=== PATIENT | male | born 1955 | race Caucasian/White ===

== ENCOUNTER → 2017-03-16 | Outpatient (CLI) | payer BC ==
[~2017-03-16] MED LIST: Gadobenate Dimeglumine 529 MG/ML 20 ML SDV IV ONE
--- NOTE | 2017-03-16 16:05 | MR ---
EXAMINATION: MRI lumbar spine HISTORY: Pain COMPARISON: None TECHNIQUE: Multiplanar and multisequence images obtained of the lumbar spine without contrast. FINDINGS: The lumbar spinal alignment appears normal. The vertebral body heights appear maintained. There is mildly heterogeneous bone marrow signal changes. No suspicious pulmonary L5. The distal spi nal cord appears normal and the conus terminates at L1-L2. The SI joints are symmetric. The visualiz ed retroperitoneal structures are normal. T12-L1: Unremarkable. L1-L2: Grossly unremarkable. L2-L3: Moderate diffuse disc bulge with facet and ligamentum flavum hypertrophy resulting in moderat e spinal canal stenosis. There is moderate severe bilateral neural foraminal stenosis. L3-L4: Small to moderate diffuse disc bulge with facet hypertrophy resulting in aipt-bm-[id number] spi nal canal stenosis. Moderate bilateral neural foraminal stenosis. L4-L5: Small to moderate diffuse disc bulge with facet hypertrophy resulting in dblw-[id number]-[id number] spi nal canal stenosis. Moderate to severe bilateral neural foraminal stenosis. L5-S1: Moderate diffuse disc bulge asymmetric to the right resulting in mild spinal canal stenosis. Severe bilateral neural foraminal stenosis. IMPRESSION: 1. Multilevel degenerative changes and disc disease noted within the lumbar spine with individual de tails above.
--- NOTE | 2017-03-17 08:49 | MR ---
EXAMINATION: MRI of the brain with and without contrast. TECHNIQUE: Multiplanar multisequence imaging of the brain without and following 28 cc of Multihance contrast. HISTORY: Cramping. FINDINGS: Cerebral hemispheres and the deep nuclei are without hemorrhage, mass, edema, enhancement or atroph y. Ccnm-xb-vgtdykvq periventricular and subcortical white matter hypodensities are noted. No extraa xial collections or hemorrhage. No abnormal diffusion restriction. Possible tiny lacunar infarct wit hin the right periventricular region extending towards the right frontal cortex. Ventricular system is of normal size and configuration without hydrocephalus. No evidence for globe flattening, small ventricles or partially empty sella to suggest pseudotumor cerebri. Minimal FLAIR signal noted within the goldie. Otherwise the Brainstem and cerebellum are without hemor rhage, mass, edema, gliosis, enhancement or atrophy. Carotid basilar artery flow voids are intact. There is mild fluid within the right mastoid air cells. No internal auditory canal or cerebelloponti ne angle masses or enhancement. Mild mucosal thickening noted within the ethmoid air cells and maxil edmond sinuses. The globes, optic nerves, orbital apices, optic chiasm, optic tracts, and visual corti charlene are unremarkable. Pituitary and sella turcica are unremarkable. No meningeal enhancement. The craniocervical junc tion is unremarkable. No siderosis or evidence of vascular malformation. The calvarium is intact. IMPRESSION: 1. Nonspecific periventricular and subcortical white matter FLAIR intensities. Possibly early small vessel ischemic changes. Additional etiologies not excluded. 2. Mild fluid within the right mastoid air cells, likely an effusion. 3. No acute intracranial finding identified.
--- NOTE | 2017-03-18 09:23 | MR ---
EXAMINATION: MRI of the thoracic spine with and without contrast HISTORY: Cramping COMPARISON: None TECHNIQUE: Multiplanar and multisequence images obtained through the thoracic spine before and follo wing the administration of 28 mL of MultiHance. FINDINGS: Thoracic spinal alignment appears grossly normal. The vertebral body heights appear mainta ined. No suspicious bone marrow signal changes identified. There is increased T2 signal and enhancem ent within the spinal cord at the at the T10-T11 disc space. Otherwise the spinal cord signal appear s normal. The paravertebral soft tissues otherwise appear normal. T1-T2: Small diffuse disc bulge without significant spinal canal stenosis. Minimal bilateral neural foraminal stenosis. T2-T3: Small diffuse disc bulge without significant spinal canal stenosis. Mild left and minimal rig ht neural foraminal stenosis. T3-T4: Moderate right paracentral disc protrusion without significant spinal canal stenosis. Minimal right neural foraminal stenosis. T4-T5: Mild to moderate right paracentral disc protrusion with minimal spinal canal stenosis. Modera te right neural foraminal stenosis. T5-T6: Small midline disc protrusion abutting the spinoglenoid with minimal spinal canal stenosis. N o significant bilateral neural foraminal stenosis. T6-T7: Unremarkable. T7-T8: Small to moderate right paracentral disc protrusion with mild spinal canal stenosis. Mild rig ht neural foraminal stenosis. T8-T9: Small left paracentral disc protrusion without significant spinal canal stenosis. T9-T10: Large right paracentral disc protrusion abutting the spinal cord resulting in slfb-uz-btjtzl te spinal canal stenosis. No significant neural foraminal stenosis. T10-T11: Moderate diffuse disc bulge with facet and ligamentum flavum hypertrophy resulting in sever e spinal canal stenosis. Moderate bilateral neural foraminal stenosis. T11-T12: Mild facet hypertrophy without significant disc bulge. No significant spinal canal or neura l foraminal stenosis. No IMPRESSION: 1. Moderate multilevel degenerative disc disease throughout the thoracic spine most prominent at T9- T10 and T10-T11. 2. There is edema and enhancement within the spinal cord at T10-T11 most likely secondary to lucinda sive myelopathy.
== END ==
LOC: MW.MRI 09:14
PROVIDERS: ATTEND Psychiatry & Neurology Neuromuscular Medicine
DX: R25.2 Cramp and spasm (principal); R29.2 Abnormal reflex; M54.9 Dorsalgia, unspecified; M51.34 Other intervertebral disc degeneration, thoracic region; R60.9 Edema, unspecified; M51.36 Other intervertebral disc degeneration, lumbar region
CPT/HCPCS: 70553; 72148; 72157; A9577

== ENCOUNTER 2018-01-01 08:26 | Emergency (ER) | payer BC ==
[2018-01-01 08:43] VITALS: BP 144/67
--- NOTE | 2018-01-01 08:53 | EDM.PDOC ---
ED HPI GENERAL MEDICAL PROBLEM - General Chief Complaint: Lower Extremity Injury/Pain Stated Complaint: HURT RIGHT KNEE Time Seen by Provider: 01/01/18 08:44 Source of Information: Reports: Patient History Limitations: Reports: No Limitations - History of Present Illness INITIAL COMMENTS - FREE TEXT/NARRATIVE: History of present illness: []Patient fell Wednesday at 6 PM stating he twisted his right knee complaining of pain on the medial part of his knee now. He has been ambulatory and denies any swelling. Patient states his knee has given out twice on him this morning but he did not fall but he caught himself. Review of systems: As per history of present illness and below otherwise all systems reviewed and negative. Past medical history: As per history of present illness and as reviewed below otherwise noncontributory. Surgical history: As per history of present illness and as reviewed below otherwise noncontributory. Social history: No reported history of drug or alcohol abuse. Family history: As per history of present illness and as reviewed below otherwise noncontributory. Physical exam: General: Well developed, well nourished in NAD HEENT: Atraumatic, normocephalic, pupils reactive, negative for conjunctival pallor or scleral icterus, mucous membranes moist, throat clear, neck supple, nontender, trachea midline. Lungs: Clear to auscultation, breath sounds equal bilaterally, chest nontender. Heart: S1S2, regular, negative for clicks, rubs, or JVD. Abdomen: Soft, nondistended, nontender. Negative for masses or hepatosplenomegaly. Negative for costovertebral tenderness. Pelvis: Stable nontender. Genitourinary: Deferred. Rectal: Deferred. Extremities: Right knee Atraumatic without obvious joint effusion. Tender to palpation on the medial joint line, negative for cords or calf pain. Neurovascular unremarkable. Neuro: Awake, alert, oriented. Cranial nerves II through XII unremarkable. Cerebellum unremarkable. Motor and sensory unremarkable throughout. Exam nonfocal. Diagnostics: []X-ray of knee negative Therapeutics: []Declined pain meds knee immobilizer placed Impression: []Internal derangement knee right Plan: []Ice, elevate, follow-up with Dr. Garza as directed Definitive disposition and diagnosis as appropriate pending reevaluation and review of above. right knee Pain Score (Numeric/FACES): 7 Past Medical History Cardiovascular History: Reports: Hypertension - Infectious Disease History Infectious Disease History: Reports: Chicken Pox - Past Surgical History Musculoskeletal Surgical History: Reports: Other (See Below) Other Musculoskeletal Surgeries/Procedures:: back surgery Social & Family History - Family History Family Medical History: Noncontributory - Tobacco Use Smoking Status *Q: Never Smoker - Alcohol Use Days Per Week of Alcohol Use: 7 Number of Drinks Per Day: 3 Total Drinks Per Week: 21 - Recreational Drug Use Recreational Drug Use: No Review of Systems - Review of Systems Review Of Systems: See Below (See history of present illness) ED EXAM, GENERAL - Physical Exam Exam: See Below (See history of present illness) Course - Vital Signs Last Recorded V/S: Last Vital Signs Temp 98.2 F 01/01/18 08:42 Pulse 77 01/01/18 08:42 Resp 18 01/01/18 08:42 BP 144/67 H 01/01/18 08:42 Pulse Ox 93 L 01/01/18 08:42 - Orders/Labs/Meds Orders: Active Orders 24 hr Category Date Time Status Splinting [RC] ASDIRECTED Care 01/01/18 09:16 Active Knee 3V Rt [CR] Stat Exams 01/01/18 08:45 Taken Departure - Departure Time of Disposition: 09:17 Disposition: Home, Self-Care 01 Condition: Good Clinical Impression: Internal derangement of right knee - Discharge Information Referrals: PCP,None [Primary Care Provider] - Tianna Garza MD [Physician] - Forms: ED Department Discharge Additional Instructions: The following information is given to patients seen in the emergency department who are being discharged to home. This information is to outline your options for follow-up care. We provide all patients seen in our emergency department with a follow-up referral. The need for follow-up, as well as the timing and circumstances, are variable depending upon the specifics of your emergency department visit. If you don't have a primary care physician on staff, we will provide you with a referral. We always advise you to contact your personal physician following an emergency department visit to inform them of the circumstance of the visit and for follow-up with them and/or the need for any referrals to a consulting specialist. The emergency department will also refer you to a specialist when appropriate. This referral assures that you have the opportunity for follow-up care with a specialist. All of these measure are taken in an effort to provide you with optimal care, which includes your follow-up. Under all circumstances we always encourage you to contact your private physician who remains a resource for coordinating your care. When calling for follow-up care, please make the office aware that this follow-up is from your recent emergency room visit. If for any reason you are refused follow-up, please contact the [facility] Emergency Department at and asked to speak to the emergency department charge nurse. Raysa Royal for pain follow-up with orthopedics next available appointment as needed [facility] Special[facility] - Orthopedic Clinic Professional Building [address] [place] [address], [address] [place] [address] - My Orders Last 24 Hours: My Active Orders 01/01/18 08:45 Knee 3V Rt [CR] Stat 01/01/18 09:16 Splinting [RC] ASDIRECTED - Assessment/Plan Last 24 Hours: My Active Orders 01/01/18 08:45 Knee 3V Rt [CR] Stat 01/01/18 09:16 Splinting [RC] ASDIRECTED
--- NOTE | 2018-01-03 11:04 | CR ---
EXAM DATE: 01/01/18 PATIENT'S AGE: 62 Patient: AROLDO CASANOVA Facility: [place], [place] Site . Site : [id number] Study: XRay Knee Right [id number]/10/2018 9:07:11 AM Ordering Physician: Bob Huynh Final Report: INDICATION: pain TECHNIQUE: Three views of the right knee are submitted. COMPARISON: None. FINDINGS: The medial and lateral joint spaces are preserved. No evidence for fracture, dislocation or knee effusion. Mild spurring in the patellofemoral joint. 1 cm osteochondral body along the posterior right knee joint. IMPRESSION: No acute bony abnormality. Dictated by Ba Pagan MD @ 01/01/2018 9:14:57 AM Dictated by: Ba Pagan MD @ 01/01/2018 09:15:04 (Electronic Signature) Report Signed by Proxy. FRANCIA
== END 2018-01-01 09:44 | disposition home or self-care (01) ==
LOC: MW.ED 08:26
DX: M23.91 Unspecified internal derangement of right knee (principal); I10 Essential (primary) hypertension; X50.1XXA Overexertion from prolonged static or awkward postures, initial encounter; Z86.19 Personal history of other infectious and parasitic diseases
CPT/HCPCS: 73562-26-RT; 73562-RT; 99283

== ENCOUNTER 2018-07-11 08:08 | Inpatient (IN) | payer BC ==
[~2018-07-11 08:08] MED LIST changes: +Acetaminophen 1,000 MG in Premix Bag 1 BAG IV ONE; +Bupivacaine Liposome 1.3% 20 ML SDV INFILT SCH; +Famotidine 20 MG/2 ML SDV IVPUSH ONE; -Gadobenate Dimeglumine 529 MG/ML 20 ML SDV IV ONE; +Ketorolac 30 MG/ML SDV IVPUSH ONE; +Ropivacaine 49.25 ML, Ketorolac 30 MG, EPINEPHrine 0.5 MG, cloNIDine 80 MCG in Sodium C... INJECT SCH; +Scopolamine 1.5 MG Transdermal Patch TRDERM PRN; +ceFAZolin 2 GM in Premix Bag 1 BAG IV ONE; +oxyCODONE ER 10 MG TAB.ER PO ONE
[2018-07-11] MEDS ORDERED: fentaNYL 100 MCG/2 ML SDV ONE ×2 (08:41→12:52)
[2018-07-11] MEDS ORDERED: Midazolam 1 MG/ML 2 ML SDV ONE (08:41)
[2018-07-11] MEDS ORDERED: Propofol 200 MG/20 ML SDV ONE (08:41)
[2018-07-11] MEDS ORDERED: Lidocaine 2% 5 ML SDV ONE (08:41)
[2018-07-11] MEDS ORDERED: ceFAZolin 1 GM Vial ONE (08:47)
[2018-07-11] MEDS ORDERED: Sodium Chloride 0.9% 20 ML ONE (08:47)
[2018-07-11] MEDS ORDERED: Famotidine 20 MG/2 ML SDV IVPUSH ONE (09:00)
[2018-07-11] MEDS ORDERED: oxyCODONE ER 10 MG TAB.ER PO ONE (09:00)
[2018-07-11] MEDS ORDERED: Ketorolac 30 MG/ML SDV IVPUSH ONE (09:00)
[2018-07-11] MEDS: Lactated Ringers 1,000 ML IV SCH ×2 (09:15→21:05)
--- NOTE | 2018-07-11 09:43 | PCM.PREANE ---
Preanesthetic Assessment - Anesthesia/Transfusion/Family Hx Anesthesia History: Prior Anesthesia Without Reaction Family History of Anesthesia Reaction: No Transfusion History: Prior Transfusion Without Reaction Intubation History: Unknown - Review of Systems General: No Symptoms Pulmonary: No Symptoms Cardiovascular: No Symptoms Gastrointestinal: No Symptoms Neurological: No Symptoms Other: Reports: None - Physical Assessment O2 Sat by Pulse Oximetry: 95 Respiratory Rate: 16 Vital Signs: Last Vital Signs Temp 37.0 C 07/11/18 09:39 Pulse 73 07/11/18 09:39 Resp 16 07/11/18 09:39 BP 124/58 L 07/11/18 09:39 Pulse Ox 95 07/11/18 09:39 Height: 1.78 m Weight: 151.5 kg ASA Class: 3 Mental Status: Alert & Oriented x3 Airway Class: Mallampati = 3 Dentition: Reports: Dentures (upper), Edentulous (lower) Thyro-Mental Finger Breadths: 3 Mouth Opening Finger Breadths: 2 ROM/Head Extension: Full Lungs: Clear to Auscultation, Normal Respiratory Effort Cardiovascular: Regular Rate, Regular Rhythm - Allergies Allergies/Adverse Reactions: Allergies Allergy/AdvReac Type Severity Reaction Status Date / Time No Known Allergies Allergy Verified 07/06/18 15:25 - Blood Blood Available: No - Anesthesia Plan Pre-Op Medication Ordered: None - Acknowledgements Anesthesia Type Planned: Spinal Pt an Appropriate Candidate for the Planned Anesthesia: Yes Alternatives and Risks of Anesthesia Discussed w Pt/Guardian: Yes Pt/Guardian Understands and Agrees with Anesthesia Plan: Yes PreAnesthesia Questionnaire HEENT History: Reports: Other (See Below) Other HEENT History: has upper dentures Cardiovascular History: Reports: Hypertension Musculoskeletal History: Reports: Back Pain, Chronic, Fracture Other Musculoskeletal History: hx of DAYANNA's for back pain, hx of fx ankle, constant twitching in his left leg (jerking) Endocrine/Metabolic History: Reports: Obesity/BMI 30+ Hematologic History: Reports: Blood Transfusion(s) - Infectious Disease History Infectious Disease History: Reports: Chicken Pox - Past Surgical History HEENT Surgical History: Reports: Tonsillectomy, Other (See Below) Other HEENT Surgeries/Procedures: removal of mass from forehead GI Surgical History: Reports: Appendectomy Neurological Surgical History: Reports: Other (See Below) Other Neurological Surgeries/Procedures: removal of bone spur from T10-T11 08/10 Musculoskeletal Surgical History: Reports: Other (See Below) Other Musculoskeletal Surgeries/Procedures:: removal of bone spur from T10-T11 - SUBSTANCE USE Days Per Week of Alcohol Use: 7 Number of Drinks Per Day: 2 Total Drinks Per Week: 14 Recreational Drug Use History: No - HOME MEDS Home Medications: Home Meds Aspirin [Adult Low Dose Aspirin EC] 81 mg PO DAILY 07/06/18 [History] Glucosam/Chond/Hyalu/Cf Borate [Move Free Joint Health Tablet] 1 tab PO DAILY [History] Losartan/Hydrochlorothiazide [Losartan-HCTZ 100-25 MG] 1 tab PO DAILY 07/06/18 [ History] [place]-3/DHA/Epa/Fish Oil [[place]-3 Fish Oil 1,200 MG Sfgl] 1,200 mg PO DAILY 10/11 [History] Acetaminophen [Tylenol] 1,000 mg PO DAILY 07/11/18 [History] - CURRENT (IN HOUSE) MEDS Current Meds: Current Medications Bupivacaine Liposome (Exparel) 20 ml INFILT ONETIME FAITH Lactated Ringer's (Ringers, Lactated) 1,000 mls @ 125 mls/hr IV ASDIRECTED FAITH Last Admin: 07/11/18 09:15 Dose: 125 mls/hr Ropivacaine 49.25 ml/Ketorolac Tromethamine 30 mg/Epinephrine HCl 0.5 mg/ Clonidine HCl 80 mcg/ Sodium Chloride 70 mls @ 50 mls/min INJECT ASDIRECTED FAITH Scopolamine (Transderm-Scop) 1.5 mg TRDERM Q72H PRN PRN Reason: Nausea Last Admin: 07/11/18 09:17 Dose: 1.5 mg Discontinued Medications Cefazolin Sodium (Ancef) Confirm Administered Dose 2 gm .ROUTE .STK-MED ONE Stop: 07/11/18 08:48 Famotidine (Pepcid) 40 mg IVPUSH ONETIME ONE Stop: 07/11/18 06:37 Famotidine (Pepcid) 40 mg IVPUSH ONETIME ONE Stop: 07/11/18 09:01 Last Admin: 07/11/18 09:16 Dose: 40 mg Fentanyl (Sublimaze) Confirm Administered Dose 100 mcg .ROUTE .STK-MED ONE Stop: 07/11/18 08:42 Cefazolin Sodium/Dextrose 2 gm (/ Premix) 50 mls @ 100 mls/hr IV ONETIME ONE Stop: 07/11/18 07:00 Acetaminophen 1,000 mg/ Premix 100 mls @ 400 mls/hr IV NOW ONE Stop: 07/11/18 06:49 Last Admin: 07/11/18 09:16 Dose: 400 mls/hr Sodium Chloride (Normal Saline) Confirm Administered Dose 20 mls @ as directed .ROUTE .STK-MED ONE Stop: 07/11/18 08:48 Ketorolac Tromethamine (Toradol) 30 mg IVPUSH ONETIME ONE Stop: 07/11/18 06:34 Last Admin: 07/11/18 09:15 Dose: 30 mg Ketorolac Tromethamine (Toradol) 30 mg IVPUSH ONETIME ONE Stop: 07/11/18 09:01 Lidocaine (Xylocaine-Mpf 2%) Confirm Administered Dose 5 ml .ROUTE .STK-MED ONE Stop: 07/11/18 08:42 Midazolam HCl (Versed 1 Mg/Ml) Confirm Administered Dose 2 mg .ROUTE .STK-MED ONE Stop: 07/11/18 08:42 Oxycodone HCl (Oxycontin) 10 mg PO ONETIME ONE Stop: 07/11/18 06:33 Oxycodone HCl (Oxycontin) 10 mg PO NOW ONE Stop: 07/11/18 09:01 Last Admin: 07/11/18 09:14 Dose: 10 mg Propofol (Diprivan 20 Ml) Confirm Administered Dose 400 mg .ROUTE .STK-MED ONE Stop: 07/11/18 08:42 Tranexamic Acid (Cyklokapron) Confirm Administered Dose 4,000 mg .ROUTE .STK- MED ONE Stop: 07/11/18 07:35
[2018-07-11] MEDS ORDERED: ceFAZolin/Dextrose,Iso-Osmotic 2 GM/50 ML Duplex Bag IV ONE (10:24)
[2018-07-11] MEDS ORDERED: Glycopyrrolate 0.2 MG/ML SDV ONE ×2 (11:45→11:51)
[2018-07-11] MEDS ORDERED: Ondansetron 4 MG/2 ML SDV ONE (11:50)
[2018-07-11] MEDS ORDERED: Phenylephrine/Normal Saline 100 MCG/ML 10 ML Syringe ONE (11:57)
[2018-07-11] MEDS ORDERED: Ondansetron 4 MG/2 ML SDV IV PRN (13:10)
[2018-07-11] MEDS ORDERED: diphenhydrAMINE 25 MG Cap PO PRN (13:10)
[2018-07-11] MEDS ORDERED: oxyCODONE 5 MG Tab PO PRN (13:11)
[2018-07-11] MEDS ORDERED: Bisacodyl 10 MG Supp RECTAL PRN (13:11)
[2018-07-11] MEDS ORDERED: Aluminum Hydroxide/Magnesium Hydroxide/Simethicone Susp 30 ML Cup PO PRN (13:11)
[2018-07-11] MEDS ORDERED: Morphine PF 30 MG/30 ML PCA Vial IV SCH (13:15)
[2018-07-11] MEDS ORDERED: Ketorolac 30 MG/ML SDV IVPUSH SCH (13:15)
--- NOTE | 2018-07-11 13:23 | PCM.OPNOTE ---
- General Post-Op/Procedure Note Date of Surgery/Procedure: 07/11/18 Operative Procedure(s): R TKA Post-Op Diagnosis: DJD R knee Anesthesia Technique: General LMA, Spinal Primary Surgeon: Tianna Garza Release Specialist: Dulce Chahal in mLs: 50 Condition: Good Free Text/Narrative:: tt=51 min #
--- NOTE | 2018-07-11 13:58 | PCM.POSTAN ---
POST ANESTHESIA ASSESSMENT - MENTAL STATUS Mental Status: Alert, Oriented - RESPIRATORY Respiratory Status: Respiratory Rate WNL, Airway Patent, O2 Saturation Stable - CARDIOVASCULAR CV Status: Pulse Rate WNL, Blood Pressure Stable - GASTROINTESTINAL GI Status: No Symptoms - PAIN Pain Score: 2 - POST OP HYDRATION Hydration Status: Adequate & Stable - OBSERVATIONS Free Text/Narrative:: no anesthesia problems
[2018-07-11] MEDS: Acetaminophen 1,000 MG in Premix Bag 1 BAG IV SCH ×2 (16:00→21:12)
[2018-07-11] MEDS: Ketorolac 30 MG/ML SDV IVPUSH SCH ×2 (16:07→21:07)
--- NOTE | 2018-07-11 16:28 | CR ---
EXAMINATION: Right knee HISTORY: TKA COMPARISON: 01/07/2018 TECHNIQUE: 2 views FINDINGS/IMPRESSION: Right total knee hardware is demonstrated in good position and alignment. Postop erative soft tissue changes are noted.
[2018-07-11] MEDS ORDERED: Nitroglycerin 2% Oint 1 GM UD Packet TOP PRN (18:26)
--- NOTE | 2018-07-11 18:34 | PCM.CONS ---
H&P History of Present Illness - General Date of Service: 07/11/18 Admit Problem/Dx: Admission Diagnosis/Problem Admission Diagnosis/Problem Replacement of total knee joint Source of Information: Patient, Family, Provider, RN - History of Present Illness Initial Comments - Free Text/Narative: I was asked to consult on this pleasant gentleman who underwent a right total knee replacement earlier today. Nursing staff has noted that he has a drop in his oxygen saturation with sleeping. He also has a history of HTN. He has not taken his po losartan/ HCTZ today. Right Knee Pain Score (Numeric/FACES): 2 - Related Data Allergies/Adverse Reactions: Allergies Allergy/AdvReac Type Severity Reaction Status Date / Time No Known Allergies Allergy Verified 07/06/18 15:25 Home Medications: Home Meds Aspirin [Adult Low Dose Aspirin EC] 81 mg PO DAILY 07/06/18 [History] Glucosam/Chond/Hyalu/Cf Borate [Move Free Joint Health Tablet] 1 tab PO DAILY [History] Losartan/Hydrochlorothiazide [Losartan-HCTZ 100-25 MG] 1 tab PO DAILY 07/06/18 [ History] [place]-3/DHA/Epa/Fish Oil [[place]-3 Fish Oil 1,200 MG Sfgl] 1,200 mg PO DAILY 10/11 [History] Acetaminophen [Tylenol] 1,000 mg PO DAILY 07/11/18 [History] Past Medical History HEENT History: Reports: Other (See Below) Other HEENT History: has upper dentures Cardiovascular History: Reports: Hypertension Respiratory History: Denies: COPD Gastrointestinal History: Denies: Inflammatory Bowel Disease Genitourinary History: Denies: Chronic Renal Insuffiency Musculoskeletal History: Reports: Back Pain, Chronic, Fracture Other Musculoskeletal History: hx of DAYANNA's for back pain, hx of fx ankle, constant twitching in his left leg (jerking) Endocrine/Metabolic History: Reports: Obesity/BMI 30+. Denies: Diabetes, Type II Hematologic History: Reports: Blood Transfusion(s). Denies: Anticoagulation Therapy Immunologic History: Denies: AIDS, HIV - Infectious Disease History Infectious Disease History: Reports: Chicken Pox - Past Surgical History HEENT Surgical History: Reports: Tonsillectomy, Other (See Below) Other HEENT Surgeries/Procedures: removal of mass from forehead GI Surgical History: Reports: Appendectomy Neurological Surgical History: Reports: Other (See Below) Other Neurological Surgeries/Procedures: removal of bone spur from T10-T11 08/10 Musculoskeletal Surgical History: Reports: Other (See Below) Other Musculoskeletal Surgeries/Procedures:: removal of bone spur from T10-T11 Social & Family History - Family History Family Medical History: Noncontributory - Tobacco Use Other Tobacco Use Within Last Twelve Months: He reports that he is a non smoker - Alcohol Use Days Per Week of Alcohol Use: 7 Number of Drinks Per Day: 2 Total Drinks Per Week: 14 - Recreational Drug Use Recreational Drug Use: No Drug Use in Last 12 Months: No H&P Review of Systems - Review of Systems: Review Of Systems: See Below General: Denies: Fever, Chills Pulmonary: Denies: Shortness of Breath, Wheezing, Cough, Sputum, Hemoptysis Cardiovascular: Denies: Chest Pain, Palpitations Gastrointestinal: Denies: Abdominal Pain, Difficulty Swallowing, Hematemesis Genitourinary: Reports: Other (kearney in place post operatively). Denies: Hematuria Skin: Denies: Cyanosis Psychiatric: Denies: Confusion Neurological: Denies: Seizure Review of Systems Comment:: no nausea he has eaten without problems post operatively he reports acceptable pain control. Exam - Exam Exam: See Below - Vital Signs Vital Signs: Last Vital Signs Temp 96.6 F 07/11/18 16:50 Pulse 92 07/11/18 16:50 Resp 18 07/11/18 16:50 BP 144/87 H 07/11/18 16:50 Pulse Ox 96 07/11/18 16:50 Weight: 151.5 kg - Exam Quality Assessment: Supplemental Oxygen General: Alert, Oriented HEENT: Conjunctiva Clear, Mucosa Moist & [place] Neck: Supple, Trachea Midline Lungs: Clear to Auscultation, Normal Respiratory Effort Cardiovascular: Regular Rate, Regular Rhythm GI/Abdominal Exam: Soft. No: Non-Tender (Male) Exam: Deferred Rectal (Males) Exam: Deferred Skin: Warm, Dry Neurological: Cranial Nerves Intact, Normal Speech Neuro Extensive - Mental Status: Alert, Oriented x3, Normal Mood/Affect Psychiatric: No: Agitated, Hallucinations - Patient Data Lab Results Last 24 hrs: Laboratory Results - last 24 hr 07/11/18 Range/Units 09:25 Blood Type O POSITIVE Antibody Screen NEGATIVE Consult PN Assessment/Plan Procedures: Procedures EMERGENCY DEPT VISIT (01/01/18) GLYCOSYLATED HEMOGLOBIN TEST (01/28/17) HOT OR COLD PACKS THERAPY (06/10/18) MRI BRAIN STEM W/O & W/DYE (03/16/17) MRI CHEST SPINE W/O & W/DYE (03/16/17) MRI JNT OF LWR EXTRE W/O DYE (04/21/18) MRI LUMBAR SPINE W/O DYE (03/16/17) MRI NECK SPINE W/O & W/DYE (01/28/17) ORGANIC ACID SINGLE QUANT (01/28/17) PROTEIN E-PHORESIS SERUM (01/28/17) PT EVAL LOW COMPLEX 20 MIN (05/20/18) THERAPEUTIC EXERCISES (06/10/18) VITAMIN B-12 (01/28/17) X-RAY BEND ONLY L-S SPINE (04/02/17) X-RAY EXAM KNEE 4 OR MORE (11/24/16) X-RAY EXAM OF KNEE 1 OR 2 (01/07/18) X-RAY EXAM OF KNEE 3 (01/01/18) (1) Status post total knee replacement SNOMED Code(s): 6306287875383, 560453873, 0683429655182 Code(s): Z96.659 - PRESENCE OF UNSPECIFIED ARTIFICIAL KNEE JOINT Current Visit: Yes (2) Hypertension SNOMED Code(s): 43217524 Code(s): I10 - ESSENTIAL (PRIMARY) HYPERTENSION Current Visit: Yes (3) Internal derangement of right knee SNOMED Code(s): 85870813108931648 Code(s): M23.91 - UNSPECIFIED INTERNAL DERANGEMENT OF RIGHT KNEE Current Visit: No Problem List Initiated/Reviewed/Updated: Yes My Orders Last 24 Hours: My Active Orders 07/11/18 18:25 CBC WITH AUTO DIFF [HEME] Stat COMPREHENSIVE METABOLIC PN,CMP [CHEM] Stat 07/11/18 18:26 Nitroglycerin [Nitro-Bid 2%] 1 gm TOP Q6H PRN 07/11/18 18:27 Communication Order [RC] STAT 07/11/18 18:30 Hydrochlorothiazide/Losartan [Hyzaar 50-12.5 MG] 1 tab PO BID Plan: 07/11/2018: I ordered baseline laboratory restart his losartan/HCTZ with bid dosing cover with nitroglycerin topical for now. monitor continuous oxygen saturation with oxygen support as needed it is possible that he might need follow up outpatient testing sleep lab as staff have expressed concern regarding obstructive sleep apnea. His body habitus would make him predisposed for this condition but will evaluate further with oxygen monitoring whilst in the hospital. DVT prophylaxis as per Dr Mary Garza's recommendations. Liam Peters MD
[2018-07-11] MEDS: Hydrochlorothiazide/Losartan 12.5-50 mg Tab PO SCH (18:42)
[2018-07-11] MEDS: ceFAZolin 2 GM in Premix Bag 1 BAG IV SCH (18:42)
[2018-07-11 19:04] LABS: CHLORIDE,CL 103 mmol/L (98-107); SODIUM,NA 138 mmol/L (136-148)
[2018-07-11] MEDS: Docusate Sodium 100 MG Cap PO SCH (21:15)
[2018-07-11] MEDS: oxyCODONE ER 10 MG TAB.ER PO SCH (21:15)
--- NOTE | 2018-07-11 21:37 | PCM48HPAN ---
Post Anesthesia Note - EVALUATION WITHIN 48HRS OF ANESTHETIC Vital Signs in Normal Range: Yes Patient Participated in Evaluation: Yes Respiratory Function Stable: Yes Airway Patent: Yes Cardiovascular Function Stable: Yes Hydration Status Stable: Yes Pain Control Satisfactory: Yes Nausea and Vomiting Control Satisfactory: Yes Mental Status Recovered: Yes Resp Rate: 20 - COMMENTS/OBSERVATIONS Free Text/Narrative:: Intra-Op signs of JOAQUIN were noted and hence the conversion from MAC to GA with LMA to maintain patent airway. The patient has had a couple of witnessed desaturations while on the floor and continuous SpO2 monitoring was ordered by Dr Peters. Otherwise VSS, patient is doing well.
[2018-07-12] MEDS: Acetaminophen 1,000 MG in Premix Bag 1 BAG IV SCH (02:32)
[2018-07-12] MEDS: Ketorolac 30 MG/ML SDV IVPUSH SCH (02:35)
[2018-07-12] MEDS: ceFAZolin 2 GM in Premix Bag 1 BAG IV SCH (02:54)
[2018-07-12] MEDS: Lactated Ringers 1,000 ML IV SCH (06:02)
--- NOTE | 2018-07-12 08:07 | OR ---
SURGEON: Tianna Garza MD DATE OF PROCEDURE: 07/11/2018 PREOPERATIVE DIAGNOSIS: Degenerative joint disease, right knee, tricompartmental. POSTOPERATIVE DIAGNOSIS: Degenerative joint disease, right knee, tricompartmental. PROCEDURE PERFORMED: Right total knee arthroplasty using patient specific instrumentation. FITTER HAND: Dulce Chahal PA-C ANESTHESIA: Spinal and general. ESTIMATED BLOOD LOSS: 50 mL. TOURNIQUET TIME: 51 minutes. COMPLICATIONS: None. DVT PROPHYLAXIS: PAS boot and ARBEN hose to the nonoperative leg. IMPLANTS USED: Anya Persona femoral component size 12 (LPS), tibial component size H, 12 mm all-polyethylene articular surface, and 38 mm all-polyethylene patella. INTRAOPERATIVE FINDINGS: Showed tricompartmental degenerative changes with osteophyte formation. No significant synovitis was noted. BRIEF HISTORY: Vadim is a 62-year-old male who has had complaint of progressive bilateral knee pain, right greater than left. He had failed conservative treatment. Due to his lack of response to conservative treatment, I did recommend surgical intervention. The risks and goals of procedure were discussed with the patient and were documented preoperatively. He agreed to proceed. DESCRIPTION OF PROCEDURE: The patient was properly identified and brought to the operating room. The patient was then transferred from the operating room cart and placed on the operating table in a supine position. Anesthesia was administered by the anesthesia staff. After adequate anesthesia was obtained, a well-padded tourniquet was applied to the surgical lower extremity. Mckoy catheter was placed. The lower extremity was then prepped in standard fashion using ChloraPrep solution. It was then sterilely draped. A time-out was performed to ensure correct site and procedure. Preoperative antibiotics were given along with one gram of tranexamic acid IV. The surgical site had been marked preoperatively. An Esmarch was used to exsanguinate the right lower extremity and the tourniquet was inflated. An incision was made over the anterior aspect of the knee. The subcutaneous tissues were dissected down to the level of the fascia. A medial parapatellar approach to the knee was made. A portion of the infrapatellar fat pad was then excised. The distal femur was then exposed. The femoral patient-specific cutting guide was then placed. Pins were also placed. The distal femoral cutting block was placed and the distal femoral cut was made. Instrumentation was then removed. Both Whitesides' line and the epicondylar axis were then marked with electrocautery. The 4-in-1 cutting block was placed. This was placed in a slightly externally rotated position, which corresponded well with the previously drawn lines. The cutting guide was then pinned into position. An Kadeem wing guide was used to check the depth of resection of our anterior condylar cut and it was felt that no notching would occur. The anterior condylar cut was then made followed by the posterior condylar cut. Both the posterior chamfer and anterior chamfer cuts were then made. The cutting block was then removed along with the excess bony remnants. We then turned our attention to the tibia. The anterior cruciate ligament and posterior cruciate ligament were released and a posterior cruciate ligament retractor was placed to allow the tibia to be pulled anteriorly. The tibial patient-specific guide was then placed on the proximal tibia. This fit anatomically. The pins were then placed. The proximal tibia cutting guide was then placed and screwed into position. The proximal tibial resection was then made with care being taken to protect the patellar tendon. The bony resection was then removed. The remainder of the medial and lateral meniscus were then excised. Care was taken to protect the popliteus tendon. The tibia was then sized to the appropriate size. The distal femur was then elevated. The posterior capsule was stripped off the distal femur both medially and laterally. The posterior capsule along with the medial and lateral gutters were then injected with a standard mixture consisting of clonidine, epinephrine, Toradol, and Ropivacaine, unless any allergies were found preoperatively. The femoral component was then placed onto the distal femur in a slightly lateral position. This fit the femur well. A box cut was then made without difficulty. This was then removed. The tibial trial along with the polyethylene liner was then placed. The knee came easily into full extension and was stable to varus and valgus stressing both in full extension and flexion. Any additional releases were performed at this time. We then returned our attention to the patella. The patella was everted and towel clamps were used to hold the patella in position. It was resected to a 15 millimeter thickness. It was then sized to the appropriate size. It was prepared in the usual fashion after placing the predetermined size clamps. This was placed in a slightly superior and medial position. The clamp was then removed. The patellar trial button was placed. The knee was taken through a range of motion using the no-touch technique. The patella tracked centrally. A drop miroslava was then placed to check alignment. All instruments were then removed from the knee. The tibial sizer was then placed on the tibia. The tibia was prepared in the usual fashion using the reamer and broach. This was then removed. All bony surfaces were copiously irrigated with Pulsavac solution. They were then suctioned dry. Cement was prepared on the back table in the usual manner. Once it was prepared, the bone ends were again suctioned dry. The tibia was cemented into place first. This was malleted into position. Excess cement was then cleared. The femur was then placed in a similar manner. We placed the polyethylene trial into place and the knee was brought into full extension. An axial load was placed while keeping the knee in full extension. The patella button was also cemented into position and the clamp was used to hold this in place as the cement was allowed to cure. The wound was again copiously irrigated with saline solution using a Pulsavac leather cleaner. Following this 1 g of tranexamic acid was applied to the wound topically. After we had adequate curing of the cement, the knee was again taken through a range of motion. The size of the polyethylene was then determined. The polyethylene trial was then removed. The tibial tray was suctioned to make sure there was no remaining soft tissue or cement. Excess cement was cleared from around the edges of the prosthesis as well. The tourniquet was then deflated. We were able to observe for any excess bleeding and none was noted. Electrocautery was used to maintain hemostasis. An additional gram of tranexamic acid was given IV. The retractors were again placed and the predetermined polyethylene was then placed. This was locked into position without difficulty. The knee was again taken through a range of motion with no change from the prior exam. The fascial layer was closed with Number One Vicryl. The subcutaneous tissues were closed with 2-0 Vicryl. The skin was closed with josh. Xeroform gauze was placed over the wound and a bulky dressing was applied. The patient was then awakened from anesthesia and transferred back to the operating room cart. They were brought to the recovery room in stable condition. All needle and sponge counts were correct. HILARY / VITA /[id number]
[2018-07-12] MEDS: oxyCODONE ER 10 MG TAB.ER PO SCH ×2 (08:37→20:38)
[2018-07-12] MEDS: Aspirin 325 MG Tab PO SCH ×2 (08:37→20:37)
[2018-07-12] MEDS: Docusate Sodium 100 MG Cap PO SCH ×2 (08:37→20:37)
[2018-07-12] MEDS: Hydrochlorothiazide/Losartan 12.5-50 mg Tab PO SCH ×2 (08:37→20:37)
[2018-07-12] MEDS: Famotidine 20 MG Tab PO SCH (08:37)
[2018-07-12] MEDS: Celecoxib 100 MG Cap PO SCH ×2 (08:38→20:37)
--- NOTE | 2018-07-12 08:49 | PCM.SURGPN ---
<RomeroDulce seals R - Last Filed: 07/12/18 08:42> - General Info Date of Service: 07/12/18 Date of Surgery/Procedure: 07/11/18 POD#: 1 Functional Status: Reports: Pain Controlled, Tolerating Diet, Ambulating - Review of Systems General: Reports: No Symptoms. Denies: Fever Pulmonary: Reports: No Symptoms. Denies: Shortness of Breath Cardiovascular: Reports: No Symptoms. Denies: Chest Pain Gastrointestinal: Denies: Nausea, Vomiting Musculoskeletal: Reports: Leg Pain Systems Review Comment:: pt up to chair for breakfast tolerating PO intake well pain controlled through the night - last oxycodone dose ~1600 yesterday no specific concerns today - Patient Data Vitals - Most Recent: Last Vital Signs Temp 98.2 F 07/12/18 05:05 Pulse 77 07/12/18 05:05 Resp 20 07/12/18 05:05 BP 120/62 07/12/18 05:05 Pulse Ox 95 07/12/18 05:05 Weight - Most Recent: 151.5 kg I&O - Last 24 Hours: Intake & Output 07/11/18 07/12/18 07/12/18 22:59 06:59 14:59 Intake Total 250 3077 Output Total 0 850 Balance 250 2227 Lab Results Last 24 Hrs: Laboratory Results - last 24 hr 07/11/18 07/11/18 07/11/18 Range/Units 09:25 18:34 18:34 WBC 15.23 H (4.0-11.0) K/uL RBC 4.32 L (4.50-5.90) M/uL Hgb 13.1 (13.0-17.0) g/dL Hct 39.4 (38.0-50.0) % MCV 91.2 (80.0-98.0) fL MCH 30.3 (27.0-32.0) pg MCHC 33.2 (31.0-37.0) g/dL RDW Std Deviation 46.5 (28.0-62.0) fl RDW Coeff of Qasim 14 (11.0-15.0) % Plt Count 219 (150-400) K/uL MPV 9.80 (7.40-12.00) fL Neut % (Auto) 81.2 H (48.0-80.0) % Lymph % (Auto) 10.6 L (16.0-40.0) % Menard % (Auto) 7.2 (0.0-15.0) % Eos % (Auto) 0.7 (0.0-7.0) % Baso % (Auto) 0.3 (0.0-1.5) % Neut # (Auto) 12.4 H (1.4-5.7) K/uL Lymph # (Auto) 1.6 (0.6-2.4) K/uL Menard # (Auto) 1.1 H (0.0-0.8) K/uL Eos # (Auto) 0.1 (0.0-0.7) K/uL Baso # (Auto) 0.1 (0.0-0.1) K/uL Nucleated RBC % 0.0 /100WBC Nucleated RBCs # 0 K/uL Sodium 138 (136-148) mmol/L Potassium 4.5 (3.5-5.1) mmol/L Chloride 103 (98-107) mmol/L Carbon Dioxide 28.9 (21.0-32.0) mmol/L BUN 21 H (7.0-18.0) mg/dL Creatinine 1.2 (0.8-1.3) mg/dL Est Cr Clr Drug Dosing 67.59 mL/min Estimated GFR (MDRD) > 60.0 ml/min Glucose 121 H (74-106) mg/dL Calcium 8.4 L (8.5-10.1) mg/dL Total Bilirubin 0.4 (0.2-1.0) mg/dL AST 18 (15-37) IU/L ALT 44 (14-63) IU/L Alkaline Phosphatase 45 L (46-116) U/L Total Protein 6.2 L (6.4-8.2) g/dL Albumin 3.2 L (3.4-5.0) g/dL Globulin 3.0 (2.0-3.5) g/dL Albumin/Globulin Ratio 1.1 L (1.3-2.8) Blood Type O POSITIVE Antibody Screen NEGATIVE Med Orders - Current: Current Medications Al Hydroxide/Mg Hydroxide (Mag-Al Plus) 30 ml PO Q4H PRN PRN Reason: indigestion Aspirin (Aspirin) 325 mg PO BID [facility] Last Admin: 07/12/18 08:37 Dose: 325 mg Bisacodyl (Dulcolax) 10 mg RECTAL DAILY PRN PRN Reason: Constipation Celecoxib (Celebrex) 200 mg PO BID [facility] Last Admin: 07/12/18 08:38 Dose: 200 mg Diphenhydramine HCl (Benadryl) 25 - 50 mg PO Q6H PRN PRN Reason: Itching Docusate Sodium (Colace) 100 mg PO BID [facility] Last Admin: 07/12/18 08:37 Dose: 100 mg Famotidine (Pepcid) 40 mg PO DAILY [facility] Last Admin: 07/12/18 08:37 Dose: 40 mg HCTZ/Losartan Potassium (Hyzaar 50-12.5 Mg) 1 tab PO BID [facility] Last Admin: 07/12/18 08:37 Dose: 1 tab Lactated Ringer's (Ringers, Lactated) 1,000 mls @ 125 mls/hr IV ASDIRECTED [facility] Last Admin: 07/12/18 06:02 Dose: 125 mls/hr Morphine Sulfate (Morphine Sulfate) 1 - 3 mg IV Q3H PRN PRN Reason: Pain Nitroglycerin (Nitro-Bid 2%) 1 gm TOP Q6H PRN PRN Reason: Chest Pain Ondansetron HCl (Zofran) 4 mg IV Q6HR PRN PRN Reason: NAUSEA/VOMITING Oxycodone HCl (Oxycontin) 10 mg PO Q12HR [facility] Last Admin: 07/12/18 08:37 Dose: 10 mg Oxycodone/Acetaminophen (Percocet 325-5 Mg) 1 - 2 tab PO Q4H PRN PRN Reason: Pain Scopolamine (Transderm-Scop) 1.5 mg TRDERM Q72H PRN PRN Reason: Nausea Last Admin: 07/11/18 09:17 Dose: 1.5 mg Discontinued Medications Bupivacaine Liposome (Exparel) 20 ml INFILT ONETIME [facility] Cefazolin Sodium (Ancef) Confirm Administered Dose 2 gm .ROUTE .STK-MED ONE Stop: 07/11/18 08:48 Cefazolin Sodium/Dextrose (Ancef) Confirm Administered Dose 2 gm IV .STK-MED ONE Stop: 07/11/18 10:25 Famotidine (Pepcid) 40 mg IVPUSH ONETIME ONE Stop: 07/11/18 06:37 Last Admin: 07/11/18 14:33 Dose: Not Given Famotidine (Pepcid) 40 mg IVPUSH ONETIME ONE Stop: 07/11/18 09:01 Last Admin: 07/11/18 09:16 Dose: 40 mg Fentanyl (Sublimaze) Confirm Administered Dose 100 mcg .ROUTE .STK-MED ONE Stop: 07/11/18 08:42 Fentanyl (Sublimaze) Confirm Administered Dose 100 mcg .ROUTE .STK-MED ONE Stop: 07/11/18 12:53 Glycopyrrolate (Robinul) Confirm Administered Dose 0.2 mg .ROUTE .STK-MED ONE Stop: 07/11/18 11:46 Glycopyrrolate (Robinul) Confirm Administered Dose 0.2 mg .ROUTE .STK-MED ONE Stop: 07/11/18 11:52 HCTZ/Losartan Potassium (Hyzaar 50-12.5 Mg) 2 tab PO DAILY [facility] Cefazolin Sodium/Dextrose 2 gm (/ Premix) 50 mls @ 100 mls/hr IV ONETIME ONE Stop: 07/11/18 07:00 Last Admin: 07/11/18 14:32 Dose: Not Given Acetaminophen 1,000 mg/ Premix 100 mls @ 400 mls/hr IV NOW ONE Stop: 07/11/18 06:49 Last Admin: 07/11/18 09:16 Dose: 400 mls/hr Ropivacaine 49.25 ml/Ketorolac Tromethamine 30 mg/Epinephrine HCl 0.5 mg/ Clonidine HCl 80 mcg/ Sodium Chloride 70 mls @ 50 mls/min INJECT ASDIRECTED [facility] Sodium Chloride (Normal Saline) Confirm Administered Dose 20 mls @ as directed .ROUTE .STK-MED ONE Stop: 07/11/18 08:48 Acetaminophen 1,000 mg/ Premix 100 mls @ 400 mls/hr IV Q6H [facility] Stop: 07/12/18 03:14 Last Admin: 07/12/18 02:32 Dose: 400 mls/hr Cefazolin Sodium/Dextrose 2 gm (/ Premix) 50 mls @ 100 mls/hr IV Q8H [facility] Stop: 07/12/18 03:29 Last Admin: 07/12/18 02:54 Dose: 100 mls/hr Ketorolac Tromethamine (Toradol) 30 mg IVPUSH ONETIME ONE Stop: 07/11/18 06:34 Last Admin: 07/11/18 09:15 Dose: 30 mg Ketorolac Tromethamine (Toradol) 30 mg IVPUSH ONETIME ONE Stop: 07/11/18 09:01 Last Admin: 07/11/18 14:33 Dose: Not Given Ketorolac Tromethamine (Toradol) 30 mg IVPUSH Q6H [facility] Stop: 07/12/18 05:00 Last Admin: 07/11/18 15:23 Dose: Not Given Ketorolac Tromethamine (Toradol) 30 mg IVPUSH Q6H [facility] Stop: 07/12/18 03:31 Last Admin: 07/12/18 02:35 Dose: 30 mg Lidocaine (Xylocaine-Mpf 2%) Confirm Administered Dose 5 ml .ROUTE .STK-MED ONE Stop: 07/11/18 08:42 Midazolam HCl (Versed 1 Mg/Ml) Confirm Administered Dose 2 mg .ROUTE .STK-MED ONE Stop: 07/11/18 08:42 Morphine Sulfate (Morphine Salesperson Terrazzo Tiles 30 Mg In 30 Ml) 30 mg IV ASDIRECTED [facility]; Protocol Stop: 07/12/18 08:00 Last Admin: 07/11/18 13:45 Dose: 30 mg Ondansetron HCl (Zofran) Confirm Administered Dose 4 mg .ROUTE .STK-MED ONE Stop: 07/11/18 11:51 Oxycodone HCl (Oxycontin) 10 mg PO ONETIME ONE Stop: 07/11/18 06:33 Last Admin: 07/11/18 14:33 Dose: Not Given Oxycodone HCl (Oxycontin) 10 mg PO NOW ONE Stop: 07/11/18 09:01 Last Admin: 07/11/18 09:14 Dose: 10 mg Oxycodone HCl (Oxycodone) 5 - 10 mg PO Q4H PRN PRN Reason: Pain Stop: 07/12/18 08:00 Last Admin: 07/11/18 16:48 Dose: 10 mg Phenylephrine HCl (Phenylephrine In Ns 100 Mcg/Ml) Confirm Administered Dose 1 mg .ROUTE .STK-MED ONE Stop: 07/11/18 11:58 Propofol (Diprivan 20 Ml) Confirm Administered Dose 400 mg .ROUTE .STK-MED ONE Stop: 07/11/18 08:42 Tranexamic Acid (Cyklokapron) Confirm Administered Dose 4,000 mg .ROUTE .STK- MED ONE Stop: 07/11/18 07:35 - Exam Wound/Incisions: Healing Well. No: Drainage, Erythema General: Alert, Oriented Cardiovascular: Regular Rate, Regular Rhythm Extremities: Other (exam RLE - at/ehl/gastroc 5/5, dp 2+, sensation intact distally) Physical Findings Comment:: vss, afeb hgb 13.1 WBC 15.3 uo 1300+mL - Problem List Review Problem List Initiated/Reviewed/Updated: Yes - My Orders Last 24 Hours: Active Orders 24 hr Category Date Time Status Patient Status [ADT] Routine ADT 07/11/18 16:06 Active Activity as Tolerated [RC] .Routine Care 07/11/18 13:10 Active Communication Order [RC] STAT Care 07/11/18 18:27 Active Dressing Change [Wound Care] [RC] ASDIRECTED Care 07/11/18 13:10 Active Insert Urinary Catheter [OM.PC] Routine Care 07/11/18 07:49 Ordered Neurovascular Check [RC] Q2HR Care 07/11/18 13:10 Active Notify Provider Consults [RC] ASDIRECTED Care 07/11/18 13:13 Active Notify Provider Vital Signs [RC] ASDIRECTED Care 07/11/18 13:10 Active RT Incentive Spirometry [RC] ASDIRECTED Care 07/11/18 13:10 Active Urinary Catheter Assessment [RC] Q4H Care 07/11/18 07:50 Active Vital Signs [RC] Q4H Care 07/11/18 13:10 Active Consult to Physician [CONS] Routine Cons 07/11/18 13:09 Active PT Evaluation and Treatment [CONS] Routine Cons 07/11/18 13:10 Active Acetaminophen/oxyCODONE [Percocet 325-5 MG] Med 07/12/18 08:00 Active 1 - 2 tab PO Q4H PRN Alum Hydrox/Mag Hydrox/Simeth [Mag-Al Plus] Med 07/11/18 13:11 Active 30 ml PO Q4H PRN Aspirin Med 07/12/18 09:00 Active 325 mg PO BID Bisacodyl [Dulcolax] Med 07/11/18 13:11 Active 10 mg RECTAL DAILY PRN Celecoxib [CeleBREX] Med 07/12/18 09:00 Active 200 mg PO BID Docusate Sodium [Colace] Med 07/11/18 21:00 Active 100 mg PO BID Famotidine [Pepcid] Med 07/12/18 09:00 Active 40 mg PO DAILY Hydrochlorothiazide/Losartan [Hyzaar 50-12.5 MG] Med 07/11/18 18:30 Active 1 tab PO BID Morphine Sulfate Med 07/12/18 08:00 Active 1 - 3 mg IV Q3H PRN Nitroglycerin [Nitro-Bid 2%] Med 07/11/18 18:26 Active 1 gm TOP Q6H PRN Ondansetron [Zofran] Med 07/11/18 13:10 Active 4 mg IV Q6HR PRN diphenhydrAMINE [Benadryl] Med 07/11/18 13:10 Active 25 - 50 mg PO Q6H PRN oxyCODONE ER [OxyCONTIN] Med 07/11/18 21:00 Active 10 mg PO Q12HR Antiembolic Hose [OM.PC] Routine Oth 07/11/18 07:49 Ordered Ice Therapy [OM.PC] Routine Oth 07/11/18 13:10 Ordered RT Supplemental Oxygen Titration [RESPCARE] Urgent Oth 07/11/18 18:40 Pending Sequential Compression Device [OM.PC] Routine Oth 07/11/18 07:49 Ordered Medication Orders Al Hydroxide/Mg Hydroxide (Mag-Al Plus) 30 ml PO Q4H PRN PRN Reason: indigestion Aspirin (Aspirin) 325 mg PO BID [facility] Last Admin: 07/12/18 08:37 Dose: 325 mg Bisacodyl (Dulcolax) 10 mg RECTAL DAILY PRN PRN Reason: Constipation Celecoxib (Celebrex) 200 mg PO BID [facility] Last Admin: 07/12/18 08:38 Dose: 200 mg Diphenhydramine HCl (Benadryl) 25 - 50 mg PO Q6H PRN PRN Reason: Itching Docusate Sodium (Colace) 100 mg PO BID [facility] Last Admin: 07/12/18 08:37 Dose: 100 mg Admin: 07/11/18 21:15 Dose: 100 mg Famotidine (Pepcid) 40 mg PO DAILY [facility] Last Admin: 07/12/18 08:37 Dose: 40 mg HCTZ/Losartan Potassium (Hyzaar 50-12.5 Mg) 1 tab PO BID [facility] Last Admin: 07/12/18 08:37 Dose: 1 tab Admin: 07/11/18 18:42 Dose: 1 tab Lactated Ringer's (Ringers, Lactated) 1,000 mls @ 125 mls/hr IV ASDIRECTED [facility] Last Admin: 07/12/18 06:02 Dose: 125 mls/hr Infusion: 07/12/18 05:05 Dose: 125 mls/hr Admin: 07/11/18 21:05 Dose: 125 mls/hr Infusion: 07/11/18 17:15 Dose: 125 mls/hr Admin: 07/11/18 09:15 Dose: 125 mls/hr Morphine Sulfate (Morphine Sulfate) 1 - 3 mg IV Q3H PRN PRN Reason: Pain Nitroglycerin (Nitro-Bid 2%) 1 gm TOP Q6H PRN PRN Reason: Chest Pain Ondansetron HCl (Zofran) 4 mg IV Q6HR PRN PRN Reason: NAUSEA/VOMITING Oxycodone HCl (Oxycontin) 10 mg PO Q12HR [facility] Last Admin: 07/12/18 08:37 Dose: 10 mg Admin: 07/11/18 21:15 Dose: 10 mg Oxycodone/Acetaminophen (Percocet 325-5 Mg) 1 - 2 tab PO Q4H PRN PRN Reason: Pain Scopolamine (Transderm-Scop) 1.5 mg TRDERM Q72H PRN PRN Reason: Nausea Last Admin: 07/11/18 09:17 Dose: 1.5 mg - Assessment Assessment (Free Text/Narrative):: POD#1 R TKA leukocytosis - Plan Plan (Free Text/Narrative):: continue pain management DC [employer] Morphine IV available for breakthrough pain DC oxycodone Percocet 5/325 available continue oxycotin ASA 325mg PO BID as DVT prophylaxis continue PT, WBAT with wheeled walker DC IV fluids, saline lock DC kearney catheter likely d/ch to home today home rx has been written pt has walker <Tianna Garza R - Last Filed: 07/12/18 12:03> - Patient Data Vitals - Most Recent: Last Vital Signs Temp 97.9 F 09/18/18 10:00 Pulse 69 07/12/18 10:00 Resp 16 07/12/18 10:00 BP 115/79 07/12/18 10:00 Pulse Ox 93 L 07/12/18 10:00 I&O - Last 24 Hours: Intake & Output 07/11/18 07/12/18 07/12/18 22:59 06:59 14:59 Intake Total 250 3077 Output Total 0 850 Balance 250 2227 Lab Results Last 24 Hrs: Laboratory Results - last 24 hr 07/11/18 07/11/18 Range/Units 18:34 18:34 WBC 15.23 H (4.0-11.0) K/uL RBC 4.32 L (4.50-5.90) M/uL Hgb 13.1 (13.0-17.0) g/dL Hct 39.4 (38.0-50.0) % MCV 91.2 (80.0-98.0) fL MCH 30.3 (27.0-32.0) pg MCHC 33.2 (31.0-37.0) g/dL RDW Std Deviation 46.5 (28.0-62.0) fl RDW Coeff of Qasim 14 (11.0-15.0) % Plt Count 219 (150-400) K/uL MPV 9.80 (7.40-12.00) fL Neut % (Auto) 81.2 H (48.0-80.0) % Lymph % (Auto) 10.6 L (16.0-40.0) % Menard % (Auto) 7.2 (0.0-15.0) % Eos % (Auto) 0.7 (0.0-7.0) % Baso % (Auto) 0.3 (0.0-1.5) % Neut # (Auto) 12.4 H (1.4-5.7) K/uL Lymph # (Auto) 1.6 (0.6-2.4) K/uL Menard # (Auto) 1.1 H (0.0-0.8) K/uL Eos # (Auto) 0.1 (0.0-0.7) K/uL Baso # (Auto) 0.1 (0.0-0.1) K/uL Nucleated RBC % 0.0 /100WBC Nucleated RBCs # 0 K/uL Sodium 138 (136-148) mmol/L Potassium 4.5 (3.5-5.1) mmol/L Chloride 103 (98-107) mmol/L Carbon Dioxide 28.9 (21.0-32.0) mmol/L BUN 21 H (7.0-18.0) mg/dL Creatinine 1.2 (0.8-1.3) mg/dL Est Cr Clr Drug Dosing 67.59 mL/min Estimated GFR (MDRD) > 60.0 ml/min Glucose 121 H (74-106) mg/dL Calcium 8.4 L (8.5-10.1) mg/dL Total Bilirubin 0.4 (0.2-1.0) mg/dL AST 18 (15-37) IU/L ALT 44 (14-63) IU/L Alkaline Phosphatase 45 L (46-116) U/L Total Protein 6.2 L (6.4-8.2) g/dL Albumin 3.2 L (3.4-5.0) g/dL Globulin 3.0 (2.0-3.5) g/dL Albumin/Globulin Ratio 1.1 L (1.3-2.8) Med Orders - Current: Current Medications Al Hydroxide/Mg Hydroxide (Mag-Al Plus) 30 ml PO Q4H PRN PRN Reason: indigestion Aspirin (Aspirin) 325 mg PO BID [facility] Last Admin: 07/12/18 08:37 Dose: 325 mg Bisacodyl (Dulcolax) 10 mg RECTAL DAILY PRN PRN Reason: Constipation Celecoxib (Celebrex) 200 mg PO BID [facility] Last Admin: 07/12/18 08:38 Dose: 200 mg Diphenhydramine HCl (Benadryl) 25 - 50 mg PO Q6H PRN PRN Reason: Itching Docusate Sodium (Colace) 100 mg PO BID [facility] Last Admin: 07/12/18 08:37 Dose: 100 mg Famotidine (Pepcid) 40 mg PO DAILY [facility] Last Admin: 07/12/18 08:37 Dose: 40 mg HCTZ/Losartan Potassium (Hyzaar 50-12.5 Mg) 1 tab PO BID [facility] Last Admin: 07/12/18 08:37 Dose: 1 tab Morphine Sulfate (Morphine Sulfate) 1 - 3 mg IV Q3H PRN PRN Reason: Pain Nitroglycerin (Nitro-Bid 2%) 1 gm TOP Q6H PRN PRN Reason: Chest Pain Ondansetron HCl (Zofran) 4 mg IV Q6HR PRN PRN Reason: NAUSEA/VOMITING Oxycodone HCl (Oxycontin) 10 mg PO Q12HR [facility] Last Admin: 07/12/18 08:37 Dose: 10 mg Oxycodone/Acetaminophen (Percocet 325-5 Mg) 1 - 2 tab PO Q4H PRN PRN Reason: Pain Last Admin: 07/12/18 11:50 Dose: 2 tab Scopolamine (Transderm-Scop) 1.5 mg TRDERM Q72H PRN PRN Reason: Nausea Last Admin: 07/11/18 09:17 Dose: 1.5 mg Sodium Chloride (Saline Flush) 10 ml FLUSH ASDIRECTED PRN PRN Reason: Keep Vein Open Sodium Chloride (Saline Flush) 2.5 ml FLUSH ASDIRECTED PRN PRN Reason: Keep Vein Open Discontinued Medications Bupivacaine Liposome (Exparel) 20 ml INFILT ONETIME [facility] Cefazolin Sodium (Ancef) Confirm Administered Dose 2 gm .ROUTE .STK-MED ONE Stop: 07/11/18 08:48 Cefazolin Sodium/Dextrose (Ancef) Confirm Administered Dose 2 gm IV .STK-MED ONE Stop: 07/11/18 10:25 Famotidine (Pepcid) 40 mg IVPUSH ONETIME ONE Stop: 07/11/18 06:37 Last Admin: 07/11/18 14:33 Dose: Not Given Famotidine (Pepcid) 40 mg IVPUSH ONETIME ONE Stop: 07/11/18 09:01 Last Admin: 07/11/18 09:16 Dose: 40 mg Fentanyl (Sublimaze) Confirm Administered Dose 100 mcg .ROUTE .STK-MED ONE Stop: 07/11/18 08:42 Fentanyl (Sublimaze) Confirm Administered Dose 100 mcg .ROUTE .STK-MED ONE Stop: 07/11/18 12:53 Glycopyrrolate (Robinul) Confirm Administered Dose 0.2 mg .ROUTE .STK-MED ONE Stop: 07/11/18 11:46 Glycopyrrolate (Robinul) Confirm Administered Dose 0.2 mg .ROUTE .STK-MED ONE Stop: 07/11/18 11:52 HCTZ/Losartan Potassium (Hyzaar 50-12.5 Mg) 2 tab PO DAILY [facility] Lactated Ringer's (Ringers, Lactated) 1,000 mls @ 125 mls/hr IV ASDIRECTED [facility] Last Admin: 07/12/18 06:02 Dose: 125 mls/hr Cefazolin Sodium/Dextrose 2 gm (/ Premix) 50 mls @ 100 mls/hr IV ONETIME ONE Stop: 07/11/18 07:00 Last Admin: 07/11/18 14:32 Dose: Not Given Acetaminophen 1,000 mg/ Premix 100 mls @ 400 mls/hr IV NOW ONE Stop: 07/11/18 06:49 Last Admin: 07/11/18 09:16 Dose: 400 mls/hr Ropivacaine 49.25 ml/Ketorolac Tromethamine 30 mg/Epinephrine HCl 0.5 mg/ Clonidine HCl 80 mcg/ Sodium Chloride 70 mls @ 50 mls/min INJECT ASDIRECTED [facility] Sodium Chloride (Normal Saline) Confirm Administered Dose 20 mls @ as directed .ROUTE .STK-MED ONE Stop: 07/11/18 08:48 Acetaminophen 1,000 mg/ Premix 100 mls @ 400 mls/hr IV Q6H [facility] Stop: 07/12/18 03:14 Last Admin: 07/12/18 02:32 Dose: 400 mls/hr Cefazolin Sodium/Dextrose 2 gm (/ Premix) 50 mls @ 100 mls/hr IV Q8H [facility] Stop: 07/12/18 03:29 Last Admin: 07/12/18 02:54 Dose: 100 mls/hr Ketorolac Tromethamine (Toradol) 30 mg IVPUSH ONETIME ONE Stop: 07/11/18 06:34 Last Admin: 07/11/18 09:15 Dose: 30 mg Ketorolac Tromethamine (Toradol) 30 mg IVPUSH ONETIME ONE Stop: 07/11/18 09:01 Last Admin: 07/11/18 14:33 Dose: Not Given Ketorolac Tromethamine (Toradol) 30 mg IVPUSH Q6H [facility] Stop: 07/12/18 05:00 Last Admin: 07/11/18 15:23 Dose: Not Given Ketorolac Tromethamine (Toradol) 30 mg IVPUSH Q6H [facility] Stop: 07/12/18 03:31 Last Admin: 07/12/18 02:35 Dose: 30 mg Lidocaine (Xylocaine-Mpf 2%) Confirm Administered Dose 5 ml .ROUTE .STK-MED ONE Stop: 07/11/18 08:42 Midazolam HCl (Versed 1 Mg/Ml) Confirm Administered Dose 2 mg .ROUTE .STK-MED ONE Stop: 07/11/18 08:42 Morphine Sulfate (Morphine Salesperson [employer]ra[employer] 30 Mg In 30 Ml) 30 mg IV ASDIRECTED [facility]; Protocol Stop: 07/12/18 08:00 Last Admin: 07/11/18 13:45 Dose: 30 mg Ondansetron HCl (Zofran) Confirm Administered Dose 4 mg .ROUTE .STK-MED ONE Stop: 07/11/18 11:51 Oxycodone HCl (Oxycontin) 10 mg PO ONETIME ONE Stop: 07/11/18 06:33 Last Admin: 07/11/18 14:33 Dose: Not Given Oxycodone HCl (Oxycontin) 10 mg PO NOW ONE Stop: 07/11/18 09:01 Last Admin: 07/11/18 09:14 Dose: 10 mg Oxycodone HCl (Oxycodone) 5 - 10 mg PO Q4H PRN PRN Reason: Pain Stop: 07/12/18 08:00 Last Admin: 07/11/18 16:48 Dose: 10 mg Phenylephrine HCl (Phenylephrine In Ns 100 Mcg/Ml) Confirm Administered Dose 1 mg .ROUTE .STK-MED ONE Stop: 07/11/18 11:58 Propofol (Diprivan 20 Ml) Confirm Administered Dose 400 mg .ROUTE .STK-MED ONE Stop: 07/11/18 08:42 Tranexamic Acid (Cyklokapron) Confirm Administered Dose 4,000 mg .ROUTE .STK- MED ONE Stop: 07/11/18 07:35 - My Orders Last 24 Hours: Active Orders 24 hr Category Date Time Status Patient Status [ADT] Routine ADT 07/11/18 16:06 Active Activity as Tolerated [RC] .Routine Care 07/11/18 13:10 Active Communication Order [RC] DAILY Care 07/12/18 09:29 Active Communication Order [RC] STAT Care 07/11/18 18:27 Active Dressing Change [Wound Care] [RC] ASDIRECTED Care 07/11/18 13:10 Active Neurovascular Check [RC] Q2HR Care 07/11/18 13:10 Active Notify Provider Consults [RC] ASDIRECTED Care 07/11/18 13:13 Active Notify Provider Vital Signs [RC] ASDIRECTED Care 07/11/18 13:10 Active RT Incentive Spirometry [RC] ASDIRECTED Care 07/11/18 13:10 Active Urinary Catheter Removal [RC] Per Unit Routine Care 07/12/18 09:26 Active Vital Signs [RC] Q4H Care 07/11/18 13:10 Active Consult to Physician [CONS] Routine Cons 07/11/18 13:09 Active PT Evaluation and Treatment [CONS] Routine Cons 07/11/18 13:10 Active Acetaminophen/oxyCODONE [Percocet 325-5 MG] Med 07/12/18 08:00 Active 1 - 2 tab PO Q4H PRN Alum Hydrox/Mag Hydrox/Simeth [Mag-Al Plus] Med 07/11/18 13:11 Active 30 ml PO Q4H PRN Aspirin Med 07/12/18 09:00 Active 325 mg PO BID Bisacodyl [Dulcolax] Med 07/11/18 13:11 Active 10 mg RECTAL DAILY PRN Celecoxib [CeleBREX] Med 07/12/18 09:00 Active 200 mg PO BID Docusate Sodium [Colace] Med 07/11/18 21:00 Active 100 mg PO BID Famotidine [Pepcid] Med 07/12/18 09:00 Active 40 mg PO DAILY Hydrochlorothiazide/Losartan [Hyzaar 50-12.5 MG] Med 07/11/18 18:30 Active 1 tab PO BID Morphine Sulfate Med 07/12/18 08:00 Active 1 - 3 mg IV Q3H PRN Nitroglycerin [Nitro-Bid 2%] Med 07/11/18 18:26 Active 1 gm TOP Q6H PRN Ondansetron [Zofran] Med 07/11/18 13:10 Active 4 mg IV Q6HR PRN Sodium Chloride 0.9% [Saline Flush] Med 07/12/18 09:26 Active 10 ml FLUSH ASDIRECTED PRN Sodium Chloride 0.9% [Saline Flush] Med 07/12/18 09:26 Active 2.5 ml FLUSH ASDIRECTED PRN diphenhydrAMINE [Benadryl] Med 07/11/18 13:10 Active 25 - 50 mg PO Q6H PRN oxyCODONE ER [OxyCONTIN] Med 07/11/18 21:00 Active 10 mg PO Q12HR Convert IV to Peripheral Lock [Convert IV to Saline Oth 07/12/18 09:26 Ordered Lock] [OM.PC] Routine Ice Therapy [OM.PC] Routine Oth 07/11/18 13:10 Ordered RT Supplemental Oxygen Titration [RESPCARE] Urgent Oth 07/11/18 18:40 Pending Medication Orders Al Hydroxide/Mg Hydroxide (Mag-Al Plus) 30 ml PO Q4H PRN PRN Reason: indigestion Aspirin (Aspirin) 325 mg PO BID [facility] Last Admin: 07/12/18 08:37 Dose: 325 mg Bisacodyl (Dulcolax) 10 mg RECTAL DAILY PRN PRN Reason: Constipation Celecoxib (Celebrex) 200 mg PO BID [facility] Last Admin: 07/12/18 08:38 Dose: 200 mg Diphenhydramine HCl (Benadryl) 25 - 50 mg PO Q6H PRN PRN Reason: Itching Docusate Sodium (Colace) 100 mg PO BID [facility] Last Admin: 07/12/18 08:37 Dose: 100 mg Admin: 07/11/18 21:15 Dose: 100 mg Famotidine (Pepcid) 40 mg PO DAILY [facility] Last Admin: 07/12/18 08:37 Dose: 40 mg HCTZ/Losartan Potassium (Hyzaar 50-12.5 Mg) 1 tab PO BID [facility] Last Admin: 07/12/18 08:37 Dose: 1 tab Admin: 07/11/18 18:42 Dose: 1 tab Morphine Sulfate (Morphine Sulfate) 1 - 3 mg IV Q3H PRN PRN Reason: Pain Nitroglycerin (Nitro-Bid 2%) 1 gm TOP Q6H PRN PRN Reason: Chest Pain Ondansetron HCl (Zofran) 4 mg IV Q6HR PRN PRN Reason: NAUSEA/VOMITING Oxycodone HCl (Oxycontin) 10 mg PO Q12HR [facility] Last Admin: 07/12/18 08:37 Dose: 10 mg Admin: 07/11/18 21:15 Dose: 10 mg Oxycodone/Acetaminophen (Percocet 325-5 Mg) 1 - 2 tab PO Q4H PRN PRN Reason: Pain Last Admin: 07/12/18 11:50 Dose: 2 tab Scopolamine (Transderm-Scop) 1.5 mg TRDERM Q72H PRN PRN Reason: Nausea Last Admin: 07/11/18 09:17 Dose: 1.5 mg Sodium Chloride (Saline Flush) 10 ml FLUSH ASDIRECTED PRN PRN Reason: Keep Vein Open Sodium Chloride (Saline Flush) 2.5 ml FLUSH ASDIRECTED PRN PRN Reason: Keep Vein Open - Plan Plan (Free Text/Narrative):: Patient seen and examined at 0800. Agree with the above note. Patient currently sitting up in chair. He states his pain has been fairly well controlled. He has not yet started physical therapy other than a brief session yesterday. Hemoglobin remained stable. Dressing dry and intact. AT/EHL/gastroc 5/. Sensation grossly intact. DP/PT pulses 2+. 1. Continue physical therapy today 2. Transition to oral pain medications 3. If he does well with physical therapy, will plan to discharge him later this afternoon [email or web address]
[2018-07-12] MEDS ORDERED: Hydrochlorothiazide/Losartan 12.5-50 mg Tab PO SCH (09:00)
[2018-07-12] MEDS ORDERED: Sodium Chloride 0.9% 2.5 ML Syringe FLUSH PRN (09:26)
[2018-07-12] MEDS ORDERED: Sodium Chloride 0.9% 10 ML Syringe FLUSH PRN (09:26)
--- NOTE | 2018-07-12 11:22 | PCM.CONSN ---
- General Info Date of Service: 07/12/18 - Review of Systems Systems Review Comment:: no respiratory or chest pain complaints - Patient Data Vitals - Most Recent: Last Vital Signs Temp 97.9 F 07/12/18 10:00 Pulse 69 07/12/18 10:00 Resp 16 07/12/18 10:00 BP 115/79 07/12/18 10:00 Pulse Ox 93 L 07/12/18 10:00 Weight - Most Recent: 151.5 kg I&O - Last 24 Hours: Intake & Output 07/11/18 07/12/18 07/12/18 22:59 06:59 14:59 Intake Total 250 3077 Output Total 0 850 Balance 250 2227 Lab Results Last 24 Hours: Laboratory Results - last 24 hr 07/11/18 07/11/18 Range/Units 18:34 18:34 WBC 15.23 H (4.0-11.0) K/uL RBC 4.32 L (4.50-5.90) M/uL Hgb 13.1 (13.0-17.0) g/dL Hct 39.4 (38.0-50.0) % MCV 91.2 (80.0-98.0) fL MCH 30.3 (27.0-32.0) pg MCHC 33.2 (31.0-37.0) g/dL RDW Std Deviation 46.5 (28.0-62.0) fl RDW Coeff of Qasim 14 (11.0-15.0) % Plt Count 219 (150-400) K/uL MPV 9.80 (7.40-12.00) fL Neut % (Auto) 81.2 H (48.0-80.0) % Lymph % (Auto) 10.6 L (16.0-40.0) % [place] % (Auto) 7.2 (0.0-15.0) % Eos % (Auto) 0.7 (0.0-7.0) % Baso % (Auto) 0.3 (0.0-1.5) % Neut # (Auto) 12.4 H (1.4-5.7) K/uL Lymph # (Auto) 1.6 (0.6-2.4) K/uL [place] # (Auto) 1.1 H (0.0-0.8) K/uL Eos # (Auto) 0.1 (0.0-0.7) K/uL Baso # (Auto) 0.1 (0.0-0.1) K/uL Nucleated RBC % 0.0 /100WBC Nucleated RBCs # 0 K/uL Sodium 138 (136-148) mmol/L Potassium 4.5 (3.5-5.1) mmol/L Chloride 103 (98-107) mmol/L Carbon Dioxide 28.9 (21.0-32.0) mmol/L BUN 21 H (7.0-18.0) mg/dL Creatinine 1.2 (0.8-1.3) mg/dL Est Cr Clr Drug Dosing 67.59 mL/min Estimated GFR (MDRD) > 60.0 ml/min Glucose 121 H (74-106) mg/dL Calcium 8.4 L (8.5-10.1) mg/dL Total Bilirubin 0.4 (0.2-1.0) mg/dL AST 18 (15-37) IU/L ALT 44 (14-63) IU/L Alkaline Phosphatase 45 L (46-116) U/L Total Protein 6.2 L (6.4-8.2) g/dL Albumin 3.2 L (3.4-5.0) g/dL Globulin 3.0 (2.0-3.5) g/dL Albumin/Globulin Ratio 1.1 L (1.3-2.8) Med Orders - Current: Current Medications Al Hydroxide/Mg Hydroxide (Mag-Al Plus) 30 ml PO Q4H PRN PRN Reason: indigestion Aspirin (Aspirin) 325 mg PO BID [facility] Last Admin: 07/12/18 08:37 Dose: 325 mg Bisacodyl (Dulcolax) 10 mg RECTAL DAILY PRN PRN Reason: Constipation Celecoxib (Celebrex) 200 mg PO BID [facility] Last Admin: 07/12/18 08:38 Dose: 200 mg Diphenhydramine HCl (Benadryl) 25 - 50 mg PO Q6H PRN PRN Reason: Itching Docusate Sodium (Colace) 100 mg PO BID [facility] Last Admin: 07/12/18 08:37 Dose: 100 mg Famotidine (Pepcid) 40 mg PO DAILY [facility] Last Admin: 07/12/18 08:37 Dose: 40 mg HCTZ/Losartan Potassium (Hyzaar 50-12.5 Mg) 1 tab PO BID [facility] Last Admin: 07/12/18 08:37 Dose: 1 tab Morphine Sulfate (Morphine Sulfate) 1 - 3 mg IV Q3H PRN PRN Reason: Pain Nitroglycerin (Nitro-Bid 2%) 1 gm TOP Q6H PRN PRN Reason: Chest Pain Ondansetron HCl (Zofran) 4 mg IV Q6HR PRN PRN Reason: NAUSEA/VOMITING Oxycodone HCl (Oxycontin) 10 mg PO Q12HR [facility] Last Admin: 07/12/18 08:37 Dose: 10 mg Oxycodone/Acetaminophen (Percocet 325-5 Mg) 1 - 2 tab PO Q4H PRN PRN Reason: Pain Scopolamine (Transderm-Scop) 1.5 mg TRDERM Q72H PRN PRN Reason: Nausea Last Admin: 07/11/18 09:17 Dose: 1.5 mg Sodium Chloride (Saline Flush) 10 ml FLUSH ASDIRECTED PRN PRN Reason: Keep Vein Open Sodium Chloride (Saline Flush) 2.5 ml FLUSH ASDIRECTED PRN PRN Reason: Keep Vein Open Discontinued Medications Bupivacaine Liposome (Exparel) 20 ml INFILT ONETIME [facility] Cefazolin Sodium (Ancef) Confirm Administered Dose 2 gm .ROUTE .STK-MED ONE Stop: 07/11/18 08:48 Cefazolin Sodium/Dextrose (Ancef) Confirm Administered Dose 2 gm IV .STK-MED ONE Stop: 07/11/18 10:25 Famotidine (Pepcid) 40 mg IVPUSH ONETIME ONE Stop: 07/11/18 06:37 Last Admin: 07/11/18 14:33 Dose: Not Given Famotidine (Pepcid) 40 mg IVPUSH ONETIME ONE Stop: 07/11/18 09:01 Last Admin: 07/11/18 09:16 Dose: 40 mg Fentanyl (Sublimaze) Confirm Administered Dose 100 mcg .ROUTE .STK-MED ONE Stop: 07/11/18 08:42 Fentanyl (Sublimaze) Confirm Administered Dose 100 mcg .ROUTE .STK-MED ONE Stop: 07/11/18 12:53 Glycopyrrolate (Robinul) Confirm Administered Dose 0.2 mg .ROUTE .STK-MED ONE Stop: 07/11/18 11:46 Glycopyrrolate (Robinul) Confirm Administered Dose 0.2 mg .ROUTE .[facility] ONE Stop: 07/11/18 11:52 HCTZ/Losartan Potassium (Hyzaar 50-12.5 Mg) 2 tab PO DAILY [facility] Lactated Ringer's (Ringers, Lactated) 1,000 mls @ 125 mls/hr IV ASDIRECTED [facility] Last Admin: 07/12/18 06:02 Dose: 125 mls/hr Cefazolin Sodium/Dextrose 2 gm (/ Premix) 50 mls @ 100 mls/hr IV ONETIME ONE Stop: 07/11/18 07:00 Last Admin: 07/11/18 14:32 Dose: Not Given Acetaminophen 1,000 mg/ Premix 100 mls @ 400 mls/hr IV NOW ONE Stop: 07/11/18 06:49 Last Admin: 07/11/18 09:16 Dose: 400 mls/hr Ropivacaine 49.25 ml/Ketorolac Tromethamine 30 mg/Epinephrine HCl 0.5 mg/ Clonidine HCl 80 mcg/ Sodium Chloride 70 mls @ 50 mls/min INJECT ASDIRECTED [facility] Sodium Chloride (Normal Saline) Confirm Administered Dose 20 mls @ as directed .ROUTE .[facility] ONE Stop: 07/11/18 08:48 Acetaminophen 1,000 mg/ Premix 100 mls @ 400 mls/hr IV Q6H [facility] Stop: 07/12/18 03:14 Last Admin: 07/12/18 02:32 Dose: 400 mls/hr Cefazolin Sodium/Dextrose 2 gm (/ Premix) 50 mls @ 100 mls/hr IV Q8H [facility] Stop: 07/12/18 03:29 Last Admin: 07/12/18 02:54 Dose: 100 mls/hr Ketorolac Tromethamine (Toradol) 30 mg IVPUSH ONETIME ONE Stop: 07/11/18 06:34 Last Admin: 07/11/18 09:15 Dose: 30 mg Ketorolac Tromethamine (Toradol) 30 mg IVPUSH ONETIME ONE Stop: 07/11/18 09:01 Last Admin: 07/11/18 14:33 Dose: Not Given Ketorolac Tromethamine (Toradol) 30 mg IVPUSH Q6H [facility] Stop: 07/12/18 05:00 Last Admin: 07/11/18 15:23 Dose: Not Given Ketorolac Tromethamine (Toradol) 30 mg IVPUSH Q6H [facility] Stop: 07/12/18 03:31 Last Admin: 07/12/18 02:35 Dose: 30 mg Lidocaine (Xylocaine-Mpf 2%) Confirm Administered Dose 5 ml .ROUTE .STK-MED ONE Stop: 07/11/18 08:42 Midazolam HCl (Versed 1 Mg/Ml) Confirm Administered Dose 2 mg .ROUTE .STK-MED ONE Stop: 07/11/18 08:42 Morphine Sulfate (Morphine [employer] 30 Mg In 30 Ml) 30 mg IV ASDIRECTED [facility]; Protocol Stop: 07/12/18 08:00 Last Admin: 07/11/18 13:45 Dose: 30 mg Ondansetron HCl (Zofran) Confirm Administered Dose 4 mg .ROUTE .STK-MED ONE Stop: 07/11/18 11:51 Oxycodone HCl (Oxycontin) 10 mg PO ONETIME ONE Stop: 07/11/18 06:33 Last Admin: 07/11/18 14:33 Dose: Not Given Oxycodone HCl (Oxycontin) 10 mg PO NOW ONE Stop: 07/11/18 09:01 Last Admin: 07/11/18 09:14 Dose: 10 mg Oxycodone HCl (Oxycodone) 5 - 10 mg PO Q4H PRN PRN Reason: Pain Stop: 07/12/18 08:00 Last Admin: 07/11/18 16:48 Dose: 10 mg Phenylephrine HCl (Phenylephrine In Ns 100 Mcg/Ml) Confirm Administered Dose 1 mg .ROUTE .STK-MED ONE Stop: 07/11/18 11:58 Propofol (Diprivan 20 Ml) Confirm Administered Dose 400 mg .ROUTE .STK-MED ONE Stop: 07/11/18 08:42 Tranexamic Acid (Cyklokapron) Confirm Administered Dose 4,000 mg .ROUTE .STK- MED ONE Stop: 07/11/18 07:35 - Exam Lungs: Clear to Auscultation, Normal Respiratory Effort Cardiovascular: Regular Rate, Regular Rhythm Consult PN Assessment/Plan Procedures: Procedures EMERGENCY DEPT VISIT (01/01/18) GLYCOSYLATED HEMOGLOBIN TEST (01/28/17) HOT OR COLD PACKS THERAPY (06/10/18) MRI BRAIN STEM W/O & W/DYE (03/16/17) MRI CHEST SPINE W/O & W/DYE (03/16/17) MRI JNT OF LWR EXTRE W/O DYE (04/21/18) MRI LUMBAR SPINE W/O DYE (03/16/17) MRI NECK SPINE W/O & W/DYE (01/28/17) ORGANIC ACID SINGLE QUANT (01/28/17) PROTEIN E-PHORESIS SERUM (01/28/17) PT EVAL LOW COMPLEX 20 MIN (05/20/18) THERAPEUTIC EXERCISES (06/10/18) VITAMIN B-12 (01/28/17) X-RAY BEND ONLY L-S SPINE (04/02/17) X-RAY EXAM KNEE 4 OR MORE (11/24/16) X-RAY EXAM OF KNEE 1 OR 2 (01/07/18) X-RAY EXAM OF KNEE 3 (01/01/18) (1) Status post total knee replacement SNOMED Code(s): 2939400079341, 184570301, 5322494158253 Code(s): Z96.659 - PRESENCE OF UNSPECIFIED ARTIFICIAL KNEE JOINT Current Visit: Yes (2) Hypertension SNOMED Code(s): 71146218 Code(s): I10 - ESSENTIAL (PRIMARY) HYPERTENSION Current Visit: Yes (3) Internal derangement of right knee SNOMED Code(s): 71478016300840123 Code(s): M23.91 - UNSPECIFIED INTERNAL DERANGEMENT OF RIGHT KNEE Current Visit: No Problem List Initiated/Reviewed/Updated: Yes My Orders Last 24 Hours: My Active Orders 07/11/18 18:26 Nitroglycerin [Nitro-Bid 2%] 1 gm TOP Q6H PRN 07/11/18 18:27 Communication Order [RC] STAT 07/11/18 18:30 Hydrochlorothiazide/Losartan [Hyzaar 50-12.5 MG] 1 tab PO BID 07/11/18 18:40 RT Supplemental Oxygen Titration [RESPCARE] Urgent Plan: 07/12/2018 Blood pressure stabilized. OK to discharge home on his prior outpatient antihypertensive regimen. Liam Peters MD
[2018-07-12] MEDS: Acetaminophen/oxyCODONE 325-5 MG Tab PO PRN ×2 (11:50→15:57)
[2018-07-12] MEDS: Cyclobenzaprine 10 MG Tab PO PRN (19:31)
[2018-07-13] MEDS: Acetaminophen/oxyCODONE 325-5 MG Tab PO PRN ×3 (03:01→16:15)
--- NOTE | 2018-07-13 08:57 | PCM.SURGPN ---
<Dulce Chahal R - Last Filed: 07/13/18 08:52> - General Info Date of Service: 07/13/18 Date of Surgery/Procedure: 07/11/18 POD#: 2 Functional Status: Reports: Tolerating Diet, Ambulating, Urinating. Denies: Pain Controlled - Review of Systems General: Reports: No Symptoms HEENT: Reports: No Symptoms Pulmonary: Reports: No Symptoms. Denies: Shortness of Breath, Cough Cardiovascular: Reports: No Symptoms. Denies: Chest Pain Gastrointestinal: Reports: No Symptoms. Denies: Nausea, Vomiting Musculoskeletal: Reports: Leg Pain Systems Review Comment:: pt up in bed had a fall in the bathroom overnight, landed on B knees, sustained no injury dressing was changed at that time due to serosanguinous saturation c/o pain with weightbearing is able to get in/out of bed independently at this time, required no assistance from nursing no specific concerns other than pain - Patient Data Vitals - Most Recent: Last Vital Signs Temp 97.4 F 07/13/18 07:30 Pulse 82 07/13/18 07:30 Resp 16 07/13/18 07:30 BP 122/57 L 07/13/18 07:30 Pulse Ox 97 07/13/18 07:30 Weight - Most Recent: 151.5 kg I&O - Last 24 Hours: Intake & Output 07/12/18 07/13/18 07/13/18 22:59 06:59 14:59 Intake Total 1480 600 Output Total 225 1800 Balance 1255 -1200 Med Orders - Current: Current Medications Al Hydroxide/Mg Hydroxide (Mag-Al Plus) 30 ml PO Q4H PRN PRN Reason: indigestion Aspirin (Aspirin) 325 mg PO BID [facility] Last Admin: 07/12/18 20:37 Dose: 325 mg Bisacodyl (Dulcolax) 10 mg RECTAL DAILY PRN PRN Reason: Constipation Celecoxib (Celebrex) 200 mg PO BID [facility] Last Admin: 07/12/18 20:37 Dose: 200 mg Cyclobenzaprine HCl (Flexeril) 10 mg PO Q8H PRN PRN Reason: Spasms Last Admin: 07/12/18 19:31 Dose: 10 mg Diphenhydramine HCl (Benadryl) 25 - 50 mg PO Q6H PRN PRN Reason: Itching Docusate Sodium (Colace) 100 mg PO BID [facility] Last Admin: 07/12/18 20:37 Dose: 100 mg Famotidine (Pepcid) 40 mg PO DAILY [facility] Last Admin: 07/12/18 08:37 Dose: 40 mg HCTZ/Losartan Potassium (Hyzaar 50-12.5 Mg) 1 tab PO BID [facility] Last Admin: 07/12/18 20:37 Dose: 1 tab Morphine Sulfate (Morphine Sulfate) 1 - 3 mg IV Q3H PRN PRN Reason: Pain Nitroglycerin (Nitro-Bid 2%) 1 gm TOP Q6H PRN PRN Reason: Chest Pain Ondansetron HCl (Zofran) 4 mg IV Q6HR PRN PRN Reason: NAUSEA/VOMITING Oxycodone HCl (Oxycontin) 10 mg PO Q12HR [facility] Last Admin: 07/12/18 20:38 Dose: 10 mg Oxycodone/Acetaminophen (Percocet 325-5 Mg) 1 - 2 tab PO Q4H PRN PRN Reason: Pain Last Admin: 07/13/18 07:05 Dose: 2 tab Scopolamine (Transderm-Scop) 1.5 mg TRDERM Q72H PRN PRN Reason: Nausea Last Admin: 07/11/18 09:17 Dose: 1.5 mg Sodium Chloride (Saline Flush) 10 ml FLUSH ASDIRECTED PRN PRN Reason: Keep Vein Open Sodium Chloride (Saline Flush) 2.5 ml FLUSH ASDIRECTED PRN PRN Reason: Keep Vein Open Discontinued Medications Bupivacaine Liposome (Exparel) 20 ml INFILT ONETIME [facility] Cefazolin Sodium (Ancef) Confirm Administered Dose 2 gm .ROUTE .STK-MED ONE Stop: 07/11/18 08:48 Cefazolin Sodium/Dextrose (Ancef) Confirm Administered Dose 2 gm IV .STK-MED ONE Stop: 07/11/18 10:25 Famotidine (Pepcid) 40 mg IVPUSH ONETIME ONE Stop: 07/11/18 06:37 Last Admin: 07/11/18 14:33 Dose: Not Given Famotidine (Pepcid) 40 mg IVPUSH ONETIME ONE Stop: 07/11/18 09:01 Last Admin: 07/11/18 09:16 Dose: 40 mg Fentanyl (Sublimaze) Confirm Administered Dose 100 mcg .ROUTE .STK-MED ONE Stop: 07/11/18 08:42 Fentanyl (Sublimaze) Confirm Administered Dose 100 mcg .ROUTE .[facility] ONE Stop: 07/11/18 12:53 Glycopyrrolate (Robinul) Confirm Administered Dose 0.2 mg .ROUTE .STK-MED ONE Stop: 07/11/18 11:46 Glycopyrrolate (Robinul) Confirm Administered Dose 0.2 mg .ROUTE .[facility] ONE Stop: 07/11/18 11:52 HCTZ/Losartan Potassium (Hyzaar 50-12.5 Mg) 2 tab PO DAILY [facility] Lactated Ringer's (Ringers, Lactated) 1,000 mls @ 125 mls/hr IV ASDIRECTED [facility] Last Admin: 07/12/18 06:02 Dose: 125 mls/hr Cefazolin Sodium/Dextrose 2 gm (/ Premix) 50 mls @ 100 mls/hr IV ONETIME ONE Stop: 07/11/18 07:00 Last Admin: 07/11/18 14:32 Dose: Not Given Acetaminophen 1,000 mg/ Premix 100 mls @ 400 mls/hr IV NOW ONE Stop: 07/11/18 06:49 Last Admin: 07/11/18 09:16 Dose: 400 mls/hr Ropivacaine 49.25 ml/Ketorolac Tromethamine 30 mg/Epinephrine HCl 0.5 mg/ Clonidine HCl 80 mcg/ Sodium Chloride 70 mls @ 50 mls/min INJECT ASDIRECTED [facility] Sodium Chloride (Normal Saline) Confirm Administered Dose 20 mls @ as directed .ROUTE .[facility] ONE Stop: 07/11/18 08:48 Acetaminophen 1,000 mg/ Premix 100 mls @ 400 mls/hr IV Q6H [facility] Stop: 07/12/18 03:14 Last Admin: 07/12/18 02:32 Dose: 400 mls/hr Cefazolin Sodium/Dextrose 2 gm (/ Premix) 50 mls @ 100 mls/hr IV Q8H [facility] Stop: 07/12/18 03:29 Last Admin: 07/12/18 02:54 Dose: 100 mls/hr Ketorolac Tromethamine (Toradol) 30 mg IVPUSH ONETIME ONE Stop: 07/11/18 06:34 Last Admin: 07/11/18 09:15 Dose: 30 mg Ketorolac Tromethamine (Toradol) 30 mg IVPUSH ONETIME ONE Stop: 07/11/18 09:01 Last Admin: 07/11/18 14:33 Dose: Not Given Ketorolac Tromethamine (Toradol) 30 mg IVPUSH Q6H [facility] Stop: 07/12/18 05:00 Last Admin: 07/11/18 15:23 Dose: Not Given Ketorolac Tromethamine (Toradol) 30 mg IVPUSH Q6H [facility] Stop: 07/12/18 03:31 Last Admin: 07/12/18 02:35 Dose: 30 mg Lidocaine (Xylocaine-Mpf 2%) Confirm Administered Dose 5 ml .ROUTE .STK-MED ONE Stop: 07/11/18 08:42 Midazolam HCl (Versed 1 Mg/Ml) Confirm Administered Dose 2 mg .ROUTE .STK-MED ONE Stop: 07/11/18 08:42 Morphine Sulfate (Morphine Reporting Process Consultant 30 Mg In 30 Ml) 30 mg IV ASDIRECTED [facility]; Protocol Stop: 07/12/18 08:00 Last Admin: 07/11/18 13:45 Dose: 30 mg Ondansetron HCl (Zofran) Confirm Administered Dose 4 mg .ROUTE .STK-MED ONE Stop: 07/11/18 11:51 Oxycodone HCl (Oxycontin) 10 mg PO ONETIME ONE Stop: 07/11/18 06:33 Last Admin: 07/11/18 14:33 Dose: Not Given Oxycodone HCl (Oxycontin) 10 mg PO NOW ONE Stop: 07/11/18 09:01 Last Admin: 07/11/18 09:14 Dose: 10 mg Oxycodone HCl (Oxycodone) 5 - 10 mg PO Q4H PRN PRN Reason: Pain Stop: 07/12/18 08:00 Last Admin: 07/11/18 16:48 Dose: 10 mg Phenylephrine HCl (Phenylephrine In Ns 100 Mcg/Ml) Confirm Administered Dose 1 mg .ROUTE .STK-MED ONE Stop: 07/11/18 11:58 Propofol (Diprivan 20 Ml) Confirm Administered Dose 400 mg .ROUTE .STK-MED ONE Stop: 07/11/18 08:42 Tranexamic Acid (Cyklokapron) Confirm Administered Dose 4,000 mg .ROUTE .STK- MED ONE Stop: 07/11/18 07:35 - Exam Wound/Incisions: Healing Well (no breakdown of wound, josh in place.). No: Drainage, Erythema General: Alert, Oriented Cardiovascular: Regular Rate, Regular Rhythm Extremities: Other (exam RLE - incision clean/dry/josh intact, no dehiscence , at/ehl/gastroc 5/5, dp 2+, sensation intact distally. ) Physical Findings Comment:: vss, afeb hgb 13.1 - Problem List Review Problem List Initiated/Reviewed/Updated: Yes - My Orders Last 24 Hours: Active Orders 24 hr Category Date Time Status Communication Order [RC] DAILY Care 07/12/18 09:29 Active Acetaminophen/oxyCODONE [Percocet 325-5 MG] Med 07/12/18 08:00 Active 1 - 2 tab PO Q4H PRN Aspirin Med 07/12/18 09:00 Active 325 mg PO BID Celecoxib [CeleBREX] Med 07/12/18 09:00 Active 200 mg PO BID Cyclobenzaprine [Flexeril] Med 07/12/18 17:34 Active 10 mg PO Q8H PRN Famotidine [Pepcid] Med 07/12/18 09:00 Active 40 mg PO DAILY Morphine Sulfate Med 07/12/18 08:00 Active 1 - 3 mg IV Q3H PRN Sodium Chloride 0.9% [Saline Flush] Med 07/12/18 09:26 Active 10 ml FLUSH ASDIRECTED PRN Sodium Chloride 0.9% [Saline Flush] Med 07/12/18 09:26 Active 2.5 ml FLUSH ASDIRECTED PRN Convert IV to Peripheral Lock [Convert IV to Saline Oth 07/12/18 09:26 Ordered Lock] [OM.PC] Routine Medication Orders Al Hydroxide/Mg Hydroxide (Mag-Al Plus) 30 ml PO Q4H PRN PRN Reason: indigestion Aspirin (Aspirin) 325 mg PO BID [facility] Last Admin: 07/12/18 20:37 Dose: 325 mg Admin: 07/12/18 08:37 Dose: 325 mg Bisacodyl (Dulcolax) 10 mg RECTAL DAILY PRN PRN Reason: Constipation Celecoxib (Celebrex) 200 mg PO BID [facility] Last Admin: 07/12/18 20:37 Dose: 200 mg Admin: 07/12/18 08:38 Dose: 200 mg Cyclobenzaprine HCl (Flexeril) 10 mg PO Q8H PRN PRN Reason: Spasms Last Admin: 07/12/18 19:31 Dose: 10 mg Diphenhydramine HCl (Benadryl) 25 - 50 mg PO Q6H PRN PRN Reason: Itching Docusate Sodium (Colace) 100 mg PO BID [facility] Last Admin: 07/12/18 20:37 Dose: 100 mg Admin: 07/12/18 08:37 Dose: 100 mg Admin: 07/11/18 21:15 Dose: 100 mg Famotidine (Pepcid) 40 mg PO DAILY [facility] Last Admin: 07/12/18 08:37 Dose: 40 mg HCTZ/Losartan Potassium (Hyzaar 50-12.5 Mg) 1 tab PO BID [facility] Last Admin: 07/12/18 20:37 Dose: 1 tab Admin: 07/12/18 08:37 Dose: 1 tab Admin: 07/11/18 18:42 Dose: 1 tab Morphine Sulfate (Morphine Sulfate) 1 - 3 mg IV Q3H PRN PRN Reason: Pain Nitroglycerin (Nitro-Bid 2%) 1 gm TOP Q6H PRN PRN Reason: Chest Pain Ondansetron HCl (Zofran) 4 mg IV Q6HR PRN PRN Reason: NAUSEA/VOMITING Oxycodone HCl (Oxycontin) 10 mg PO Q12HR [facility] Last Admin: 07/12/18 20:38 Dose: 10 mg Admin: 07/12/18 08:37 Dose: 10 mg Admin: 07/11/18 21:15 Dose: 10 mg Oxycodone/Acetaminophen (Percocet 325-5 Mg) 1 - 2 tab PO Q4H PRN PRN Reason: Pain Last Admin: 07/13/18 07:05 Dose: 2 tab Admin: 07/13/18 03:01 Dose: 2 tab Admin: 07/12/18 15:57 Dose: 2 tab Admin: 07/12/18 11:50 Dose: 2 tab Scopolamine (Transderm-Scop) 1.5 mg TRDERM Q72H PRN PRN Reason: Nausea Last Admin: 07/11/18 09:17 Dose: 1.5 mg Sodium Chloride (Saline Flush) 10 ml FLUSH ASDIRECTED PRN PRN Reason: Keep Vein Open Sodium Chloride (Saline Flush) 2.5 ml FLUSH ASDIRECTED PRN PRN Reason: Keep Vein Open - Assessment Assessment (Free Text/Narrative):: POD#2 R TKA - Plan Plan (Free Text/Narrative):: continue PT, DVT prophylaxis continue pain management new dressing applied after wound examination likely d/ch to home this afternoon after PT <GregTianna R - Last Filed: 07/13/18 12:38> - Patient Data Vitals - Most Recent: Last Vital Signs Temp 96.9 F 07/13/18 11:32 Pulse 75 07/13/18 11:32 Resp 22 H 07/13/18 11:32 BP 123/63 07/13/18 11:32 Pulse Ox 92 L 07/13/18 11:32 I&O - Last 24 Hours: Intake & Output 07/12/18 07/13/18 07/13/18 22:59 06:59 14:59 Intake Total 1480 600 Output Total 225 1800 Balance 1255 -1200 Med Orders - Current: Current Medications Al Hydroxide/Mg Hydroxide (Mag-Al Plus) 30 ml PO Q4H PRN PRN Reason: indigestion Aspirin (Aspirin) 325 mg PO BID [facility] Last Admin: 07/13/18 09:17 Dose: 325 mg Bisacodyl (Dulcolax) 10 mg RECTAL DAILY PRN PRN Reason: Constipation Celecoxib (Celebrex) 200 mg PO BID [facility] Last Admin: 07/13/18 09:18 Dose: 200 mg Cyclobenzaprine HCl (Flexeril) 10 mg PO Q8H PRN PRN Reason: Spasms Last Admin: 07/12/18 19:31 Dose: 10 mg Diphenhydramine HCl (Benadryl) 25 - 50 mg PO Q6H PRN PRN Reason: Itching Docusate Sodium (Colace) 100 mg PO BID [facility] Last Admin: 07/13/18 09:18 Dose: 100 mg Famotidine (Pepcid) 40 mg PO DAILY [facility] Last Admin: 07/13/18 09:20 Dose: 40 mg HCTZ/Losartan Potassium (Hyzaar 50-12.5 Mg) 1 tab PO BID [facility] Last Admin: 07/13/18 09:18 Dose: 1 tab Morphine Sulfate (Morphine Sulfate) 1 - 3 mg IV Q3H PRN PRN Reason: Pain Nitroglycerin (Nitro-Bid 2%) 1 gm TOP Q6H PRN PRN Reason: Chest Pain Ondansetron HCl (Zofran) 4 mg IV Q6HR PRN PRN Reason: NAUSEA/VOMITING Oxycodone HCl (Oxycontin) 10 mg PO Q12HR [facility] Last Admin: 07/13/18 09:19 Dose: 10 mg Oxycodone/Acetaminophen (Percocet 325-5 Mg) 1 - 2 tab PO Q4H PRN PRN Reason: Pain Last Admin: 07/13/18 07:05 Dose: 2 tab Scopolamine (Transderm-Scop) 1.5 mg TRDERM Q72H PRN PRN Reason: Nausea Last Admin: 07/11/18 09:17 Dose: 1.5 mg Sodium Chloride (Saline Flush) 10 ml FLUSH ASDIRECTED PRN PRN Reason: Keep Vein Open Sodium Chloride (Saline Flush) 2.5 ml FLUSH ASDIRECTED PRN PRN Reason: Keep Vein Open Discontinued Medications Bupivacaine Liposome (Exparel) 20 ml INFILT ONETIME [facility] Cefazolin Sodium (Ancef) Confirm Administered Dose 2 gm .ROUTE .STK-MED ONE Stop: 07/11/18 08:48 Cefazolin Sodium/Dextrose (Ancef) Confirm Administered Dose 2 gm IV .STK-MED ONE Stop: 07/11/18 10:25 Famotidine (Pepcid) 40 mg IVPUSH ONETIME ONE Stop: 07/11/18 06:37 Last Admin: 07/11/18 14:33 Dose: Not Given Famotidine (Pepcid) 40 mg IVPUSH ONETIME ONE Stop: 07/11/18 09:01 Last Admin: 07/11/18 09:16 Dose: 40 mg Fentanyl (Sublimaze) Confirm Administered Dose 100 mcg .ROUTE .STK-MED ONE Stop: 07/11/18 08:42 Fentanyl (Sublimaze) Confirm Administered Dose 100 mcg .ROUTE .STK-MED ONE Stop: 07/11/18 12:53 Glycopyrrolate (Robinul) Confirm Administered Dose 0.2 mg .ROUTE .STK-MED ONE Stop: 07/11/18 11:46 Glycopyrrolate (Robinul) Confirm Administered Dose 0.2 mg .ROUTE .STK-MED ONE Stop: 07/11/18 11:52 HCTZ/Losartan Potassium (Hyzaar 50-12.5 Mg) 2 tab PO DAILY [facility] Lactated Ringer's (Ringers, Lactated) 1,000 mls @ 125 mls/hr IV ASDIRECTED [facility] Last Admin: 07/12/18 06:02 Dose: 125 mls/hr Cefazolin Sodium/Dextrose 2 gm (/ Premix) 50 mls @ 100 mls/hr IV ONETIME ONE Stop: 07/11/18 07:00 Last Admin: 07/11/18 14:32 Dose: Not Given Acetaminophen 1,000 mg/ Premix 100 mls @ 400 mls/hr IV NOW ONE Stop: 07/11/18 06:49 Last Admin: 07/11/18 09:16 Dose: 400 mls/hr Ropivacaine 49.25 ml/Ketorolac Tromethamine 30 mg/Epinephrine HCl 0.5 mg/ Clonidine HCl 80 mcg/ Sodium Chloride 70 mls @ 50 mls/min INJECT ASDIRECTED [facility] Sodium Chloride (Normal Saline) Confirm Administered Dose 20 mls @ as directed .ROUTE .STK-MED ONE Stop: 07/11/18 08:48 Acetaminophen 1,000 mg/ Premix 100 mls @ 400 mls/hr IV Q6H [facility] Stop: 07/12/18 03:14 Last Admin: 07/12/18 02:32 Dose: 400 mls/hr Cefazolin Sodium/Dextrose 2 gm (/ Premix) 50 mls @ 100 mls/hr IV Q8H [facility] Stop: 07/12/18 03:29 Last Admin: 07/12/18 02:54 Dose: 100 mls/hr Ketorolac Tromethamine (Toradol) 30 mg IVPUSH ONETIME ONE Stop: 07/11/18 06:34 Last Admin: 07/11/18 09:15 Dose: 30 mg Ketorolac Tromethamine (Toradol) 30 mg IVPUSH ONETIME ONE Stop: 07/11/18 09:01 Last Admin: 07/11/18 14:33 Dose: Not Given Ketorolac Tromethamine (Toradol) 30 mg IVPUSH Q6H [facility] Stop: 07/12/18 05:00 Last Admin: 07/11/18 15:23 Dose: Not Given Ketorolac Tromethamine (Toradol) 30 mg IVPUSH Q6H [facility] Stop: 07/12/18 03:31 Last Admin: 07/12/18 02:35 Dose: 30 mg Lidocaine (Xylocaine-Mpf 2%) Confirm Administered Dose 5 ml .ROUTE .STK-MED ONE Stop: 07/11/18 08:42 Midazolam HCl (Versed 1 Mg/Ml) Confirm Administered Dose 2 mg .ROUTE .STK-MED ONE Stop: 07/11/18 08:42 Morphine Sulfate (Morphine Reporting Process Consultant 30 Mg In 30 Ml) 30 mg IV ASDIRECTED [facility]; Protocol Stop: 07/12/18 08:00 Last Admin: 07/11/18 13:45 Dose: 30 mg Ondansetron HCl (Zofran) Confirm Administered Dose 4 mg .ROUTE .STK-MED ONE Stop: 07/11/18 11:51 Oxycodone HCl (Oxycontin) 10 mg PO ONETIME ONE Stop: 07/11/18 06:33 Last Admin: 07/11/18 14:33 Dose: Not Given Oxycodone HCl (Oxycontin) 10 mg PO NOW ONE Stop: 07/11/18 09:01 Last Admin: 07/11/18 09:14 Dose: 10 mg Oxycodone HCl (Oxycodone) 5 - 10 mg PO Q4H PRN PRN Reason: Pain Stop: 07/12/18 08:00 Last Admin: 07/11/18 16:48 Dose: 10 mg Phenylephrine HCl (Phenylephrine In Ns 100 Mcg/Ml) Confirm Administered Dose 1 mg .ROUTE .STK-MED ONE Stop: 07/11/18 11:58 Propofol (Diprivan 20 Ml) Confirm Administered Dose 400 mg .ROUTE .STK-MED ONE Stop: 07/11/18 08:42 Tranexamic Acid (Cyklokapron) Confirm Administered Dose 4,000 mg .ROUTE .STK- MED ONE Stop: 07/11/18 07:35 - My Orders Last 24 Hours: Active Orders 24 hr Category Date Time Status Cyclobenzaprine [Flexeril] Med 07/12/18 17:34 Active 10 mg PO Q8H PRN Medication Orders Al Hydroxide/Mg Hydroxide (Mag-Al Plus) 30 ml PO Q4H PRN PRN Reason: indigestion Aspirin (Aspirin) 325 mg PO BID [facility] Last Admin: 07/13/18 09:17 Dose: 325 mg Admin: 07/12/18 20:37 Dose: 325 mg Admin: 07/12/18 08:37 Dose: 325 mg Bisacodyl (Dulcolax) 10 mg RECTAL DAILY PRN PRN Reason: Constipation Celecoxib (Celebrex) 200 mg PO BID [facility] Last Admin: 07/13/18 09:18 Dose: 200 mg Admin: 07/12/18 20:37 Dose: 200 mg Admin: 07/12/18 08:38 Dose: 200 mg Cyclobenzaprine HCl (Flexeril) 10 mg PO Q8H PRN PRN Reason: Spasms Last Admin: 07/12/18 19:31 Dose: 10 mg Diphenhydramine HCl (Benadryl) 25 - 50 mg PO Q6H PRN PRN Reason: Itching Docusate Sodium (Colace) 100 mg PO BID [facility] Last Admin: 07/13/18 09:18 Dose: 100 mg Admin: 07/12/18 20:37 Dose: 100 mg Admin: 07/12/18 08:37 Dose: 100 mg Admin: 07/11/18 21:15 Dose: 100 mg Famotidine (Pepcid) 40 mg PO DAILY [facility] Last Admin: 07/13/18 09:20 Dose: 40 mg Admin: 07/12/18 08:37 Dose: 40 mg HCTZ/Losartan Potassium (Hyzaar 50-12.5 Mg) 1 tab PO BID [facility] Last Admin: 07/13/18 09:18 Dose: 1 tab Admin: 07/12/18 20:37 Dose: 1 tab Admin: 07/12/18 08:37 Dose: 1 tab Admin: 07/11/18 18:42 Dose: 1 tab Morphine Sulfate (Morphine Sulfate) 1 - 3 mg IV Q3H PRN PRN Reason: Pain Nitroglycerin (Nitro-Bid 2%) 1 gm TOP Q6H PRN PRN Reason: Chest Pain Ondansetron HCl (Zofran) 4 mg IV Q6HR PRN PRN Reason: NAUSEA/VOMITING Oxycodone HCl (Oxycontin) 10 mg PO Q12HR [facility] Last Admin: 07/13/18 09:19 Dose: 10 mg Admin: 07/12/18 20:38 Dose: 10 mg Admin: 07/12/18 08:37 Dose: 10 mg Admin: 07/11/18 21:15 Dose: 10 mg Oxycodone/Acetaminophen (Percocet 325-5 Mg) 1 - 2 tab PO Q4H PRN PRN Reason: Pain Last Admin: 07/13/18 07:05 Dose: 2 tab Admin: 07/13/18 03:01 Dose: 2 tab Admin: 07/12/18 15:57 Dose: 2 tab Admin: 07/12/18 11:50 Dose: 2 tab Scopolamine (Transderm-Scop) 1.5 mg TRDERM Q72H PRN PRN Reason: Nausea Last Admin: 07/11/18 09:17 Dose: 1.5 mg Sodium Chloride (Saline Flush) 10 ml FLUSH ASDIRECTED PRN PRN Reason: Keep Vein Open Sodium Chloride (Saline Flush) 2.5 ml FLUSH ASDIRECTED PRN PRN Reason: Keep Vein Open - Plan Plan (Free Text/Narrative):: Patient seen and examined at 1100. Currently he is doing well. His pain has been well-controlled. Events from last night were noted. He denies any residual pain from the fall. He denies any loss of consciousness. He did fairly well with physical therapy earlier today. Will plan on having him attend another session this afternoon. He will be discharged home this afternoon. Agree with the above note.
[2018-07-13] MEDS: Aspirin 325 MG Tab PO SCH (09:17)
[2018-07-13] MEDS: Celecoxib 100 MG Cap PO SCH (09:18)
[2018-07-13] MEDS: Hydrochlorothiazide/Losartan 12.5-50 mg Tab PO SCH (09:18)
[2018-07-13] MEDS: Docusate Sodium 100 MG Cap PO SCH (09:18)
[2018-07-13] MEDS: oxyCODONE ER 10 MG TAB.ER PO SCH (09:19)
[2018-07-13] MEDS: Famotidine 20 MG Tab PO SCH (09:20)
--- NOTE | 2018-07-13 11:18 | PCM.SN ---
- Free Text/Narrative Note: d/ch summary #[id number]
--- NOTE | 2018-07-13 11:27 | PCM.CONSN ---
- General Info Date of Service: 07/13/18 - Review of Systems Systems Review Comment:: no vomiting no new complaints - Patient Data Vitals - Most Recent: Last Vital Signs Temp 97.4 F 07/13/18 07:30 Pulse 82 07/13/18 07:30 Resp 16 07/13/18 07:30 BP 122/57 L 07/13/18 07:30 Pulse Ox 97 07/13/18 07:30 Weight - Most Recent: 151.5 kg I&O - Last 24 Hours: Intake & Output 07/12/18 07/13/18 07/13/18 22:59 06:59 14:59 Intake Total 1480 600 Output Total 225 1800 Balance 1255 -1200 Med Orders - Current: Current Medications Al Hydroxide/Mg Hydroxide (Mag-Al Plus) 30 ml PO Q4H PRN PRN Reason: indigestion Aspirin (Aspirin) 325 mg PO BID [facility] Last Admin: 07/13/18 09:17 Dose: 325 mg Bisacodyl (Dulcolax) 10 mg RECTAL DAILY PRN PRN Reason: Constipation Celecoxib (Celebrex) 200 mg PO BID [facility] Last Admin: 07/13/18 09:18 Dose: 200 mg Cyclobenzaprine HCl (Flexeril) 10 mg PO Q8H PRN PRN Reason: Spasms Last Admin: 07/12/18 19:31 Dose: 10 mg Diphenhydramine HCl (Benadryl) 25 - 50 mg PO Q6H PRN PRN Reason: Itching Docusate Sodium (Colace) 100 mg PO BID [facility] Last Admin: 07/13/18 09:18 Dose: 100 mg Famotidine (Pepcid) 40 mg PO DAILY [facility] Last Admin: 07/13/18 09:20 Dose: 40 mg HCTZ/Losartan Potassium (Hyzaar 50-12.5 Mg) 1 tab PO BID [facility] Last Admin: 07/13/18 09:18 Dose: 1 tab Morphine Sulfate (Morphine Sulfate) 1 - 3 mg IV Q3H PRN PRN Reason: Pain Nitroglycerin (Nitro-Bid 2%) 1 gm TOP Q6H PRN PRN Reason: Chest Pain Ondansetron HCl (Zofran) 4 mg IV Q6HR PRN PRN Reason: NAUSEA/VOMITING Oxycodone HCl (Oxycontin) 10 mg PO Q12HR [facility] Last Admin: 07/13/18 09:19 Dose: 10 mg Oxycodone/Acetaminophen (Percocet 325-5 Mg) 1 - 2 tab PO Q4H PRN PRN Reason: Pain Last Admin: 07/13/18 07:05 Dose: 2 tab Scopolamine (Transderm-Scop) 1.5 mg TRDERM Q72H PRN PRN Reason: Nausea Last Admin: 07/11/18 09:17 Dose: 1.5 mg Sodium Chloride (Saline Flush) 10 ml FLUSH ASDIRECTED PRN PRN Reason: Keep Vein Open Sodium Chloride (Saline Flush) 2.5 ml FLUSH ASDIRECTED PRN PRN Reason: Keep Vein Open Discontinued Medications Bupivacaine Liposome (Exparel) 20 ml INFILT ONETIME [facility] Cefazolin Sodium (Ancef) Confirm Administered Dose 2 gm .ROUTE .STK-MED ONE Stop: 07/11/18 08:48 Cefazolin Sodium/Dextrose (Ancef) Confirm Administered Dose 2 gm IV .STK-MED ONE Stop: 07/11/18 10:25 Famotidine (Pepcid) 40 mg IVPUSH ONETIME ONE Stop: 07/11/18 06:37 Last Admin: 07/11/18 14:33 Dose: Not Given Famotidine (Pepcid) 40 mg IVPUSH ONETIME ONE Stop: 07/11/18 09:01 Last Admin: 07/11/18 09:16 Dose: 40 mg Fentanyl (Sublimaze) Confirm Administered Dose 100 mcg .ROUTE .STK-MED ONE Stop: 07/11/18 08:42 Fentanyl (Sublimaze) Confirm Administered Dose 100 mcg .ROUTE .STK-MED ONE Stop: 07/11/18 12:53 Glycopyrrolate (Robinul) Confirm Administered Dose 0.2 mg .ROUTE .STK-MED ONE Stop: 07/11/18 11:46 Glycopyrrolate (Robinul) Confirm Administered Dose 0.2 mg .ROUTE .STK-MED ONE Stop: 07/11/18 11:52 HCTZ/Losartan Potassium (Hyzaar 50-12.5 Mg) 2 tab PO DAILY [facility] Lactated Ringer's (Ringers, Lactated) 1,000 mls @ 125 mls/hr IV ASDIRECTED [facility] Last Admin: 07/12/18 06:02 Dose: 125 mls/hr Cefazolin Sodium/Dextrose 2 gm (/ Premix) 50 mls @ 100 mls/hr IV ONETIME ONE Stop: 07/11/18 07:00 Last Admin: 07/11/18 14:32 Dose: Not Given Acetaminophen 1,000 mg/ Premix 100 mls @ 400 mls/hr IV NOW ONE Stop: 07/11/18 06:49 Last Admin: 07/11/18 09:16 Dose: 400 mls/hr Ropivacaine 49.25 ml/Ketorolac Tromethamine 30 mg/Epinephrine HCl 0.5 mg/ Clonidine HCl 80 mcg/ Sodium Chloride 70 mls @ 50 mls/min INJECT ASDIRECTED FAITH Sodium Chloride (Normal Saline) Confirm Administered Dose 20 mls @ as directed .ROUTE .STK-MED ONE Stop: 07/11/18 08:48 Acetaminophen 1,000 mg/ Premix 100 mls @ 400 mls/hr IV Q6H [facility] Stop: 07/12/18 03:14 Last Admin: 07/12/18 02:32 Dose: 400 mls/hr Cefazolin Sodium/Dextrose 2 gm (/ Premix) 50 mls @ 100 mls/hr IV Q8H [facility] Stop: 07/12/18 03:29 Last Admin: 07/12/18 02:54 Dose: 100 mls/hr Ketorolac Tromethamine (Toradol) 30 mg IVPUSH ONETIME ONE Stop: 07/11/18 06:34 Last Admin: 07/11/18 09:15 Dose: 30 mg Ketorolac Tromethamine (Toradol) 30 mg IVPUSH ONETIME ONE Stop: 07/11/18 09:01 Last Admin: 07/11/18 14:33 Dose: Not Given Ketorolac Tromethamine (Toradol) 30 mg IVPUSH Q6H [facility] Stop: 07/12/18 05:00 Last Admin: 07/11/18 15:23 Dose: Not Given Ketorolac Tromethamine (Toradol) 30 mg IVPUSH Q6H [facility] Stop: 07/12/18 03:31 Last Admin: 07/12/18 02:35 Dose: 30 mg Lidocaine (Xylocaine-Mpf 2%) Confirm Administered Dose 5 ml .ROUTE .STK-MED ONE Stop: 07/11/18 08:42 Midazolam HCl (Versed 1 Mg/Ml) Confirm Administered Dose 2 mg .ROUTE .STK-MED ONE Stop: 07/11/18 08:42 Morphine Sulfate (Morphine [employer] 30 Mg In 30 Ml) 30 mg IV ASDIRECTED [facility]ITH; Protocol Stop: 07/12/18 08:00 Last Admin: 07/11/18 13:45 Dose: 30 mg Ondansetron HCl (Zofran) Confirm Administered Dose 4 mg .ROUTE .STK-MED ONE Stop: 07/11/18 11:51 Oxycodone HCl (Oxycontin) 10 mg PO ONETIME ONE Stop: 07/11/18 06:33 Last Admin: 07/11/18 14:33 Dose: Not Given Oxycodone HCl (Oxycontin) 10 mg PO NOW ONE Stop: 07/11/18 09:01 Last Admin: 07/11/18 09:14 Dose: 10 mg Oxycodone HCl (Oxycodone) 5 - 10 mg PO Q4H PRN PRN Reason: Pain Stop: 07/12/18 08:00 Last Admin: 07/11/18 16:48 Dose: 10 mg Phenylephrine HCl (Phenylephrine In Ns 100 Mcg/Ml) Confirm Administered Dose 1 mg .ROUTE .STK-MED ONE Stop: 07/11/18 11:58 Propofol (Diprivan 20 Ml) Confirm Administered Dose 400 mg .ROUTE .STK-MED ONE Stop: 07/11/18 08:42 Tranexamic Acid (Cyklokapron) Confirm Administered Dose 4,000 mg .ROUTE .STK- MED ONE Stop: 07/11/18 07:35 - Exam General: Cooperative Lungs: Normal Respiratory Effort Psy/Mental Status: Alert, Normal Affect Physical Findings Comments:: ambulating with a walker with a standby assist oxygen saturation room air mid 90's during sleep last night Consult PN Assessment/Plan Procedures: Procedures EMERGENCY DEPT VISIT (01/01/18) GLYCOSYLATED HEMOGLOBIN TEST (01/28/17) HOT OR COLD PACKS THERAPY (06/10/18) MRI BRAIN STEM W/O & W/DYE (03/16/17) MRI CHEST SPINE W/O & W/DYE (03/16/17) MRI JNT OF LWR EXTRE W/O DYE (04/21/18) MRI LUMBAR SPINE W/O DYE (03/16/17) MRI NECK SPINE W/O & W/DYE (01/28/17) ORGANIC ACID SINGLE QUANT (01/28/17) PROTEIN E-PHORESIS SERUM (01/28/17) PT EVAL LOW COMPLEX 20 MIN (05/20/18) THERAPEUTIC EXERCISES (06/10/18) VITAMIN B-12 (01/28/17) X-RAY BEND ONLY L-S SPINE (04/02/17) X-RAY EXAM KNEE 4 OR MORE (11/24/16) X-RAY EXAM OF KNEE 1 OR 2 (01/07/18) X-RAY EXAM OF KNEE 3 (01/01/18) (1) Status post total knee replacement SNOMED Code(s): 1688266157838, 757013738, 0823186117427 Code(s): Z96.659 - PRESENCE OF UNSPECIFIED ARTIFICIAL KNEE JOINT Current Visit: Yes (2) Hypertension SNOMED Code(s): 87137047 Code(s): I10 - ESSENTIAL (PRIMARY) HYPERTENSION Current Visit: Yes (3) Internal derangement of right knee SNOMED Code(s): 78871734492375045 Code(s): M23.91 - UNSPECIFIED INTERNAL DERANGEMENT OF RIGHT KNEE Current Visit: No Problem List Initiated/Reviewed/Updated: Yes Plan: OK for discharge to home on prior medicines. I recommend follow up with his primary care provider who can recommend sleep study if deemed appropriate. Liam Peters MD
--- NOTE | 2018-07-13 14:18 | DISCH ---
DATE OF DISCHARGE: 07/13/2018 PRIMARY CARE PHYSICIAN: Jose Barros M.D. ADMITTING DIAGNOSIS: Degenerative joint disease, right knee, tricompartmental. OTHER MEDICAL DIAGNOSES: 1. Obesity. 2. Hypertension. 3. Chronic low back pain. DISCHARGE DIAGNOSES: 1. Degenerative joint disease, right knee, tricompartmental. 2. Obesity. 3. Hypertension. 4. Chronic low back pain. BRIEF HISTORY: Vadim is a 62-year-old male who has had progressive complaints of right knee pain. He has tried and failed conservative treatment. At that time, surgical treatment was recommended. On July 11, 2018, the patient underwent a right total knee arthroplasty using patient-specific instrumentation, done by Dr. Tianna Garza. This was done under spinal anesthesia with sedation. Estimated blood loss was 50 mL. Tourniquet time was 51 minutes. There were no known complications. Upon the completion of the procedure, the patient was transferred to the PACU and subsequently to [facility] for postoperative care. HOSPITAL COURSE: Postoperatively, the patient did well. He received 2 doses of Ancef postoperatively for total 24 hours of antibiotic coverage. Physical therapy and the hospitalist service followed him through his hospital stay. He was started on aspirin 325 mg by mouth twice daily on postoperative day #1 as DVT prophylaxis. His vital signs have been stable. He has been afebrile. His pain has been controlled with a combination of oral and IV pain medications. Currently, his pain is well controlled with oral pain medications only. He is ambulating well independently with a wheeled walker. He feels comfortable with discharge to home. DISCHARGE MEDICATIONS: 1. OxyContin 10 mg. 2. Percocet 5/325. 3. Celebrex 200 mg. 4. Colace 100 mg. 5. Aspirin 325 mg. 6. Flexeril 10 mg. DISCHARGE INSTRUCTIONS: 1. Follow up in clinic in 10 to 14 days from the date of procedure. This appointment has been made for the patient. 2. Outpatient physical therapy 2 to 3 times per week for 4 to 6 weeks. 3. No driving for minimum of 6 weeks status post right total knee arthroplasty. 4. Polar Care to the right knee as needed. 5. ARBEN hose, on in the morning, off in the evening. For complete medication reconciliation and discharge instructions, please refer back to the patient's EHR. Should he have questions or concerns prior to his followup appointment, he has been advised to return to clinic or call. STEVEN GORMAN /[phone] [email or web address]
[2018-07-13 15:25] VITALS: BP 161/69
[2018-07-13] MEDS: Cyclobenzaprine 10 MG Tab PO PRN (16:15)
== END 2018-07-13 16:00 | disposition home or self-care (01) | DRG 302 ==
LOC: MW.SDS 08:08 → MW.MS 14:19 → MW.SDS 16:06 → MW.MS 16:06
PROVIDERS: ADMIT Orthopaedic Surgery; ATTEND Orthopaedic Surgery
PROC: 0SRC069 Replacement of Right Knee Joint with Oxidized Zirconium on Polyethylene Synthetic Substitute, Cemented, Open Approach (ICD-10-PCS; principal; 2018-07-11)
DX: M17.11 Unilateral primary osteoarthritis, right knee (principal); E66.9 Obesity, unspecified; Z68.42 Body mass index [BMI] 45.0-49.9, adult; M25.761 Osteophyte, right knee; I10 Essential (primary) hypertension; M54.5 Low back pain; G89.29 Other chronic pain; Z79.82 Long term (current) use of aspirin; Z79.899 Other long term (current) drug therapy; W18.30XA Fall on same level, unspecified, initial encounter; Y92.230 Patient room in hospital as the place of occurrence of the external cause
CPT/HCPCS: 36415; 73560-26-RT; 73560-RT; 80053; 85025; 86850; 86900; 86901; 97110-GP; 97116-GP; 97161-GP; 97530-GP; A9270-GY; C1713; C1776; J0131; J0171; J0690; J0735; J1885; J2250; J2274; J2370; J2405; J2704; J2795; J3010; J3490; J7050; J7120

== ENCOUNTER 2018-11-21 10:33 | Inpatient (IN) | payer BC ==
--- NOTE | 2018-11-20 09:58 | PCM.PREANE ---
Preanesthetic Assessment - Anesthesia/Transfusion/Family Hx Anesthesia History: Prior Anesthesia Without Reaction (many surgeries including LASIK, Back surgery to remove spurs T10-11, T+A, appy, forehead mass, multiple epidural steroid injections for back pain, knee replacement. On 07/12 patient underwent right knee replacement under spinal anesthesia: spinal was successful after 3 attempts. when the patient was sedated, he was unablel to maintain a good airway (despite jaw thrust) and an LMA was inserted and the case proceeded under combined SAB and GA without problems. Postoperatively the patient exhibited signs of JOAQUIN necessitating Internal Medicine consult and subsequent supplementary oxygen for 48 hours and continuous pulse oximetry while in hospital. JOAQUIN workup was recommended but was never done. The patient came back 2 months later 09/11 for removal of knee prosthesis due to infection: GA with LMA#5 was elected from the start and the patient did well, and still required supplemental oxygen postop with pulse oximetry.) Family History of Anesthesia Reaction: No Transfusion History: Unknown Intubation History: Unknown - Review of Systems General: No Symptoms (obese, hypertensive, probably JOAQUIN, muscle spasms Left leg , DJD of C-spine, T-spine and L-spine, Daily drinks one beer) Pulmonary: No Symptoms (probably JOAQUIN (see description of previous surgeries)) Cardiovascular: No Symptoms (hypertension) Gastrointestinal: No Symptoms Neurological: No Symptoms (muscle spasms and jerking of left leg, neuropathy and myelopathy) Other: Reports: None - Physical Assessment Height: 1.78 m Weight: 128.82 kg ASA Class: 3 Airway Class: Mallampati = 3 Dentition: Reports: Dentures (upper and lower dentures) - Lab Values: CBC and CMP fro 10/31/18 were WNL: - Imaging/EKG Impressions: EKG from 07/12 (report) NSR with intraventricular conduction delay - Allergies Allergies/Adverse Reactions: Allergies Allergy/AdvReac Type Severity Reaction Status Date / Time No Known Allergies Allergy Verified 11/16/18 11:22 - Blood Blood Available: No Product(s) Available: None - Anesthesia Plan Pre-Op Medication Ordered: None - Acknowledgements Anesthesia Type Planned: General Anesthesia (Plan GA with LMA. SAB was attempted x 3 on 07/12 with success, then patient obstructed with sedation necessitating LMA. Subsequent surgery 09/11 was GA with LMA #5 without problem. Same plan for surgery today.) Pt an Appropriate Candidate for the Planned Anesthesia: Yes Alternatives and Risks of Anesthesia Discussed w Pt/Guardian: Yes Pt/Guardian Understands and Agrees with Anesthesia Plan: Yes Additional Comments: would benefit from post op Oxygen for 48 hours and continuous pulse oximetry for the time he is in the hospital. PreAnesthesia Questionnaire HEENT History: Reports: Other (See Below) Other HEENT History: has upper denture Cardiovascular History: Reports: Hypertension Gastrointestinal History: Reports: Chronic Constipation Genitourinary History: Reports: None Musculoskeletal History: Reports: Back Pain, Chronic, Fracture, Osteoarthritis, Other (See Below) Other Musculoskeletal History: hx of DAYANNA's for back pain, hx of fx ankle, Endocrine/Metabolic History: Reports: Obesity/BMI 30+ Hematologic History: Other Hematologic History: states unknown if any blood tranfusions Immunologic History: Reports: None Oncologic (Cancer) History: Reports: None - Infectious Disease History Infectious Disease History: Reports: Chicken Pox - Past Surgical History Head Surgeries/Procedures: Reports: None HEENT Surgical History: Reports: LASIK, Tonsillectomy, Other (See Below) Other HEENT Surgeries/Procedures: removal of mass from forehead GI Surgical History: Reports: Appendectomy Neurological Surgical History: Reports: Other (See Below) Other Neurological Surgeries/Procedures: removal of bone spur from T10-T11 08/10 Musculoskeletal Surgical History: Reports: Knee Replacement, Other (See Below) Other Musculoskeletal Surgeries/Procedures:: removal of bone spur from T10-T11, excisional debridement of Rt TKA with removal of components and placement of antibiotic spacer on Sep 05, 2018 - SUBSTANCE USE Smoking Status *Q: Never Smoker Days Per Week of Alcohol Use: 7 Number of Drinks Per Day: 2 Total Drinks Per Week: 14 Recreational Drug Use History: No - HOME MEDS Home Medications: Home Meds Losartan/Hydrochlorothiazide [Losartan-HCTZ 100-25 MG] 1 tab PO DAILY 07/06/18 [ History] [place]-3/DHA/Epa/Fish Oil [[place]-3 Fish Oil 1,200 MG Sfgl] 1,200 mg PO DAILY 10/11 [History] Celecoxib [CeleBREX] 200 mg PO DAILY #30 cap 09/08/18 [Rx] Docusate Sodium [Colace] 100 mg PO BID #60 cap 09/08/18 [Rx] Acetaminophen/HYDROcodone [[place] 325-10 MG] 1 - 2 tab PO Q6H PRN #42 tablet [Rx] Acetaminophen with Codeine [Tylenol with Codeine #3 Tablet] tab PO Q4H PRN 11/16 [History] Cholecalciferol (Vitamin D3) [Vitamin D3] 1,000 units PO DAILY 11/16/18 [History ] Methocarbamol 500 mg PO TID 11/16/18 [History] Multivitamin [Multivitamins] 1 tab PO DAILY 11/16/18 [History] Polyethylene Glycol 3350 [Miralax] 1 dose PO DAILY 11/16/18 [History] - CURRENT (IN HOUSE) MEDS Current Meds: Current Medications Famotidine (Pepcid) 40 mg IVPUSH ONARRIVE [facility] Acetaminophen 1,000 mg/ Premix 100 mls @ 400 mls/hr IV ONARRIVE [facility] Cefazolin Sodium/Dextrose 2 gm (/ Premix) 50 mls @ 100 mls/hr IV ONCALL [facility] Ropivacaine 49.25 ml/Ketorolac Tromethamine 30 mg/Epinephrine HCl 0.5 mg/ Clonidine HCl 80 mcg/ Sodium Chloride 100 mls @ 50 mls/sec INJECT ASDIRECTED [facility] Lactated Ringer's (Ringers, Lactated) 1,000 mls @ 100 mls/hr IV ASDIRECTED [facility] Tranexamic Acid 4,000 mg/ (Sodium Chloride) 140 mls @ 600 mls/hr IV ASDIRECTED ONE Stop: 11/21/18 08:13 Scopolamine (Transderm-Scop) 1.5 mg TRDERM ONARRIVE [facility]
[~2018-11-21 10:33] MED LIST changes: -Acetaminophen 1,000 MG in Premix Bag 1 BAG IV ONE; +Acetaminophen 1,000 MG in Premix Bag 1 BAG IV SCH; -Bupivacaine Liposome 1.3% 20 ML SDV INFILT SCH; -Famotidine 20 MG/2 ML SDV IVPUSH ONE; +Famotidine 20 MG/2 ML SDV IVPUSH SCH; -Ketorolac 30 MG/ML SDV IVPUSH ONE; -Scopolamine 1.5 MG Transdermal Patch TRDERM PRN; +Scopolamine 1.5 MG Transdermal Patch TRDERM SCH; +Tranexamic Acid 4,000 MG in Sodium Chloride 0.9% 100 ML IV ONE; -ceFAZolin 2 GM in Premix Bag 1 BAG IV ONE; +ceFAZolin 2 GM in Premix Bag 1 BAG IV SCH; -oxyCODONE ER 10 MG TAB.ER PO ONE
[2018-11-21] MEDS: Lactated Ringers 1,000 ML IV SCH (11:17)
--- NOTE | 2018-11-21 11:28 | PCM.PREANE ---
Preanesthetic Assessment - Anesthesia/Transfusion/Family Hx Anesthesia History: Prior Anesthesia Without Reaction (many surgeries including LASIK, Back surgery to remove spurs T10-11, T+A, appy, forehead mass, multiple epidural steroid injections for back pain, knee replacement. On 07/12 patient underwent right knee replacement under spinal anesthesia: spinal was successful after 3 attempts. when the patient was sedated, he was unablel to maintain a good airway (despite jaw thrust) and an LMA was inserted and the case proceeded under combined SAB and GA without problems. Postoperatively the patient exhibited signs of JOAQUIN necessitating Internal Medicine consult and subsequent supplementary oxygen for 48 hours and continuous pulse oximetry while in hospital. JOAQUIN workup was recommended but was never done. The patient came back 2 months later 09/11 for removal of knee prosthesis due to infection: GA with LMA#5 was elected from the start and the patient did well, and still required supplemental oxygen postop with pulse oximetry.) Family History of Anesthesia Reaction: No Transfusion History: Unknown Intubation History: Unknown - Review of Systems General: No Symptoms Pulmonary: No Symptoms Cardiovascular: No Symptoms Gastrointestinal: No Symptoms Neurological: No Symptoms Other: Reports: None - Physical Assessment O2 Sat by Pulse Oximetry: 96 Respiratory Rate: 16 Vital Signs: Last Vital Signs Temp 36.6 C 11/21/18 11:14 Pulse 62 11/21/18 11:14 Resp 16 11/21/18 11:14 BP 129/64 11/21/18 11:14 Pulse Ox 96 11/21/18 11:14 Height: 1.78 m Weight: 128.82 kg ASA Class: 3 Mental Status: Alert & Oriented x3 Airway Class: Mallampati = 3 Dentition: Reports: Dentures (upper, few teeth left at the bottom) Thyro-Mental Finger Breadths: 3 Mouth Opening Finger Breadths: 3 ROM/Head Extension: Limited/Partial Lungs: Clear to Auscultation, Normal Respiratory Effort Cardiovascular: Regular Rate, Regular Rhythm - Allergies Allergies/Adverse Reactions: Allergies Allergy/AdvReac Type Severity Reaction Status Date / Time No Known Allergies Allergy Verified 11/16/18 11:22 - Blood Blood Available: No Product(s) Available: None - Acknowledgements Anesthesia Type Planned: General Anesthesia Pt an Appropriate Candidate for the Planned Anesthesia: Yes Alternatives and Risks of Anesthesia Discussed w Pt/Guardian: Yes Pt/Guardian Understands and Agrees with Anesthesia Plan: Yes PreAnesthesia Questionnaire HEENT History: Reports: Other (See Below) Other HEENT History: has upper denture Cardiovascular History: Reports: Hypertension Respiratory History: Reports: Other (See Below) (probable JOAQUIN) Gastrointestinal History: Reports: Chronic Constipation Genitourinary History: Reports: None Musculoskeletal History: Reports: Back Pain, Chronic, Fracture, Osteoarthritis, Other (See Below) Other Musculoskeletal History: hx of DAYANNA's for back pain, hx of fx ankle, Neurological History: Reports: Other (See Below) (muscle spasms and jerking left leg ( neuropathy and myelopathy )) Endocrine/Metabolic History: Reports: Obesity/BMI 30+ Hematologic History: Other Hematologic History: states unknown if any blood tranfusions Immunologic History: Reports: None Oncologic (Cancer) History: Reports: None - Infectious Disease History Infectious Disease History: Reports: Chicken Pox - Past Surgical History Head Surgeries/Procedures: Reports: None HEENT Surgical History: Reports: LASIK, Tonsillectomy, Other (See Below) Other HEENT Surgeries/Procedures: removal of mass from forehead GI Surgical History: Reports: Appendectomy Neurological Surgical History: Reports: Other (See Below) Other Neurological Surgeries/Procedures: removal of bone spur from T10-T11 08/10 Musculoskeletal Surgical History: Reports: Knee Replacement, Other (See Below) Other Musculoskeletal Surgeries/Procedures:: removal of bone spur from T10-T11, excisional debridement of Rt TKA with removal of components and placement of antibiotic spacer on Sep 05, 2018 - SUBSTANCE USE Smoking Status *Q: Never Smoker Days Per Week of Alcohol Use: 7 Number of Drinks Per Day: 2 Total Drinks Per Week: 14 Recreational Drug Use History: No - HOME MEDS Home Medications: Home Meds Losartan/Hydrochlorothiazide [Losartan-HCTZ 100-25 MG] 1 tab PO DAILY 07/06/18 [ History] [place]-3/DHA/Epa/Fish Oil [[place]-3 Fish Oil 1,200 MG Sfgl] 1,200 mg PO DAILY 10/11 [History] Celecoxib [CeleBREX] 200 mg PO DAILY #30 cap 09/08/18 [Rx] Docusate Sodium [Colace] 100 mg PO BID #60 cap 09/08/18 [Rx] Acetaminophen/HYDROcodone [[place] 325-10 MG] 1 - 2 tab PO Q6H PRN #42 tablet [Rx] Acetaminophen with Codeine [Tylenol with Codeine #3 Tablet] tab PO Q4H PRN 11/16 [History] Cholecalciferol (Vitamin D3) [Vitamin D3] 1,000 units PO DAILY 11/16/18 [History ] Methocarbamol 500 mg PO TID 11/16/18 [History] Multivitamin [Multivitamins] 1 tab PO DAILY 11/16/18 [History] Polyethylene Glycol 3350 [Miralax] 1 dose PO DAILY 11/16/18 [History] - CURRENT (IN HOUSE) MEDS Current Meds: Current Medications Famotidine (Pepcid) 40 mg IVPUSH ONARRIVE [facility] Last Admin: 11/21/18 11:17 Dose: 40 mg Acetaminophen 1,000 mg/ Premix 100 mls @ 400 mls/hr IV ONARRIVE [facility] Last Admin: 11/21/18 11:19 Dose: 400 mls/hr Cefazolin Sodium/Dextrose 2 gm (/ Premix) 50 mls @ 100 mls/hr IV ONCALL [facility] Ropivacaine 49.25 ml/Ketorolac Tromethamine 30 mg/Epinephrine HCl 0.5 mg/ Clonidine HCl 80 mcg/ Sodium Chloride 100 mls @ 50 mls/sec INJECT ASDIRECTED [facility] Lactated Ringer's (Ringers, Lactated) 1,000 mls @ 100 mls/hr IV ASDIRECTED [facility] Last Admin: 11/21/18 11:17 Dose: 100 mls/hr Scopolamine (Transderm-Scop) 1.5 mg TRDERM ONARRIVE [facility] Last Admin: 11/21/18 11:18 Dose: 1.5 mg Discontinued Medications Tranexamic Acid 4,000 mg/ (Sodium Chloride) 140 mls @ 600 mls/hr IV ASDIRECTED ONE Stop: 11/21/18 08:13 Tranexamic Acid (Cyklokapron) Confirm Administered Dose 4,000 mg .ROUTE .STK- MED ONE Stop: 11/21/18 07:31 Tranexamic Acid (Cyklokapron) Confirm Administered Dose 4,000 mg .ROUTE .STK- MED ONE Stop: 11/21/18 07:54
[2018-11-21] MEDS ORDERED: Ondansetron 4 MG/2 ML SDV ONE (12:24)
[2018-11-21] MEDS ORDERED: Lidocaine 2% 5 ML SDV ONE (12:24)
[2018-11-21] MEDS ORDERED: Ketorolac 30 MG/ML SDV ONE (12:24)
[2018-11-21] MEDS ORDERED: Propofol 200 MG/20 ML SDV ONE (12:25)
[2018-11-21] MEDS ORDERED: Midazolam 1 MG/ML 2 ML SDV ONE (12:25)
[2018-11-21] MEDS ORDERED: fentaNYL 100 MCG/2 ML SDV ONE ×2 (12:25→16:21)
[2018-11-21] MEDS ORDERED: Metoclopramide 10 MG/2 ML SDV IVPUSH PRN (15:40)
[2018-11-21] MEDS ORDERED: fentaNYL 100 MCG/2 ML SDV IVPUSH PRN (15:40)
[2018-11-21] MEDS ORDERED: Scopolamine 1.5 MG Transdermal Patch TRDERM PRN (15:40)
[2018-11-21] MEDS ORDERED: Atropine 1 MG/ML SDV IVPUSH PRN (15:40)
[2018-11-21] MEDS ORDERED: Naloxone 0.4 MG/ML Syringe IVPUSH PRN (15:40)
[2018-11-21] MEDS ORDERED: Promethazine 25 MG/ML SDV IM PRN (15:40)
[2018-11-21] MEDS ORDERED: Ondansetron 4 MG/2 ML SDV IVPUSH PRN ×2 (15:40→16:56)
[2018-11-21] MEDS ORDERED: Meperidine PF 25 MG/ML Syringe IV PRN (15:40)
[2018-11-21] MEDS ORDERED: HYDROmorphone 2 MG/ML SDV IVPUSH PRN (15:40)
[2018-11-21] MEDS ORDERED: Albuterol 0.083% 2.5 MG/3 ML Neb Soln NEB PRN (15:40)
[2018-11-21] MEDS ORDERED: Labetalol 100 MG/20 ML MDV IVPUSH PRN (15:40)
[2018-11-21] MEDS ORDERED: Morphine 4 MG/ML Syringe IVPUSH PRN (15:40)
[2018-11-21] MEDS ORDERED: hydrALAZINE 20 MG/ML SDV IVPUSH PRN (15:40)
[2018-11-21] MEDS ORDERED: Docusate Sodium 100 MG Cap PO PRN (16:56)
[2018-11-21] MEDS ORDERED: Aluminum Hydroxide/Magnesium Hydroxide/Simethicone Susp 30 ML Cup PO PRN (16:56)
[2018-11-21] MEDS ORDERED: Bisacodyl 10 MG Supp RECTAL PRN (16:56)
[2018-11-21] MEDS ORDERED: Morphine PF 30 MG/30 ML PCA Vial IV PRN (16:56)
[2018-11-21] MEDS ORDERED: diphenhydrAMINE 25 MG Cap PO PRN (16:56)
[2018-11-21] MEDS ORDERED: Sodium Chloride 0.9% 10 ML Syringe FLUSH PRN (16:59)
[2018-11-21] MEDS ORDERED: Sodium Chloride 0.9% 2.5 ML Syringe FLUSH PRN (16:59)
--- NOTE | 2018-11-21 17:18 | PCM.OPNOTE ---
- General Post-Op/Procedure Note Date of Surgery/Procedure: 11/21/18 Operative Procedure(s): Revision R TKA Post-Op Diagnosis: Periprosthetic infection R TKA Anesthesia Technique: General ET Tube Primary Surgeon: Tianna Garza Marketing Systems Manager: Dulce Chahal in mLs: 150 Condition: Good Free Text/Narrative:: tt= 128 min #[id number]
--- NOTE | 2018-11-21 18:16 | PCM.POSTAN ---
POST ANESTHESIA ASSESSMENT - MENTAL STATUS Mental Status: Oriented (sleepy but responsive to verbal stimuli. Was able to answer my questions.) - VITAL SIGNS Pulse Rate: 91 SaO2: 96 (on nasal cannula) Resp Rate: 16 Blood Pressure: 124/60 Temperature: 37.9 C - RESPIRATORY Respiratory Status: Respiratory Rate WNL, Airway Patent, O2 Saturation Stable - CARDIOVASCULAR CV Status: Pulse Rate WNL, Blood Pressure Stable - GASTROINTESTINAL GI Status: No Symptoms - PAIN Pain Score: 7 (patient says pain is 7/10 but vitals are stable and he appears to be very comfortable, drowsy, relaxed) - POST OP HYDRATION Hydration Status: Adequate & Stable - OBSERVATIONS Free Text/Narrative:: good post op phase I recovery. Appears comfortable and relaxed. Will keep on oxygen overnight along with continuous pulse oximetry.
[2018-11-21] MEDS: Acetaminophen 1,000 MG in Premix Bag 1 BAG IV SCH ×2 (19:04→22:43)
[2018-11-21] MEDS: oxyCODONE 5 MG Tab PO PRN (19:05)
[2018-11-21] MEDS: ceFAZolin 2 GM in Premix Bag 1 BAG IV SCH (20:39)
[2018-11-21] MEDS: Ketorolac 30 MG/ML SDV IVPUSH SCH (22:47)
--- NOTE | 2018-11-21 23:40 | OR ---
SURGEON: Tianna Garza MD DATE OF PROCEDURE: 11/21/2018 PREOPERATIVE DIAGNOSIS: Periprosthetic infection, right total knee arthroplasty POSTOPERATIVE DIAGNOSIS: Periprosthetic infection, right total knee arthroplasty. PROCEDURE: 1. Irrigation and debridement, right knee with removal of antibiotic spacer. 2. Revision right total knee arthroplasty. SUPERINTENDENT OIL FIELD DRILLING: Dulce Chahal PA-C. ANESTHESIA: General. ESTIMATED BLOOD LOSS: 150 mL. TOURNIQUET TIME: 128 minutes total. For complete record of inflation and deflation times, please refer to the operative nursing record. DVT PROPHYLAXIS: PAS boot and ARBEN hose to the nonoperative leg. IMPLANTS USED: Anya NexGen LCCK femoral component size G with a 100 mm x 17 mm stem extension and 5 mm distal femoral and posterior femoral augment blocks and tibial component size 6 with a 12 mm x 155 mm length stem extension with 10 mm tibial full block augment, 35 mm all-polyethylene patella, and 17 mm all-polyethylene articular surface. BRIEF HISTORY: Vadim is a 63-year-old male who previously underwent a right total knee arthroplasty. Unfortunately, he developed a periprosthetic infection postoperatively and subsequently underwent excision of the components and placement of an antibiotic spacer. He underwent 6 weeks of IV antibiotics and has been off the antibiotics for a period of time. His inflammatory labs did not show any elevation while off the antibiotics, and we elected to proceed with surgical revision. The risks and goals of the procedure were discussed with the patient and were documented preoperatively. He agreed to proceed. DESCRIPTION OF PROCEDURE: The patient was properly identified and brought to the operating room. He was transferred from the OR cart and placed on the operating table in a supine position. General anesthesia was administered. After adequate anesthesia was obtained, a well-padded tourniquet was applied to the right lower extremity. The right lower extremity was then prepped in standard fashion using ChloraPrep solution. It was then sterilely draped. A time-out was performed to ensure correct site and procedure. Preoperative antibiotics were held. The surgical site had been marked preoperatively. The tourniquet was inflated to 250 mmHg. An incision was made over the site of the previous incision. The incision was extended both distally and proximally. Subcutaneous tissues were incised. The tissues appeared quite woody and there were no definite tissue planes. I was able to undermine a portion of the skin and identify the fascia. A medial parapatellar approach was then made. The component and cement spacer and articular surface were identified. A portion of the cement spacer was removed and the articular block was also removed. The femoral component was able to disengage from the bone quite easily and there was no further bone loss. The tissues appeared clean. There did not appear to be any evidence of infection or purulent drainage. Tissue was then sent from the posterior aspect of the knee for evaluation by Pathology as well as culture and sensitivity. The wound was then copiously irrigated with 3 L of saline solution. The joint surfaces were then inspected. He was found to have an approximately 20 mm depth x 37 mm width cortical defect along the anteromedial aspect of the tibia. This involved approximately 1/5 of the total cortical diameter. I was able to clear the soft tissues from the surrounding tibia. Once the tibial surface had been cleared, an intramedullary reamer was then used to open the intramedullary canal of the tibia. I sequentially reamed up to a 12 mm. This provided good stability. Because of the metaphyseal defect, I initially trialed a distal femoral cone as we did not have any tibial cones available as the cortical metaphyseal defect did not appear to be as significant on x-ray. Unfortunately, we were unable to use the distal femoral cone due to the flares of the tibial prosthesis. The tibial tray was then placed over the intramedullary reamer and sized. It was felt that a size 6 was appropriate. It was pinned into slight external rotation. Care was taken to match the center portion of the trial to the medial aspect of the tibial tubercle. The trial was then removed. The cutting guide was then placed and using a combination of the guide and freehand, the tibial cut was freshened. I elected to proceed with 10 mm augments and the cut was made appropriate to this. Once the cut was made, the tibial plate was again inserted and pinned into position. It was then reamed and broached. A trial was then assembled on the back table keeping the rotation of the intramedullary miroslava consistent with the prosthesis. This fit nicely into the tibial canal. We then turned our attention to the femur. An entry reamer to the femoral canal was used. Again, we sequentially reamed the femoral canal. It was felt that a size 17 was appropriate and gave good stability. While the trial reamer was in place, the distal femoral cutting block was assembled. The cuts were freshened appropriately. The size G cutting block was then placed into slight external rotation and pinned into position and the remainder of the cuts were made. This was followed by the box cutting jig. The reamer and cutting guides were then removed. The femoral trial was assembled on the back table. Due to the bony loss, I elected to use 5 mm distal femoral as well as posterior condylar augments and these were placed onto the trial. The femoral trial component was then placed and had good bony contact. It was felt to be appropriate. A 17 mm articular surface was then placed and the knee was taken through a range of motion. A drop miroslava was used to confirm acceptable alignment of the prosthesis. He had good medial lateral stability as well. The knee was then brought into full extension. We turned our attention to the patella. The overgrowth of tissue around the patella was then cleared. The patella was again sized and felt that a 35 mm patella would be appropriate. A patellar clamp was placed and drilled. A patellar button was then placed. The knee was taken through a range of motion. The patella appeared to track centrally using the no-touch technique. All implants were then removed from the knee. The wound was again copiously irrigated with an additional 3 L of normal saline. It should be noted that prior to making any bony cuts, we did receive a call from the pathologist to state that there were less than 5 wbc's per high- powered field on the tissue that was sent. Because of this, we elected to proceed with the definitive procedure. The tourniquet was also inflated and deflated as noted in the nursing record. I did have the tourniquet inflated for final cementation. Once the wound was copiously irrigated, I elected to proceed with implantation. As noted above, the tourniquet was inflated and the bony surfaces were dried. The implants were assembled on the back table in a similar fashion to the trials. With the metaphyseal void, I felt that additional bone grafting was needed. Cement was placed over the proximal portion of the tibia and the implant was placed and malleted into position. It had good bony contact except over the anterior aspect of the metaphyseal void area. The femur was also cemented in a similar fashion. A 17 mm articular surface was then placed and the knee was brought into full extension and held. The patella was also cemented into place. As the cement hardened, a portion of the cement was removed from the bony void and this was impacted with crushed cancellous bone chips. Once we had good fill of the bony defect with the bone chips, an additional cover of cement was placed over this and allowed to dry providing a retainer for the bone chips. Once the cement had hardened, the knee was again taken through a range of motion. It was felt that the 17 mm articular surface was appropriate. The trial was removed. Any excess cement and bony debris were removed from the tray. The tourniquet was deflated. No excess bleeding was noted. The articular surface was inserted without difficulty. The screw was then placed with the assistance of the torque limiter. The wound was again irrigated with normal saline. The fascial layer was closed with #1 Vicryl. Because the fascial layer was still thick and woody in nature, I did place intermittent #[address] along the medial parapatellar repair for additional support. The remainder of the fascial layer was closed with #1 Vicryl. The subcutaneous tissues were closed with 2-0 Vicryl and the skin was closed with josh. Xeroform gauze was placed over the wound and a bulky dressing was applied. He was placed into a knee immobilizer. We will plan on keeping him in the knee immobilizer for the first 2 weeks to allow the soft tissue swelling to resolve. We will then plan on increasing his motion according to our usual postoperative total knee protocol. He will remain weightbearing as tolerated on the right lower extremity. The patient was awakened from his anesthetic and transferred back to the operating room cart. He was brought to recovery room in stable condition. All needle and sponge counts were correct. HILARY / MODL /[id number] FRANCIA
[2018-11-22] MEDS: Lactated Ringers 1,000 ML IV SCH (01:39)
[2018-11-22] MEDS: oxyCODONE 5 MG Tab PO PRN ×2 (01:49→05:49)
[2018-11-22] MEDS: Ketorolac 30 MG/ML SDV IVPUSH SCH (03:34)
[2018-11-22] MEDS: ceFAZolin 2 GM in Premix Bag 1 BAG IV SCH (03:35)
[2018-11-22] MEDS: Acetaminophen 1,000 MG in Premix Bag 1 BAG IV SCH (04:43)
[2018-11-22] MEDS ORDERED: Morphine 2 MG/ML Syringe IVPUSH PRN (06:00)
--- NOTE | 2018-11-22 07:52 | PCM48HPAN ---
Post Anesthesia Note - EVALUATION WITHIN 48HRS OF ANESTHETIC Vital Signs in Normal Range: Yes Patient Participated in Evaluation: Yes Respiratory Function Stable: Yes Airway Patent: Yes Cardiovascular Function Stable: Yes Hydration Status Stable: Yes Pain Control Satisfactory: Yes Nausea and Vomiting Control Satisfactory: Yes Mental Status Recovered: Yes Pulse Rate: 91 Resp Rate: 18 Temperature: 100.2 F Blood Pressure: 124/60 - COMMENTS/OBSERVATIONS Free Text/Narrative:: Pt up in the chair this AM with some oozing to his R knee. Pt states that " I must have had a good night, because I don't remember it!" No complaints of pain or nausea this AM. No apparent anesthesia complications.
[2018-11-22] MEDS: Multivitamin Tab PO SCH (08:04)
[2018-11-22] MEDS: Fish Oil/Omega-3 Fatty Acids 1 Gm Cap PO SCH (08:04)
[2018-11-22] MEDS: Polyethylene Glycol 3350 Powder 17 GM Packet PO SCH (08:04)
[2018-11-22] MEDS: Famotidine 20 MG Tab PO SCH (08:04)
[2018-11-22] MEDS: Hydrochlorothiazide/Losartan 12.5-50 mg Tab PO SCH (08:04)
[2018-11-22] MEDS: Aspirin 325 MG Tab PO SCH ×2 (08:24→20:11)
[2018-11-22] MEDS: Celecoxib 100 MG Cap PO SCH ×2 (08:24→20:11)
--- NOTE | 2018-11-22 08:58 | PCM.SURGPN ---
<Dulce Chahal R - Last Filed: 11/22/18 08:51> - General Info Date of Service: 11/22/18 Date of Surgery/Procedure: 11/21/18 POD#: 1 Functional Status: Reports: Pain Controlled - Review of Systems General: Reports: No Symptoms Pulmonary: Reports: No Symptoms Cardiovascular: Reports: No Symptoms Gastrointestinal: Reports: No Symptoms Musculoskeletal: Reports: Leg Pain Systems Review Comment:: pt up to chair for breakfast tolerating PO intake well pain controlled with Percocet 10/325 c/w sanguineous drainage from dressing, saturated knee immobilizer as well has been wearing knee immobilizer and TTWB RLE - Patient Data Vitals - Most Recent: Last Vital Signs Temp 97.3 F 11/22/18 08:00 Pulse 74 11/22/18 08:00 Resp 16 11/22/18 08:00 BP 108/59 L 11/22/18 08:00 Pulse Ox 100 11/22/18 08:00 Weight - Most Recent: 128.82 kg I&O - Last 24 Hours: Intake & Output 11/21/18 11/22/18 11/22/18 22:59 06:59 14:59 Intake Total 2070 Output Total 1200 Balance 870 Lab Results Last 24 Hrs: Laboratory Results - last 24 hr 11/21/18 11/22/18 Range/Units 11:12 06:12 Hgb 9.6 L (13.0-17.0) g/dL Hct 29.4 L (38.0-50.0) % Blood Type O POSITIVE Antibody Screen NEGATIVE Jesse Results Last 24 Hrs: Microbiology 11/21/18 13:12 Gram Stain - Preliminary Knee, Right Med Orders - Current: Current Medications Al Hydroxide/Mg Hydroxide (Mag-Al Plus) 30 ml PO Q4H PRN PRN Reason: Indigestion Albuterol (Proventil Neb Soln) 2.5 mg NEB Q6HRRT PRN PRN Reason: Wheezing Aspirin (Aspirin) 325 mg PO BID [facility] Last Admin: 11/22/18 08:24 Dose: 325 mg Atropine Sulfate (Atropine 1 Mg/Ml) 0.4 mg IVPUSH Q5M PRN PRN Reason: Bradycardia Bisacodyl (Dulcolax) 10 mg RECTAL DAILY PRN PRN Reason: Constipation Celecoxib (Celebrex) 200 mg PO BID [facility] Last Admin: 11/22/18 08:24 Dose: 200 mg Diphenhydramine HCl (Benadryl) 25 - 50 mg PO Q6H PRN PRN Reason: Itching Docusate Sodium (Colace) 100 mg PO BID PRN PRN Reason: Constipation Famotidine (Pepcid) 40 mg IVPUSH ONARRIVE [facility] Last Admin: 11/21/18 11:17 Dose: 40 mg Famotidine (Pepcid) 40 mg PO DAILY [facility] Last Admin: 11/22/18 08:04 Dose: 40 mg Fentanyl (Sublimaze) 50 mcg IVPUSH Q5M PRN PRN Reason: Pain (severe 7-10) Stop: 11/22/18 15:41 Fish Oil (Fish Oil) 1 gm PO DAILY [facility] Last Admin: 11/22/18 08:04 Dose: 1 gm HCTZ/Losartan Potassium (Hyzaar 50-12.5 Mg) 2 tab PO DAILY [facility] Last Admin: 11/22/18 08:04 Dose: 2 tab Hydralazine HCl (Apresoline) 10 mg IVPUSH ONETIME PRN PRN Reason: Hypertension Hydromorphone HCl (Dilaudid) 0.25 mg IVPUSH Q10M PRN PRN Reason: Pain (severe 7-10) Stop: 11/22/18 15:41 Acetaminophen 1,000 mg/ Premix 100 mls @ 400 mls/hr IV ONARRIVE [facility] Last Admin: 11/21/18 11:19 Dose: 400 mls/hr Cefazolin Sodium/Dextrose 2 gm (/ Premix) 50 mls @ 100 mls/hr IV ONCALL [facility] Ropivacaine 49.25 ml/Ketorolac Tromethamine 30 mg/Epinephrine HCl 0.5 mg/ Clonidine HCl 80 mcg/ Sodium Chloride 100 mls @ 50 mls/sec INJECT ASDIRECTED [facility] Lactated Ringer's (Ringers, Lactated) 1,000 mls @ 100 mls/hr IV ASDIRECTED [facility] Last Admin: 11/22/18 01:39 Dose: 100 mls/hr Labetalol HCl (Normodyne) 10 mg IVPUSH Q6H PRN PRN Reason: Hypertension Stop: 11/22/18 15:41 Meperidine HCl (Demerol) 25 mg IV ONETIME PRN PRN Reason: Shivering Metoclopramide HCl (Reglan) 10 mg IVPUSH ONETIME PRN PRN Reason: Nausea Morphine Sulfate (Morphine) 4 mg IVPUSH Q10M PRN PRN Reason: Pain (severe 7-10) Stop: 11/22/18 15:41 Morphine Sulfate (Morphine) 1 - 3 mg IVPUSH Q3H PRN PRN Reason: Pain Multivitamins/Minerals/Vitamin C (Tab-A-Jono) 1 tab PO DAILY [facility] Last Admin: 11/22/18 08:04 Dose: 1 tab Naloxone HCl (Narcan) 0.1 mg IVPUSH ONETIME PRN PRN Reason: Respiratory Depression Ondansetron HCl (Zofran) 8 mg IVPUSH ONETIME PRN PRN Reason: Nausea Ondansetron HCl (Zofran) 4 mg IVPUSH Q6H PRN PRN Reason: Nausea/Vomiting Oxycodone/Acetaminophen (Percocet 325-10 Mg) 1 - 2 tab PO Q4H PRN PRN Reason: Pain Methocarbamol 500 Mg 1 each PO TID [facility] Last Admin: 11/22/18 05:51 Dose: Not Given Polyethylene Glycol (Miralax) 17 gm PO DAILY [facility] Last Admin: 11/22/18 08:04 Dose: 17 gm Promethazine HCl (Phenergan) 12.5 mg IM ONETIME PRN PRN Reason: Nausea Scopolamine (Transderm-Scop) 1.5 mg TRDERM ONARRIVE [facility] Last Admin: 11/21/18 11:18 Dose: 1.5 mg Scopolamine (Transderm-Scop) 1.5 mg TRDERM Q72H PRN PRN Reason: Nausea Sodium Chloride (Saline Flush) 10 ml FLUSH ASDIRECTED PRN PRN Reason: Keep Vein Open Sodium Chloride (Saline Flush) 2.5 ml FLUSH ASDIRECTED PRN PRN Reason: Keep Vein Open Discontinued Medications Fentanyl (Sublimaze) Confirm Administered Dose 100 mcg .ROUTE .STK-MED ONE Stop: 11/21/18 12:26 Fentanyl (Sublimaze) Confirm Administered Dose 100 mcg .ROUTE .STK-MED ONE Stop: 11/21/18 16:22 Tranexamic Acid 4,000 mg/ (Sodium Chloride) 140 mls @ 600 mls/hr IV ASDIRECTED ONE Stop: 11/21/18 08:13 Last Admin: 11/21/18 19:04 Dose: Not Given Acetaminophen 1,000 mg/ Premix 100 mls @ 400 mls/hr IV Q6H [facility] Stop: 11/22/18 05:14 Last Admin: 11/22/18 04:43 Dose: 400 mls/hr Cefazolin Sodium/Dextrose 2 gm (/ Premix) 50 mls @ 100 mls/hr IV Q8H [facility] Stop: 11/22/18 04:59 Last Admin: 11/22/18 03:35 Dose: 100 mls/hr Acetaminophen (Ofirmev) Confirm Administered Dose 100 mls @ as directed IV .STK- MED ONE Stop: 11/21/18 17:03 Ketorolac Tromethamine (Toradol) Confirm Administered Dose 30 mg .ROUTE .STK- MED ONE Stop: 11/21/18 12:25 Ketorolac Tromethamine (Toradol) 30 mg IVPUSH Q6H [facility] Stop: 11/22/18 05:00 Last Admin: 11/22/18 03:34 Dose: 30 mg Lidocaine (Xylocaine-Mpf 2%) Confirm Administered Dose 5 ml .ROUTE .STK-MED ONE Stop: 11/21/18 12:25 Midazolam HCl (Versed 1 Mg/Ml) Confirm Administered Dose 2 mg .ROUTE .STK-MED ONE Stop: 11/21/18 12:26 Morphine Sulfate (Morphine Consumer Studies Professor 30 Mg In 30 Ml) 30 mg IV ASDIRECTED PRN; Protocol PRN Reason: Pain Stop: 11/22/18 06:00 Last Admin: 11/21/18 19:08 Dose: 30 mg Ondansetron HCl (Zofran) Confirm Administered Dose 8 mg .ROUTE .STK-MED ONE Stop: 11/21/18 12:25 Oxycodone HCl (Oxycodone) 5 - 10 mg PO Q4H PRN PRN Reason: Pain Stop: 11/22/18 06:00 Last Admin: 11/22/18 05:49 Dose: 10 mg Propofol (Diprivan 20 Ml) Confirm Administered Dose 200 mg .ROUTE .STK-MED ONE Stop: 11/21/18 12:26 Tranexamic Acid (Cyklokapron) Confirm Administered Dose 4,000 mg .ROUTE .STK- MED ONE Stop: 11/21/18 07:31 Tranexamic Acid (Cyklokapron) Confirm Administered Dose 4,000 mg .ROUTE .STK- MED ONE Stop: 11/21/18 07:54 - Exam Wound/Incisions: Healing Well, Drainage (mild active sanguineous drainage from distal aspect of incision. ). No: Erythema General: Alert, Oriented Cardiovascular: Regular Rate, Regular Rhythm Extremities: Other (exam RLE - incision c/d/josh intact, sanguineous drainage as noted above, at/ehl/gastroc 5/5, dp 2+, sensation intact distally) Physical Findings Comment:: vss, afeb tMax 100.2 uo 1350mL hgb 9.6 - Problem List Review Problem List Initiated/Reviewed/Updated: Yes - My Orders Last 24 Hours: Active Orders 24 hr Category Date Time Status Communication Order [RC] PRN Care 11/21/18 16:56 Active Communication Order [RC] PRN Care 11/21/18 16:56 Active Insert Urinary Catheter [OM.PC] Routine Care 11/21/18 08:00 Ordered Neurovascular Check [RC] Q2HR Care 11/21/18 16:56 Active Notify Provider Vital Signs [RC] ASDIRECTED Care 11/21/18 16:56 Active Overnight Pulse Oximetry [RC] Click to Edit Care 11/21/18 16:26 Active RT Incentive Spirometry [RC] Q1HWA Care 11/21/18 16:56 Active Urinary Catheter Removal [RC] ASDIRECTED Care 11/22/18 06:00 Active Vital Signs [RC] Q4H Care 11/21/18 16:56 Active Wound Care [RC] DAILY Care 11/21/18 16:56 Active PT Evaluation and Treatment [CONS] Routine Cons 11/21/18 16:56 Active Knee 1V or 2V Rt [CR] Routine Exams 11/21/18 16:55 Taken CULTURE ANAEROBIC [RM] Routine Lab 11/21/18 13:12 Results CULTURE WOUND [RM] Routine Lab 11/21/18 13:12 Results GRAM STAIN [RM] Routine Lab 11/21/18 13:12 Results HEMOGLOBIN/HEMATOCRIT,HH [HEME] DAILY Lab 11/23/18 06:00 Ordered Acetaminophen/oxyCODONE [Percocet 325-10 MG] Med 11/22/18 06:00 Active 1 - 2 tab PO Q4H PRN Albuterol [Proventil Neb Soln] Med 11/21/18 15:40 Active 2.5 mg NEB Q6HRRT PRN Alum Hydrox/Mag Hydrox/Simeth [Mag-Al Plus] Med 11/21/18 16:56 Active 30 ml PO Q4H PRN Aspirin Med 11/22/18 09:00 Active 325 mg PO BID Atropine [Atropine 1 MG/ML] Med 11/21/18 15:40 Active 0.4 mg IVPUSH Q5M PRN Bisacodyl [Dulcolax] Med 11/21/18 16:56 Active 10 mg RECTAL DAILY PRN Celecoxib [CeleBREX] Med 11/22/18 09:00 Active 200 mg PO BID Docusate Sodium [Colace] Med 11/21/18 16:56 Active 100 mg PO BID PRN Famotidine [Pepcid] Med 11/22/18 09:00 Active 40 mg PO DAILY Fish Oil/[place]-3 Fatty Acids [Fish Oil] Med 11/22/18 09:00 Active 1 gm PO DAILY HYDROmorphone [Dilaudid] Med 11/21/18 15:40 Active 0.25 mg IVPUSH Q10M PRN Hydrochlorothiazide/Losartan [Hyzaar 50-12.5 MG] Med 11/22/18 09:00 Active 2 tab PO DAILY Labetalol [Normodyne] Med 11/21/18 15:40 Active 10 mg IVPUSH Q6H PRN Meperidine [Demerol] Med 11/21/18 15:40 Active 25 mg IV ONETIME PRN Metoclopramide [Reglan] Med 11/21/18 15:40 Active 10 mg IVPUSH ONETIME PRN Morphine Med 11/22/18 06:00 Active 1 - 3 mg IVPUSH Q3H PRN Morphine Med 11/21/18 15:40 Active 4 mg IVPUSH Q10M PRN Multivitamins [Tab-A-Jono] Med 11/22/18 09:00 Active 1 tab PO DAILY Naloxone [Narcan] Med 11/21/18 15:40 Active 0.1 mg IVPUSH ONETIME PRN Ondansetron [Zofran] Med 11/21/18 16:56 Active 4 mg IVPUSH Q6H PRN Ondansetron [Zofran] Med 11/21/18 15:40 Active 8 mg IVPUSH ONETIME PRN Patient's Own Medication [Ptom] Med 11/21/18 22:00 Active 1 each PO TID Polyethylene Glycol 3350 [MiraLAX] Med 11/22/18 09:00 Active 17 gm PO DAILY Promethazine [Phenergan] Med 11/21/18 15:40 Active 12.5 mg IM ONETIME PRN Ropivacaine [Naropin 0.2%] 49.25 ml Med 11/21/18 08:00 Active Ketorolac [Toradol] 30 mg EPINEPHrine [Adrenalin] 0.5 mg cloNIDine [Duraclon] 80 mcg Sodium Chloride 0.9% [Normal Saline] 48.45 ml INJECT ASDIRECTED Scopolamine [Transderm-Scop] Med 11/21/18 15:40 Active 1.5 mg TRDERM Q72H PRN Sodium Chloride 0.9% [Saline Flush] Med 11/21/18 16:59 Active 10 ml FLUSH ASDIRECTED PRN Sodium Chloride 0.9% [Saline Flush] Med 11/21/18 16:59 Active 2.5 ml FLUSH ASDIRECTED PRN ceFAZolin [Ancef] 2 gm Med 11/21/18 08:00 Active Premix Bag 1 bag IV ONCALL diphenhydrAMINE [Benadryl] Med 11/21/18 16:56 Active 25 - 50 mg PO Q6H PRN fentaNYL [Sublimaze] Med 11/21/18 15:40 Active 50 mcg IVPUSH Q5M PRN hydrALAZINE [Apresoline] Med 11/21/18 15:40 Active 10 mg IVPUSH ONETIME PRN Convert IV to Saline Lock [OM.PC] PRN Oth 11/22/18 06:00 Ordered Ice Therapy [OM.PC] Routine Oth 11/21/18 16:56 Ordered Medication Orders Al Hydroxide/Mg Hydroxide (Mag-Al Plus) 30 ml PO Q4H PRN PRN Reason: Indigestion Albuterol (Proventil Neb Soln) 2.5 mg NEB Q6HRRT PRN PRN Reason: Wheezing Aspirin (Aspirin) 325 mg PO BID [facility] Last Admin: 11/22/18 08:24 Dose: 325 mg Atropine Sulfate (Atropine 1 Mg/Ml) 0.4 mg IVPUSH Q5M PRN PRN Reason: Bradycardia Bisacodyl (Dulcolax) 10 mg RECTAL DAILY PRN PRN Reason: Constipation Celecoxib (Celebrex) 200 mg PO BID [facility] Last Admin: 11/22/18 08:24 Dose: 200 mg Diphenhydramine HCl (Benadryl) 25 - 50 mg PO Q6H PRN PRN Reason: Itching Docusate Sodium (Colace) 100 mg PO BID PRN PRN Reason: Constipation Famotidine (Pepcid) 40 mg IVPUSH ONARRIVE [facility] Last Admin: 11/21/18 11:17 Dose: 40 mg Famotidine (Pepcid) 40 mg PO DAILY [facility] Last Admin: 11/22/18 08:04 Dose: 40 mg Fentanyl (Sublimaze) 50 mcg IVPUSH Q5M PRN PRN Reason: Pain (severe 7-10) Stop: 11/22/18 15:41 Fish Oil (Fish Oil) 1 gm PO DAILY [facility] Last Admin: 11/22/18 08:04 Dose: 1 gm HCTZ/Losartan Potassium (Hyzaar 50-12.5 Mg) 2 tab PO DAILY [facility] Last Admin: 11/22/18 08:04 Dose: 2 tab Hydralazine HCl (Apresoline) 10 mg IVPUSH ONETIME PRN PRN Reason: Hypertension Hydromorphone HCl (Dilaudid) 0.25 mg IVPUSH Q10M PRN PRN Reason: Pain (severe 7-10) Stop: 11/22/18 15:41 Acetaminophen 1,000 mg/ Premix 100 mls @ 400 mls/hr IV ONARRIVE [facility] Last Admin: 11/21/18 11:19 Dose: 400 mls/hr Cefazolin Sodium/Dextrose 2 gm (/ Premix) 50 mls @ 100 mls/hr IV ONCALL [facility] Ropivacaine 49.25 ml/Ketorolac Tromethamine 30 mg/Epinephrine HCl 0.5 mg/ Clonidine HCl 80 mcg/ Sodium Chloride 100 mls @ 50 mls/sec INJECT ASDIRECTED [facility] Lactated Ringer's (Ringers, Lactated) 1,000 mls @ 100 mls/hr IV ASDIRECTED [facility] Last Admin: 11/22/18 01:39 Dose: 100 mls/hr Infusion: 11/21/18 21:17 Dose: 100 mls/hr Admin: 11/21/18 11:17 Dose: 100 mls/hr Labetalol HCl (Normodyne) 10 mg IVPUSH Q6H PRN PRN Reason: Hypertension Stop: 11/22/18 15:41 Meperidine HCl (Demerol) 25 mg IV ONETIME PRN PRN Reason: Shivering Metoclopramide HCl (Reglan) 10 mg IVPUSH ONETIME PRN PRN Reason: Nausea Morphine Sulfate (Morphine) 4 mg IVPUSH Q10M PRN PRN Reason: Pain (severe 7-10) Stop: 11/22/18 15:41 Morphine Sulfate (Morphine) 1 - 3 mg IVPUSH Q3H PRN PRN Reason: Pain Multivitamins/Minerals/Vitamin C (Tab-A-Jono) 1 tab PO DAILY [facility] Last Admin: 11/22/18 08:04 Dose: 1 tab Naloxone HCl (Narcan) 0.1 mg IVPUSH ONETIME PRN PRN Reason: Respiratory Depression Ondansetron HCl (Zofran) 8 mg IVPUSH ONETIME PRN PRN Reason: Nausea Ondansetron HCl (Zofran) 4 mg IVPUSH Q6H PRN PRN Reason: Nausea/Vomiting Oxycodone/Acetaminophen (Percocet 325-10 Mg) 1 - 2 tab PO Q4H PRN PRN Reason: Pain Methocarbamol 500 Mg 1 each PO TID [facility] Last Admin: 11/22/18 05:51 Dose: Admin: 11/21/18 21:49 Dose: Polyethylene Glycol (Miralax) 17 gm PO DAILY [facility] Last Admin: 11/22/18 08:04 Dose: 17 gm Promethazine HCl (Phenergan) 12.5 mg IM ONETIME PRN PRN Reason: Nausea Scopolamine (Transderm-Scop) 1.5 mg TRDERM ONARRIVE [facility] Last Admin: 11/21/18 11:18 Dose: 1.5 mg Scopolamine (Transderm-Scop) 1.5 mg TRDERM Q72H PRN PRN Reason: Nausea Sodium Chloride (Saline Flush) 10 ml FLUSH ASDIRECTED PRN PRN Reason: Keep Vein Open Sodium Chloride (Saline Flush) 2.5 ml FLUSH ASDIRECTED PRN PRN Reason: Keep Vein Open - Assessment Assessment (Free Text/Narrative):: POD#1 I&D R knee, removal abx spacer, revision R TKA acute posthemorrhagic anemia - Plan Plan (Free Text/Narrative):: DC IV fluids - saline lock IV DC kearney DC [employer] - morphine IV prn breakthrough pain DC oxycodone - percocet 10/325 prn available ASA 325mg PO BID as DVT prophylaxis dressing changed to bulky dressing, fluffs/ABD/constantin wrap PT today - wear immobilizer at all times, TTWB RLE ONLY, okay for exercises EXCLUDING KNEE FLEXION pt has wheeled walker or script has been written anticipate up to 72 hour stay for IV pain medication and continued physical therapy pt will require FWW for safe mobility/stability d/t TTWB status until increased strength/gait independence s/p TKA - has been safely mobilizing in room with FWW. d/ch medications written <Tianna Garza R - Last Filed: 11/23/18 10:31> - Patient Data Vitals - Most Recent: Last Vital Signs Temp 97.2 F 11/23/18 08:00 Pulse 78 11/23/18 08:00 Resp 16 11/23/18 08:00 BP 91/50 L 11/23/18 08:00 Pulse Ox 96 11/23/18 08:00 I&O - Last 24 Hours: Intake & Output 11/22/18 11/23/18 11/23/18 22:59 06:59 14:59 Intake Total 930 980 Output Total 2260 Balance 930 -1280 Lab Results Last 24 Hrs: Laboratory Results - last 24 hr 11/23/18 Range/Units 05:35 Hgb 9.3 L (13.0-17.0) g/dL Hct 28.4 L (38.0-50.0) % Jesse Results Last 24 Hrs: Microbiology 11/21/18 13:12 Gram Stain - Final Knee, Right Wound Culture - Final No Growth Med Orders - Current: Current Medications Al Hydroxide/Mg Hydroxide (Mag-Al Plus) 30 ml PO Q4H PRN PRN Reason: Indigestion Albuterol (Proventil Neb Soln) 2.5 mg NEB Q6HRRT PRN PRN Reason: Wheezing Aspirin (Aspirin) 325 mg PO BID [facility] Last Admin: 11/23/18 08:16 Dose: 325 mg Atropine Sulfate (Atropine 1 Mg/Ml) 0.4 mg IVPUSH Q5M PRN PRN Reason: Bradycardia Bisacodyl (Dulcolax) 10 mg RECTAL DAILY PRN PRN Reason: Constipation Cefadroxil (Duricef) 500 mg PO BID [facility] Last Admin: 11/23/18 08:17 Dose: 500 mg Celecoxib (Celebrex) 200 mg PO BID [facility] Last Admin: 11/23/18 08:15 Dose: 200 mg Diphenhydramine HCl (Benadryl) 25 - 50 mg PO Q6H PRN PRN Reason: Itching Docusate Sodium (Colace) 100 mg PO BID PRN PRN Reason: Constipation Last Admin: 11/22/18 16:05 Dose: 100 mg Famotidine (Pepcid) 40 mg PO DAILY [facility] Last Admin: 11/23/18 08:15 Dose: 40 mg Fish Oil (Fish Oil) 1 gm PO DAILY [facility] Last Admin: 11/23/18 08:16 Dose: 1 gm HCTZ/Losartan Potassium (Hyzaar 50-12.5 Mg) 2 tab PO DAILY [facility] Last Admin: 11/23/18 08:15 Dose: 2 tab Hydralazine HCl (Apresoline) 10 mg IVPUSH ONETIME PRN PRN Reason: Hypertension Acetaminophen 1,000 mg/ Premix 100 mls @ 400 mls/hr IV ONARRIVE [facility] Last Admin: 11/21/18 11:19 Dose: 400 mls/hr Ropivacaine 49.25 ml/Ketorolac Tromethamine 30 mg/Epinephrine HCl 0.5 mg/ Clonidine HCl 80 mcg/ Sodium Chloride 100 mls @ 50 mls/sec INJECT ASDIRECTED [facility] Lactated Ringer's (Ringers, Lactated) 1,000 mls @ 100 mls/hr IV ASDIRECTED [facility] Last Admin: 11/22/18 01:39 Dose: 100 mls/hr Meperidine HCl (Demerol) 25 mg IV ONETIME PRN PRN Reason: Shivering Morphine Sulfate (Morphine) 1 - 3 mg IVPUSH Q3H PRN PRN Reason: Pain Multivitamins/Minerals/Vitamin C (Tab-A-Jono) 1 tab PO DAILY [facility] Last Admin: 11/23/18 08:15 Dose: 1 tab Naloxone HCl (Narcan) 0.1 mg IVPUSH ONETIME PRN PRN Reason: Respiratory Depression Ondansetron HCl (Zofran) 4 mg IVPUSH Q6H PRN PRN Reason: Nausea/Vomiting Oxycodone/Acetaminophen (Percocet 325-10 Mg) 1 - 2 tab PO Q4H PRN PRN Reason: Pain Last Admin: 11/23/18 03:57 Dose: 2 tab Methocarbamol 500 Mg 1 each PO TID [facility] Last Admin: 11/23/18 06:47 Dose: Not Given Polyethylene Glycol (Miralax) 17 gm PO DAILY [facility] Last Admin: 11/23/18 08:15 Dose: 17 gm Scopolamine (Transderm-Scop) 1.5 mg TRDERM ONARRIVE [facility] Last Admin: 11/21/18 11:18 Dose: 1.5 mg Scopolamine (Transderm-Scop) 1.5 mg TRDERM Q72H PRN PRN Reason: Nausea Sodium Chloride (Saline Flush) 10 ml FLUSH ASDIRECTED PRN PRN Reason: Keep Vein Open Sodium Chloride (Saline Flush) 2.5 ml FLUSH ASDIRECTED PRN PRN Reason: Keep Vein Open Discontinued Medications Famotidine (Pepcid) 40 mg IVPUSH ONARRIVE [facility] Last Admin: 11/21/18 11:17 Dose: 40 mg Fentanyl (Sublimaze) Confirm Administered Dose 100 mcg .ROUTE .STK-MED ONE Stop: 11/21/18 12:26 Fentanyl (Sublimaze) 50 mcg IVPUSH Q5M PRN PRN Reason: Pain (severe 7-10) Stop: 11/22/18 15:41 Fentanyl (Sublimaze) Confirm Administered Dose 100 mcg .ROUTE .STK-MED ONE Stop: 11/21/18 16:22 Hydromorphone HCl (Dilaudid) 0.25 mg IVPUSH Q10M PRN PRN Reason: Pain (severe 7-10) Stop: 11/22/18 15:41 Cefazolin Sodium/Dextrose 2 gm (/ Premix) 50 mls @ 100 mls/hr IV ONCALL [facility] Tranexamic Acid 4,000 mg/ (Sodium Chloride) 140 mls @ 600 mls/hr IV ASDIRECTED ONE Stop: 11/21/18 08:13 Last Admin: 11/21/18 19:04 Dose: Not Given Acetaminophen 1,000 mg/ Premix 100 mls @ 400 mls/hr IV Q6H [facility] Stop: 11/22/18 05:14 Last Admin: 11/22/18 04:43 Dose: 400 mls/hr Cefazolin Sodium/Dextrose 2 gm (/ Premix) 50 mls @ 100 mls/hr IV Q8H [facility] Stop: 11/22/18 04:59 Last Admin: 11/22/18 03:35 Dose: 100 mls/hr Acetaminophen (Ofirmev) Confirm Administered Dose 100 mls @ as directed IV .STK- MED ONE Stop: 11/21/18 17:03 Ketorolac Tromethamine (Toradol) Confirm Administered Dose 30 mg .ROUTE .STK- MED ONE Stop: 11/21/18 12:25 Ketorolac Tromethamine (Toradol) 30 mg IVPUSH Q6H [facility] Stop: 11/22/18 05:00 Last Admin: 11/22/18 03:34 Dose: 30 mg Labetalol HCl (Normodyne) 10 mg IVPUSH Q6H PRN PRN Reason: Hypertension Stop: 11/22/18 15:41 Lidocaine (Xylocaine-Mpf 2%) Confirm Administered Dose 5 ml .ROUTE .STK-MED ONE Stop: 11/21/18 12:25 Metoclopramide HCl (Reglan) 10 mg IVPUSH ONETIME PRN PRN Reason: Nausea Midazolam HCl (Versed 1 Mg/Ml) Confirm Administered Dose 2 mg .ROUTE .STK-MED ONE Stop: 11/21/18 12:26 Morphine Sulfate (Morphine) 4 mg IVPUSH Q10M PRN PRN Reason: Pain (severe 7-10) Stop: 11/22/18 15:41 Morphine Sulfate (Morphine Consumer Studies Professor 30 Mg In 30 Ml) 30 mg IV ASDIRECTED PRN; Protocol PRN Reason: Pain Stop: 11/22/18 06:00 Last Admin: 11/21/18 19:08 Dose: 30 mg Ondansetron HCl (Zofran) Confirm Administered Dose 8 mg .ROUTE .STK-MED ONE Stop: 11/21/18 12:25 Ondansetron HCl (Zofran) 8 mg IVPUSH ONETIME PRN PRN Reason: Nausea Oxycodone HCl (Oxycodone) 5 - 10 mg PO Q4H PRN PRN Reason: Pain Stop: 11/22/18 06:00 Last Admin: 11/22/18 05:49 Dose: 10 mg Promethazine HCl (Phenergan) 12.5 mg IM ONETIME PRN PRN Reason: Nausea Propofol (Diprivan 20 Ml) Confirm Administered Dose 200 mg .ROUTE .STK-MED ONE Stop: 11/21/18 12:26 Tranexamic Acid (Cyklokapron) Confirm Administered Dose 4,000 mg .ROUTE .STK- MED ONE Stop: 11/21/18 07:31 Tranexamic Acid (Cyklokapron) Confirm Administered Dose 4,000 mg .ROUTE .STK- MED ONE Stop: 11/21/18 07:54 - My Orders Last 24 Hours: Active Orders 24 hr Category Date Time Status Ready for Discharge [RC] PER UNIT ROUTINE Care 11/23/18 08:34 Active Cefadroxil [Duricef] Med 11/22/18 17:00 Active 500 mg PO BID Medication Orders Al Hydroxide/Mg Hydroxide (Mag-Al Plus) 30 ml PO Q4H PRN PRN Reason: Indigestion Albuterol (Proventil Neb Soln) 2.5 mg NEB Q6HRRT PRN PRN Reason: Wheezing Aspirin (Aspirin) 325 mg PO BID [facility] Last Admin: 11/23/18 08:16 Dose: 325 mg Admin: 11/22/18 20:11 Dose: 325 mg Admin: 11/22/18 08:24 Dose: 325 mg Atropine Sulfate (Atropine 1 Mg/Ml) 0.4 mg IVPUSH Q5M PRN PRN Reason: Bradycardia Bisacodyl (Dulcolax) 10 mg RECTAL DAILY PRN PRN Reason: Constipation Cefadroxil (Duricef) 500 mg PO BID [facility] Last Admin: 11/23/18 08:17 Dose: 500 mg Admin: 11/22/18 21:07 Dose: Not Given Admin: 11/22/18 17:41 Dose: 500 mg Celecoxib (Celebrex) 200 mg PO BID [facility] Last Admin: 11/23/18 08:15 Dose: 200 mg Admin: 11/22/18 20:11 Dose: 200 mg Admin: 11/22/18 08:24 Dose: 200 mg Diphenhydramine HCl (Benadryl) 25 - 50 mg PO Q6H PRN PRN Reason: Itching Docusate Sodium (Colace) 100 mg PO BID PRN PRN Reason: Constipation Last Admin: 11/22/18 16:05 Dose: 100 mg Famotidine (Pepcid) 40 mg PO DAILY [facility] Last Admin: 11/23/18 08:15 Dose: 40 mg Admin: 11/22/18 08:04 Dose: 40 mg Fish Oil (Fish Oil) 1 gm PO DAILY [facility] Last Admin: 11/23/18 08:16 Dose: 1 gm Admin: 11/22/18 08:04 Dose: 1 gm HCTZ/Losartan Potassium (Hyzaar 50-12.5 Mg) 2 tab PO DAILY [facility] Last Admin: 11/23/18 08:15 Dose: 2 tab Admin: 11/22/18 08:04 Dose: 2 tab Hydralazine HCl (Apresoline) 10 mg IVPUSH ONETIME PRN PRN Reason: Hypertension Acetaminophen 1,000 mg/ Premix 100 mls @ 400 mls/hr IV ONARRIVE [facility] Last Admin: 11/21/18 11:19 Dose: 400 mls/hr Ropivacaine 49.25 ml/Ketorolac Tromethamine 30 mg/Epinephrine HCl 0.5 mg/ Clonidine HCl 80 mcg/ Sodium Chloride 100 mls @ 50 mls/sec INJECT ASDIRECTED [facility], [facility] Lactated Ringer's (Ringers, Lactated) 1,000 mls @ 100 mls/hr IV ASDIRECTED [facility] Last Admin: 11/22/18 01:39 Dose: 100 mls/hr Infusion: 11/21/18 21:17 Dose: 100 mls/hr Admin: 11/21/18 11:17 Dose: 100 mls/hr Meperidine HCl (Demerol) 25 mg IV ONETIME PRN PRN Reason: Shivering Morphine Sulfate (Morphine) 1 - 3 mg IVPUSH Q3H PRN PRN Reason: Pain Multivitamins/Minerals/Vitamin C (Tab-A-Jono) 1 tab PO DAILY [facility], [facility] Last Admin: 11/23/18 08:15 Dose: 1 tab Admin: 11/22/18 08:04 Dose: 1 tab Naloxone HCl (Narcan) 0.1 mg IVPUSH ONETIME PRN PRN Reason: Respiratory Depression Ondansetron HCl (Zofran) 4 mg IVPUSH Q6H PRN PRN Reason: Nausea/Vomiting Oxycodone/Acetaminophen (Percocet 325-10 Mg) 1 - 2 tab PO Q4H PRN PRN Reason: Pain Last Admin: 11/23/18 03:57 Dose: 2 tab Admin: 11/23/18 00:06 Dose: 2 tab Admin: 11/22/18 20:10 Dose: 2 tab Admin: 11/22/18 16:04 Dose: 2 tab Admin: 11/22/18 12:12 Dose: 1 tab Admin: 11/22/18 09:38 Dose: 1 tab Methocarbamol 500 Mg 1 each PO TID [facility] Last Admin: 11/23/18 06:47 Dose: Not Given Admin: 11/22/18 21:18 Dose: Not Given Admin: 11/22/18 14:55 Dose: Admin: 11/22/18 05:51 Dose: Admin: 11/21/18 21:49 Dose: Polyethylene Glycol (Miralax) 17 gm PO DAILY [facility] Last Admin: 11/23/18 08:15 Dose: 17 gm Admin: 11/22/18 08:04 Dose: 17 gm Scopolamine (Transderm-Scop) 1.5 mg TRDERM ONARRIVE [facility] Last Admin: 11/21/18 11:18 Dose: 1.5 mg Scopolamine (Transderm-Scop) 1.5 mg TRDERM Q72H PRN PRN Reason: Nausea Sodium Chloride (Saline Flush) 10 ml FLUSH ASDIRECTED PRN PRN Reason: Keep Vein Open Sodium Chloride (Saline Flush) 2.5 ml FLUSH ASDIRECTED PRN PRN Reason: Keep Vein Open - Plan Plan (Free Text/Narrative):: Late entry Patient seen and examined. Agree with the above note. Patient states that his pain has been better controlled. He did do some walking with physical therapy. He is currently toe-touch weightbearing on the right lower extremity. He continues to use his brace. He has had some bloody drainage noted on the dressing and the dressing has been reinforced. He has no other complaints. His hemoglobin remained stable. Exam of the right lower extremity shows serosanguineous drainage on the dressing. Immobilizer is in place. AT/EHL/gastroc 5/5. Sensation grossly intact. DP/PT pulses 2+. 1. Continue physical therapy 2. Continue current pain management 3. Plan for discharge home tomorrow if he continues to do well. rrk
[2018-11-22] MEDS: Acetaminophen/oxyCODONE 325-10 MG Tab PO PRN ×4 (09:38→20:10)
--- NOTE | 2018-11-22 12:46 | CR ---
EXAMINATION: Right knee HISTORY: Post TKA COMPARISON: 11/03/2018 TECHNIQUE: AP and lateral views FINDINGS/IMPRESSION: Right total knee revision hardware is noted. Position and alignment appear normal. Postoperative soft tissue changes demonstrated.
[2018-11-22] MEDS: Cefadroxil 500 MG Cap PO SCH ×2 (17:41→21:07)
[2018-11-23] MEDS: Acetaminophen/oxyCODONE 325-10 MG Tab PO PRN ×4 (00:06→12:38)
[2018-11-23] MEDS: Multivitamin Tab PO SCH (08:15)
[2018-11-23] MEDS: Celecoxib 100 MG Cap PO SCH (08:15)
[2018-11-23] MEDS: Polyethylene Glycol 3350 Powder 17 GM Packet PO SCH (08:15)
[2018-11-23] MEDS: Hydrochlorothiazide/Losartan 12.5-50 mg Tab PO SCH (08:15)
[2018-11-23] MEDS: Famotidine 20 MG Tab PO SCH (08:15)
[2018-11-23] MEDS: Aspirin 325 MG Tab PO SCH (08:16)
[2018-11-23] MEDS: Fish Oil/Omega-3 Fatty Acids 1 Gm Cap PO SCH (08:16)
[2018-11-23] MEDS: Cefadroxil 500 MG Cap PO SCH (08:17)
--- NOTE | 2018-11-23 08:39 | PCM.SURGPN ---
<Dulce Chahal R - Last Filed: 11/23/18 08:43> - General Info Date of Service: 11/23/18 Date of Surgery/Procedure: 11/21/18 POD#: 2 Functional Status: Reports: Pain Controlled, Tolerating Diet, Ambulating, Urinating - Review of Systems General: Reports: No Symptoms Systems Review Comment:: pt up to chair for breakfast tolerating PO intake well pain controlled able to mobilize TTWB RLE with FWW, immobilizer in place feels he would be more comfortable in [place] knee brace locked in full extension dressing reinforced overnight, changed this morning, continued sanguineous drainage would like to go home this afternoon - Patient Data Vitals - Most Recent: Last Vital Signs Temp 97.2 F 11/23/18 08:00 Pulse 78 11/23/18 08:00 Resp 16 11/23/18 08:00 BP 91/50 L 11/23/18 08:00 Pulse Ox 96 11/23/18 08:00 Weight - Most Recent: 128.82 kg I&O - Last 24 Hours: Intake & Output 11/22/18 11/23/18 11/23/18 22:59 06:59 14:59 Intake Total 930 980 Output Total 2260 Balance 930 -1280 Lab Results Last 24 Hrs: Laboratory Results - last 24 hr 11/23/18 Range/Units 05:35 Hgb 9.3 L (13.0-17.0) g/dL Hct 28.4 L (38.0-50.0) % Med Orders - Current: Current Medications Al Hydroxide/Mg Hydroxide (Mag-Al Plus) 30 ml PO Q4H PRN PRN Reason: Indigestion Albuterol (Proventil Neb Soln) 2.5 mg NEB Q6HRRT PRN PRN Reason: Wheezing Aspirin (Aspirin) 325 mg PO BID [facility] Last Admin: 11/23/18 08:16 Dose: 325 mg Atropine Sulfate (Atropine 1 Mg/Ml) 0.4 mg IVPUSH Q5M PRN PRN Reason: Bradycardia Bisacodyl (Dulcolax) 10 mg RECTAL DAILY PRN PRN Reason: Constipation Cefadroxil (Duricef) 500 mg PO BID [facility] Last Admin: 11/23/18 08:17 Dose: 500 mg Celecoxib (Celebrex) 200 mg PO BID [facility] Last Admin: 11/23/18 08:15 Dose: 200 mg Diphenhydramine HCl (Benadryl) 25 - 50 mg PO Q6H PRN PRN Reason: Itching Docusate Sodium (Colace) 100 mg PO BID PRN PRN Reason: Constipation Last Admin: 11/22/18 16:05 Dose: 100 mg Famotidine (Pepcid) 40 mg PO DAILY [facility] Last Admin: 11/23/18 08:15 Dose: 40 mg Fish Oil (Fish Oil) 1 gm PO DAILY [facility] Last Admin: 11/23/18 08:16 Dose: 1 gm HCTZ/Losartan Potassium (Hyzaar 50-12.5 Mg) 2 tab PO DAILY [facility] Last Admin: 11/23/18 08:15 Dose: 2 tab Hydralazine HCl (Apresoline) 10 mg IVPUSH ONETIME PRN PRN Reason: Hypertension Acetaminophen 1,000 mg/ Premix 100 mls @ 400 mls/hr IV ONARRIVE [facility] Last Admin: 11/21/18 11:19 Dose: 400 mls/hr Ropivacaine 49.25 ml/Ketorolac Tromethamine 30 mg/Epinephrine HCl 0.5 mg/ Clonidine HCl 80 mcg/ Sodium Chloride 100 mls @ 50 mls/sec INJECT ASDIRECTED [facility] Lactated Ringer's (Ringers, Lactated) 1,000 mls @ 100 mls/hr IV ASDIRECTED [facility] Last Admin: 11/22/18 01:39 Dose: 100 mls/hr Meperidine HCl (Demerol) 25 mg IV ONETIME PRN PRN Reason: Shivering Morphine Sulfate (Morphine) 1 - 3 mg IVPUSH Q3H PRN PRN Reason: Pain Multivitamins/Minerals/Vitamin C (Tab-A-Jono) 1 tab PO DAILY [facility] Last Admin: 11/23/18 08:15 Dose: 1 tab Naloxone HCl (Narcan) 0.1 mg IVPUSH ONETIME PRN PRN Reason: Respiratory Depression Ondansetron HCl (Zofran) 4 mg IVPUSH Q6H PRN PRN Reason: Nausea/Vomiting Oxycodone/Acetaminophen (Percocet 325-10 Mg) 1 - 2 tab PO Q4H PRN PRN Reason: Pain Last Admin: 11/23/18 03:57 Dose: 2 tab Methocarbamol 500 Mg 1 each PO TID [facility] Last Admin: 11/23/18 06:47 Dose: Not Given Polyethylene Glycol (Miralax) 17 gm PO DAILY [facility] Last Admin: 11/23/18 08:15 Dose: 17 gm Scopolamine (Transderm-Scop) 1.5 mg TRDERM ONARRIVE [facility] Last Admin: 11/21/18 11:18 Dose: 1.5 mg Scopolamine (Transderm-Scop) 1.5 mg TRDERM Q72H PRN PRN Reason: Nausea Sodium Chloride (Saline Flush) 10 ml FLUSH ASDIRECTED PRN PRN Reason: Keep Vein Open Sodium Chloride (Saline Flush) 2.5 ml FLUSH ASDIRECTED PRN PRN Reason: Keep Vein Open Discontinued Medications Famotidine (Pepcid) 40 mg IVPUSH ONARRIVE [facility] Last Admin: 11/21/18 11:17 Dose: 40 mg Fentanyl (Sublimaze) Confirm Administered Dose 100 mcg .ROUTE .STK-MED ONE Stop: 11/21/18 12:26 Fentanyl (Sublimaze) 50 mcg IVPUSH Q5M PRN PRN Reason: Pain (severe 7-10) Stop: 11/22/18 15:41 Fentanyl (Sublimaze) Confirm Administered Dose 100 mcg .ROUTE .STK-MED ONE Stop: 11/21/18 16:22 Hydromorphone HCl (Dilaudid) 0.25 mg IVPUSH Q10M PRN PRN Reason: Pain (severe 7-10) Stop: 11/22/18 15:41 Cefazolin Sodium/Dextrose 2 gm (/ Premix) 50 mls @ 100 mls/hr IV ONCALL [facility] Tranexamic Acid 4,000 mg/ (Sodium Chloride) 140 mls @ 600 mls/hr IV ASDIRECTED ONE Stop: 11/21/18 08:13 Last Admin: 11/21/18 19:04 Dose: Not Given Acetaminophen 1,000 mg/ Premix 100 mls @ 400 mls/hr IV Q6H [facility] Stop: 11/22/18 05:14 Last Admin: 11/22/18 04:43 Dose: 400 mls/hr Cefazolin Sodium/Dextrose 2 gm (/ Premix) 50 mls @ 100 mls/hr IV Q8H [facility] Stop: 11/22/18 04:59 Last Admin: 11/22/18 03:35 Dose: 100 mls/hr Acetaminophen (Ofirmev) Confirm Administered Dose 100 mls @ as directed IV .STK- MED ONE Stop: 11/21/18 17:03 Ketorolac Tromethamine (Toradol) Confirm Administered Dose 30 mg .ROUTE .STK- MED ONE Stop: 11/21/18 12:25 Ketorolac Tromethamine (Toradol) 30 mg IVPUSH Q6H [facility] Stop: 11/22/18 05:00 Last Admin: 11/22/18 03:34 Dose: 30 mg Labetalol HCl (Normodyne) 10 mg IVPUSH Q6H PRN PRN Reason: Hypertension Stop: 11/22/18 15:41 Lidocaine (Xylocaine-Mpf 2%) Confirm Administered Dose 5 ml [place]OUTE [place] [facility] Stop: 11/21/18 12:25 Metoclopramide HCl (Reglan) 10 mg IVPUSH ONETIME PRN PRN Reason: Nausea Midazolam HCl (Versed 1 Mg/Ml) Confirm Administered Dose 2 mg .ROUTE [place] [facility] Stop: 11/21/18 12:26 Morphine Sulfate (Morphine) 4 mg IVPUSH Q10M PRN PRN Reason: Pain (severe 7-10) Stop: 11/22/18 15:41 Morphine Sulfate (Morphine Raise Driller 30 Mg In 30 Ml) 30 mg IV ASDIRECTED PRN; Protocol PRN Reason: Pain Stop: 11/22/18 06:00 Last Admin: 11/21/18 19:08 Dose: 30 mg Ondansetron HCl (Zofran) Confirm Administered Dose 8 mg .ROUTE [place] [facility] Stop: 11/21/18 12:25 Ondansetron HCl (Zofran) 8 mg IVPUSH ONETIME PRN PRN Reason: Nausea Oxycodone HCl (Oxycodone) 5 - 10 mg PO Q4H PRN PRN Reason: Pain Stop: 11/22/18 06:00 Last Admin: 11/22/18 05:49 Dose: 10 mg Promethazine HCl (Phenergan) 12.5 mg IM ONETIME PRN PRN Reason: Nausea Propofol (Diprivan 20 Ml) Confirm Administered Dose 200 mg .ROUTE .STK-MED ONE Stop: 11/21/18 12:26 Tranexamic Acid (Cyklokapron) Confirm Administered Dose 4,000 mg .ROUTE .STK- MED ONE Stop: 11/21/18 07:31 Tranexamic Acid (Cyklokapron) Confirm Administered Dose 4,000 mg .ROUTE .STK- MED ONE Stop: 11/21/18 07:54 - Exam Wound/Incisions: Drainage (sanguineous drainage improving) General: Alert, Oriented Extremities: Other (exam RLE - bulky dressing in place, mild sanguineous drainage, at/ehl/gastroc 5/5, dp 2+, sensation intact distally) Physical Findings Comment:: vss, afeb hgb 9.3 - Problem List Review Problem List Initiated/Reviewed/Updated: Yes - My Orders Last 24 Hours: Active Orders 24 hr Category Date Time Status Ready for Discharge [RC] PER UNIT ROUTINE Care 11/23/18 08:34 Ordered Aspirin Med 11/22/18 09:00 Active 325 mg PO BID Cefadroxil [Duricef] Med 11/22/18 17:00 Active 500 mg PO BID Celecoxib [CeleBREX] Med 11/22/18 09:00 Active 200 mg PO BID Famotidine [Pepcid] Med 11/22/18 09:00 Active 40 mg PO DAILY Fish Oil/Ruthven-3 Fatty Acids [Fish Oil] Med 11/22/18 09:00 Active 1 gm PO DAILY Hydrochlorothiazide/Losartan [Hyzaar 50-12.5 MG] Med 11/22/18 09:00 Active 2 tab PO DAILY Multivitamins [Tab-A-Jono] Med 11/22/18 09:00 Active 1 tab PO DAILY Polyethylene Glycol 3350 [MiraLAX] Med 11/22/18 09:00 Active 17 gm PO DAILY Medication Orders Al Hydroxide/Mg Hydroxide (Mag-Al Plus) 30 ml PO Q4H PRN PRN Reason: Indigestion Albuterol (Proventil Neb Soln) 2.5 mg NEB Q6HRRT PRN PRN Reason: Wheezing Aspirin (Aspirin) 325 mg PO BID [facility] Last Admin: 11/23/18 08:16 Dose: 325 mg Admin: 11/22/18 20:11 Dose: 325 mg Admin: 11/22/18 08:24 Dose: 325 mg Atropine Sulfate (Atropine 1 Mg/Ml) 0.4 mg IVPUSH Q5M PRN PRN Reason: Bradycardia Bisacodyl (Dulcolax) 10 mg RECTAL DAILY PRN PRN Reason: Constipation Cefadroxil (Duricef) 500 mg PO BID [facility] Last Admin: 11/23/18 08:17 Dose: 500 mg Admin: 11/22/18 21:07 Dose: Not Given Admin: 11/22/18 17:41 Dose: 500 mg Celecoxib (Celebrex) 200 mg PO BID [facility] Last Admin: 11/23/18 08:15 Dose: 200 mg Admin: 11/22/18 20:11 Dose: 200 mg Admin: 11/22/18 08:24 Dose: 200 mg Diphenhydramine HCl (Benadryl) 25 - 50 mg PO Q6H PRN PRN Reason: Itching Docusate Sodium (Colace) 100 mg PO BID PRN PRN Reason: Constipation Last Admin: 11/22/18 16:05 Dose: 100 mg Famotidine (Pepcid) 40 mg PO DAILY [facility] Last Admin: 11/23/18 08:15 Dose: 40 mg Admin: 11/22/18 08:04 Dose: 40 mg Fish Oil (Fish Oil) 1 gm PO DAILY [facility] Last Admin: 11/23/18 08:16 Dose: 1 gm Admin: 11/22/18 08:04 Dose: 1 gm HCTZ/Losartan Potassium (Hyzaar 50-12.5 Mg) 2 tab PO DAILY [facility] Last Admin: 11/23/18 08:15 Dose: 2 tab Admin: 11/22/18 08:04 Dose: 2 tab Hydralazine HCl (Apresoline) 10 mg IVPUSH ONETIME PRN PRN Reason: Hypertension Acetaminophen 1,000 mg/ Premix 100 mls @ 400 mls/hr IV ONARRIVE [facility] Last Admin: 11/21/18 11:19 Dose: 400 mls/hr Ropivacaine 49.25 ml/Ketorolac Tromethamine 30 mg/Epinephrine HCl 0.5 mg/ Clonidine HCl 80 mcg/ Sodium Chloride 100 mls @ 50 mls/sec INJECT ASDIRECTED [facility] Lactated Ringer's (Ringers, Lactated) 1,000 mls @ 100 mls/hr IV ASDIRECTED [facility] Last Admin: 11/22/18 01:39 Dose: 100 mls/hr Infusion: 11/21/18 21:17 Dose: 100 mls/hr Admin: 11/21/18 11:17 Dose: 100 mls/hr Meperidine HCl (Demerol) 25 mg IV ONETIME PRN PRN Reason: Shivering Morphine Sulfate (Morphine) 1 - 3 mg IVPUSH Q3H PRN PRN Reason: Pain Multivitamins/Minerals/Vitamin C (Tab-A-Jono) 1 tab PO DAILY [facility] Last Admin: 11/23/18 08:15 Dose: 1 tab Admin: 11/22/18 08:04 Dose: 1 tab Naloxone HCl (Narcan) 0.1 mg IVPUSH ONETIME PRN PRN Reason: Respiratory Depression Ondansetron HCl (Zofran) 4 mg IVPUSH Q6H PRN PRN Reason: Nausea/Vomiting Oxycodone/Acetaminophen (Percocet 325-10 Mg) 1 - 2 tab PO Q4H PRN PRN Reason: Pain Last Admin: 11/23/18 03:57 Dose: 2 tab Admin: 11/23/18 00:06 Dose: 2 tab Admin: 11/22/18 20:10 Dose: 2 tab Admin: 11/22/18 16:04 Dose: 2 tab Admin: 11/22/18 12:12 Dose: 1 tab Admin: 11/22/18 09:38 Dose: 1 tab Methocarbamol 500 Mg 1 each PO TID [facility] Last Admin: 11/23/18 06:47 Dose: Not Given Admin: 11/22/18 21:18 Dose: Not Given Admin: 11/22/18 14:55 Dose: Admin: 11/22/18 05:51 Dose: Admin: 11/21/18 21:49 Dose: Polyethylene Glycol (Miralax) 17 gm PO DAILY [facility] Last Admin: 11/23/18 08:15 Dose: 17 gm Admin: 11/22/18 08:04 Dose: 17 gm Scopolamine (Transderm-Scop) 1.5 mg TRDERM ONARRIVE [facility] Last Admin: 11/21/18 11:18 Dose: 1.5 mg Scopolamine (Transderm-Scop) 1.5 mg TRDERM Q72H PRN PRN Reason: Nausea Sodium Chloride (Saline Flush) 10 ml FLUSH ASDIRECTED PRN PRN Reason: Keep Vein Open Sodium Chloride (Saline Flush) 2.5 ml FLUSH ASDIRECTED PRN PRN Reason: Keep Vein Open - Assessment Assessment (Free Text/Narrative):: POD#2 I&D R knee, removal abx spacer, revision R TKA acute posthemorrhagic anemia - Plan Plan (Free Text/Narrative):: continue PT, knee immobilizer, TTWB RLE, walker, no knee flexion continue pain management continue post-op outpt abx - rx written will d/ch to home today may switch to esvin knee brace locked in full extension d/ch summary #[id number] <Tianna Garza R - Last Filed: 11/23/18 10:34> - Patient Data Vitals - Most Recent: Last Vital Signs Temp 97.2 F 11/23/18 08:00 Pulse 78 11/23/18 08:00 Resp 16 11/23/18 08:00 BP 91/50 L 11/23/18 08:00 Pulse Ox 96 11/23/18 08:00 I&O - Last 24 Hours: Intake & Output 11/22/18 11/23/18 11/23/18 22:59 06:59 14:59 Intake Total 930 980 Output Total 2260 Balance 930 -1280 Lab Results Last 24 Hrs: Laboratory Results - last 24 hr 11/23/18 Range/Units 05:35 Hgb 9.3 L (13.0-17.0) g/dL Hct 28.4 L (38.0-50.0) % Jesse Results Last 24 Hrs: Microbiology 11/21/18 13:12 Gram Stain - Final Knee, Right Wound Culture - Final No Growth Med Orders - Current: Current Medications Al Hydroxide/Mg Hydroxide (Mag-Al Plus) 30 ml PO Q4H PRN PRN Reason: Indigestion Albuterol (Proventil Neb Soln) 2.5 mg NEB Q6HRRT PRN PRN Reason: Wheezing Aspirin (Aspirin) 325 mg PO BID [facility] Last Admin: 11/23/18 08:16 Dose: 325 mg Atropine Sulfate (Atropine 1 Mg/Ml) 0.4 mg IVPUSH Q5M PRN PRN Reason: Bradycardia Bisacodyl (Dulcolax) 10 mg RECTAL DAILY PRN PRN Reason: Constipation Cefadroxil (Duricef) 500 mg PO BID [facility] Last Admin: 11/23/18 08:17 Dose: 500 mg Celecoxib (Celebrex) 200 mg PO BID [facility] Last Admin: 11/23/18 08:15 Dose: 200 mg Diphenhydramine HCl (Benadryl) 25 - 50 mg PO Q6H PRN PRN Reason: Itching Docusate Sodium (Colace) 100 mg PO BID PRN PRN Reason: Constipation Last Admin: 11/22/18 16:05 Dose: 100 mg Famotidine (Pepcid) 40 mg PO DAILY [facility] Last Admin: 11/23/18 08:15 Dose: 40 mg Fish Oil (Fish Oil) 1 gm PO DAILY [facility] Last Admin: 11/23/18 08:16 Dose: 1 gm HCTZ/Losartan Potassium (Hyzaar 50-12.5 Mg) 2 tab PO DAILY [facility] Last Admin: 11/23/18 08:15 Dose: 2 tab Hydralazine HCl (Apresoline) 10 mg IVPUSH ONETIME PRN PRN Reason: Hypertension Acetaminophen 1,000 mg/ Premix 100 mls @ 400 mls/hr IV ONARRIVE [facility] Last Admin: 11/21/18 11:19 Dose: 400 mls/hr Ropivacaine 49.25 ml/Ketorolac Tromethamine 30 mg/Epinephrine HCl 0.5 mg/ Clonidine HCl 80 mcg/ Sodium Chloride 100 mls @ 50 mls/sec INJECT ASDIRECTED [facility] Lactated Ringer's (Ringers, Lactated) 1,000 mls @ 100 mls/hr IV ASDIRECTED [facility] Last Admin: 11/22/18 01:39 Dose: 100 mls/hr Meperidine HCl (Demerol) 25 mg IV ONETIME PRN PRN Reason: Shivering Morphine Sulfate (Morphine) 1 - 3 mg IVPUSH Q3H PRN PRN Reason: Pain Multivitamins/Minerals/Vitamin C (Tab-A-Jono) 1 tab PO DAILY [facility] Last Admin: 11/23/18 08:15 Dose: 1 tab Naloxone HCl (Narcan) 0.1 mg IVPUSH ONETIME PRN PRN Reason: Respiratory Depression Ondansetron HCl (Zofran) 4 mg IVPUSH Q6H PRN PRN Reason: Nausea/Vomiting Oxycodone/Acetaminophen (Percocet 325-10 Mg) 1 - 2 tab PO Q4H PRN PRN Reason: Pain Last Admin: 11/23/18 03:57 Dose: 2 tab Methocarbamol 500 Mg 1 each PO TID [facility] Last Admin: 11/23/18 06:47 Dose: Not Given Polyethylene Glycol (Miralax) 17 gm PO DAILY [facility] Last Admin: 11/23/18 08:15 Dose: 17 gm Scopolamine (Transderm-Scop) 1.5 mg TRDERM ONARRIVE [facility] Last Admin: 11/21/18 11:18 Dose: 1.5 mg Scopolamine (Transderm-Scop) 1.5 mg TRDERM Q72H PRN PRN Reason: Nausea Sodium Chloride (Saline Flush) 10 ml FLUSH ASDIRECTED PRN PRN Reason: Keep Vein Open Sodium Chloride (Saline Flush) 2.5 ml FLUSH ASDIRECTED PRN PRN Reason: Keep Vein Open Discontinued Medications Famotidine (Pepcid) 40 mg IVPUSH ONARRIVE [facility] Last Admin: 11/21/18 11:17 Dose: 40 mg Fentanyl (Sublimaze) Confirm Administered Dose 100 mcg .ROUTE .STK-MED ONE Stop: 11/21/18 12:26 Fentanyl (Sublimaze) 50 mcg IVPUSH Q5M PRN PRN Reason: Pain (severe 7-10) Stop: 11/22/18 15:41 Fentanyl (Sublimaze) Confirm Administered Dose 100 mcg .ROUTE .STK-MED ONE Stop: 11/21/18 16:22 Hydromorphone HCl (Dilaudid) 0.25 mg IVPUSH Q10M PRN PRN Reason: Pain (severe 7-10) Stop: 11/22/18 15:41 Cefazolin Sodium/Dextrose 2 gm (/ Premix) 50 mls @ 100 mls/hr IV ONCALL [facility] Tranexamic Acid 4,000 mg/ (Sodium Chloride) 140 mls @ 600 mls/hr IV ASDIRECTED ONE Stop: 11/21/18 08:13 Last Admin: 11/21/18 19:04 Dose: Not Given Acetaminophen 1,000 mg/ Premix 100 mls @ 400 mls/hr IV Q6H [facility] Stop: 11/22/18 05:14 Last Admin: 11/22/18 04:43 Dose: 400 mls/hr Cefazolin Sodium/Dextrose 2 gm (/ Premix) 50 mls @ 100 mls/hr IV Q8H [facility] Stop: 11/22/18 04:59 Last Admin: 11/22/18 03:35 Dose: 100 mls/hr Acetaminophen (Ofirmev) Confirm Administered Dose 100 mls @ as directed IV .STK- MED ONE Stop: 11/21/18 17:03 Ketorolac Tromethamine (Toradol) Confirm Administered Dose 30 mg .ROUTE .STK- MED ONE Stop: 11/21/18 12:25 Ketorolac Tromethamine (Toradol) 30 mg IVPUSH Q6H [facility] Stop: 11/22/18 05:00 Last Admin: 11/22/18 03:34 Dose: 30 mg Labetalol HCl (Normodyne) 10 mg IVPUSH Q6H PRN PRN Reason: Hypertension Stop: 11/22/18 15:41 Lidocaine (Xylocaine-Mpf 2%) Confirm Administered Dose 5 ml .ROUTE .STK-MED ONE Stop: 11/21/18 12:25 Metoclopramide HCl (Reglan) 10 mg IVPUSH ONETIME PRN PRN Reason: Nausea Midazolam HCl (Versed 1 Mg/Ml) Confirm Administered Dose 2 mg .ROUTE [facility] [facility] Stop: 11/21/18 12:26 Morphine Sulfate (Morphine) 4 mg IVPUSH Q10M PRN PRN Reason: Pain (severe 7-10) Stop: 11/22/18 15:41 Morphine Sulfate (Morphine Raise Driller 30 Mg In 30 Ml) 30 mg IV ASDIRECTED PRN; Protocol PRN Reason: Pain Stop: 11/22/18 06:00 Last Admin: 11/21/18 19:08 Dose: 30 mg Ondansetron HCl (Zofran) Confirm Administered Dose 8 mg .ROUTE .STK-MED ONE Stop: 11/21/18 12:25 Ondansetron HCl (Zofran) 8 mg IVPUSH ONETIME PRN PRN Reason: Nausea Oxycodone HCl (Oxycodone) 5 - 10 mg PO Q4H PRN PRN Reason: Pain Stop: 11/22/18 06:00 Last Admin: 11/22/18 05:49 Dose: 10 mg Promethazine HCl (Phenergan) 12.5 mg IM ONETIME PRN PRN Reason: Nausea Propofol (Diprivan 20 Ml) Confirm Administered Dose 200 mg .ROUTE .STK-MED ONE Stop: 11/21/18 12:26 Tranexamic Acid (Cyklokapron) Confirm Administered Dose 4,000 mg .ROUTE .STK- MED ONE Stop: 11/21/18 07:31 Tranexamic Acid (Cyklokapron) Confirm Administered Dose 4,000 mg .ROUTE .STK- MED ONE Stop: 11/21/18 07:54 - My Orders Last 24 Hours: Active Orders 24 hr Category Date Time Status Ready for Discharge [RC] PER UNIT ROUTINE Care 11/23/18 08:34 Active Cefadroxil [Duricef] Med 11/22/18 17:00 Active 500 mg PO BID Medication Orders Al Hydroxide/Mg Hydroxide (Mag-Al Plus) 30 ml PO Q4H PRN PRN Reason: Indigestion Albuterol (Proventil Neb Soln) 2.5 mg NEB Q6HRRT PRN PRN Reason: Wheezing Aspirin (Aspirin) 325 mg PO BID [facility] Last Admin: 11/23/18 08:16 Dose: 325 mg Admin: 11/22/18 20:11 Dose: 325 mg Admin: 11/22/18 08:24 Dose: 325 mg Atropine Sulfate (Atropine 1 Mg/Ml) 0.4 mg IVPUSH Q5M PRN PRN Reason: Bradycardia Bisacodyl (Dulcolax) 10 mg RECTAL DAILY PRN PRN Reason: Constipation Cefadroxil (Duricef) 500 mg PO BID [facility] Last Admin: 11/23/18 08:17 Dose: 500 mg Admin: 11/22/18 21:07 Dose: Not Given Admin: 11/22/18 17:41 Dose: 500 mg Celecoxib (Celebrex) 200 mg PO BID [facility] Last Admin: 11/23/18 08:15 Dose: 200 mg Admin: 11/22/18 20:11 Dose: 200 mg Admin: 11/22/18 08:24 Dose: 200 mg Diphenhydramine HCl (Benadryl) 25 - 50 mg PO Q6H PRN PRN Reason: Itching Docusate Sodium (Colace) 100 mg PO BID PRN PRN Reason: Constipation Last Admin: 11/22/18 16:05 Dose: 100 mg Famotidine (Pepcid) 40 mg PO DAILY [facility] Last Admin: 11/23/18 08:15 Dose: 40 mg Admin: 11/22/18 08:04 Dose: 40 mg Fish Oil (Fish Oil) 1 gm PO DAILY [facility] Last Admin: 11/23/18 08:16 Dose: 1 gm Admin: 11/22/18 08:04 Dose: 1 gm HCTZ/Losartan Potassium (Hyzaar 50-12.5 Mg) 2 tab PO DAILY [facility] Last Admin: 11/23/18 08:15 Dose: 2 tab Admin: 11/22/18 08:04 Dose: 2 tab Hydralazine HCl (Apresoline) 10 mg IVPUSH ONETIME PRN PRN Reason: Hypertension Acetaminophen 1,000 mg/ Premix 100 mls @ 400 mls/hr IV ONARRIVE [facility] Last Admin: 11/21/18 11:19 Dose: 400 mls/hr Ropivacaine 49.25 ml/Ketorolac Tromethamine 30 mg/Epinephrine HCl 0.5 mg/ Clonidine HCl 80 mcg/ Sodium Chloride 100 mls @ 50 mls/sec INJECT ASDIRECTED [facility] Lactated Ringer's (Ringers, Lactated) 1,000 mls @ 100 mls/hr IV ASDIRECTED [facility] Last Admin: 11/22/18 01:39 Dose: 100 mls/hr Infusion: 11/21/18 21:17 Dose: 100 mls/hr Admin: 11/21/18 11:17 Dose: 100 mls/hr Meperidine HCl (Demerol) 25 mg IV ONETIME PRN PRN Reason: Shivering Morphine Sulfate (Morphine) 1 - 3 mg IVPUSH Q3H PRN PRN Reason: Pain Multivitamins/Minerals/Vitamin C (Tab-A-Jono) 1 tab PO DAILY [facility] Last Admin: 11/23/18 08:15 Dose: 1 tab Admin: 11/22/18 08:04 Dose: 1 tab Naloxone HCl (Narcan) 0.1 mg IVPUSH ONETIME PRN PRN Reason: Respiratory Depression Ondansetron HCl (Zofran) 4 mg IVPUSH Q6H PRN PRN Reason: Nausea/Vomiting Oxycodone/Acetaminophen (Percocet 325-10 Mg) 1 - 2 tab PO Q4H PRN PRN Reason: Pain Last Admin: 11/23/18 03:57 Dose: 2 tab Admin: 11/23/18 00:06 Dose: 2 tab Admin: 11/22/18 20:10 Dose: 2 tab Admin: 11/22/18 16:04 Dose: 2 tab Admin: 11/22/18 12:12 Dose: 1 tab Admin: 11/22/18 09:38 Dose: 1 tab Methocarbamol 500 Mg 1 each PO TID [facility] Last Admin: 11/23/18 06:47 Dose: Not Given Admin: 11/22/18 21:18 Dose: Not Given Admin: 11/22/18 14:55 Dose: Admin: 11/22/18 05:51 Dose: Admin: 11/21/18 21:49 Dose: Polyethylene Glycol (Miralax) 17 gm PO DAILY [facility] Last Admin: 11/23/18 08:15 Dose: 17 gm Admin: 11/22/18 08:04 Dose: 17 gm Scopolamine (Transderm-Scop) 1.5 mg TRDERM ONARRIVE [facility] Last Admin: 11/21/18 11:18 Dose: 1.5 mg Scopolamine (Transderm-Scop) 1.5 mg TRDERM Q72H PRN PRN Reason: Nausea Sodium Chloride (Saline Flush) 10 ml FLUSH ASDIRECTED PRN PRN Reason: Keep Vein Open Sodium Chloride (Saline Flush) 2.5 ml FLUSH ASDIRECTED PRN PRN Reason: Keep Vein Open - Plan Plan (Free Text/Narrative):: Patient seen and examined. Agree with the above note. His hemoglobin has remained stable. Intraoperative culture shows no growth for the final culture. His pain has been well-controlled. He is progressing with physical therapy. His dressing was changed today. There is a small amount of sanguinous drainage from the lower portion of the wound. The wound otherwise appears to be healing well and there is no surrounding skin changes. He has no calf tenderness. AT/EHL /gastroc 5/5. Sensation grossly intact. DP/PT pulses 2+. We will plan to discharge patient later today following physical therapy. He is to continue with current pain management. We will plan on seeing him back at the two-week point. He is advised to return to clinic or call if he has questions or concerns before that time. He will be discharged home on 7 days of oral antibiotics as well. colleen
[2018-11-23 11:57] VITALS: BP 115/55
--- NOTE | 2018-11-23 14:12 | DISCH ---
DATE OF DISCHARGE: 11/23/2018 PRIMARY CARE PHYSICIAN: Jose Barros M.D. ADMITTING DIAGNOSIS: Periprosthetic infection, right total knee arthroplasty. OTHER MEDICAL DIAGNOSES: 1. Hypertension. 2. Obesity. DISCHARGE DIAGNOSES: 1. Periprosthetic infection, right total knee arthroplasty. 2. Hypertension. 3. Obesity. 4. Acute post hemorrhagic anemia. BRIEF HISTORY: Vadim is a 63-year-old male who has previously undergone a right total knee arthroplasty. Unfortunately, he developed a periprosthetic infection postoperatively, and subsequently underwent excision of the components and placement of antibiotic spacer. He completed 6 weeks of antibiotics and has been off the antibiotics for a period of time. Inflammatory labs did not show any elevation off the antibiotics and at that time, surgical revision was recommended. On November 21, 2018, the patient underwent irrigation debridement of the right knee with removal of antibiotic spacer and revision of right total knee arthroplasty done by Dr. Tianna Garza. This is done under general anesthesia. Estimated blood loss was 150 mL. Tourniquet time was 128 minutes total. There were no known complications. Upon completion of the procedure, the patient was transferred to PACU and subsequently to [facility] for postoperative care. HOSPITAL COURSE: Postoperatively, the patient did well. He received two doses of antibiotics postoperatively, and was started on oral cefadroxil due to his high risk factors for poor wound healing and infection. His pain has been controlled with Percocet 10/325. Physical therapy followed him through his hospital stay. Due to the quality of his tissue at the time of surgery, he was placed into a knee immobilizer, and no knee flexion exercises have been started. He also had significant anteromedial cortical bone loss, and has been restricted to toe- touch weightbearing to his right lower extremity. He has been doing well with these restrictions. He is mobilizing well with a wheeled walker. His vital signs have been stable. He has been afebrile. His hemoglobin on the morning of November 23 was 9.3. His pain is controlled. He feels comfortable with his mobilization and weight-bearing/range of motion restrictions. He would like to be discharged to home today. DISCHARGE MEDICATIONS: 1. Percocet 10/325. 2. Celebrex 200 mg. 3. Colace 100 mg. 4. MiraLax. 5. Aspirin 325 mg. 6. Methocarbamol 500 mg. 7. Cefadroxil 500 mg. DISCHARGE INSTRUCTIONS: For discharge instructions, please refer back to Dr. Garza's total knee arthroplasty patient instructions. Should he have questions or concerns prior to followup, he has been advised to contact the clinic. STEVEN GORMAN /[id number]
== END 2018-11-23 15:22 | disposition home or self-care (01) | DRG 302 ==
LOC: MW.SDS 10:33 → MW.MS 17:31
PROVIDERS: ADMIT Orthopaedic Surgery; ATTEND Orthopaedic Surgery
PROC: 0SRC0J9 Replacement of Right Knee Joint with Synthetic Substitute, Cemented, Open Approach (ICD-10-PCS; principal; 2018-11-21)
PROC: 0SPC08Z Removal of Spacer from Right Knee Joint, Open Approach (ICD-10-PCS; principal; 2018-11-21)
DX: T84.53XA Infection and inflammatory reaction due to internal right knee prosthesis, initial encounter (principal); Y83.8 Other surgical procedures as the cause of abnormal reaction of the patient, or of later complication, without mention of misadventure at the time of the procedure; M50.00 Cervical disc disorder with myelopathy, unspecified cervical region; D62 Acute posthemorrhagic anemia; Z68.41 Body mass index [BMI] 40.0-44.9, adult; G62.9 Polyneuropathy, unspecified; M51.04 Intervertebral disc disorders with myelopathy, thoracic region; M51.06 Intervertebral disc disorders with myelopathy, lumbar region; I10 Essential (primary) hypertension; E66.9 Obesity, unspecified; G47.33 Obstructive sleep apnea (adult) (pediatric); K59.09 Other constipation; M54.9 Dorsalgia, unspecified; G89.29 Other chronic pain; M19.90 Unspecified osteoarthritis, unspecified site; Z79.899 Other long term (current) drug therapy
CPT/HCPCS: 01402; 36415; 73560-26-RT; 73560-RT; 85014; 85018; 86850; 86900; 86901; 87070; 87075; 87205; 88304; 88305; 88311; 88331; 97161-GP; 97530-GP; A9270-GY; C1776; J0131; J0171; J0690; J0735; J1885; J2001; J2250; J2274; J2405; J2704; J2795; J3010; J3490; J7050; J7120

== ENCOUNTER 2018-12-05 10:39 | Observation (INO) | payer BC ==
[~2018-12-05 10:39] MED LIST changes: +Dexamethasone 4 MG/ML 5 ML MDV ONE; +Midazolam 1 MG/ML 2 ML SDV ONE; +Ondansetron 4 MG/2 ML SDV ONE; +Propofol 200 MG/20 ML SDV ONE; -Ropivacaine 49.25 ML, Ketorolac 30 MG, EPINEPHrine 0.5 MG, cloNIDine 80 MCG in Sodium C... INJECT SCH; -Tranexamic Acid 4,000 MG in Sodium Chloride 0.9% 100 ML IV ONE; +fentaNYL 250 MCG/5 ML SDV ONE
[2018-12-05] MEDS ORDERED: ceFAZolin/Dextrose,Iso-Osmotic 2 GM/50 ML Duplex Bag IV ONE (10:41)
[2018-12-05] MEDS: Lactated Ringers 1,000 ML IV SCH ×2 (11:00→13:54)
--- NOTE | 2018-12-05 11:12 | PCM.PREANE ---
Preanesthetic Assessment - Anesthesia/Transfusion/Family Hx Anesthesia History: Prior Anesthesia Without Reaction Family History of Anesthesia Reaction: No Transfusion History: Unknown Intubation History: Unknown - Review of Systems General: No Symptoms Pulmonary: No Symptoms Cardiovascular: No Symptoms Gastrointestinal: No Symptoms Neurological: No Symptoms Other: Reports: None - Physical Assessment NPO Status Date: 12/04/18 O2 Sat by Pulse Oximetry: 100 Respiratory Rate: 18 Vital Signs: Last Vital Signs Temp 95.0 F L 12/05/18 11:00 Pulse 67 12/05/18 11:00 Resp 18 12/05/18 11:00 BP 124/60 12/05/18 11:00 Pulse Ox 100 12/05/18 11:00 Height: 5 ft 10 in Weight: 128.82 kg ASA Class: 2 Mental Status: Alert & Oriented x3 Airway Class: Mallampati = 1 Dentition: Reports: Missing Tooth/Teeth ROM/Head Extension: Full Lungs: Clear to Auscultation, Normal Respiratory Effort Cardiovascular: Regular Rate, Regular Rhythm - Allergies Allergies/Adverse Reactions: Allergies Allergy/AdvReac Type Severity Reaction Status Date / Time No Known Allergies Allergy Verified 12/01/18 09:59 - Blood Blood Available: No - Anesthesia Plan Pre-Op Medication Ordered: None, Other (antibiotics per surgeon) - Acknowledgements Anesthesia Type Planned: General Anesthesia (PMH: htn), Spinal (ga-lma) Pt an Appropriate Candidate for the Planned Anesthesia: Yes Alternatives and Risks of Anesthesia Discussed w Pt/Guardian: Yes Pt/Guardian Understands and Agrees with Anesthesia Plan: Yes PreAnesthesia Questionnaire HEENT History: Reports: Other (See Below) Other HEENT History: has upper denture Cardiovascular History: Reports: Hypertension Respiratory History: Reports: Other (See Below) Gastrointestinal History: Reports: Chronic Constipation Genitourinary History: Reports: None Musculoskeletal History: Reports: Back Pain, Chronic, Fracture, Osteoarthritis, Other (See Below) Other Musculoskeletal History: hx of DAYANNA's for back pain, hx of fx ankle, Neurological History: Reports: Other (See Below) Endocrine/Metabolic History: Reports: Obesity/BMI 30+ Hematologic History: Other Hematologic History: states unknown if any blood tranfusions Immunologic History: Reports: None Oncologic (Cancer) History: Reports: None - Infectious Disease History Infectious Disease History: Reports: Chicken Pox - Past Surgical History Head Surgeries/Procedures: Reports: None HEENT Surgical History: Reports: LASIK, Tonsillectomy, Other (See Below) Other HEENT Surgeries/Procedures: removal of mass from forehead GI Surgical History: Reports: Appendectomy Neurological Surgical History: Reports: Other (See Below) Other Neurological Surgeries/Procedures: removal of bone spur from T10-T11 08/10 Musculoskeletal Surgical History: Reports: Knee Replacement, Other (See Below) Other Musculoskeletal Surgeries/Procedures:: removal of bone spur from T10-T11, excisional debridement of Rt TKA with removal of components and placement of antibiotic spacer on Sep 05, 2018, removal of antibiotic spacer and revision of rt TKA 11/21/18 - SUBSTANCE USE Smoking Status *Q: Never Smoker Recreational Drug Use History: No - HOME MEDS Home Medications: Home Meds Losartan/Hydrochlorothiazide [Losartan-HCTZ 100-25 MG] 1 tab PO DAILY 07/06/18 [ History] [place]-3/DHA/Epa/Fish Oil [[place]-3 Fish Oil 1,200 MG Sfgl] 1,200 mg PO DAILY 10/11 [History] Cholecalciferol (Vitamin D3) [Vitamin D3] 1,000 units PO DAILY 11/16/18 [History ] Multivitamin [Multivitamins] 1 tab PO DAILY 11/16/18 [History] Acetaminophen/oxyCODONE [Percocet 325-10 MG] 1 - 2 tab PO Q4H PRN #60 tablet [Rx] Aspirin 325 mg PO BID #60 tablet 11/23/18 [Rx] Celecoxib [CeleBREX] 200 mg PO DAILY #30 cap 11/23/18 [Rx] Methocarbamol 500 mg PO TID #30 tablet 11/23/18 [Rx] Polyethylene Glycol 3350 [MiraLAX] 17 gm PO DAILY #30 packet 11/23/18 [Rx] Docusate Sodium [Colace] 100 mg PO DAILY 12/01/18 [History] Sulfamethoxazole/Trimethoprim [Sulfamethoxazole-Tmp Ds Tablet] 1 tab PO BID 05/12 [History] - CURRENT (IN HOUSE) MEDS Current Meds: Current Medications Famotidine (Pepcid) 40 mg IVPUSH ONARRIVE FAITH Acetaminophen 1,000 mg/ Premix 100 mls @ 400 mls/hr IV ONARRIVE FAITH Cefazolin Sodium/Dextrose 2 gm (/ Premix) 50 mls @ 100 mls/hr IV ONCALL FAITH Lactated Ringer's (Ringers, Lactated) 1,000 mls @ 100 mls/hr IV ASDIRECTED FAITH Last Admin: 12/05/18 11:00 Dose: 100 mls/hr Scopolamine (Transderm-Scop) 1.5 mg TRDERM ON[facility]IVE [facility] Discontinued Medications Cefazolin Sodium/Dextrose (Ancef) Confirm Administered Dose 2 gm IV .STK-MED ONE Stop: 12/05/18 10:42 Dexamethasone (Dexamethasone) Confirm Administered Dose 20 mg .ROUTE .STK-MED ONE Stop: 12/05/18 09:59 Fentanyl (Sublimaze) Confirm Administered Dose 250 mcg .ROUTE .STK-MED ONE Stop: 12/05/18 09:57 Lidocaine HCl (Xylocaine-Mpf 1%) Confirm Administered Dose 5 mls @ as directed .ROUTE .STK-MED ONE Stop: 12/05/18 09:59 Midazolam HCl (Versed 1 Mg/Ml) Confirm Administered Dose 2 mg .ROUTE .STK-MED ONE Stop: 12/05/18 09:57 Ondansetron HCl (Zofran) Confirm Administered Dose 4 mg .ROUTE .STK-MED ONE Stop: 12/05/18 09:59 Propofol (Diprivan 20 Ml) Confirm Administered Dose 200 mg .ROUTE .STK-MED ONE Stop: 12/05/18 09:57
[2018-12-05] MEDS ORDERED: ePHEDrine 50 MG/ML SDV ONE (11:36)
[2018-12-05] MEDS ORDERED: fentaNYL 100 MCG/2 ML SDV IVPUSH PRN (12:06)
[2018-12-05 12:28] LABS: CHLORIDE,CL 105 mmol/L (98-107); SODIUM,NA 139 mmol/L (136-148)
[2018-12-05] MEDS ORDERED: diphenhydrAMINE 25 MG Cap PO PRN (12:38)
[2018-12-05] MEDS ORDERED: Docusate Sodium 100 MG Cap PO PRN (12:38)
[2018-12-05] MEDS ORDERED: Ondansetron 4 MG/2 ML SDV IVPUSH PRN (12:38)
[2018-12-05] MEDS ORDERED: Sodium Chloride 0.9% 10 ML Syringe FLUSH PRN (12:38)
[2018-12-05] MEDS ORDERED: Bisacodyl 10 MG Supp RECTAL PRN (12:38)
[2018-12-05] MEDS ORDERED: Aluminum Hydroxide/Magnesium Hydroxide/Simethicone Susp 30 ML Cup PO PRN (12:38)
[2018-12-05] MEDS ORDERED: Sodium Chloride 0.9% 2.5 ML Syringe FLUSH PRN (12:38)
--- NOTE | 2018-12-05 12:41 | PCM.OPNOTE ---
- General Post-Op/Procedure Note Date of Surgery/Procedure: 12/05/18 Operative Procedure(s): I&D right TKA to bone Post-Op Diagnosis: Fascial dehiscence R TKA Anesthesia Technique: General Mask Primary Surgeon: Tianna Garza Architectural Model Maker: Dulce Chahal Architectural Model Maker: Aline Domingo EBL in mLs: 10 Condition: Good Free Text/Narrative:: tt=0 min #[id number]
--- NOTE | 2018-12-05 13:14 | PCM.POSTAN ---
POST ANESTHESIA ASSESSMENT - MENTAL STATUS Mental Status: Alert, Oriented - RESPIRATORY Respiratory Status: Respiratory Rate WNL, Airway Patent, O2 Saturation Stable - CARDIOVASCULAR CV Status: Pulse Rate WNL, Blood Pressure Stable - GASTROINTESTINAL GI Status: No Symptoms - PAIN Pain Score: 4 - POST OP HYDRATION Hydration Status: Adequate & Stable
[2018-12-05] MEDS: Ketorolac 15 MG/ML SDV IVPUSH SCH ×2 (14:14→20:44)
[2018-12-05] MEDS: Acetaminophen/oxyCODONE 325-5 MG Tab PO PRN (16:51)
--- NOTE | 2018-12-05 17:30 | OR ---
SURGEON: Tianna Garza MD DATE OF PROCEDURE: 12/05/2018 PREOPERATIVE DIAGNOSIS: Right knee open wound, status post revision right total knee arthroplasty. POSTOPERATIVE DIAGNOSIS: Fascial dehiscence, right total knee arthroplasty. PROCEDURE: Irrigation and debridement, right total knee arthroplasty to bone. ASSISTANTS: Dulce Chahal PA-C and CORINA Agarwal ANESTHESIA: General. ESTIMATED BLOOD LOSS: 10 mL. TOURNIQUET TIME: 0 minutes. COMPLICATIONS: None. DVT PROPHYLAXIS: PAS boot to the nonoperative leg. IMPLANTS USED: None. BRIEF HISTORY: Vadim is a 63-year-old male who underwent a right total knee revision arthroplasty on November 21, 2018, following a periprosthetic infection. He was found to have continued drainage from a portion of the wound. At the time of his original revision, his tissue was found to be quite woody and we elected to keep him in a knee immobilizer/brace locked in full extension. He was somewhat noncompliant with this and did continue to move the knee. With his continued drainage, I did recommend irrigation and debridement of the right total knee arthroplasty with exploration. The risks and goals of the procedure were discussed and were documented preoperatively. He agreed to proceed. DESCRIPTION OF PROCEDURE: The patient was properly identified and brought to the operating room. He was transferred from the OR cart and placed on the operating table in the supine position. General anesthesia was administered. After adequate anesthesia was obtained, a well-padded tourniquet was applied to the right lower extremity. The right lower extremity was then prepped in standard fashion using Betadine solution. It was then sterilely draped. A time-out was performed to ensure correct site and procedure. Preoperative antibiotics were given. The surgical site had been marked preoperatively. Approximately 1 cm x 1 cm open wound was noted over the midportion of the incision. The josh surrounding this open area were removed. I then extended the incision using a 10 blade scalpel, approximately 3-cm distal and proximal. Subcutaneous tissues were incised. The wound was then palpated. The deep fascial layer appeared to have an element of dehiscence and I was able to place my finger into the knee joint and palpate the prosthesis. The wound was opened up more in both a proximal and distal manner to completely visualize the findings. I was able to palpate the fascial repair proximal to the dehiscence and no other areas of dehiscence were noted. There was some subcutaneous fluid collection present as well. The wound was then copiously irrigated with 6 L of normal saline using a Pulsavac speaker mounter. It should also be noted that intraoperative cultures were obtained. However, there was no gross visualization of any purulence or other evidence of infection. Following the irrigation and debridement, the tissues appeared quite healthy. The fascial layer was then reapproximated using #1 Vicryl. I was able to get a good repair, however, the tissue was unchanged in its thickened consistency, as it was in the prior surgery. The subcutaneous tissues were closed with 2-0 Vicryl and the skin was closed with a combination of 2-0 nylon and #2 nylon. The skin edges around the wound were freshened with a blade and were able to be reapproximated, through the entire wound was able to be closed primarily. Xeroform gauze was then placed over the wound and a bulky dressing was applied. He was placed into a knee immobilizer. He was awakened from his anesthetic and transferred back to the operating room cart. He was brought to recovery room in stable condition. All needle and sponge counts were correct. HILARY / VITA /[id number]
[2018-12-05] MEDS: ceFAZolin 2 GM in Premix Bag 1 BAG IV SCH (20:45)
[2018-12-06] MEDS: Acetaminophen/oxyCODONE 325-5 MG Tab PO PRN ×2 (00:52→05:27)
[2018-12-06] MEDS: Lactated Ringers 1,000 ML IV SCH (00:58)
[2018-12-06] MEDS: Ketorolac 15 MG/ML SDV IVPUSH SCH (02:22)
[2018-12-06] MEDS: ceFAZolin 2 GM in Premix Bag 1 BAG IV SCH ×2 (03:42→11:33)
--- NOTE | 2018-12-06 05:00 | PCM48HPAN ---
Post Anesthesia Note - EVALUATION WITHIN 48HRS OF ANESTHETIC Vital Signs in Normal Range: Yes Patient Participated in Evaluation: Yes Respiratory Function Stable: Yes Airway Patent: Yes Cardiovascular Function Stable: Yes Hydration Status Stable: Yes Pain Control Satisfactory: Yes Nausea and Vomiting Control Satisfactory: Yes Mental Status Recovered: Yes Resp Rate: 18 - COMMENTS/OBSERVATIONS Free Text/Narrative:: The patient was lying in bed watching TV, upon my arrival. He denies pain, n/v , and there were no anesthetic complications. Discharge to home per Dr. Garza.
--- NOTE | 2018-12-06 08:13 | PCM.SURGPN ---
<Aline Domingo A - Last Filed: 12/06/18 08:08> - General Info Date of Service: 12/06/18 Date of Surgery/Procedure: 12/05/18 (s/p I&D right TKA) POD#: 1 Post-Op Diagnosis: Fascial dehiscence, right total knee arthroplasty Admission Diagnosis/Problem: Wound of right lower extremity Functional Status: Reports: Pain Controlled, Tolerating Diet, Ambulating - Review of Systems General: Reports: No Symptoms. Denies: Fever Pulmonary: Reports: No Symptoms. Denies: Shortness of Breath Cardiovascular: Reports: No Symptoms Gastrointestinal: Reports: No Symptoms. Denies: Nausea, Vomiting Musculoskeletal: Reports: Joint Pain (Right knee pain) Neurological: Reports: No Symptoms Psychiatric: Reports: No Symptoms - Patient Data Vitals - Most Recent: Last Vital Signs Temp 35.8 C 12/06/18 04:00 Pulse 62 12/06/18 00:00 Resp 18 12/06/18 05:10 BP 110/56 L 12/06/18 04:00 Pulse Ox 99 12/06/18 04:00 Weight - Most Recent: 122.47 kg I&O - Last 24 Hours: Intake & Output 12/05/18 12/06/18 12/06/18 22:59 06:59 14:59 Intake Total 769 1140 Output Total 480 Balance 769 660 Lab Results Last 24 Hrs: Laboratory Results - last 24 hr 12/05/18 12/05/18 12/05/18 Range/Units 11:55 11:55 11:55 WBC 8.47 (4.0-11.0) K/uL RBC 3.50 L (4.50-5.90) M/uL Hgb 9.9 L (13.0-17.0) g/dL Hct 29.9 L (38.0-50.0) % MCV 85.4 (80.0-98.0) fL MCH 28.3 (27.0-32.0) pg MCHC 33.1 (31.0-37.0) g/dL RDW Std Deviation 44.8 (28.0-62.0) fl RDW Coeff of Qasim 15 (11.0-15.0) % Plt Count 319 (150-400) K/uL MPV 9.20 (7.40-12.00) fL Neut % (Auto) 63.8 (48.0-80.0) % Lymph % (Auto) 25.5 (16.0-40.0) % Bailey % (Auto) 6.5 (0.0-15.0) % Eos % (Auto) 3.7 (0.0-7.0) % Baso % (Auto) 0.5 (0.0-1.5) % Neut # (Auto) 5.4 (1.4-5.7) K/uL Lymph # (Auto) 2.2 (0.6-2.4) K/uL Bailey # (Auto) 0.6 (0.0-0.8) K/uL Eos # (Auto) 0.3 (0.0-0.7) K/uL Baso # (Auto) 0.0 (0.0-0.1) K/uL Nucleated RBC % 0.0 /100WBC Nucleated RBCs # 0 K/uL ESR 34 H (0-19) mm/hr Sodium 139 (136-148) mmol/L Potassium 3.8 (3.5-5.1) mmol/L Chloride 105 (98-107) mmol/L Carbon Dioxide 24.4 (21.0-32.0) mmol/L BUN 18 (7.0-18.0) mg/dL Creatinine 1.1 (0.8-1.3) mg/dL Est Cr Clr Drug Dosing 72.82 mL/min Estimated GFR (MDRD) > 60.0 ml/min Glucose 107 H (74-106) mg/dL Calcium 9.0 (8.5-10.1) mg/dL Total Bilirubin 0.3 (0.2-1.0) mg/dL AST 21 (15-37) IU/L ALT 36 (14-63) IU/L Alkaline Phosphatase 132 H (46-116) U/L C-Reactive Protein 1.30 H (0.00-0.90) mg/dL Total Protein 6.4 (6.4-8.2) g/dL Albumin 3.0 L (3.4-5.0) g/dL Globulin 3.4 (2.6-4.0) g/dL Albumin/Globulin Ratio 0.9 (0.9-1.6) Blood Type O POSITIVE Antibody Screen NEGATIVE 12/06/18 Range/Units 05:20 WBC (4.0-11.0) K/uL RBC (4.50-5.90) M/uL Hgb 9.3 L (13.0-17.0) g/dL Hct 28.7 L (38.0-50.0) % MCV (80.0-98.0) fL MCH (27.0-32.0) pg MCHC (31.0-37.0) g/dL RDW Std Deviation (28.0-62.0) fl RDW Coeff of Qasim (11.0-15.0) % Plt Count (150-400) K/uL MPV (7.40-12.00) fL Neut % (Auto) (48.0-80.0) % Lymph % (Auto) (16.0-40.0) % Bailey % (Auto) (0.0-15.0) % Eos % (Auto) (0.0-7.0) % Baso % (Auto) (0.0-1.5) % Neut # (Auto) (1.4-5.7) K/uL Lymph # (Auto) (0.6-2.4) K/uL Bailey # (Auto) (0.0-0.8) K/uL Eos # (Auto) (0.0-0.7) K/uL Baso # (Auto) (0.0-0.1) K/uL Nucleated RBC % /100WBC Nucleated RBCs # K/uL ESR (0-19) mm/hr Sodium (136-148) mmol/L Potassium (3.5-5.1) mmol/L Chloride (98-107) mmol/L Carbon Dioxide (21.0-32.0) mmol/L BUN (7.0-18.0) mg/dL Creatinine (0.8-1.3) mg/dL Est Cr Clr Drug Dosing mL/min Estimated GFR (MDRD) ml/min Glucose (74-106) mg/dL Calcium (8.5-10.1) mg/dL Total Bilirubin (0.2-1.0) mg/dL AST (15-37) IU/L ALT (14-63) IU/L Alkaline Phosphatase (46-116) U/L C-Reactive Protein (0.00-0.90) mg/dL Total Protein (6.4-8.2) g/dL Albumin (3.4-5.0) g/dL Globulin (2.6-4.0) g/dL Albumin/Globulin Ratio (0.9-1.6) Blood Type Antibody Screen [facility] Results Last 24 Hrs: Microbiology 12/05/18 12:10 Gram Stain - Preliminary Knee, Right Med Orders - Current: Current Medications Al Hydroxide/Mg Hydroxide (Mag-Al Plus) 30 ml PO Q4H PRN PRN Reason: Indigestion Aspirin (Ecotrin) 325 mg PO BID [facility] Bisacodyl (Dulcolax) 10 mg RECTAL DAILY PRN PRN Reason: Constipation Celecoxib (Celebrex) 200 mg PO BID [facility] Diphenhydramine HCl (Benadryl) 25 - 50 mg PO Q6H PRN PRN Reason: Itching Docusate Sodium (Colace) 100 mg PO BID PRN PRN Reason: Constipation Last Admin: 12/06/18 05:28 Dose: 100 mg Famotidine (Pepcid) 40 mg PO DAILY [facility] HCTZ/Losartan Potassium (Hyzaar 50-12.5 Mg) 2 tab PO DAILY [facility] Lactated Ringer's (Ringers, Lactated) 1,000 mls @ 100 mls/hr IV ASDIRECTED [facility] Last Admin: 12/06/18 00:58 Dose: 100 mls/hr Cefazolin Sodium/Dextrose 2 gm (/ Premix) 50 mls @ 100 mls/hr IV Q8H [facility] Stop: 12/06/18 12:29 Last Admin: 12/06/18 03:42 Dose: 100 mls/hr Morphine Sulfate (Morphine Sulfate) 1 - 3 mg IV Q3H PRN PRN Reason: Pain Last Admin: 12/05/18 18:50 Dose: 2 mg Multivitamins/Minerals/Vitamin C (Tab-A-Jono) 1 tab PO DAILY [facility] Ondansetron HCl (Zofran) 4 mg IVPUSH Q6H PRN PRN Reason: Nausea/Vomiting Oxycodone/Acetaminophen (Percocet 325-5 Mg) 1 - 2 tab PO Q4H PRN PRN Reason: Pain Last Admin: 12/06/18 05:27 Dose: 2 tab Methocarbamol 500 Mg 1 each PO TID [facility] Last Admin: 12/06/18 05:29 Dose: Not Given Polyethylene Glycol (Miralax) 17 gm PO DAILY [facility] Scopolamine (Transderm-Scop) 1.5 mg TRDERM ONARRIVE [facility] Last Admin: 12/05/18 11:12 Dose: 1.5 mg Sodium Chloride (Saline Flush) 10 ml FLUSH ASDIRECTED PRN PRN Reason: Keep Vein Open Sodium Chloride (Saline Flush) 2.5 ml FLUSH ASDIRECTED PRN PRN Reason: Keep Vein Open Discontinued Medications Cefazolin Sodium/Dextrose (Ancef) Confirm Administered Dose 2 gm IV .STK-MED ONE Stop: 12/05/18 10:42 Dexamethasone (Dexamethasone) Confirm Administered Dose 20 mg .ROUTE .STK-MED ONE Stop: 12/05/18 09:59 Ephedrine Sulfate (Ephedrine Sulfate) Confirm Administered Dose 50 mg .ROUTE .STK-MED ONE Stop: 12/05/18 11:37 Famotidine (Pepcid) 40 mg IVPUSH ONARRIVE [facility] Last Admin: 12/05/18 11:17 Dose: 40 mg Fentanyl (Sublimaze) Confirm Administered Dose 250 mcg .ROUTE .STK-MED ONE Stop: 12/05/18 09:57 Fentanyl (Sublimaze) 50 mcg IVPUSH Q5M PRN PRN Reason: Pain (severe 7-10) Stop: 12/05/18 14:00 Acetaminophen 1,000 mg/ Premix 100 mls @ 400 mls/hr IV ONARRIVE [facility] Last Admin: 12/05/18 11:23 Dose: 400 mls/hr Cefazolin Sodium/Dextrose 2 gm (/ Premix) 50 mls @ 100 mls/hr IV ONCALL [facility] Lidocaine HCl (Xylocaine-Mpf 1%) Confirm Administered Dose 5 mls @ as directed .ROUTE .STK-MED ONE Stop: 12/05/18 09:59 Ketorolac Tromethamine (Toradol) 15 mg IVPUSH Q6H [facility] Stop: 12/06/18 05:00 Last Admin: 12/06/18 02:22 Dose: 15 mg Midazolam HCl (Versed 1 Mg/Ml) Confirm Administered Dose 2 mg .ROUTE .STK-MED ONE Stop: 12/05/18 09:57 Ondansetron HCl (Zofran) Confirm Administered Dose 4 mg .ROUTE .STK-MED ONE Stop: 12/05/18 09:59 Propofol (Diprivan 20 Ml) Confirm Administered Dose 200 mg .ROUTE .STK-MED ONE Stop: 12/05/18 09:57 - Exam Wound/Incisions: Other (Surgical dressing reinforced with a second constantin bandage. Current dressings that absorbed post-operative drainage are dry. ) General: Alert, Oriented, Cooperative, No Acute Distress HEENT: Mucous Membr. Moist/[place] Neck: Supple Lungs: Normal Respiratory Effort Cardiovascular: Regular Rate GI/Abdominal Exam: Soft Extremities: No Pedal Edema, Other (AT/EHL/gastroc 5/5) Skin: Warm, Dry Neurological: No New Focal Deficit Psy/Mental Status: Alert, Normal Affect, Normal Mood Physical Findings Comment:: Right knee incision : intact with remaining josh inferior and superior region , intact with sutures in medial aspect. Surgical dressing removed. Surgical dressing was absorbent of serosanguineous drainage is dry this morning. No active drainage to incision. No surrounding erythema. - Problem List Review Problem List Initiated/Reviewed/Updated: Yes - My Orders Last 24 Hours: Active Orders 24 hr Category Date Time Status Communication Order [RC] PRN Care 12/05/18 12:39 Active Insert Urinary Catheter [OM.PC] Q24H Care 12/05/18 08:00 Ordered Neurovascular Check [RC] Q2HR Care 12/05/18 12:39 Active Notify Provider Vital Signs [RC] ASDIRECTED Care 12/05/18 12:39 Active RT Incentive Spirometry [RC] Q1HWA Care 12/05/18 12:39 Active Vital Signs [RC] Q4H Care 12/05/18 12:39 Active Wound Care [RC] Q12H Care 12/05/18 12:39 Active PT Evaluation and Treatment [CONS] Routine Cons 12/05/18 12:39 Active Regular Diet [DIET] Diet 12/05/18 Lunch Active CULTURE ANAEROBIC [RM] Routine Lab 12/05/18 12:10 Results CULTURE WOUND [RM] Routine Lab 12/05/18 12:10 Results GRAM STAIN [RM] Routine Lab 12/05/18 12:10 Results HEMOGLOBIN/HEMATOCRIT,HH [HEME] DAILY Lab 12/07/18 06:00 Ordered Acetaminophen/oxyCODONE [Percocet 325-5 MG] Med 12/05/18 12:43 Active 1 - 2 tab PO Q4H PRN Alum Hydrox/Mag Hydrox/Simeth [Mag-Al Plus] Med 12/05/18 12:38 Active 30 ml PO Q4H PRN Aspirin [Ecotrin] Med 12/06/18 09:00 Active 325 mg PO BID Bisacodyl [Dulcolax] Med 12/05/18 12:38 Active 10 mg RECTAL DAILY PRN Celecoxib [CeleBREX] Med 12/06/18 09:00 Active 200 mg PO BID Docusate Sodium [Colace] Med 12/05/18 12:38 Active 100 mg PO BID PRN Famotidine [Pepcid] Med 12/06/18 09:00 Active 40 mg PO DAILY Hydrochlorothiazide/Losartan [Hyzaar 50-12.5 MG] Med 12/06/18 09:00 Active 2 tab PO DAILY Morphine Sulfate Med 12/05/18 12:44 Active 1 - 3 mg IV Q3H PRN Multivitamins [Tab-A-Jono] Med 12/06/18 09:00 Active 1 tab PO DAILY Ondansetron [Zofran] Med 12/05/18 12:38 Active 4 mg IVPUSH Q6H PRN Patient's Own Medication [Ptom] Med 12/05/18 14:00 Active 1 each PO TID Polyethylene Glycol 3350 [MiraLAX] Med 12/06/18 09:00 Active 17 gm PO DAILY Sodium Chloride 0.9% [Saline Flush] Med 12/05/18 12:38 Active 10 ml FLUSH ASDIRECTED PRN Sodium Chloride 0.9% [Saline Flush] Med 12/05/18 12:38 Active 2.5 ml FLUSH ASDIRECTED PRN ceFAZolin [Ancef] 2 gm Med 12/05/18 20:00 Active Premix Bag 1 bag IV Q8H diphenhydrAMINE [Benadryl] Med 12/05/18 12:38 Active 25 - 50 mg PO Q6H PRN Convert IV to Saline Lock [OM.PC] PRN Oth 12/05/18 12:45 Ordered Convert IV to Saline Lock [OM.PC] PRN Oth 12/06/18 12:45 Ordered Ice Therapy [OM.PC] Routine Oth 12/05/18 12:39 Ordered Medication Orders Al Hydroxide/Mg Hydroxide (Mag-Al Plus) 30 ml PO Q4H PRN PRN Reason: Indigestion Aspirin (Ecotrin) 325 mg PO BID [facility] Bisacodyl (Dulcolax) 10 mg RECTAL DAILY PRN PRN Reason: Constipation Celecoxib (Celebrex) 200 mg PO BID [facility] Diphenhydramine HCl (Benadryl) 25 - 50 mg PO Q6H PRN PRN Reason: Itching Docusate Sodium (Colace) 100 mg PO BID PRN PRN Reason: Constipation Last Admin: 12/06/18 05:28 Dose: 100 mg Famotidine (Pepcid) 40 mg PO DAILY [facility] HCTZ/Losartan Potassium (Hyzaar 50-12.5 Mg) 2 tab PO DAILY [facility] Lactated Ringer's (Ringers, Lactated) 1,000 mls @ 100 mls/hr IV ASDIRECTED [facility] Last Admin: 12/06/18 00:58 Dose: 100 mls/hr Infusion: 12/05/18 23:54 Dose: 100 mls/hr Admin: 12/05/18 13:54 Dose: 100 mls/hr Infusion: 12/05/18 13:54 Dose: 100 mls/hr Admin: 12/05/18 11:00 Dose: 100 mls/hr Cefazolin Sodium/Dextrose 2 gm (/ Premix) 50 mls @ 100 mls/hr IV Q8H [facility] Stop: 12/06/18 12:29 Last Admin: 12/06/18 03:42 Dose: 100 mls/hr Infusion: 12/05/18 21:15 Dose: 100 mls/hr Admin: 12/05/18 20:45 Dose: 100 mls/hr Morphine Sulfate (Morphine Sulfate) 1 - 3 mg IV Q3H PRN PRN Reason: Pain Last Admin: 12/05/18 18:50 Dose: 2 mg Multivitamins/Minerals/Vitamin C (Tab-A-Jono) 1 tab PO DAILY [facility] Ondansetron HCl (Zofran) 4 mg IVPUSH Q6H PRN PRN Reason: Nausea/Vomiting Oxycodone/Acetaminophen (Percocet 325-5 Mg) 1 - 2 tab PO Q4H PRN PRN Reason: Pain Last Admin: 12/06/18 05:27 Dose: 2 tab Admin: 12/06/18 00:52 Dose: 2 tab Admin: 12/05/18 16:51 Dose: 2 tab Methocarbamol 500 Mg 1 each PO TID [facility] Last Admin: 12/06/18 05:29 Dose: Admin: 12/05/18 22:17 Dose: Admin: 12/05/18 17:15 Dose: Not Given Polyethylene Glycol (Miralax) 17 gm PO DAILY [facility] Scopolamine (Transderm-Scop) 1.5 mg TRDERM ONARRIVE [facility] Last Admin: 12/05/18 11:12 Dose: 1.5 mg Sodium Chloride (Saline Flush) 10 ml FLUSH ASDIRECTED PRN PRN Reason: Keep Vein Open Sodium Chloride (Saline Flush) 2.5 ml FLUSH ASDIRECTED PRN PRN Reason: Keep Vein Open - Assessment Assessment (Free Text/Narrative):: s/p I&D Right TKA POD#1 post-hemorrhagic anemia - Plan Plan (Free Text/Narrative):: Tolerating food/fluids, no N/V. VSS/afebrile. Pain controlled with Percocet. Surgical dressing changed. Reinforced that he is to keep knee immobilizer on at all times, and leave current dressing on until follow up at orthopedic clinic in 2 days. Start ASA BID today for DVT prophylaxis. Complete 24 hour antibiotic coverage, then will be ready for discharge. Is already making transportation arrangements for today and . <Tianna Garza R - Last Filed: 12/06/18 08:46> - Patient Data Vitals - Most Recent: Last Vital Signs Temp 97.9 F 12/06/18 08:00 Pulse 61 12/06/18 08:00 Resp 18 12/06/18 08:00 BP 120/62 12/06/18 08:00 Pulse Ox 98 12/06/18 08:00 I&O - Last 24 Hours: Intake & Output 12/05/18 12/06/18 12/06/18 22:59 06:59 14:59 Intake Total 769 1140 Output Total 480 Balance 769 660 Lab Results Last 24 Hrs: Laboratory Results - last 24 hr 12/05/18 12/05/18 12/05/18 Range/Units 11:55 11:55 11:55 WBC 8.47 (4.0-11.0) K/uL RBC 3.50 L (4.50-5.90) M/uL Hgb 9.9 L (13.0-17.0) g/dL Hct 29.9 L (38.0-50.0) % MCV 85.4 (80.0-98.0) fL MCH 28.3 (27.0-32.0) pg MCHC 33.1 (31.0-37.0) g/dL RDW Std Deviation 44.8 (28.0-62.0) fl RDW Coeff of Qasim 15 (11.0-15.0) % Plt Count 319 (150-400) K/uL MPV 9.20 (7.40-12.00) fL Neut % (Auto) 63.8 (48.0-80.0) % Lymph % (Auto) 25.5 (16.0-40.0) % Bailey % (Auto) 6.5 (0.0-15.0) % Eos % (Auto) 3.7 (0.0-7.0) % Baso % (Auto) 0.5 (0.0-1.5) % Neut # (Auto) 5.4 (1.4-5.7) K/uL Lymph # (Auto) 2.2 (0.6-2.4) K/uL Bailey # (Auto) 0.6 (0.0-0.8) K/uL Eos # (Auto) 0.3 (0.0-0.7) K/uL Baso # (Auto) 0.0 (0.0-0.1) K/uL Nucleated RBC % 0.0 /100WBC Nucleated RBCs # 0 K/uL ESR 34 H (0-19) mm/hr Sodium 139 (136-148) mmol/L Potassium 3.8 (3.5-5.1) mmol/L Chloride 105 (98-107) mmol/L Carbon Dioxide 24.4 (21.0-32.0) mmol/L BUN 18 (7.0-18.0) mg/dL Creatinine 1.1 (0.8-1.3) mg/dL Est Cr Clr Drug Dosing 72.82 mL/min Estimated GFR (MDRD) > 60.0 ml/min Glucose 107 H (74-106) mg/dL Calcium 9.0 (8.5-10.1) mg/dL Total Bilirubin 0.3 (0.2-1.0) mg/dL AST 21 (15-37) IU/L ALT 36 (14-63) IU/L Alkaline Phosphatase 132 H (46-116) U/L C-Reactive Protein 1.30 H (0.00-0.90) mg/dL Total Protein 6.4 (6.4-8.2) g/dL Albumin 3.0 L (3.4-5.0) g/dL Globulin 3.4 (2.6-4.0) g/dL Albumin/Globulin Ratio 0.9 (0.9-1.6) Blood Type O POSITIVE Antibody Screen NEGATIVE 12/06/18 Range/Units 05:20 WBC (4.0-11.0) K/uL RBC (4.50-5.90) M/uL Hgb 9.3 L (13.0-17.0) g/dL Hct 28.7 L (38.0-50.0) % MCV (80.0-98.0) fL MCH (27.0-32.0) pg MCHC (31.0-37.0) g/dL RDW Std Deviation (28.0-62.0) fl RDW Coeff of Qasim (11.0-15.0) % Plt Count (150-400) K/uL MPV (7.40-12.00) fL Neut % (Auto) (48.0-80.0) % Lymph % (Auto) (16.0-40.0) % Bailey % (Auto) (0.0-15.0) % Eos % (Auto) (0.0-7.0) % Baso % (Auto) (0.0-1.5) % Neut # (Auto) (1.4-5.7) K/uL Lymph # (Auto) (0.6-2.4) K/uL Bailey # (Auto) (0.0-0.8) K/uL Eos # (Auto) (0.0-0.7) K/uL Baso # (Auto) (0.0-0.1) K/uL Nucleated RBC % /100WBC Nucleated RBCs # K/uL ESR (0-19) mm/hr Sodium (136-148) mmol/L Potassium (3.5-5.1) mmol/L Chloride (98-107) mmol/L Carbon Dioxide (21.0-32.0) mmol/L BUN (7.0-18.0) mg/dL Creatinine (0.8-1.3) mg/dL Est Cr Clr Drug Dosing mL/min Estimated GFR (MDRD) ml/min Glucose (74-106) mg/dL Calcium (8.5-10.1) mg/dL Total Bilirubin (0.2-1.0) mg/dL AST (15-37) IU/L ALT (14-63) IU/L Alkaline Phosphatase (46-116) U/L C-Reactive Protein (0.00-0.90) mg/dL Total Protein (6.4-8.2) g/dL Albumin (3.4-5.0) g/dL Globulin (2.6-4.0) g/dL Albumin/Globulin Ratio (0.9-1.6) Blood Type Antibody Screen Jesse Results Last 24 Hrs: Microbiology 12/05/18 12:10 Gram Stain - Preliminary Knee, Right Med Orders - Current: Current Medications Al Hydroxide/Mg Hydroxide (Mag-Al Plus) 30 ml PO Q4H PRN PRN Reason: Indigestion Aspirin (Ecotrin) 325 mg PO BID [facility] Bisacodyl (Dulcolax) 10 mg RECTAL DAILY PRN PRN Reason: Constipation Celecoxib (Celebrex) 200 mg PO BID [facility] Diphenhydramine HCl (Benadryl) 25 - 50 mg PO Q6H PRN PRN Reason: Itching Docusate Sodium (Colace) 100 mg PO BID PRN PRN Reason: Constipation Last Admin: 12/06/18 05:28 Dose: 100 mg Famotidine (Pepcid) 40 mg PO DAILY [facility] HCTZ/Losartan Potassium (Hyzaar 50-12.5 Mg) 2 tab PO DAILY [facility] Lactated Ringer's (Ringers, Lactated) 1,000 mls @ 100 mls/hr IV ASDIRECTED [facility] Last Admin: 12/06/18 00:58 Dose: 100 mls/hr Cefazolin Sodium/Dextrose 2 gm (/ Premix) 50 mls @ 100 mls/hr IV Q8H [facility] Stop: 12/06/18 12:29 Last Admin: 12/06/18 03:42 Dose: 100 mls/hr Morphine Sulfate (Morphine Sulfate) 1 - 3 mg IV Q3H PRN PRN Reason: Pain Last Admin: 12/05/18 18:50 Dose: 2 mg Multivitamins/Minerals/Vitamin C (Tab-A-Jono) 1 tab PO DAILY [facility] Ondansetron HCl (Zofran) 4 mg IVPUSH Q6H PRN PRN Reason: Nausea/Vomiting Oxycodone/Acetaminophen (Percocet 325-5 Mg) 1 - 2 tab PO Q4H PRN PRN Reason: Pain Last Admin: 12/06/18 05:27 Dose: 2 tab Methocarbamol 500 Mg 1 each PO TID [facility] Last Admin: 12/06/18 05:29 Dose: Not Given Polyethylene Glycol (Miralax) 17 gm PO DAILY [facility] Scopolamine (Transderm-Scop) 1.5 mg TRDERM ONARRIVE [facility] Last Admin: 12/05/18 11:12 Dose: 1.5 mg Sodium Chloride (Saline Flush) 10 ml FLUSH ASDIRECTED PRN PRN Reason: Keep Vein Open Sodium Chloride (Saline Flush) 2.5 ml FLUSH ASDIRECTED PRN PRN Reason: Keep Vein Open Discontinued Medications Cefazolin Sodium/Dextrose (Ancef) Confirm Administered Dose 2 gm IV .STK-MED ONE Stop: 12/05/18 10:42 Dexamethasone (Dexamethasone) Confirm Administered Dose 20 mg .ROUTE .STK-MED ONE Stop: 12/05/18 09:59 Ephedrine Sulfate (Ephedrine Sulfate) Confirm Administered Dose 50 mg .ROUTE .STK-MED ONE Stop: 12/05/18 11:37 Famotidine (Pepcid) 40 mg IVPUSH ONARRIVE [facility] Last Admin: 12/05/18 11:17 Dose: 40 mg Fentanyl (Sublimaze) Confirm Administered Dose 250 mcg .ROUTE .STK-MED ONE Stop: 12/05/18 09:57 Fentanyl (Sublimaze) 50 mcg IVPUSH Q5M PRN PRN Reason: Pain (severe 7-10) Stop: 12/05/18 14:00 Acetaminophen 1,000 mg/ Premix 100 mls @ 400 mls/hr IV ONARRIVE [facility] Last Admin: 12/05/18 11:23 Dose: 400 mls/hr Cefazolin Sodium/Dextrose 2 gm (/ Premix) 50 mls @ 100 mls/hr IV ONCALL [facility] Lidocaine HCl (Xylocaine-Mpf 1%) Confirm Administered Dose 5 mls @ as directed .ROUTE .STK-MED ONE Stop: 12/05/18 09:59 Ketorolac Tromethamine (Toradol) 15 mg IVPUSH Q6H [facility] Stop: 12/06/18 05:00 Last Admin: 12/06/18 02:22 Dose: 15 mg Midazolam HCl (Versed 1 Mg/Ml) Confirm Administered Dose 2 mg .ROUTE .STK-MED ONE Stop: 12/05/18 09:57 Ondansetron HCl (Zofran) Confirm Administered Dose 4 mg .ROUTE .STK-MED ONE Stop: 12/05/18 09:59 Propofol (Diprivan 20 Ml) Confirm Administered Dose 200 mg .ROUTE .STK-MED ONE Stop: 12/05/18 09:57 - My Orders Last 24 Hours: Active Orders 24 hr Category Date Time Status Communication Order [RC] PRN Care 12/05/18 12:39 Active Insert Urinary Catheter [OM.PC] Q24H Care 12/05/18 08:00 Ordered Neurovascular Check [RC] Q2HR Care 12/05/18 12:39 Active Notify Provider Vital Signs [RC] ASDIRECTED Care 12/05/18 12:39 Active RT Incentive Spirometry [RC] Q1HWA Care 12/05/18 12:39 Active Vital Signs [RC] Q4H Care 12/05/18 12:39 Active Wound Care [RC] Q12H Care 12/05/18 12:39 Active PT Evaluation and Treatment [CONS] Routine Cons 12/05/18 12:39 Active Regular Diet [DIET] Diet 12/05/18 Lunch Active CULTURE ANAEROBIC [RM] Routine Lab 12/05/18 12:10 Results CULTURE WOUND [RM] Routine Lab 12/05/18 12:10 Results GRAM STAIN [RM] Routine Lab 12/05/18 12:10 Results HEMOGLOBIN/HEMATOCRIT,HH [HEME] DAILY Lab 12/07/18 06:00 Ordered Acetaminophen/oxyCODONE [Percocet 325-5 MG] Med 12/05/18 12:43 Active 1 - 2 tab PO Q4H PRN Alum Hydrox/Mag Hydrox/Simeth [Mag-Al Plus] Med 12/05/18 12:38 Active 30 ml PO Q4H PRN Aspirin [Ecotrin] Med 12/06/18 09:00 Active 325 mg PO BID Bisacodyl [Dulcolax] Med 12/05/18 12:38 Active 10 mg RECTAL DAILY PRN Celecoxib [CeleBREX] Med 12/06/18 09:00 Active 200 mg PO BID Docusate Sodium [Colace] Med 12/05/18 12:38 Active 100 mg PO BID PRN Famotidine [Pepcid] Med 12/06/18 09:00 Active 40 mg PO DAILY Hydrochlorothiazide/Losartan [Hyzaar 50-12.5 MG] Med 12/06/18 09:00 Active 2 tab PO DAILY Morphine Sulfate Med 12/05/18 12:44 Active 1 - 3 mg IV Q3H PRN Multivitamins [Tab-A-Jono] Med 12/06/18 09:00 Active 1 tab PO DAILY Ondansetron [Zofran] Med 12/05/18 12:38 Active 4 mg IVPUSH Q6H PRN Patient's Own Medication [Ptom] Med 12/05/18 14:00 Active 1 each PO TID Polyethylene Glycol 3350 [MiraLAX] Med 12/06/18 09:00 Active 17 gm PO DAILY Sodium Chloride 0.9% [Saline Flush] Med 12/05/18 12:38 Active 10 ml FLUSH ASDIRECTED PRN Sodium Chloride 0.9% [Saline Flush] Med 12/05/18 12:38 Active 2.5 ml FLUSH ASDIRECTED PRN ceFAZolin [Ancef] 2 gm Med 12/05/18 20:00 Active Premix Bag 1 bag IV Q8H diphenhydrAMINE [Benadryl] Med 12/05/18 12:38 Active 25 - 50 mg PO Q6H PRN Convert IV to Saline Lock [OM.PC] PRN Oth 12/05/18 12:45 Ordered Convert IV to Saline Lock [OM.PC] PRN Oth 12/06/18 12:45 Ordered Ice Therapy [OM.PC] Routine Oth 12/05/18 12:39 Ordered Medication Orders Al Hydroxide/Mg Hydroxide (Mag-Al Plus) 30 ml PO Q4H PRN PRN Reason: Indigestion Aspirin (Ecotrin) 325 mg PO BID [facility] Bisacodyl (Dulcolax) 10 mg RECTAL DAILY PRN PRN Reason: Constipation Celecoxib (Celebrex) 200 mg PO BID [facility] Diphenhydramine HCl (Benadryl) 25 - 50 mg PO Q6H PRN PRN Reason: Itching Docusate Sodium (Colace) 100 mg PO BID PRN PRN Reason: Constipation Last Admin: 12/06/18 05:28 Dose: 100 mg Famotidine (Pepcid) 40 mg PO DAILY [facility] HCTZ/Losartan Potassium (Hyzaar 50-12.5 Mg) 2 tab PO DAILY [facility] Lactated Ringer's (Ringers, Lactated) 1,000 mls @ 100 mls/hr IV ASDIRECTED [facility] Last Admin: 12/06/18 00:58 Dose: 100 mls/hr Infusion: 12/05/18 23:54 Dose: 100 mls/hr Admin: 12/05/18 13:54 Dose: 100 mls/hr Infusion: 12/05/18 13:54 Dose: 100 mls/hr Admin: 12/05/18 11:00 Dose: 100 mls/hr Cefazolin Sodium/Dextrose 2 gm (/ Premix) 50 mls @ 100 mls/hr IV Q8H [facility] Stop: 12/06/18 12:29 Last Admin: 12/06/18 03:42 Dose: 100 mls/hr Infusion: 12/05/18 21:15 Dose: 100 mls/hr Admin: 12/05/18 20:45 Dose: 100 mls/hr Morphine Sulfate (Morphine Sulfate) 1 - 3 mg IV Q3H PRN PRN Reason: Pain Last Admin: 12/05/18 18:50 Dose: 2 mg Multivitamins/Minerals/Vitamin C (Tab-A-Jono) 1 tab PO DAILY [facility] Ondansetron HCl (Zofran) 4 mg IVPUSH Q6H PRN PRN Reason: Nausea/Vomiting Oxycodone/Acetaminophen (Percocet 325-5 Mg) 1 - 2 tab PO Q4H PRN PRN Reason: Pain Last Admin: 12/06/18 05:27 Dose: 2 tab Admin: 12/06/18 00:52 Dose: 2 tab Admin: 12/05/18 16:51 Dose: 2 tab Methocarbamol 500 Mg 1 each PO TID [facility] Last Admin: 12/06/18 05:29 Dose: Admin: 12/05/18 22:17 Dose: Admin: 12/05/18 17:15 Dose: Not Given Polyethylene Glycol (Miralax) 17 gm PO DAILY [facility] Scopolamine (Transderm-Scop) 1.5 mg TRDERM ONARRIVE [facility] Last Admin: 12/05/18 11:12 Dose: 1.5 mg Sodium Chloride (Saline Flush) 10 ml FLUSH ASDIRECTED PRN PRN Reason: Keep Vein Open Sodium Chloride (Saline Flush) 2.5 ml FLUSH ASDIRECTED PRN PRN Reason: Keep Vein Open - Plan Plan (Free Text/Narrative):: 0844 Patient seen and examined. Agree with above note. Wound drainage is less. Emphasized to patient that immobilizer should be worn at all times. May continue daily dressing changes and we will re-evaluate on . Continue with ambulation, TTWB on . Plan to discharge today when 24H IV abx complete. Patient advised to contact us if he has questions/concerns.
[2018-12-06] MEDS ORDERED: Multivitamin Tab PO SCH (09:00)
[2018-12-06] MEDS ORDERED: Celecoxib 100 MG Cap PO SCH (09:00)
[2018-12-06] MEDS ORDERED: Famotidine 20 MG Tab PO SCH (09:00)
[2018-12-06] MEDS ORDERED: Hydrochlorothiazide/Losartan 12.5-50 mg Tab PO SCH (09:00)
[2018-12-06] MEDS ORDERED: Polyethylene Glycol 3350 Powder 17 GM Packet PO SCH (09:00)
[2018-12-06] MEDS ORDERED: Aspirin 325 MG Tab.EC PO SCH (09:00)
[2018-12-06 11:37] VITALS: BP 127/58
--- NOTE | 2018-12-07 12:06 | PCM.DCSUM1 ---
Discharge Summary - Hospital Course Free Text/Narrative:: ADMITTING DIAGNOSIS : Right knee open wound, status post revision right total knee arthroplasty. OTHER MEDICAL DIAGNOSIS: 1) hypertension 2) obesity DISCHARGE MEDICAL DIAGNOSIS : 1. Hypertension 2. Obesity 3. s/p irrigation and debridement, right total knee arthroplasty 4. post-hemorrhagic anemia HISTORY : 63 y/o male, whom underwent right total knee revision arthroplasty November 21, [address] Mary Garza, following periprosthetic infection, had continued drainage from medial portion of surgical incision. He underwent I&D, right total knee arthroplasty on 12/05/[address] Tianna Garza. No known surgical complications and was admitted to med/surg for post-operative care. HOSPITAL COURSE : Post-operatively, he did well. He had some post-surgical drainage on surgical dressing which was reinforced by nursing, but POD#1, with dressing change, the drainage was dry. He had no active drainage from surgical incision. New dressing was applied, which he was instructed to leave on until follow up in 2 days at orthopedic clinic. He was complaint with use of knee immobilizer. Pain was controlled with Banco. He had 24 hours of antibiotic coverage with IV Ancef 2 gms. VSS/afebrile. Hg POD#1 9.3 (before surgery was 9.9). ASA 325mg BID started POD#1 for DVT prophylaxis. He felt ready for discharge morning of POD#1. Discharge orders : follow up in clinic with Rafael Chahal PA-C 12/08/18 at 9:00am for wound check/dressing change. He was instructed to wear knee immobilizer at all times. - Discharge Data Discharge Date: 12/06/18 Discharge Disposition: Home, Self-Care 01 Condition: Good - Patient Summary/Data Operative Procedure(s) Performed: I&D right TKA to bone Consults: Consultations 12/05/18 12:39 PT Evaluation and Treatment [CONS] Routine - Patient Instructions Diet: Usual Diet as Tolerated Activity: Cough & Deep Breathe, Elevate Extremity Driving: Do Not Drive Showering/Bathing: No Tub Bathing/Swimming Wound/Incision Care: Keep Operative Site/Wound Site Clean and Dry, Do NOT Change Dressing Notify Provider of: Fever, Increased Pain, Swelling and Redness, Drainage, Nausea and/or Vomiting - Discharge Plan Prescriptions/Med Rec: Acetaminophen/oxyCODONE [Percocet 325-5 MG] 1 - 2 tab PO Q4H PRN #60 tablet PRN Reason: Pain Home Medications: Home Meds Losartan/Hydrochlorothiazide [Losartan-HCTZ 100-25 MG] 1 tab PO DAILY 07/06/18 [ History] [place]-3/DHA/Epa/Fish Oil [[place]er-3 Fish Oil 1,200 MG Sfgl] 1,200 mg PO DAILY 10/11 [History] Multivitamin [Multivitamins] 1 tab PO DAILY 11/16/18 [History] Aspirin 325 mg PO BID #60 tablet 11/23/18 [Rx] Celecoxib [CeleBREX] 200 mg PO DAILY #30 cap 11/23/18 [Rx] Methocarbamol 500 mg PO TID #30 tablet 11/23/18 [Rx] Polyethylene Glycol 3350 [MiraLAX] 17 gm PO DAILY #30 packet 11/23/18 [Rx] Acetaminophen/oxyCODONE [Percocet 325-5 MG] 1 - 2 tab PO Q4H PRN #60 tablet 10/12 [Rx] Aspirin [Ecotrin] 325 mg PO BID tab.ec 12/06/18 [Rx] Celecoxib [CeleBREX] 200 mg PO DAILY cap 12/06/18 [Rx] Docusate Sodium [Colace] 100 mg PO BID #0 12/06/18 [Rx] Docusate Sodium [Colace] 100 mg PO BID PRN cap 12/06/18 [Rx] Polyethylene Glycol 3350 [MiraLAX] 17 gm PO DAILY packet 12/06/18 [Rx] Patient Handouts: Acetaminophen; Oxycodone tablets Referrals: Dulce Chahal PA [Physician Negative Spotter] - 12/08/18 9:00 am - Discharge Summary/Plan Comment DC Time >30 min.: No - General Info Date of Service: 12/06/18 (POD#1) Admission Dx/Problem (Free Text: Fascial dehiscence, right total knee arthroplasty s/p I&D, right TKA Functional Status: Reports: Pain Controlled, Tolerating Diet, Ambulating (TTWB as tolerates), Urinating - Review of Systems General: Reports: No Symptoms. Denies: Fever HEENT: Reports: No Symptoms Pulmonary: Reports: No Symptoms. Denies: Shortness of Breath Cardiovascular: Reports: No Symptoms. Denies: Chest Pain Gastrointestinal: Reports: No Symptoms. Denies: Abdominal Pain, Nausea, Vomiting Musculoskeletal: Reports: Joint Pain (knee pain s/p I&D), Other (leg spasms) Skin: Reports: No Symptoms Neurological: Reports: No Symptoms Psychiatric: Reports: No Symptoms. Denies: Confusion - Patient Data Vitals - Most Recent: Last Vital Signs Temp 37.1 C 12/06/18 11:00 Pulse 64 12/06/18 11:00 Resp 16 12/06/18 11:00 BP 127/58 L 12/06/18 11:00 Pulse Ox 100 12/06/18 11:00 Weight - Most Recent: 122.47 kg DYLAN Results - Last 24 hrs: Microbiology 12/05/18 12:10 Gram Stain - Preliminary Knee, Right Med Orders - Current: Current Medications Discontinued Medications Al Hydroxide/Mg Hydroxide (Mag-Al Plus) 30 ml PO Q4H PRN PRN Reason: Indigestion Aspirin (Ecotrin) 325 mg PO BID [facility] Last Admin: 12/06/18 09:37 Dose: 325 mg Bisacodyl (Dulcolax) 10 mg RECTAL DAILY PRN PRN Reason: Constipation Cefazolin Sodium/Dextrose (Ancef) Confirm Administered Dose 2 gm IV .STK-MED ONE Stop: 12/05/18 10:42 Celecoxib (Celebrex) 200 mg PO BID [facility] Last Admin: 12/06/18 09:36 Dose: 200 mg Dexamethasone (Dexamethasone) Confirm Administered Dose 20 mg .ROUTE .STK-MED ONE Stop: 12/05/18 09:59 Diphenhydramine HCl (Benadryl) 25 - 50 mg PO Q6H PRN PRN Reason: Itching Docusate Sodium (Colace) 100 mg PO BID PRN PRN Reason: Constipation Last Admin: 12/06/18 05:28 Dose: 100 mg Ephedrine Sulfate (Ephedrine Sulfate) Confirm Administered Dose 50 mg .ROUTE .STK-MED ONE Stop: 12/05/18 11:37 Famotidine (Pepcid) 40 mg IVPUSH ONARRIVE [facility] Last Admin: 12/05/18 11:17 Dose: 40 mg Famotidine (Pepcid) 40 mg PO DAILY [facility] Last Admin: 12/06/18 09:37 Dose: 40 mg Fentanyl (Sublimaze) Confirm Administered Dose 250 mcg .ROUTE .STK-MED ONE Stop: 12/05/18 09:57 Fentanyl (Sublimaze) 50 mcg IVPUSH Q5M PRN PRN Reason: Pain (severe 7-10) Stop: 12/05/18 14:00 HCTZ/Losartan Potassium (Hyzaar 50-12.5 Mg) 2 tab PO DAILY [facility] Last Admin: 12/06/18 09:37 Dose: 2 tab Acetaminophen 1,000 mg/ Premix 100 mls @ 400 mls/hr IV ONARRIVE [facility] Last Admin: 12/05/18 11:23 Dose: 400 mls/hr Cefazolin Sodium/Dextrose 2 gm (/ Premix) 50 mls @ 100 mls/hr IV ONCALL [facility] Lactated Ringer's (Ringers, Lactated) 1,000 mls @ 100 mls/hr IV ASDIRECTED [facility] Last Admin: 12/06/18 00:58 Dose: 100 mls/hr Lidocaine HCl (Xylocaine-Mpf 1%) Confirm Administered Dose 5 mls @ as directed .ROUTE .STK-MED ONE Stop: 12/05/18 09:59 Cefazolin Sodium/Dextrose 2 gm (/ Premix) 50 mls @ 100 mls/hr IV Q8H [facility] Stop: 12/06/18 12:29 Last Admin: 12/06/18 11:33 Dose: 100 mls/hr Ketorolac Tromethamine (Toradol) 15 mg IVPUSH Q6H [facility] Stop: 12/06/18 05:00 Last Admin: 12/06/18 02:22 Dose: 15 mg Midazolam HCl (Versed 1 Mg/Ml) Confirm Administered Dose 2 mg .ROUTE .STK-MED ONE Stop: 12/05/18 09:57 Morphine Sulfate (Morphine Sulfate) 1 - 3 mg IV Q3H PRN PRN Reason: Pain Last Admin: 12/05/18 18:50 Dose: 2 mg Multivitamins/Minerals/Vitamin C (Tab-A-Jono) 1 tab PO DAILY [facility] Last Admin: 12/06/18 09:36 Dose: 1 tab Ondansetron HCl (Zofran) Confirm Administered Dose 4 mg .ROUTE .STK-MED ONE Stop: 12/05/18 09:59 Ondansetron HCl (Zofran) 4 mg IVPUSH Q6H PRN PRN Reason: Nausea/Vomiting Oxycodone/Acetaminophen (Percocet 325-5 Mg) 1 - 2 tab PO Q4H PRN PRN Reason: Pain Last Admin: 12/06/18 05:27 Dose: 2 tab Methocarbamol 500 Mg 1 each PO TID [facility] Last Admin: 12/06/18 05:29 Dose: Not Given Polyethylene Glycol (Miralax) 17 gm PO DAILY [facility] Last Admin: 12/06/18 09:37 Dose: 17 gm Propofol (Diprivan 20 Ml) Confirm Administered Dose 200 mg .ROUTE .STK-MED ONE Stop: 12/05/18 09:57 Scopolamine (Transderm-Scop) 1.5 mg TRDERM ONARRIVE [facility] Last Admin: 12/05/18 11:12 Dose: 1.5 mg Sodium Chloride (Saline Flush) 10 ml FLUSH ASDIRECTED PRN PRN Reason: Keep Vein Open Sodium Chloride (Saline Flush) 2.5 ml FLUSH ASDIRECTED PRN PRN Reason: Keep Vein Open - Exam General: Reports: Alert, Oriented, Cooperative, No Acute Distress HEENT: Reports: Pupils Equal Neck: Reports: Supple Lungs: Reports: Normal Respiratory Effort Cardiovascular: Reports: Regular Rate GI/Abdominal Exam: Soft Extremities: No Pedal Edema, Normal Capillary Refill, Other (AT/EHL/gastroc 5/5 Sensation grossly intact to LE. PP2+) Skin: Reports: Warm, Dry Wound/Incisions: Reports: No Drainage, Other (well approximated with josh inferior and super portion (from TKA 11/21/18) and sutures middle aspect after I& D 12/05/18). Denies: Erythema Neurological: Reports: No New Focal Deficit, Normal Speech, Other (toe touch as tolerates RLE) Psy/Mental Status: Reports: Alert, Normal Affect, Normal Mood
== END 2018-12-06 14:00 | disposition home or self-care (01) ==
LOC: MW.SDS 10:39 → MW.MS 13:50
PROVIDERS: ADMIT Orthopaedic Surgery; ATTEND Orthopaedic Surgery
DX: T81.32XA Disruption of internal operation (surgical) wound, not elsewhere classified, initial encounter (principal); D50.0 Iron deficiency anemia secondary to blood loss (chronic); I10 Essential (primary) hypertension; E66.9 Obesity, unspecified; Z79.82 Long term (current) use of aspirin; Z79.899 Other long term (current) drug therapy
CPT/HCPCS: 11044; 36415; 80053; 85014; 85018; 85025; 85652; 86140; 86850; 86900; 86901; 87070; 87075; 87205; 97161; A9270; J0131; J0690; J1100; J1885; J2250; J2270; J2405; J2704; J3010; J3490; J7120; 87077; 87186

== ENCOUNTER 2019-06-01 14:22 | Inpatient (IN) | payer BC ==
[2019-06-01] MEDS ORDERED: Albuterol/Ipratropium 3.0-0.5 MG/3 ML Neb Soln NEB ONE (14:47)
--- NOTE | 2019-06-01 15:40 | CR ---
Indication: SOB Technique: Chest 2 views Comparison: None Findings/Impression: Cardiovascular and mediastinum: Cardiomegaly. An unfolded aorta. Lungs and pleural spaces: A mildly elevated right hemidiaphragm. No consolidation. Apparent few Usman B lines in the left lower lung. Correlate for early interstitial edema. No pleural effusions. Bones and soft tissues: No significant findings. Dictated by Gabino Britton MD @ 06/01/2019 3:39:09 PM Dictated by: Gabino Britton MD @ 06/01/2019 15:39:20 (Electronically Signed)
[2019-06-01 15:50] LABS: BLOOD UREA NITROGEN,BUN 23 mg/dL (7.0-18.0); CARBON DIOXIDE,CO2 23.9 mmol/L (21.0-32.0); CHLORIDE,CL 107 mmol/L (98-107); GLUCOSE RANDOM 130 mg/dL (74-106); POTASSIUM,K 3.7 mmol/L (3.5-5.1); SODIUM,NA 141 mmol/L (136-148)
[2019-06-01] MEDS ORDERED: Metoprolol Tartrate 5 MG in Sodium Chloride 0.9% 50 ML IV ONE (16:36)
--- NOTE | 2019-06-01 16:54 | EDM.PDOC ---
ED HPI GENERAL MEDICAL PROBLEM - General Chief Complaint: Respiratory Problem Stated Complaint: SHORTNESS OF BREATH Time Seen by Provider: 06/01/19 14:26 Source of Information: Reports: Patient History Limitations: Reports: No Limitations - History of Present Illness INITIAL COMMENTS - FREE TEXT/NARRATIVE: HISTORY AND PHYSICAL: History of present illness: Patient is a 63-year-old male presents to the ED today with concern of a month- long worsening shortness of breath. Patient states his shortness of breath is worse if he lays down or exerts himself. Patient states he has a history of high blood pressure and a right knee replacement. Patient states since the knee replacement he has chronic swelling of the right leg. Patient states he made an appointment with his primary care at [place] but does not have an appointment for a few more weeks and felt like he could not wait. Patient describes the shortness of breath is feeling like he can't take a big deep breath in. Patient denies any other symptoms or concerns at this time. Patient denies fever, chills, chest pain, or cough. Denies headache, neck stiff ness, change in vision, syncope, or near syncope. Denies nausea, vomiting, abdominal pain, diarrhea, constipation, or dysuria. Has not noted any blood in urine or stool. Patient has been eating and drinking appropriately. Review of systems: As per history of present illness and below otherwise all systems reviewed and negative. Past medical history: As per history of present illness and as reviewed below otherwise noncontributory. Surgical history: As per history of present illness and as reviewed below otherwise noncontributory. Social history: See social history for further information Family history: As per history of present illness and as reviewed below otherwise noncontributory. Physical exam: Physical exam is limited due to body habitus. General: Patient is alert, oriented, and in no acute distress. Patient sitting comfortably on exam table. HEENT: Atraumatic, normocephalic, pupils equal and reactive bilaterally, negative for conjunctival pallor or scleral icterus, mucous membranes dry, TMs normal bilaterally, throat clear, neck supple, nontender, trachea midline. No drooling or trismus noted. No meningeal signs. No hot potato voice noted. Lungs: Clear to auscultation, breath sounds equal bilaterally, chest nontender. Heart: S1S2, tachycardic rate and rhythm without overt murmur Abdomen: Obese, Soft, nondistended, nontender. Negative for masses or hepatosplenomegaly. Negative for costovertebral tenderness. Pelvis: Stable nontender. Genitourinary: Deferred. Rectal: Deferred. Skin: Intact, warm, dry. No lesions or rashes noted. Extremities: Atraumatic, negative for cords or calf pain. Neurovascular unremarkable. 2+ pitting edema of the right lower extremity to the knee. No edema of the left lower extremity. Neuro: Awake, alert, oriented. Cranial nerves II through XII unremarkable. Cerebellum unremarkable. Motor and sensory unremarkable throughout. Exam nonfocal. Notes: Patient is a 98% on room air and breathing comfortably. Dr. Garcia consult on patient and will admit to observation. Voices understanding and is agreeable to plan of care. Denies any further questions or concerns at this time. Diagnostics: CBC, CMP, UA, chest x-ray, troponin, EKG, BNP Therapeutics: NS Impression: Cardiomegaly Elevated BNP Dyspnea, unspecified Tachycardia Plan: 1. Admit to observation to Dr. Garcia. Definitive disposition and diagnosis as appropriate pending reevaluation and review of above. - Related Data Allergies Allergy/AdvReac Type Severity Reaction Status Date / Time No Known Allergies Allergy Verified 12/01/18 09:59 Home Meds: Home Meds Losartan/Hydrochlorothiazide [Losartan-HCTZ 100-25 MG] 1 tab PO DAILY 07/06/18 [ History] [place]-3/DHA/Epa/Fish Oil [[place]ring-3 Fish Oil 1,200 MG Sfgl] 1,200 mg PO DAILY 10/11 [History] Aspirin 325 mg PO BID #60 tablet 11/23/18 [Rx] Polyethylene Glycol 3350 [MiraLAX] 17 gm PO DAILY #30 packet 11/23/18 [Rx] Celecoxib [CeleBREX] 200 mg PO DAILY cap 12/06/18 [Rx] Past Medical History HEENT History: Reports: Other (See Below) Other HEENT History: has upper denture Cardiovascular History: Reports: Hypertension Respiratory History: Reports: Other (See Below) Gastrointestinal History: Reports: Chronic Constipation Genitourinary History: Reports: None Musculoskeletal History: Reports: Back Pain, Chronic, Fracture, Osteoarthritis, Other (See Below) Other Musculoskeletal History: hx of DAYANNA's for back pain, hx of fx ankle, Neurological History: Reports: Other (See Below) Endocrine/Metabolic History: Reports: Obesity/BMI 30+ Hematologic History: Other Hematologic History: states unknown if any blood tranfusions Immunologic History: Reports: None Oncologic (Cancer) History: Reports: None - Infectious Disease History Infectious Disease History: Reports: Chicken Pox, Measles, Mumps - Past Surgical History HEENT Surgical History: Reports: LASIK, Tonsillectomy, Other (See Below) Other HEENT Surgeries/Procedures: removal of mass from forehead GI Surgical History: Reports: Appendectomy Neurological Surgical History: Reports: Other (See Below) Other Neurological Surgeries/Procedures: removal of bone spur from T10-T11 08/10 Musculoskeletal Surgical History: Reports: Knee Replacement Other Musculoskeletal Surgeries/Procedures:: removal of bone spur from T10-T11, excisional debridement of Rt TKA with removal of components and placement of antibiotic spacer on Sep 05, 2018, removal of antibiotic spacer and revision of rt TKA 11/21/18 Social & Family History - Family History Family Medical History: Noncontributory - Tobacco Use Smoking Status *Q: Never Smoker Second Hand Smoke Exposure: No - Caffeine Use Caffeine Use: Reports: Coffee - Recreational Drug Use Recreational Drug Use: No ED ROS GENERAL - Review of Systems Review Of Systems: ROS reveals no pertinent complaints other than HPI. ED EXAM, GENERAL - Physical Exam Exam: See Below (See dictation) Course - Vital Signs Last Recorded V/S: Last Vital Signs Temp 36.3 C 06/01/19 14:29 Pulse 130 H 06/01/19 16:29 Resp 17 06/01/19 16:29 BP 113/82 06/01/19 16:29 Pulse Ox 97 06/01/19 16:29 - Orders/Labs/Meds Orders: Active Orders 24 hr Category Date Time Status Admission Status [Patient Status] [ADT] Stat ADT 06/01/19 16:47 Ordered EKG Documentation Completion [RC] STAT Care 06/01/19 14:28 Active RT Aerosol Therapy [RC] ASDIRECTED Care 06/01/19 14:47 Active UA RFX DYLAN AND CULT IF INDIC [URIN] Stat Lab 06/01/19 16:35 Received Sodium Chloride 0.9% @ 75 MLS/HR(1,000ml) Med 06/01/19 17:00 Ordered Sodium Chloride 0.9% [Normal Saline] 1,000 ml IV ASDIRECTED Medication Orders Sodium Chloride (Normal Saline) 1,000 mls @ 75 mls/hr IV ASDIRECTED FAITH Labs: Laboratory Tests 06/01/19 06/01/19 06/01/19 Range/Units 15:16 15:16 15:16 WBC 11.79 H (4.0-11.0) K/uL RBC 4.50 (4.50-5.90) M/uL Hgb 12.1 L (13.0-17.0) g/dL Hct 37.5 L (38.0-50.0) % MCV 83.3 (80.0-98.0) fL MCH 26.9 L (27.0-32.0) pg MCHC 32.3 (31.0-37.0) g/dL RDW Std Deviation 46.3 (28.0-62.0) fl RDW Coeff of Qasim 15 (11.0-15.0) % Plt Count 211 (150-400) K/uL MPV 10.20 (7.40-12.00) fL Neut % (Auto) 75.6 (48.0-80.0) % Lymph % (Auto) 15.9 L (16.0-40.0) % Craig % (Auto) 7.9 (0.0-15.0) % Eos % (Auto) 0.4 (0.0-7.0) % Baso % (Auto) 0.2 (0.0-1.5) % Neut # (Auto) 8.9 H (1.4-5.7) K/uL Lymph # (Auto) 1.9 (0.6-2.4) K/uL Craig # (Auto) 0.9 H (0.0-0.8) K/uL Eos # (Auto) 0.1 (0.0-0.7) K/uL Baso # (Auto) 0.0 (0.0-0.1) K/uL Nucleated RBC % 0.0 /100WBC Nucleated RBCs # 0 K/uL Sodium 141 (136-148) mmol/L Potassium 3.7 (3.5-5.1) mmol/L Chloride 107 (98-107) mmol/L Carbon Dioxide 23.9 (21.0-32.0) mmol/L BUN 23 H (7.0-18.0) mg/dL Creatinine 1.1 (0.8-1.3) mg/dL Est Cr Clr Drug Dosing 72.82 mL/min Estimated GFR (MDRD) > 60.0 ml/min Glucose 130 H (74-106) mg/dL Calcium 8.9 (8.5-10.1) mg/dL Total Bilirubin 0.7 (0.2-1.0) mg/dL AST 46 H (15-37) IU/L ALT 84 H (14-63) IU/L Alkaline Phosphatase 123 H (46-116) U/L Troponin I < 0.050 (0.000-0.056) ng/mL B-Natriuretic Peptide 165 H (<100) PG/ML Total Protein 6.7 (6.4-8.2) g/dL Albumin 3.3 L (3.4-5.0) g/dL Globulin 3.4 (2.6-4.0) g/dL Albumin/Globulin Ratio 1.0 (0.9-1.6) Meds: Medications Generic Name Dose Route Start Last Admin Trade Name Freq PRN Reason Stop Dose Admin Sodium Chloride 1,000 mls @ 75 mls/hr 06/01/19 17:00 Normal Saline IV ASDIRECTED FAITH Discontinued Medications Generic Name Dose Route Start Last Admin Trade Name Freq PRN Reason Stop Dose Admin Albuterol/Ipratropium 3 ml 06/01/19 14:47 06/01/19 15:19 Duoneb 3.0-0.5 Mg/3 Ml NEB 06/01/19 14:48 3 ml ONETIME ONE Administration Metoprolol Tartrate 5 mg/ 55 mls @ 100 mls/hr 06/01/19 16:36 06/01/19 16:48 Sodium Chloride IV 06/01/19 17:08 Not Given ONETIME ONE Departure - Departure Time of Disposition: 16:54 Disposition: Refer to Observation Clinical Impression: Cardiomegaly, Elevated brain natriuretic peptide (BNP) level, Tachycardia Dyspnea Qualifiers: Dyspnea type: dyspnea on exertion Qualified Code(s): R06.09 - Other forms of dyspnea - Discharge Information - My Orders Last 24 Hours: My Active Orders 06/01/19 14:28 EKG Documentation Completion [RC] STAT 06/01/19 14:47 RT Aerosol Therapy [RC] ASDIRECTED 06/01/19 16:35 UA RFX DYLAN AND CULT IF INDIC [URIN] Stat 06/01/19 16:47 Admission Status [Patient Status] [ADT] Stat 06/01/19 17:00 Sodium Chloride 0.9% @ 75 MLS/HR(1,000ml) Sodium Chloride 0.9% [Normal Saline] 1,000 ml IV ASDIRECTED - Assessment/Plan Last 24 Hours: My Active Orders 06/01/19 14:28 EKG Documentation Completion [RC] STAT 06/01/19 14:47 RT Aerosol Therapy [RC] ASDIRECTED 06/01/19 16:35 UA RFX DYLAN AND CULT IF INDIC [URIN] Stat 06/01/19 16:47 Admission Status [Patient Status] [ADT] Stat 06/01/19 17:00 Sodium Chloride 0.9% @ 75 MLS/HR(1,000ml) Sodium Chloride 0.9% [Normal Saline] 1,000 ml IV ASDIRECTED
[2019-06-01] MEDS ORDERED: Sodium Chloride 0.9% 1,000 ML IV SCH (17:00)
[2019-06-01] MEDS ORDERED: Ondansetron 4 MG/2 ML SDV IVPUSH PRN (17:13)
[2019-06-01] MEDS ORDERED: Morphine 10 MG/ML Syringe IVPUSH PRN (17:13)
[2019-06-01] MEDS ORDERED: Ondansetron 4 MG Tab.DIS PO PRN (17:13)
[2019-06-01] MEDS ORDERED: Enoxaparin 40 MG/0.4 ML Syringe SUBCUT SCH (17:15)
[2019-06-01] MEDS ORDERED: Furosemide 40 MG/4 ML VIAL IVPUSH ONE ×2 (17:25→17:39)
--- NOTE | 2019-06-01 17:53 | PCM.HP ---
H&P History of Present Illness - General Date of Service: 06/01/19 Admit Problem/Dx: Admission Diagnosis/Problem Admission Diagnosis/Problem Congestive heart failure - History of Present Illness Initial Comments - Free Text/Narative: 63-year-old male with PMH of hypertension presented to [facility] ER complaining of shortness of breath. He reports that he has been short of breath for approximately 1 month now. It is mostly aggravated by exertion but sometimes it is felt at rest as well. He also will have shortness of breath while lying down which improves when he sits up. He came to the ER today to have it evaluated after his co-workers noticed him "breathing hard" while at work. Patient notes mild swelling of his legs but has not noticed any weight gain recently. He denied any history of asthma, COPD or allergies. He denies any smoking or illicit drug use. He denied having any fevers, chills, cough, nausea, vomiting, chest pain, numbness, urinary complaints or blood in stool. In [facility] ER, CXR showed nirmala B lines in left lower lung and possible early interstitial edema. - Related Data Allergies/Adverse Reactions: Allergies Allergy/AdvReac Type Severity Reaction Status Date / Time No Known Allergies Allergy Verified 12/01/18 09:59 Home Medications: Home Meds Losartan/Hydrochlorothiazide [Losartan-HCTZ 100-25 MG] 1 tab PO DAILY 07/06/18 [ History] Lawson-3/DHA/Epa/Fish Oil [Lawson-3 Fish Oil 1,200 MG Sfgl] 1,200 mg PO DAILY 10/11 [History] Aspirin 325 mg PO BID #60 tablet 11/23/18 [Rx] Polyethylene Glycol 3350 [MiraLAX] 17 gm PO DAILY #30 packet 11/23/18 [Rx] Celecoxib [CeleBREX] 200 mg PO DAILY cap 12/06/18 [Rx] Past Medical History HEENT History: Reports: Other (See Below) Other HEENT History: has upper denture Cardiovascular History: Reports: Hypertension Respiratory History: Reports: Other (See Below) Gastrointestinal History: Reports: Chronic Constipation Genitourinary History: Reports: None Musculoskeletal History: Reports: Back Pain, Chronic, Fracture, Osteoarthritis, Other (See Below) Other Musculoskeletal History: hx of DAYANNA's for back pain, hx of fx ankle, Neurological History: Reports: Other (See Below) Endocrine/Metabolic History: Reports: Obesity/BMI 30+ Hematologic History: Other Hematologic History: states unknown if any blood tranfusions Immunologic History: Reports: None Oncologic (Cancer) History: Reports: None - Infectious Disease History Infectious Disease History: Reports: Chicken Pox, Measles, Mumps - Past Surgical History HEENT Surgical History: Reports: LASIK, Tonsillectomy, Other (See Below) Other HEENT Surgeries/Procedures: removal of mass from forehead GI Surgical History: Reports: Appendectomy Neurological Surgical History: Reports: Other (See Below) Other Neurological Surgeries/Procedures: removal of bone spur from T10-T11 08/10 Musculoskeletal Surgical History: Reports: Knee Replacement Other Musculoskeletal Surgeries/Procedures:: removal of bone spur from T10-T11, excisional debridement of Rt TKA with removal of components and placement of antibiotic spacer on Sep 05, 2018, removal of antibiotic spacer and revision of rt TKA 11/21/18 Social & Family History - Family History Family Medical History: Noncontributory - Tobacco Use Smoking Status *Q: Never Smoker Second Hand Smoke Exposure: No - Caffeine Use Caffeine Use: Reports: Coffee - Recreational Drug Use Recreational Drug Use: No H&P Review of Systems - Review of Systems: Review Of Systems: ROS reveals no pertinent complaints other than HPI. Exam - Exam Exam: See Below - Vital Signs Vital Signs: Last Vital Signs Temp 97.3 F 06/01/19 14:29 Pulse 132 H 06/01/19 17:27 Resp 20 06/01/19 17:27 BP 113/74 06/01/19 17:27 Pulse Ox 97 06/01/19 17:27 Weight: 300 lb - Exam General: Alert, Oriented, Cooperative, Other (Morbidly obese) HEENT: Conjunctiva Clear, EOMI, Hearing Intact, Pupils Equal Neck: Supple, Trachea Midline Lungs: Other (rales appreciated in right lower lung) Cardiovascular: Regular Rhythm, Tachycardia GI/Abdominal Exam: Normal Bowel Sounds, Soft, Non-Tender, No Distention Extremities: Normal Capillary Refill, Other (trace pitting edema bilaterally) Skin: Warm, Dry, Intact Neuro Extensive - Mental Status: Alert, Oriented x3, Normal Mood/Affect Psychiatric: Alert, Normal Affect, Normal Mood - Patient Data Lab Results Last 24 hrs: Laboratory Results - last 24 hr 06/01/19 06/01/19 06/01/19 Range/Units 15:16 15:16 15:16 WBC 11.79 H (4.0-11.0) K/uL RBC 4.50 (4.50-5.90) M/uL Hgb 12.1 L (13.0-17.0) g/dL Hct 37.5 L (38.0-50.0) % MCV 83.3 (80.0-98.0) fL MCH 26.9 L (27.0-32.0) pg MCHC 32.3 (31.0-37.0) g/dL RDW Std Deviation 46.3 (28.0-62.0) fl RDW Coeff of Qasim 15 (11.0-15.0) % Plt Count 211 (150-400) K/uL MPV 10.20 (7.40-12.00) fL Neut % (Auto) 75.6 (48.0-80.0) % Lymph % (Auto) 15.9 L (16.0-40.0) % [place] % (Auto) 7.9 (0.0-15.0) % Eos % (Auto) 0.4 (0.0-7.0) % Baso % (Auto) 0.2 (0.0-1.5) % Neut # (Auto) 8.9 H (1.4-5.7) K/uL Lymph # (Auto) 1.9 (0.6-2.4) K/uL [place] # (Auto) 0.9 H (0.0-0.8) K/uL Eos # (Auto) 0.1 (0.0-0.7) K/uL Baso # (Auto) 0.0 (0.0-0.1) K/uL Nucleated RBC % 0.0 /100WBC Nucleated RBCs # 0 K/uL Sodium 141 (136-148) mmol/L Potassium 3.7 (3.5-5.1) mmol/L Chloride 107 (98-107) mmol/L Carbon Dioxide 23.9 (21.0-32.0) mmol/L BUN 23 H (7.0-18.0) mg/dL Creatinine 1.1 (0.8-1.3) mg/dL Est Cr Clr Drug Dosing 72.82 mL/min Estimated GFR (MDRD) > 60.0 ml/min Glucose 130 H (74-106) mg/dL Calcium 8.9 (8.5-10.1) mg/dL Total Bilirubin 0.7 (0.2-1.0) mg/dL AST 46 H (15-37) IU/L ALT 84 H (14-63) IU/L Alkaline Phosphatase 123 H (46-116) U/L Troponin I < 0.050 (0.000-0.056) ng/mL B-Natriuretic Peptide 165 H (<100) PG/ML Total Protein 6.7 (6.4-8.2) g/dL Albumin 3.3 L (3.4-5.0) g/dL Globulin 3.4 (2.6-4.0) g/dL Albumin/Globulin Ratio 1.0 (0.9-1.6) Urine Color Urine Appearance Urine pH (5.0-8.0) Ur Specific [place] (1.001-1.035) Urine Protein (NEGATIVE) mg/dL Urine Glucose (UA) (NEGATIVE) mg/dL Urine Ketones (NEGATIVE) mg/dL Urine Occult Blood (NEGATIVE) Urine Nitrite (NEGATIVE) Urine Bilirubin (NEGATIVE) Urine Urobilinogen (<2.0) EU/dL Ur Leukocyte Esterase (NEGATIVE) 06/01/19 Range/Units 16:35 WBC (4.0-11.0) K/uL RBC (4.50-5.90) M/uL Hgb (13.0-17.0) g/dL Hct (38.0-50.0) % MCV (80.0-98.0) fL MCH (27.0-32.0) pg MCHC (31.0-37.0) g/dL RDW Std Deviation (28.0-62.0) fl RDW Coeff of Qasim (11.0-15.0) % Plt Count (150-400) K/uL MPV (7.40-12.00) fL Neut % (Auto) (48.0-80.0) % Lymph % (Auto) (16.0-40.0) % [place] % (Auto) (0.0-15.0) % Eos % (Auto) (0.0-7.0) % Baso % (Auto) (0.0-1.5) % Neut # (Auto) (1.4-5.7) K/uL Lymph # (Auto) (0.6-2.4) K/uL [place] # (Auto) (0.0-0.8) K/uL Eos # (Auto) (0.0-0.7) K/uL Baso # (Auto) (0.0-0.1) K/uL Nucleated RBC % /100WBC Nucleated RBCs # K/uL Sodium (136-148) mmol/L Potassium (3.5-5.1) mmol/L Chloride (98-107) mmol/L Carbon Dioxide (21.0-32.0) mmol/L BUN (7.0-18.0) mg/dL Creatinine (0.8-1.3) mg/dL Est Cr Clr Drug Dosing mL/min Estimated GFR (MDRD) ml/min Glucose (74-106) mg/dL Calcium (8.5-10.1) mg/dL Total Bilirubin (0.2-1.0) mg/dL AST (15-37) IU/L ALT (14-63) IU/L Alkaline Phosphatase (46-116) U/L Troponin I (0.000-0.056) ng/mL B-Natriuretic Peptide (<100) PG/ML Total Protein (6.4-8.2) g/dL Albumin (3.4-5.0) g/dL Globulin (2.6-4.0) g/dL Albumin/Globulin Ratio (0.9-1.6) Urine Color YELLOW Urine Appearance CLEAR Urine pH 6.0 (5.0-8.0) Ur Specific [place] 1.025 (1.001-1.035) Urine Protein NEGATIVE (NEGATIVE) mg/dL Urine Glucose (UA) NEGATIVE (NEGATIVE) mg/dL Urine Ketones NEGATIVE (NEGATIVE) mg/dL Urine Occult Blood NEGATIVE (NEGATIVE) Urine Nitrite NEGATIVE (NEGATIVE) Urine Bilirubin NEGATIVE (NEGATIVE) Urine Urobilinogen 0.2 (<2.0) EU/dL Ur Leukocyte Esterase NEGATIVE (NEGATIVE) Result Diagrams: 06/01/19 15:16 06/01/19 15:16 Problem List Initiated/Reviewed/Updated: Yes Orders Last 24hrs: Active Orders 24 hr Category Date Time Status Admission Status [Patient Status] [ADT] Stat ADT 06/01/19 16:47 Active Cardiac Monitoring [RC] . DIRECTED Care 06/01/19 17:26 Active Daily Weight [Height and Weight] [RC] DAILY Care 06/01/19 17:31 Active EKG Documentation Completion [RC] STAT Care 06/01/19 14:28 Active Intake and Output Strict [RC] ASDIRECTED Care 06/01/19 17:31 Active Oxygen Therapy [RC] PRN Care 06/01/19 17:13 Active RT Aerosol Therapy [RC] ASDIRECTED Care 06/01/19 14:47 Active Up ad Zuleika [RC] ASDIRECTED Care 06/01/19 17:13 Active VTE/DVT Education [RC] PER UNIT ROUTINE Care 06/01/19 17:13 Active Vital Signs [RC] Q4H Care 06/01/19 17:13 Active 2 Gram Sodium Diet [DIET] Diet 06/01/19 Dinner Active Fluid Restriction [DIET] Diet 06/01/19 Dinner Active Heart Healthy Diet [DIET] Diet 06/01/19 Dinner Active Echo Comp wo Cont [US] Routine Exams 06/01/19 17:42 Ordered BASIC METABOLIC PANEL,BMP [CHEM] AM Lab 06/02/19 05:11 Ordered CBC WITH AUTO DIFF [HEME] AM Lab 06/02/19 05:11 Ordered D-DIMER QUANTITATIVE [COAG] Urgent Lab 06/01/19 17:27 Ordered GLYCOSYLATED HEMOGLOBIN,HGBA1C [CHEM] Stat Lab 06/01/19 21:00 Ordered LIPID PANEL [CHEM] AM Lab 06/02/19 05:11 Ordered TROPONIN I [CHEM] Q6H Lab 06/01/19 21:00 Ordered TROPONIN I [CHEM] Q6H Lab 06/02/19 03:00 Ordered TSH [CHEM] Routine Lab 06/01/19 17:23 Ordered Acetaminophen [Tylenol] Med 06/01/19 17:13 Active 650 mg PO Q4H PRN Enoxaparin [Lovenox] Med 06/01/19 17:15 Active 40 mg SUBCUT Q24H Losartan/Hydrochlorothiazide [Losartan-HCTZ 100-25 MG] Med 06/02/19 09:00 Active 1 tab PO DAILY Morphine Med 06/01/19 17:13 Active 2 mg IVPUSH Q2H PRN Ondansetron [Zofran ODT] Med 06/01/19 17:13 Active 4 mg PO Q4H PRN Ondansetron [Zofran] Med 06/01/19 17:13 Active 4 mg IVPUSH Q4H PRN Polyethylene Glycol 3350 [MiraLAX] Med 06/02/19 09:00 Active 17 gm PO DAILY Resuscitation Status Routine Resus Stat 06/01/19 17:13 Ordered Medication Orders Acetaminophen (Tylenol) 650 mg PO Q4H PRN PRN Reason: Pain (Mild 1-3)/fever Enoxaparin Sodium (Lovenox) 40 mg SUBCUT Q24H FAITH Last Admin: 06/01/19 17:45 Dose: 40 mg Morphine Sulfate (Morphine) 2 mg IVPUSH Q2H PRN PRN Reason: Pain (severe 7-10) Stop: 06/02/19 17:14 Non-Formulary Medication (Losartan/Hydrochlorothiazide [Losartan-Hctz 100-25 Mg] ) 1 tab PO DAILY [facility] Ondansetron HCl (Zofran Odt) 4 mg PO Q4H PRN PRN Reason: nausea, able to take PO Ondansetron HCl (Zofran) 4 mg IVPUSH Q4H PRN PRN Reason: Nausea Polyethylene Glycol (Miralax) 17 gm PO DAILY [facility] Assessment/Plan Comment:: Assessment: 1. Dyspnea. 2. Tachycardia likely secondary to #1. 3. Past medical history of hypertension. Plan: 1. For dyspnea, will order IV lasix 40 mg, fluid restrict < 2L per day, low salt diet < 2g daily, daily weights and strict I's and O's. Patient will be on cardiac monitoring. Will order d-dimer and if elevated, CT angio to rule out PE. CXR showed nirmala B lines in left lower lung and possible early interstitial edema. Will also trend troponins q6h, initial troponin negative. 2. For tachycardia, patient will be on cardiac monitoring. 3. For past medical history, will continue with home medications.
[2019-06-01] MEDS ORDERED: Iopamidol 755 MG/ML 500 ML Multipack Bottle IVPUSH STA (18:35)
--- NOTE | 2019-06-01 19:27 | CT ---
INDICATION: Shortness of breath. TECHNIQUE: CT pulmonary angiogram with 60 cc of Isovue-370 given intravenously. FINDINGS: No pulmonary emboli. No aneurysmal dilatation of the thoracic aorta. A few small mediastinal lymph nodes which do not meet size criteria for adenopathy. No hilar adenopathy. No axillary adenopathy. Atherosclerotic vascular calcifications. The lungs show mild bibasilar atelectasis. No pneumothorax. No focal abnormalities identified in the visualized portions of the liver and spleen. Degenerative changes of the spine. IMPRESSION: No pulmonary emboli. No acute abnormalities of the chest identified. Dictated by Jorge Hall MD @ 06/01/2019 7:24:50 PM Please note that all CT scans at this facility use dose modulation, iterative reconstruction, and/or weight-based dosing when appropriate to reduce radiation dose to as low as reasonably achievable. Dictated by: Jorge Hall MD @ 06/01/2019 19:24:58 (Electronically Signed)
[2019-06-02 03:25] LABS: HEMOGLOBIN A1C 6.4 % (4.5-6.2)
[2019-06-02 03:40] LABS: BLOOD UREA NITROGEN,BUN 22 mg/dL (7.0-18.0); CARBON DIOXIDE,CO2 26.1 mmol/L (21.0-32.0); CHLORIDE,CL 105 mmol/L (98-107); GLUCOSE RANDOM 109 mg/dL (74-106); POTASSIUM,K 3.6 mmol/L (3.5-5.1); SODIUM,NA 143 mmol/L (136-148)
[2019-06-02] MEDS: Acetaminophen 325 MG Tab PO PRN (07:25)
[2019-06-02] MEDS: Polyethylene Glycol 3350 Powder 17 GM Packet PO SCH (09:17)
[2019-06-02] MEDS: Hydrochlorothiazide/Losartan 12.5-50 mg Tab PO SCH (09:18)
[2019-06-02] MEDS ORDERED: Furosemide 40 MG/4 ML VIAL IVPUSH ONE (09:46)
--- NOTE | 2019-06-02 12:02 | PCM.PN ---
- General Info Date of Service: 06/02/19 Subjective Update: 63-year-old male admitted for dyspnea. He has a PMH of hypertension. CXR on admission showed nirmala B lines and possible early stages of interstitial edema. CT angio was negative. Patient received 1 dose of lasix 40 mg IV yesterday. He reports breathing a bit better this morning. Denies nausea, vomiting, chest pain or fevers. - Patient Data Vitals - Most Recent: Last Vital Signs Temp 97.7 F 06/02/19 07:14 Pulse 132 H 06/02/19 07:14 Resp 17 06/02/19 07:14 BP 122/89 06/02/19 07:14 Pulse Ox 98 06/02/19 07:14 Weight - Most Recent: 305 lb 1.6 oz I&O - Last 24 Hours: Intake & Output 06/01/19 06/02/19 06/02/19 22:59 06:59 14:59 Intake Total 920 Output Total 2790 Balance -1870 Lab Results Last 24 Hours: Laboratory Results - last 24 hr 06/01/19 06/01/19 06/01/19 Range/Units 15:16 15:16 15:16 WBC 11.79 H (4.0-11.0) K/uL RBC 4.50 (4.50-5.90) M/uL Hgb 12.1 L (13.0-17.0) g/dL Hct 37.5 L (38.0-50.0) % MCV 83.3 (80.0-98.0) fL MCH 26.9 L (27.0-32.0) pg MCHC 32.3 (31.0-37.0) g/dL RDW Std Deviation 46.3 (28.0-62.0) fl RDW Coeff of Qasim 15 (11.0-15.0) % Plt Count 211 (150-400) K/uL MPV 10.20 (7.40-12.00) fL Neut % (Auto) 75.6 (48.0-80.0) % Lymph % (Auto) 15.9 L (16.0-40.0) % [place] % (Auto) 7.9 (0.0-15.0) % Eos % (Auto) 0.4 (0.0-7.0) % Baso % (Auto) 0.2 (0.0-1.5) % Neut # (Auto) 8.9 H (1.4-5.7) K/uL Lymph # (Auto) 1.9 (0.6-2.4) K/uL [place] # (Auto) 0.9 H (0.0-0.8) K/uL Eos # (Auto) 0.1 (0.0-0.7) K/uL Baso # (Auto) 0.0 (0.0-0.1) K/uL Nucleated RBC % 0.0 /100WBC Nucleated RBCs # 0 K/uL D-Dimer, Quantitative (0.0-0.50) mg/L FEU Sodium 141 (136-148) mmol/L Potassium 3.7 (3.5-5.1) mmol/L Chloride 107 (98-107) mmol/L Carbon Dioxide 23.9 (21.0-32.0) mmol/L BUN 23 H (7.0-18.0) mg/dL Creatinine 1.1 (0.8-1.3) mg/dL Est Cr Clr Drug Dosing 72.82 mL/min Estimated GFR (MDRD) > 60.0 ml/min Glucose 130 H (74-106) mg/dL Hemoglobin A1c (4.5-6.2) % Calcium 8.9 (8.5-10.1) mg/dL Total Bilirubin 0.7 (0.2-1.0) mg/dL AST 46 H (15-37) IU/L ALT 84 H (14-63) IU/L Alkaline Phosphatase 123 H (46-116) U/L Troponin I < 0.050 (0.000-0.056) ng/mL B-Natriuretic Peptide 165 H (<100) PG/ML Total Protein 6.7 (6.4-8.2) g/dL Albumin 3.3 L (3.4-5.0) g/dL Globulin 3.4 (2.6-4.0) g/dL Albumin/Globulin Ratio 1.0 (0.9-1.6) Triglycerides (0-200) mg/dL Cholesterol (50-200) mg/dL LDL Cholesterol, Calc (60-180) mg/dL VLDL Cholesterol (5-55) mg/dL HDL Cholesterol (40-60) mg/dL Cholesterol/HDL Ratio (3.3-6.0) TSH 3rd Generation (0.36-3.74) uIU/mL Urine Color Urine Appearance Urine pH (5.0-8.0) Ur Specific [place] (1.001-1.035) Urine Protein (NEGATIVE) mg/dL Urine Glucose (UA) (NEGATIVE) mg/dL Urine Ketones (NEGATIVE) mg/dL Urine Occult Blood (NEGATIVE) Urine Nitrite (NEGATIVE) Urine Bilirubin (NEGATIVE) Urine Urobilinogen (<2.0) EU/dL Ur Leukocyte Esterase (NEGATIVE) 06/01/19 06/01/19 06/01/19 Range/Units 15:16 16:35 17:23 WBC (4.0-11.0) K/uL RBC (4.50-5.90) M/uL Hgb (13.0-17.0) g/dL Hct (38.0-50.0) % MCV (80.0-98.0) fL MCH (27.0-32.0) pg MCHC (31.0-37.0) g/dL RDW Std Deviation (28.0-62.0) fl RDW Coeff of Qasim (11.0-15.0) % Plt Count (150-400) K/uL MPV (7.40-12.00) fL Neut % (Auto) (48.0-80.0) % Lymph % (Auto) (16.0-40.0) % [place] % (Auto) (0.0-15.0) % Eos % (Auto) (0.0-7.0) % Baso % (Auto) (0.0-1.5) % Neut # (Auto) (1.4-5.7) K/uL Lymph # (Auto) (0.6-2.4) K/uL [place] # (Auto) (0.0-0.8) K/uL Eos # (Auto) (0.0-0.7) K/uL Baso # (Auto) (0.0-0.1) K/uL Nucleated RBC % /100WBC Nucleated RBCs # K/uL D-Dimer, Quantitative 1.57 H (0.0-0.50) mg/L FEU Sodium (136-148) mmol/L Potassium (3.5-5.1) mmol/L Chloride (98-107) mmol/L Carbon Dioxide (21.0-32.0) mmol/L BUN (7.0-18.0) mg/dL Creatinine (0.8-1.3) mg/dL Est Cr Clr Drug Dosing mL/min Estimated GFR (MDRD) ml/min Glucose (74-106) mg/dL Hemoglobin A1c (4.5-6.2) % Calcium (8.5-10.1) mg/dL Total Bilirubin (0.2-1.0) mg/dL AST (15-37) IU/L ALT (14-63) IU/L Alkaline Phosphatase (46-116) U/L Troponin I (0.000-0.056) ng/mL B-Natriuretic Peptide (<100) PG/ML Total Protein (6.4-8.2) g/dL Albumin (3.4-5.0) g/dL Globulin (2.6-4.0) g/dL Albumin/Globulin Ratio (0.9-1.6) Triglycerides (0-200) mg/dL Cholesterol (50-200) mg/dL LDL Cholesterol, Calc (60-180) mg/dL VLDL Cholesterol (5-55) mg/dL HDL Cholesterol (40-60) mg/dL Cholesterol/HDL Ratio (3.3-6.0) TSH 3rd Generation 1.23 (0.36-3.74) uIU/mL Urine Color YELLOW Urine Appearance CLEAR Urine pH 6.0 (5.0-8.0) Ur Specific [place] 1.025 (1.001-1.035) Urine Protein NEGATIVE (NEGATIVE) mg/dL Urine Glucose (UA) NEGATIVE (NEGATIVE) mg/dL Urine Ketones NEGATIVE (NEGATIVE) mg/dL Urine Occult Blood NEGATIVE (NEGATIVE) Urine Nitrite NEGATIVE (NEGATIVE) Urine Bilirubin NEGATIVE (NEGATIVE) Urine Urobilinogen 0.2 (<2.0) EU/dL Ur Leukocyte Esterase NEGATIVE (NEGATIVE) 06/01/19 06/02/19 06/02/19 Range/Units 20:44 03:00 03:00 WBC 9.40 (4.0-11.0) K/uL RBC 4.53 (4.50-5.90) M/uL Hgb 12.1 L (13.0-17.0) g/dL Hct 37.7 L (38.0-50.0) % MCV 83.2 (80.0-98.0) fL MCH 26.7 L (27.0-32.0) pg MCHC 32.1 (31.0-37.0) g/dL RDW Std Deviation 46.2 (28.0-62.0) fl RDW Coeff of Qasim 15 (11.0-15.0) % Plt Count 203 (150-400) K/uL MPV 10.10 (7.40-12.00) fL Neut % (Auto) 64.7 (48.0-80.0) % Lymph % (Auto) 22.7 (16.0-40.0) % [place] % (Auto) 10.1 (0.0-15.0) % Eos % (Auto) 2.1 (0.0-7.0) % Baso % (Auto) 0.4 (0.0-1.5) % Neut # (Auto) 6.1 H (1.4-5.7) K/uL Lymph # (Auto) 2.1 (0.6-2.4) K/uL [place] # (Auto) 1.0 H (0.0-0.8) K/uL Eos # (Auto) 0.2 (0.0-0.7) K/uL Baso # (Auto) 0.0 (0.0-0.1) K/uL Nucleated RBC % 0.0 /100WBC Nucleated RBCs # 0 K/uL D-Dimer, Quantitative (0.0-0.50) mg/L FEU Sodium 143 (136-148) mmol/L Potassium 3.6 (3.5-5.1) mmol/L Chloride 105 (98-107) mmol/L Carbon Dioxide 26.1 (21.0-32.0) mmol/L BUN 22 H (7.0-18.0) mg/dL Creatinine 1.0 (0.8-1.3) mg/dL Est Cr Clr Drug Dosing 80.29 mL/min Estimated GFR (MDRD) > 60.0 ml/min Glucose 109 H (74-106) mg/dL Hemoglobin A1c (4.5-6.2) % Calcium 8.9 (8.5-10.1) mg/dL Total Bilirubin (0.2-1.0) mg/dL AST (15-37) IU/L ALT (14-63) IU/L Alkaline Phosphatase (46-116) U/L Troponin I < 0.050 (0.000-0.056) ng/mL B-Natriuretic Peptide (<100) PG/ML Total Protein (6.4-8.2) g/dL Albumin (3.4-5.0) g/dL Globulin (2.6-4.0) g/dL Albumin/Globulin Ratio (0.9-1.6) Triglycerides 64 (0-200) mg/dL Cholesterol 118 (50-200) mg/dL LDL Cholesterol, Calc 73 (60-180) mg/dL VLDL Cholesterol 12 (5-55) mg/dL HDL Cholesterol 32 L (40-60) mg/dL Cholesterol/HDL Ratio 3.7 (3.3-6.0) TSH 3rd Generation (0.36-3.74) uIU/mL Urine Color Urine Appearance Urine pH (5.0-8.0) Ur Specific [place] (1.001-1.035) Urine Protein (NEGATIVE) mg/dL Urine Glucose (UA) (NEGATIVE) mg/dL Urine Ketones (NEGATIVE) mg/dL Urine Occult Blood (NEGATIVE) Urine Nitrite (NEGATIVE) Urine Bilirubin (NEGATIVE) Urine Urobilinogen (<2.0) EU/dL Ur Leukocyte Esterase (NEGATIVE) 06/02/19 06/02/19 Range/Units 03:00 03:00 WBC (4.0-11.0) K/uL RBC (4.50-5.90) M/uL Hgb (13.0-17.0) g/dL Hct (38.0-50.0) % MCV (80.0-98.0) fL MCH (27.0-32.0) pg MCHC (31.0-37.0) g/dL RDW Std Deviation (28.0-62.0) fl RDW Coeff of Qasim (11.0-15.0) % Plt Count (150-400) K/uL MPV (7.40-12.00) fL Neut % (Auto) (48.0-80.0) % Lymph % (Auto) (16.0-40.0) % [place] % (Auto) (0.0-15.0) % Eos % (Auto) (0.0-7.0) % Baso % (Auto) (0.0-1.5) % Neut # (Auto) (1.4-5.7) K/uL Lymph # (Auto) (0.6-2.4) K/uL [place] # (Auto) (0.0-0.8) K/uL Eos # (Auto) (0.0-0.7) K/uL Baso # (Auto) (0.0-0.1) K/uL Nucleated RBC % /100WBC Nucleated RBCs # K/uL D-Dimer, Quantitative (0.0-0.50) mg/L FEU Sodium (136-148) mmol/L Potassium (3.5-5.1) mmol/L Chloride (98-107) mmol/L Carbon Dioxide (21.0-32.0) mmol/L BUN (7.0-18.0) mg/dL Creatinine (0.8-1.3) mg/dL Est Cr Clr Drug Dosing mL/min Estimated GFR (MDRD) ml/min Glucose (74-106) mg/dL Hemoglobin A1c 6.4 H (4.5-6.2) % Calcium (8.5-10.1) mg/dL Total Bilirubin (0.2-1.0) mg/dL AST (15-37) IU/L ALT (14-63) IU/L Alkaline Phosphatase (46-116) U/L Troponin I < 0.050 (0.000-0.056) ng/mL B-Natriuretic Peptide (<100) PG/ML Total Protein (6.4-8.2) g/dL Albumin (3.4-5.0) g/dL Globulin (2.6-4.0) g/dL Albumin/Globulin Ratio (0.9-1.6) Triglycerides (0-200) mg/dL Cholesterol (50-200) mg/dL LDL Cholesterol, Calc (60-180) mg/dL VLDL Cholesterol (5-55) mg/dL HDL Cholesterol (40-60) mg/dL Cholesterol/HDL Ratio (3.3-6.0) TSH 3rd Generation (0.36-3.74) uIU/mL Urine Color Urine Appearance Urine pH (5.0-8.0) Ur Specific [place] (1.001-1.035) Urine Protein (NEGATIVE) mg/dL Urine Glucose (UA) (NEGATIVE) mg/dL Urine Ketones (NEGATIVE) mg/dL Urine Occult Blood (NEGATIVE) Urine Nitrite (NEGATIVE) Urine Bilirubin (NEGATIVE) Urine Urobilinogen (<2.0) EU/dL Ur Leukocyte Esterase (NEGATIVE) Med Orders - Current: Current Medications Acetaminophen (Tylenol) 650 mg PO Q4H PRN PRN Reason: Pain (Mild 1-3)/fever Last Admin: 06/02/19 07:25 Dose: 650 mg Enoxaparin Sodium (Lovenox) 40 mg SUBCUT Q24H [facility] Last Admin: 06/01/19 17:45 Dose: 40 mg HCTZ/Losartan Potassium (Hyzaar 50-12.5 Mg) 2 tab PO DAILY [facility] Last Admin: 06/02/19 09:18 Dose: 2 tab Ondansetron HCl (Zofran Odt) 4 mg PO Q4H PRN PRN Reason: nausea, able to take PO Ondansetron HCl (Zofran) 4 mg IVPUSH Q4H PRN PRN Reason: Nausea Polyethylene Glycol (Miralax) 17 gm PO DAILY [facility] Last Admin: 06/02/19 09:17 Dose: 17 gm Discontinued Medications Albuterol/Ipratropium (Duoneb 3.0-0.5 Mg/3 Ml) 3 ml NEB ONETIME ONE Stop: 06/01/19 14:48 Last Admin: 06/01/19 15:19 Dose: 3 ml Furosemide (Lasix) 20 mg IVPUSH STAT ONE Stop: 06/01/19 17:26 Last Admin: 06/01/19 19:52 Dose: Not Given Furosemide (Lasix) 40 mg IVPUSH STAT ONE Stop: 06/01/19 17:40 Last Admin: 06/01/19 17:47 Dose: 40 mg Furosemide (Lasix) 40 mg IVPUSH NOW ONE Stop: 06/02/19 09:47 Last Admin: 06/02/19 09:59 Dose: 40 mg Metoprolol Tartrate 5 mg/ (Sodium Chloride) 55 mls @ 100 mls/hr IV ONETIME ONE Stop: 06/01/19 17:08 Last Admin: 06/01/19 16:48 Dose: Not Given Sodium Chloride (Normal Saline) 1,000 mls @ 75 mls/hr IV ASDIRECTED [facility] Last Admin: 06/01/19 16:52 Dose: 75 mls/hr Iopamidol (Isovue Multipack-370 (76%)) 60 ml IVPUSH ONETIME STA Stop: 06/01/19 18:36 Last Admin: 06/01/19 18:35 Dose: 60 ml Morphine Sulfate (Morphine) 2 mg IVPUSH Q2H PRN PRN Reason: Pain (severe 7-10) Stop: 06/02/19 17:14 - Exam General: Alert, Oriented, Cooperative, No Acute Distress Lungs: Clear to Auscultation, Normal Respiratory Effort Cardiovascular: Regular Rate, Regular Rhythm GI/Abdominal Exam: Normal Bowel Sounds, Soft, Non-Tender, No Distention Extremities: Other (trace pitting edema bilaterally) - Problem List Review Problem List Initiated/Reviewed/Updated: Yes - My Orders Last 24 Hours: My Active Orders 06/01/19 17:13 Oxygen Therapy [RC] PRN Up ad [place] [RC] ASDIRECTED VTE/DVT Education [RC] PER UNIT ROUTINE Vital Signs [RC] Q4H Acetaminophen [Tylenol] 650 mg PO Q4H PRN Ondansetron [Zofran ODT] 4 mg PO Q4H PRN Ondansetron [Zofran] 4 mg IVPUSH Q4H PRN Resuscitation Status Routine 06/01/19 17:15 Enoxaparin [Lovenox] 40 mg SUBCUT Q24H 06/01/19 17:26 Cardiac Monitoring [RC] . DIRECTED 06/01/19 17:31 Daily Weight [Height and Weight] [RC] DAILY Intake and Output Strict [RC] Q12H 06/01/19 18:32 Telemetry Monitoring [Cardiac Monitoring] [RC] Q8H 06/02/19 09:00 Hydrochlorothiazide/Losartan [Hyzaar 50-12.5 MG] 2 tab PO DAILY Polyethylene Glycol 3350 [MiraLAX] 17 gm PO DAILY 06/02/19 09:06 EKG Documentation Completion [RC] STAT 06/02/19 17:42 Echo Comp wo Cont [US] Routine - Plan Plan:: Assessment: 1. Dyspnea, improving. 2. Tachycardia. 3. Past medical history of hypertension. Plan: 1. For dyspnea, give IV lasix 40 mg today and continue fluid restriction < 2L per day, low salt diet < 2g daily, daily weights and strict I's and O's. Patient reports breathing a bit easier today. He has had a 3lbs weight loss since admission and had urine output of 2790 mL. 2. For tachycardia, cardiology consulted and recommended starting patient on Eliquis as patient appears to be in atrial flutter. Patient remains on telemetry. 3. For past medical history, will continue with home medications.
[2019-06-02] MEDS: Apixaban 5 MG Tab PO SCH ×2 (12:16→20:05)
[2019-06-02] MEDS ORDERED: Metoprolol Tartrate 5 MG/5 ML SDV IVPUSH ONE (16:04)
[2019-06-02] MEDS ORDERED: Diltiazem 25 MG/5 ML SDV IVPUSH ONE (18:06)
[2019-06-02] MEDS ORDERED: Metoprolol Tartrate 25 MG Tab PO SCH (21:00)
[2019-06-03] MEDS: Diltiazem 25 MG/5 ML SDV IVPUSH PRN ×2 (01:29→10:37)
[2019-06-03 06:33] LABS: BLOOD UREA NITROGEN,BUN 25 mg/dL (7.0-18.0); CARBON DIOXIDE,CO2 29.2 mmol/L (21.0-32.0); CHLORIDE,CL 104 mmol/L (98-107); GLUCOSE RANDOM 124 mg/dL (74-106); POTASSIUM,K 3.9 mmol/L (3.5-5.1); SODIUM,NA 141 mmol/L (136-148)
[2019-06-03] MEDS: Polyethylene Glycol 3350 Powder 17 GM Packet PO SCH (08:15)
[2019-06-03] MEDS: Hydrochlorothiazide/Losartan 12.5-50 mg Tab PO SCH (08:16)
[2019-06-03] MEDS: Acetaminophen 325 MG Tab PO PRN ×2 (08:16→20:12)
[2019-06-03] MEDS: Apixaban 5 MG Tab PO SCH ×2 (08:17→20:13)
[2019-06-03] MEDS ORDERED: Metoprolol Tartrate 50 MG Tab PO SCH ×2 (09:00→21:00)
[2019-06-03] MEDS ORDERED: Metoprolol Tartrate 25 MG Tab PO STA (10:29)
[2019-06-03] MEDS ORDERED: Diltiazem 25 MG/5 ML SDV IVPUSH ONE (16:15)
[2019-06-03] MEDS ORDERED: Diltiazem 125 MG in Sodium Chloride 0.9% 100 ML IV SCH (16:30)
[2019-06-03] MEDS ORDERED: Sodium Chloride 0.9% 100 ML ONE (17:20)
[2019-06-03] MEDS: Diltiazem 100 MG in Sodium Chloride 0.9% 100 ML IV SCH (17:53)
--- NOTE | 2019-06-03 19:57 | PN ---
NORMA Physician - Brief Progress [id number]/10/2019 19:44[facility] Jalen Monetiro, [place] [facility] - MWN PATRICIA AROLDO D.Date of Service 06/03/2019 19:44HPI/Events of Note eICU Admission Note:Patient is a 63-year-old male admitted to the intensive care unit for tachy cardia.Past medical history significant for essential hypertension, and chronic back pain.Patient had been originally admitted on June 01 for complaints of acute onset of shortness of breath. He had b een managed by internal medicine service with diuretic therapy and a low salt diet. CT angiography w as performed and was noted to be negative for any acute embolism. Patient was noted to develop a serafin row complex tachycardia, per primary team documentation this is been attributed to atrial flutter for which anticoagulation is initiated.On evaluation by camera, patient is noted to be tachycardic, satu rating 90% on room air, but otherwise hemodynamically stable. He is laying in bed. Laboratory studie s reveal an unremarkable blood count, mild elevation of BUN, and hyperglycemia. Prior troponins have been noted to be negative, and he is noted to have a mild transaminitis and elevated alkaline phosph atase from his admission labs. Admission chest x-ray was read to reveal a mild elevation in the righ t hemidiaphragm, and lung changes suggestive of early interstitial edema. I cannot find an EKG for i nterpretation in the EMR.eICU Recommendations:Tachycardia, per documentation from primary service car diology attributes it to atrial flutterRecommend rate control with a target heart rate less than 110. Will defer to primary service on rate control medication, can consider escalating beta-jayy dose as blood pressure tolerates. We are available to assist if desired by primary serviceWill defer ant icoagulation to cardiology and primary service. We are available to assist if desired.Consider echoc ardiogramConsider expanding laboratory work-up with TSH, free T4. From history of gathered so far it appears unlikely but can consider urine drug screenShortness of breath, in light of tachycardia I muro spect that this may be of cardiac originWe will defer diuretic management to cardiology and primary s er. We are available to assist if so desired.Thank you for allowing us to participate in this pa tient's care.Interventions Major-Arrhythmia - evaluation and management
--- NOTE | 2019-06-03 23:28 | PCM.PN ---
- General Info Date of Service: 06/03/19 - Review of Systems Systems Review Comment:: denies shortness of breath, no chest pain - Patient Data Vitals - Most Recent: Last Vital Signs Temp 36 C 06/03/19 20:00 Pulse 125 H 06/03/19 20:53 Resp 28 H 06/03/19 23:00 BP 94/63 06/03/19 23:00 Pulse Ox 93 L 06/03/19 23:00 Weight - Most Recent: 135.76 kg I&O - Last 24 Hours: Intake & Output 06/03/19 06/03/19 06/04/19 14:59 22:59 06:59 Intake Total 650 Output Total 1025 Balance -375 Lab Results Last 24 Hours: Laboratory Results - last 24 hr 06/03/19 06/03/19 06/03/19 Range/Units 06:07 06:07 06:07 WBC 10.28 (4.0-11.0) K/uL RBC 4.96 (4.50-5.90) M/uL Hgb 13.5 (13.0-17.0) g/dL Hct 40.6 (38.0-50.0) % MCV 81.9 (80.0-98.0) fL MCH 27.2 (27.0-32.0) pg MCHC 33.3 (31.0-37.0) g/dL RDW Std Deviation 45.1 (28.0-62.0) fl RDW Coeff of Qasim 15 (11.0-15.0) % Plt Count 249 (150-400) K/uL MPV 10.10 (7.40-12.00) fL Neut % (Auto) 71.3 (48.0-80.0) % Lymph % (Auto) 16.6 (16.0-40.0) % [place] % (Auto) 9.7 (0.0-15.0) % Eos % (Auto) 1.8 (0.0-7.0) % Baso % (Auto) 0.6 (0.0-1.5) % Neut # (Auto) 7.3 H (1.4-5.7) K/uL Lymph # (Auto) 1.7 (0.6-2.4) K/uL [place] # (Auto) 1.0 H (0.0-0.8) K/uL Eos # (Auto) 0.2 (0.0-0.7) K/uL Baso # (Auto) 0.1 (0.0-0.1) K/uL Sodium 141 (136-148) mmol/L Potassium 3.9 (3.5-5.1) mmol/L Chloride 104 (98-107) mmol/L Carbon Dioxide 29.2 (21.0-32.0) mmol/L BUN 25 H (7.0-18.0) mg/dL Creatinine 1.0 (0.8-1.3) mg/dL Est Cr Clr Drug Dosing 80.29 mL/min Estimated GFR (MDRD) > 60.0 ml/min Glucose 124 H (74-106) mg/dL Calcium 9.9 (8.5-10.1) mg/dL Magnesium 2.1 (1.8-2.4) mg/dL Med Orders - Current: Current Medications Acetaminophen (Tylenol) 650 mg PO Q4H PRN PRN Reason: Pain (Mild 1-3)/fever Last Admin: 06/03/19 20:12 Dose: 650 mg Apixaban (Eliquis) 5 mg PO BID [facility] Last Admin: 06/03/19 20:13 Dose: 5 mg HCTZ/Losartan Potassium (Hyzaar 50-12.5 Mg) 2 tab PO DAILY [facility] Last Admin: 06/03/19 08:16 Dose: 2 tab Diltiazem HCl 100 mg/ Sodium (Chloride) 100 mls @ 10 mls/hr IV ASDIRECTED [facility]; Protocol Last Titration: 06/03/19 21:04 Dose: 0 mg/hr, 0 mls/hr Metoprolol Tartrate (Lopressor) 75 mg PO BID [facility] Last Admin: 06/03/19 20:53 Dose: 75 mg Ondansetron HCl (Zofran Odt) 4 mg PO Q4H PRN PRN Reason: nausea, able to take PO Ondansetron HCl (Zofran) 4 mg IVPUSH Q4H PRN PRN Reason: Nausea Polyethylene Glycol (Miralax) 17 gm PO DAILY [facility] Last Admin: 06/03/19 08:15 Dose: 17 gm Discontinued Medications Albuterol/Ipratropium (Duoneb 3.0-0.5 Mg/3 Ml) 3 ml NEB ONETIME ONE Stop: 06/01/19 14:48 Last Admin: 06/01/19 15:19 Dose: 3 ml Diltiazem HCl (Diltiazem) 20 mg IVPUSH ONETIME ONE Stop: 06/02/19 18:07 Last Admin: 06/02/19 18:20 Dose: 20 mg Diltiazem HCl (Diltiazem) 10 mg IVPUSH Q3H PRN PRN Reason: HR above 110 bpm Last Admin: 06/03/19 10:37 Dose: 10 mg Diltiazem HCl (Diltiazem) 20 mg IVPUSH ONETIME ONE Stop: 06/03/19 16:16 Last Admin: 06/03/19 16:48 Dose: 20 mg Enoxaparin Sodium (Lovenox) 40 mg SUBCUT Q24H [facility] Last Admin: 06/01/19 17:45 Dose: 40 mg Furosemide (Lasix) 20 mg IVPUSH STAT ONE Stop: 06/01/19 17:26 Last Admin: 06/01/19 19:52 Dose: Not Given Furosemide (Lasix) 40 mg IVPUSH STAT ONE Stop: 06/01/19 17:40 Last Admin: 06/01/19 17:47 Dose: 40 mg Furosemide (Lasix) 40 mg IVPUSH NOW ONE Stop: 06/02/19 09:47 Last Admin: 06/02/19 09:59 Dose: 40 mg Metoprolol Tartrate 5 mg/ (Sodium Chloride) 55 mls @ 100 mls/hr IV ONETIME ONE Stop: 06/01/19 17:08 Last Admin: 06/01/19 16:48 Dose: Not Given Sodium Chloride (Normal Saline) 1,000 mls @ 75 mls/hr IV ASDIRECTED [facility] Last Admin: 06/01/19 16:52 Dose: 75 mls/hr Diltiazem HCl 125 mg/ Sodium (Chloride) 125 mls @ 10 mls/hr IV ASDIRECTED [facility]; Protocol Sodium Chloride (Normal Saline) Confirm Administered Dose 100 mls @ as directed .ROUTE .STK-MED ONE Stop: 06/03/19 17:21 Last Admin: 06/03/19 19:18 Dose: Not Given Iopamidol (Isovue Multipack-370 (76%)) 60 ml IVPUSH ONETIME STA Stop: 06/01/19 18:36 Last Admin: 06/01/19 18:35 Dose: 60 ml Metoprolol Tartrate (Lopressor) 5 mg IVPUSH ONETIME ONE Stop: 06/02/19 16:05 Last Admin: 06/02/19 16:37 Dose: 5 mg Metoprolol Tartrate (Lopressor) 25 mg PO BID [facility] Last Admin: 06/02/19 20:04 Dose: 25 mg Metoprolol Tartrate (Lopressor) 50 mg PO BID [facility] Last Admin: 06/03/19 08:17 Dose: 50 mg Metoprolol Tartrate (Lopressor) 25 mg PO NOW STA Stop: 06/03/19 10:30 Last Admin: 06/03/19 10:52 Dose: 25 mg Morphine Sulfate (Morphine) 2 mg IVPUSH Q2H PRN PRN Reason: Pain (severe 7-10) Stop: 06/02/19 17:14 - Exam General: Alert, Oriented Lungs: Clear to Auscultation, Normal Respiratory Effort Cardiovascular: Tachycardia GI/Abdominal Exam: Soft, Non-Tender Extremities: Non-Tender, No Pedal Edema Skin: Warm, Dry, Intact - Problem List Review Problem List Initiated/Reviewed/Updated: Yes - My Orders Last 24 Hours: My Active Orders 06/03/19 21:00 Metoprolol Tartrate [Lopressor] 75 mg PO BID - Plan Plan:: 63 yo male admitted for shortness of breath, CHF, and atrial flutter. Patient has been diuresed with lasix on admission. Patient was transferred today to the ICU for diltiazem drip for better rate control. Will continue Eliquis.
[2019-06-04] MEDS ORDERED: Digoxin 500 MCG/2 ML Amp IVPUSH ONE ×2 (00:38→03:43)
--- NOTE | 2019-06-04 00:53 | PN ---
THC Physician - Brief Progress [id number]/11/2019 00:49[facility] estellaJalen, NORMAN - STEVEN (MATTY) - AROLDO POPEDate of Service 06/04/2019 00:49HPI/Events of Note atrial flutter/fib with RVRBP85/57,[id number] diltiazem nowreceived oral metoprolol 50 mg 1 h our agoplan:IV digoxin 0.25 mg nowInterventions Major-Arrhythmia - evaluation and management, Hypoten sandip - evaluation and management
--- NOTE | 2019-06-04 03:52 | PN ---
THC Physician - Brief Progress [id number]/11/2019 03:50[facility] estella JalenNORMAN - STEVEN (MATTY) - AROLDO POPEDate of Service 06/04/2019 03:50HPI/Events of Note HR 120-125SBP 100plan:repeat IV digoxin 0.25 mg once may need amiodarone infusionInterventions Major-Arrhythmia - evaluation and management, Hypotension - evaluation and managementElectronically S igned by: Lise DOMINGUEZ) on 06/04/2019 03:51
[2019-06-04] MEDS ORDERED: Amiodarone 150 MG in Dextrose 5% in Water 100 ML IV ONE ×2 (05:47)
--- NOTE | 2019-06-04 05:58 | PN ---
THC Physician - Brief Progress [id number]/11/2019 05:55[facility] estella PoplarNORMAN - STEVEN (MATTY) - AROLDO POPEDate of Service 06/04/2019 05:55HPI/Events of Note [place] 125,BP113/81inspite of digoxin 0.5 mg IVplan:initiate amiodarone infusion increase oral meto prolol to 100mg BIDInterventions Major-Arrhythmia - evaluation and management
[2019-06-04] MEDS ORDERED: Metoprolol Tartrate 25 MG Tab PO SCH (06:15)
[2019-06-04 06:29] LABS: BLOOD UREA NITROGEN,BUN 24 mg/dL (7.0-18.0); CARBON DIOXIDE,CO2 26.7 mmol/L (21.0-32.0); CHLORIDE,CL 105 mmol/L (98-107); GLUCOSE RANDOM 108 mg/dL (74-106); SODIUM,NA 142 mmol/L (136-148)
[2019-06-04] MEDS: Acetaminophen 325 MG Tab PO PRN ×2 (08:16→20:08)
[2019-06-04] MEDS: Apixaban 5 MG Tab PO SCH ×2 (09:16→20:09)
[2019-06-04] MEDS: Polyethylene Glycol 3350 Powder 17 GM Packet PO SCH (09:16)
--- NOTE | 2019-06-04 09:17 | PN ---
THC Physician - Brief Progress DalbJMEZANBKE32/11/2019 09:07[facility] Jalen Monteiro, NORMAN [facility] - MWAROLDO HURSTDate of Service 06/04/2019 09:07HPI/Events of Note eICU Progress [id number] M admitted with Afib/flutter with RVR, HR still in 120s despite IV amiod arone, digoxin, and diltiazem with PO metoprolol. Seen on camera, comfortable. Discussed with mandi hicks nurse and reviewed notes in the EMR.eICU Recommendations:1. Continue amiodaraone + diltiazem + di goxin + PO metoprolol. Consider transfer to cardiac center for possible ablation vs. cardioversion.2 . Continue Eliquis, no need for further DVT prophylaxis.3. Titrate diltiazem drip to HR goal < 110 and SBP > 100.4. Electrolytes, TSH, and troponin normal.Thank you for allowing us to participate in the care of your patient.Interventions Intermediate-Arrhythmia - evaluation and management, Communica tion with other healthcare providers and/or family, Diagnostic test evaluation
--- NOTE | 2019-06-04 11:53 | PCM.PN ---
- General Info Date of Service: 06/04/19 Subjective Update: patient still tachy in 130's. No chest pain. Was started on Amiodarone overnight. - Patient Data Vitals - Most Recent: Last Vital Signs Temp 36.4 C 06/04/19 11:00 Pulse 125 H 06/04/19 07:13 Resp 27 H 06/04/19 11:00 BP 110/78 06/04/19 11:00 Pulse Ox 98 06/04/19 11:00 Weight - Most Recent: 133.498 kg I&O - Last 24 Hours: Intake & Output 06/03/19 06/04/19 06/04/19 22:59 06:59 14:59 Intake Total 650 600 Output Total 1025 1020 Balance -375 -420 Lab Results Last 24 Hours: Laboratory Results - last 24 hr 06/04/19 06/04/19 Range/Units 06:04 06:04 WBC 9.55 (4.0-11.0) K/uL RBC 5.04 (4.50-5.90) M/uL Hgb 13.6 (13.0-17.0) g/dL Hct 41.2 (38.0-50.0) % MCV 81.7 (80.0-98.0) fL MCH 27.0 (27.0-32.0) pg MCHC 33.0 (31.0-37.0) g/dL RDW Std Deviation 44.5 (28.0-62.0) fl RDW Coeff of Qasim 15 (11.0-15.0) % Plt Count 226 (150-400) K/uL MPV 10.80 (7.40-12.00) fL Neut % (Auto) 72.0 (48.0-80.0) % Lymph % (Auto) 16.6 (16.0-40.0) % [place] % (Auto) 9.2 (0.0-15.0) % Eos % (Auto) 1.8 (0.0-7.0) % Baso % (Auto) 0.4 (0.0-1.5) % Neut # (Auto) 6.9 H (1.4-5.7) K/uL Lymph # (Auto) 1.6 (0.6-2.4) K/uL [place] # (Auto) 0.9 H (0.0-0.8) K/uL Eos # (Auto) 0.2 (0.0-0.7) K/uL Baso # (Auto) 0.0 (0.0-0.1) K/uL Sodium 142 (136-148) mmol/L Potassium 4.0 (3.5-5.1) mmol/L Chloride 105 (98-107) mmol/L Carbon Dioxide 26.7 (21.0-32.0) mmol/L BUN 24 H (7.0-18.0) mg/dL Creatinine 1.0 (0.8-1.3) mg/dL Est Cr Clr Drug Dosing 80.29 mL/min Estimated GFR (MDRD) > 60.0 ml/min Glucose 108 H (74-106) mg/dL Calcium 9.3 (8.5-10.1) mg/dL Med Orders - Current: Current Medications Acetaminophen (Tylenol) 650 mg PO Q4H PRN PRN Reason: Pain (Mild 1-3)/fever Last Admin: 06/04/19 08:16 Dose: 650 mg Apixaban (Eliquis) 5 mg PO BID [facility] Last Admin: 06/04/19 09:16 Dose: 5 mg Diltiazem HCl 100 mg/ Sodium (Chloride) 100 mls @ 10 mls/hr IV ASDIRECTED [facility]; Protocol Last Titration: 06/03/19 21:04 Dose: 0 mg/hr, 0 mls/hr Amiodarone HCl/Dextrose (Nexterone In Dextrose 360 Mg/200 Ml) 360 mg in 200 mls @ 33.333 mls/hr IV ASDIRECTED [facility]; Protocol Last Admin: 06/04/19 06:22 Dose: 1 mg/min, 33.333 mls/hr Metoprolol Tartrate (Lopressor) 0 mg PO Q12H [facility] Last Admin: 06/04/19 07:13 Dose: 100 mg Ondansetron HCl (Zofran Odt) 4 mg PO Q4H PRN PRN Reason: nausea, able to take PO Ondansetron HCl (Zofran) 4 mg IVPUSH Q4H PRN PRN Reason: Nausea Polyethylene Glycol (Miralax) 17 gm PO DAILY [facility] Last Admin: 06/04/19 09:16 Dose: 17 gm Discontinued Medications Albuterol/Ipratropium (Duoneb 3.0-0.5 Mg/3 Ml) 3 ml NEB ONETIME ONE Stop: 06/01/19 14:48 Last Admin: 06/01/19 15:19 Dose: 3 ml Digoxin (Lanoxin) 250 mcg IVPUSH ONETIME ONE Stop: 06/04/19 00:39 Last Admin: 06/04/19 00:47 Dose: 250 mcg Digoxin (Lanoxin) 250 mcg IVPUSH ONETIME ONE Stop: 06/04/19 03:44 Last Admin: 06/04/19 03:51 Dose: 250 mcg Diltiazem HCl (Diltiazem) 20 mg IVPUSH ONETIME ONE Stop: 06/02/19 18:07 Last Admin: 06/02/19 18:20 Dose: 20 mg Diltiazem HCl (Diltiazem) 10 mg IVPUSH Q3H PRN PRN Reason: HR above 110 bpm Last Admin: 06/03/19 10:37 Dose: 10 mg Diltiazem HCl (Diltiazem) 20 mg IVPUSH ONETIME ONE Stop: 06/03/19 16:16 Last Admin: 06/03/19 16:48 Dose: 20 mg Enoxaparin Sodium (Lovenox) 40 mg SUBCUT Q24H [facility] Last Admin: 06/01/19 17:45 Dose: 40 mg Furosemide (Lasix) 20 mg IVPUSH STAT ONE Stop: 06/01/19 17:26 Last Admin: 06/01/19 19:52 Dose: Not Given Furosemide (Lasix) 40 mg IVPUSH STAT ONE Stop: 06/01/19 17:40 Last Admin: 06/01/19 17:47 Dose: 40 mg Furosemide (Lasix) 40 mg IVPUSH NOW ONE Stop: 06/02/19 09:47 Last Admin: 06/02/19 09:59 Dose: 40 mg HCTZ/Losartan Potassium (Hyzaar 50-12.5 Mg) 2 tab PO DAILY [facility] Last Admin: 06/03/19 08:16 Dose: 2 tab Metoprolol Tartrate 5 mg/ (Sodium Chloride) 55 mls @ 100 mls/hr IV ONETIME ONE Stop: 06/01/19 17:08 Last Admin: 06/01/19 16:48 Dose: Not Given Sodium Chloride (Normal Saline) 1,000 mls @ 75 mls/hr IV ASDIRECTED [facility] Last Admin: 06/01/19 16:52 Dose: 75 mls/hr Diltiazem HCl 125 mg/ Sodium (Chloride) 125 mls @ 10 mls/hr IV ASDIRECTED [facility]; Protocol Sodium Chloride (Normal Saline) Confirm Administered Dose 100 mls @ as directed .ROUTE .STK-MED ONE Stop: 06/03/19 17:21 Last Admin: 06/03/19 19:18 Dose: Not Given Amiodarone HCl 150 mg/ (Dextrose/Water) 103 mls @ 600 mls/hr IV .BOLUS ONE Stop: 06/04/19 05:57 Last Admin: 06/04/19 06:08 Dose: 600 mls/hr Iopamidol (Isovue Multipack-370 (76%)) 60 ml IVPUSH ONETIME STA Stop: 06/01/19 18:36 Last Admin: 06/01/19 18:35 Dose: 60 ml Metoprolol Tartrate (Lopressor) 5 mg IVPUSH ONETIME ONE Stop: 06/02/19 16:05 Last Admin: 06/02/19 16:37 Dose: 5 mg Metoprolol Tartrate (Lopressor) 25 mg PO BID [facility] Last Admin: 06/02/19 20:04 Dose: 25 mg Metoprolol Tartrate (Lopressor) 50 mg PO BID [facility] Last Admin: 06/03/19 08:17 Dose: 50 mg Metoprolol Tartrate (Lopressor) 25 mg PO NOW [facility] Stop: 06/03/19 10:30 Last Admin: 06/03/19 10:52 Dose: 25 mg Metoprolol Tartrate (Lopressor) 75 mg PO BID [facility] Last Admin: 06/03/19 20:53 Dose: 75 mg Morphine Sulfate (Morphine) 2 mg IVPUSH Q2H PRN PRN Reason: Pain (severe 7-10) Stop: 06/02/19 17:14 - Exam General: Alert, Oriented, Cooperative, No Acute Distress Lungs: Clear to Auscultation. No: Crackles, Wheezing Cardiovascular: Irregular Rhythm, Tachycardia GI/Abdominal Exam: Normal Bowel Sounds, Soft, Non-Tender Extremities: Normal Inspection, No Pedal Edema Skin: Warm, Dry - Problem List Review Problem List Initiated/Reviewed/Updated: Yes - My Orders Last 24 Hours: My Active Orders 06/04/19 07:51 EKG 12 Lead [EKG Documentation Completion] [RC] ROUTINE - Plan Plan:: 63 yo male admitted for shortness of breath, CHF, and atrial flutter. Still in atrial flutter HR 120's. Was started on Amiodarone drip. Continue diltiazem and metoprolol. Will monitor and discuss case with cardiology tomorrow.
--- NOTE | 2019-06-04 12:58 | CR ---
Indication: Dyspnea. Technique: PA view of the chest was obtained. Comparison: June 01, 2019. Findings: The heart is enlarged. No infiltrate, pleural effusion, or pneumothorax is identified. Impression: Cardiomegaly. Dictated by Ally Ley MD @ Jun 04 2019 12:55PM Signed by Dr. Ally Ley @ Jun 04 2019 12:56PM
[2019-06-04] MEDS: Metoprolol Tartrate 50 MG Tab PO SCH (17:52)
[2019-06-04] MEDS: Diltiazem 100 MG in Sodium Chloride 0.9% 100 ML IV SCH (19:14)
[2019-06-04] MEDS: Hydrochlorothiazide/Losartan 12.5-50 mg Tab PO SCH (20:21)
[2019-06-05] MEDS: Metoprolol Tartrate 50 MG Tab PO SCH ×2 (05:31→18:01)
[2019-06-05 06:03] LABS: BLOOD UREA NITROGEN,BUN 22 mg/dL (7.0-18.0); CARBON DIOXIDE,CO2 27.5 mmol/L (21.0-32.0); CHLORIDE,CL 105 mmol/L (98-107); GLUCOSE RANDOM 119 mg/dL (74-106); SODIUM,NA 143 mmol/L (136-148)
--- NOTE | 2019-06-05 08:33 | PCM.PN ---
- General Info Date of Service: 06/05/19 Subjective Update: Patient reports mild shortness of breath. Slept well overnight. Has been tolerating oral diet well. Remains tachycardic on cardizem drip, amiodarone drip and metoprolol PO BID. - Patient Data Vitals - Most Recent: Last Vital Signs Temp 97.7 F 06/05/19 08:00 Pulse 119 H 06/05/19 08:00 Resp 23 H 06/05/19 08:00 BP 121/73 06/05/19 08:00 Pulse Ox 98 06/05/19 08:00 Weight - Most Recent: 298 lb 8 oz I&O - Last 24 Hours: Intake & Output 06/04/19 06/05/19 06/05/19 22:59 06:59 14:59 Intake Total 1198 1115 Output Total 1600 600 Balance -402 515 Lab Results Last 24 Hours: Laboratory Results - last 24 hr 06/05/19 06/05/19 Range/Units 05:40 05:40 WBC 11.25 H (4.0-11.0) K/uL RBC 4.86 (4.50-5.90) M/uL Hgb 13.1 (13.0-17.0) g/dL Hct 40.2 (38.0-50.0) % MCV 82.7 (80.0-98.0) fL MCH 27.0 (27.0-32.0) pg MCHC 32.6 (31.0-37.0) g/dL RDW Std Deviation 45.2 (28.0-62.0) fl RDW Coeff of Qasim 15 (11.0-15.0) % Plt Count 238 (150-400) K/uL MPV 10.70 (7.40-12.00) fL Sodium 143 (136-148) mmol/L Potassium 4.0 (3.5-5.1) mmol/L Chloride 105 (98-107) mmol/L Carbon Dioxide 27.5 (21.0-32.0) mmol/L BUN 22 H (7.0-18.0) mg/dL Creatinine 1.0 (0.8-1.3) mg/dL Est Cr Clr Drug Dosing 80.29 mL/min Estimated GFR (MDRD) > 60.0 ml/min Glucose 119 H (74-106) mg/dL Calcium 9.0 (8.5-10.1) mg/dL Med Orders - Current: Current Medications Acetaminophen (Tylenol) 650 mg PO Q4H PRN PRN Reason: Pain (Mild 1-3)/fever Last Admin: 06/04/19 20:08 Dose: 650 mg Apixaban (Eliquis) 5 mg PO BID [facility] Last Admin: 06/04/19 20:09 Dose: 5 mg Diltiazem HCl 100 mg/ Sodium (Chloride) 100 mls @ 10 mls/hr IV ASDIRECTED [facility]; Protocol Last Titration: 06/04/19 20:33 Dose: 5 mg/hr, 5 mls/hr Amiodarone HCl/Dextrose (Nexterone In Dextrose 360 Mg/200 Ml) 360 mg in 200 mls @ 16.665 mls/hr IV ASDIRECTED [facility]; Protocol Last Admin: 06/04/19 23:59 Dose: 16.7 mls/hr Metoprolol Tartrate (Lopressor) 100 mg PO Q12H [facility] Last Admin: 06/05/19 05:31 Dose: 100 mg Ondansetron HCl (Zofran Odt) 4 mg PO Q4H PRN PRN Reason: nausea, able to take PO Ondansetron HCl (Zofran) 4 mg IVPUSH Q4H PRN PRN Reason: Nausea Polyethylene Glycol (Miralax) 17 gm PO DAILY [facility] Last Admin: 06/04/19 09:16 Dose: 17 gm Discontinued Medications Albuterol/Ipratropium (Duoneb 3.0-0.5 Mg/3 Ml) 3 ml NEB ONETIME ONE Stop: 06/01/19 14:48 Last Admin: 06/01/19 15:19 Dose: 3 ml Digoxin (Lanoxin) 250 mcg IVPUSH ONETIME ONE Stop: 06/04/19 00:39 Last Admin: 06/04/19 00:47 Dose: 250 mcg Digoxin (Lanoxin) 250 mcg IVPUSH ONETIME ONE Stop: 06/04/19 03:44 Last Admin: 06/04/19 03:51 Dose: 250 mcg Diltiazem HCl (Diltiazem) 20 mg IVPUSH ONETIME ONE Stop: 06/02/19 18:07 Last Admin: 06/02/19 18:20 Dose: 20 mg Diltiazem HCl (Diltiazem) 10 mg IVPUSH Q3H PRN PRN Reason: HR above 110 bpm Last Admin: 06/03/19 10:37 Dose: 10 mg Diltiazem HCl (Diltiazem) 20 mg IVPUSH ONETIME ONE Stop: 06/03/19 16:16 Last Admin: 06/03/19 16:48 Dose: 20 mg Enoxaparin Sodium (Lovenox) 40 mg SUBCUT Q24H [facility] Last Admin: 06/01/19 17:45 Dose: 40 mg Furosemide (Lasix) 20 mg IVPUSH STAT ONE Stop: 06/01/19 17:26 Last Admin: 06/01/19 19:52 Dose: Not Given Furosemide (Lasix) 40 mg IVPUSH STAT ONE Stop: 06/01/19 17:40 Last Admin: 06/01/19 17:47 Dose: 40 mg Furosemide (Lasix) 40 mg IVPUSH NOW ONE Stop: 06/02/19 09:47 Last Admin: 06/02/19 09:59 Dose: 40 mg HCTZ/Losartan Potassium (Hyzaar 50-12.5 Mg) 2 tab PO DAILY [facility] Last Admin: 06/04/19 20:21 Dose: Not Given Metoprolol Tartrate 5 mg/ (Sodium Chloride) 55 mls @ 100 mls/hr IV ONETIME ONE Stop: 06/01/19 17:08 Last Admin: 06/01/19 16:48 Dose: Not Given Sodium Chloride (Normal Saline) 1,000 mls @ 75 mls/hr IV ASDIRECTED [facility] Last Admin: 06/01/19 16:52 Dose: 75 mls/hr Diltiazem HCl 125 mg/ Sodium (Chloride) 125 mls @ 10 mls/hr IV ASDIRECTED [facility]; Protocol Sodium Chloride (Normal Saline) Confirm Administered Dose 100 mls @ as directed .ROUTE .STK-MED ONE Stop: 06/03/19 17:21 Last Admin: 06/03/19 19:18 Dose: Not Given Amiodarone HCl/Dextrose (Nexterone In Dextrose 360 Mg/200 Ml) 360 mg in 200 mls @ 33.333 mls/hr IV ASDIRECTED [facility]; Protocol Last Admin: 06/04/19 06:22 Dose: 1 mg/min, 33.333 mls/hr Amiodarone HCl 150 mg/ (Dextrose/Water) 103 mls @ 600 mls/hr IV .BOLUS ONE Stop: 06/04/19 05:57 Last Admin: 06/04/19 06:08 Dose: 600 mls/hr Iopamidol (Isovue Multipack-370 (76%)) 60 ml IVPUSH ONETIME STA Stop: 06/01/19 18:36 Last Admin: 06/01/19 18:35 Dose: 60 ml Metoprolol Tartrate (Lopressor) 5 mg IVPUSH ONETIME ONE Stop: 06/02/19 16:05 Last Admin: 06/02/19 16:37 Dose: 5 mg Metoprolol Tartrate (Lopressor) 25 mg PO BID [facility] Last Admin: 06/02/19 20:04 Dose: 25 mg Metoprolol Tartrate (Lopressor) 50 mg PO BID [facility] Last Admin: 06/03/19 08:17 Dose: 50 mg Metoprolol Tartrate (Lopressor) 25 mg PO NOW [facility] Stop: 06/03/19 10:30 Last Admin: 06/03/19 10:52 Dose: 25 mg Metoprolol Tartrate (Lopressor) 75 mg PO BID [facility] Last Admin: 06/03/19 20:53 Dose: 75 mg Metoprolol Tartrate (Lopressor) 0 mg PO Q12H [facility] Last Admin: 06/04/19 07:13 Dose: 100 mg Morphine Sulfate (Morphine) 2 mg IVPUSH Q2H PRN PRN Reason: Pain (severe 7-10) Stop: 06/02/19 17:14 - Exam General: Alert, Oriented, Cooperative, No Acute Distress Lungs: Clear to Auscultation, Normal Respiratory Effort Cardiovascular: Tachycardia GI/Abdominal Exam: Normal Bowel Sounds, Soft, Non-Tender, No Distention Extremities: Normal Inspection. No: No Pedal Edema - Problem List Review Problem List Initiated/Reviewed/Updated: Yes - Plan Plan:: Assessment: 1. Atrial flutter. 2. Dyspnea likely secondary to #1. 3. Past medical history of HTN. Plan: 1. For atrial flutter, patient currently on amiodarone drip 16 mL/hr, cardizem drip 5 mg/hr and metoprolol 100 mg BID. ECHO pending. Heart rate is now in 120' s. Will contact cardiology today for further evaluation and treatment. 2. For past medical history, will continue with home medications.
[2019-06-05] MEDS: Apixaban 5 MG Tab PO SCH ×2 (08:44→20:40)
[2019-06-05] MEDS: Polyethylene Glycol 3350 Powder 17 GM Packet PO SCH (08:44)
[2019-06-05] MEDS: Acetaminophen 325 MG Tab PO PRN ×2 (09:02→20:40)
[2019-06-05] MEDS ORDERED: Diltiazem 120 MG Cap.CD PO SCH (10:45)
[2019-06-05] MEDS: Amiodarone 200 MG Tab PO SCH ×2 (11:03→20:41)
[2019-06-05] MEDS: Digoxin 500 MCG/2 ML Amp IVPUSH SCH ×3 (11:08→15:00)
[2019-06-05] MEDS ORDERED: Digoxin 500 MCG/2 ML Amp ONE (12:48)
[2019-06-05] MEDS: Furosemide 40 MG/4 ML VIAL IVPUSH SCH (17:08)
--- NOTE | 2019-06-05 18:22 | CONS ---
DATE OF CONSULTATION: DATE OF : 1955 PRIMARY CARE PHYSICIAN: Unknown PCP REASON FOR CONSULTATION: Heart failure, atrial flutter. HISTORY OF PRESENT ILLNESS: This is a 63-year-old male, who does not have a prior cardiac history, only had hypertension, obesity. He was admitted to the hospital at this time because of increased shortness of breath. 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 Once he recovered from that, and he got back to work, he started being more short of breath that he noticed that he probably had been short on air over the past three weeks. He fell from time to time; heart racing, but not every day and a very short duration. He noticed that the last time when he was walking at work across the location, he was noticed by his co-worker that he was out of breath and then he drove himself to the emergency room. He got admitted to the hospital. BNP was done in the emergency room, it was mildly elevated to 155, and he was given Lasix 20 IV followed by 40 IV. Today is the fourth day that he has been in the hospital. He was found to have tachycardia with a heart rate of 130-150. EKG to me looks like atrial flutter and AV nathalie blocking agent was started including diltiazem IV drip as well as metoprolol 100 b.i.d., and then over the past weekend, amiodarone IV drip was started as well. His heart rate is slightly better in the range of one-teens to 120 as well as digoxin 250 IV x3 was given last Wednesday. His blood pressure running in the low side, in the 80 to 100. He is still being slightly short of breath, but he feels some improvement. He also feels like he gained weight as well, as well as a worsening leg swelling lately. PAST MEDICAL HISTORY: Including hypertension, obesity. PAST SURGICAL HISTORY: History of appendectomy, knee surgery. MEDICATIONS: The home medications including losartan/hydrochlorothiazide 100/25. The current medications including metoprolol 100 mg twice a day, amiodarone 200 mg b.i.d., diltiazem 120 mg once a day, Eliquis was started 5 mg twice a day. ALLERGIES: No known drug allergies. FAMILY HISTORY: Father had a history of neck artery stents and a heart problem. Mother does not have a cardiac history. SOCIAL HISTORY: He is not a smoker, but he was a drinker. He drinks at least 2 beers a day. No drug use. REVIEW OF SYSTEMS: Except indicated in the HPI, otherwise has been negative. PHYSICAL EXAMINATION: CURRENT VITAL SIGNS: Heart rate ranging between 110 to 120 and the blood pressure ranging between 90 to 100 systolic blood pressure and 50 to 60 diastolic blood pressure, temperature 97.7, O2 saturation 96% on room air, respiratory rate 16 to 20. HEENT: Not pale. No jaundice. JVD positive. HEART: Totally irregular, tachycardia. No murmur. LUNGS: Crackle bilaterally. ABDOMEN: Soft, nontender. Bowel sounds are present. No hepatosplenomegaly. EXTREMITIES: Legs, edema 1+. DIAGNOSTIC STUDIES: EK-lead EKG on June 02 did show atrial flutter, heart rate of 131. QRS duration 104. Echocardiogram showed ejection fraction probably 15% to 20%. Mild to moderate mitral regurgitation. Mild AR, mild TR, and elevated RVSP. Biatrial enlargement. ASSESSMENT AND PLAN: This is a 63-year-old male, who has a history of hypertension, who presented to hospital with atrial flutter, rapid ventricular response, new-onset systolic heart failure, cardiomyopathy, New Heart Association class 3 to 4. The etiology of the cardiomyopathy could be related to atrial flutter, rapid ventricular response, tachycardia induced cardiomyopathy. Could also be related to chronic alcohol consumption as well. He would need ischemic workup. Recommend to have the angiogram done. However, due to the financial concern, he wanted to wait. I told him what we could do for now. We could get his heart rhythm and heart rate controlled. Recommended to do a transesophageal echocardiography and cardioversion. He is already on Eliquis. The CHADS-VASc score is at least 2 including hypertension, heart failure. This will be arranged as an outpatient. He is still volume overloaded on my exam. We will start him on the Lasix IV 40 mg. He should do the daily weight. He should be on the low-sodium diet and less than 2 g a day. His blood pressure is pretty low. I will hold off on the MALIK inhibitor for now day, and I will stop diltiazem. I will continue digoxin 250 p.o. as well as metoprolol 100 mg twice a day. I will also continue amiodarone for now 200 mg b.i.d. YASMEEN / VITA /[id number]
[2019-06-06] MEDS: Acetaminophen 325 MG Tab PO PRN (05:41)
[2019-06-06] MEDS: Metoprolol Tartrate 50 MG Tab PO SCH ×2 (05:42→17:46)
[2019-06-06 06:34] LABS: BLOOD UREA NITROGEN,BUN 24 mg/dL (7.0-18.0); CARBON DIOXIDE,CO2 28.4 mmol/L (21.0-32.0); CHLORIDE,CL 105 mmol/L (98-107); GLUCOSE RANDOM 103 mg/dL (74-106); POTASSIUM,K 4.1 mmol/L (3.5-5.1); SODIUM,NA 142 mmol/L (136-148)
[2019-06-06] MEDS: Apixaban 5 MG Tab PO SCH (08:42)
[2019-06-06] MEDS: Amiodarone 200 MG Tab PO SCH (08:42)
[2019-06-06] MEDS: Furosemide 40 MG/4 ML VIAL IVPUSH SCH (08:44)
[2019-06-06] MEDS: Polyethylene Glycol 3350 Powder 17 GM Packet PO SCH (08:44)
--- NOTE | 2019-06-06 08:58 | PCM.PN ---
<Eddie Church M - Last Filed: 06/06/19 09:35> - General Info Date of Service: 06/06/19 Subjective Update: Patient reports sleeping well overnight and tolerating oral diet. Reports persistent mild shortness of breath. He denies any fevers, chills, chest pain, nausea or vomiting. He has been working with physical therapy. - Patient Data Vitals - Most Recent: Last Vital Signs Temp 97.5 F 06/06/19 04:00 Pulse 100 06/06/19 08:43 Resp 25 H 06/06/19 07:00 BP 123/82 06/06/19 07:00 Pulse Ox 97 06/06/19 07:00 Weight - Most Recent: 133.4 kg I&O - Last 24 Hours: Intake & Output 06/05/19 06/06/19 06/06/19 22:59 06:59 14:59 Intake Total 1240 800 Output Total 1725 650 Balance -485 150 Lab Results Last 24 Hours: Laboratory Results - last 24 hr 06/05/19 06/06/19 06/06/19 Range/Units 05:40 06:10 06:10 WBC 11.16 H (4.0-11.0) K/uL RBC 4.93 (4.50-5.90) M/uL Hgb 13.3 (13.0-17.0) g/dL Hct 41.7 (38.0-50.0) % MCV 84.6 (80.0-98.0) fL MCH 27.0 (27.0-32.0) pg MCHC 31.9 (31.0-37.0) g/dL RDW Std Deviation 46.3 (28.0-62.0) fl RDW Coeff of Qasim 15 (11.0-15.0) % Plt Count 239 (150-400) K/uL MPV 10.30 (7.40-12.00) fL Nucleated RBC % 0.0 /100WBC Nucleated RBCs # 0 K/uL Sodium 142 (136-148) mmol/L Potassium 4.1 (3.5-5.1) mmol/L Chloride 105 (98-107) mmol/L Carbon Dioxide 28.4 (21.0-32.0) mmol/L BUN 24 H (7.0-18.0) mg/dL Creatinine 1.2 (0.8-1.3) mg/dL Est Cr Clr Drug Dosing 66.91 mL/min Estimated GFR (MDRD) > 60.0 ml/min Glucose 103 (74-106) mg/dL Calcium 9.1 (8.5-10.1) mg/dL B-Natriuretic Peptide 139 H (<100) PG/ML Med Orders - Current: Current Medications Acetaminophen (Tylenol) 650 mg PO Q4H PRN PRN Reason: Pain (Mild 1-3)/fever Last Admin: 06/06/19 05:41 Dose: 650 mg Amiodarone HCl (Cordarone) 200 mg PO BID [facility] Last Admin: 06/06/19 08:42 Dose: 200 mg Apixaban (Eliquis) 5 mg PO BID [facility] Last Admin: 06/06/19 08:42 Dose: 5 mg Digoxin (Lanoxin) 250 mcg IVPUSH ONETIME [facility] Stop: 06/07/19 10:46 Last Admin: 06/05/19 15:00 Dose: 250 mcg Digoxin (Lanoxin) 250 mcg PO DAILY [facility] Last Admin: 06/06/19 08:43 Dose: 250 mcg Furosemide (Lasix) 40 mg IVPUSH BID [facility] Last Admin: 06/06/19 08:44 Dose: 40 mg Metoprolol Tartrate (Lopressor) 100 mg PO Q12H [facility] Last Admin: 06/06/19 05:42 Dose: 100 mg Ondansetron HCl (Zofran Odt) 4 mg PO Q4H PRN PRN Reason: nausea, able to take PO Ondansetron HCl (Zofran) 4 mg IVPUSH Q4H PRN PRN Reason: Nausea Polyethylene Glycol (Miralax) 17 gm PO DAILY [facility] Last Admin: 06/06/19 08:44 Dose: 17 gm Discontinued Medications Albuterol/Ipratropium (Duoneb 3.0-0.5 Mg/3 Ml) 3 ml NEB ONETIME ONE Stop: 06/01/19 14:48 Last Admin: 06/01/19 15:19 Dose: 3 ml Digoxin (Lanoxin) 250 mcg IVPUSH ONETIME ONE Stop: 06/04/19 00:39 Last Admin: 06/04/19 00:47 Dose: 250 mcg Digoxin (Lanoxin) 250 mcg IVPUSH ONETIME ONE Stop: 06/04/19 03:44 Last Admin: 06/04/19 03:51 Dose: 250 mcg Digoxin (Lanoxin) Confirm Administered Dose 500 mcg .ROUTE .STK-MED ONE Stop: 06/05/19 12:49 Last Admin: 06/05/19 15:09 Dose: 250 mcg Diltiazem HCl (Diltiazem) 20 mg IVPUSH ONETIME ONE Stop: 06/02/19 18:07 Last Admin: 06/02/19 18:20 Dose: 20 mg Diltiazem HCl (Diltiazem) 10 mg IVPUSH Q3H PRN PRN Reason: HR above 110 bpm Last Admin: 06/03/19 10:37 Dose: 10 mg Diltiazem HCl (Diltiazem) 20 mg IVPUSH ONETIME ONE Stop: 06/03/19 16:16 Last Admin: 06/03/19 16:48 Dose: 20 mg Diltiazem HCl (Cardizem Cd) 120 mg PO DAILY [facility] Last Admin: 06/05/19 11:02 Dose: 120 mg Enoxaparin Sodium (Lovenox) 40 mg SUBCUT Q24H [facility] Last Admin: 06/01/19 17:45 Dose: 40 mg Furosemide (Lasix) 20 mg IVPUSH STAT ONE Stop: 06/01/19 17:26 Last Admin: 06/01/19 19:52 Dose: Not Given Furosemide (Lasix) 40 mg IVPUSH STAT ONE Stop: 06/01/19 17:40 Last Admin: 06/01/19 17:47 Dose: 40 mg Furosemide (Lasix) 40 mg IVPUSH NOW ONE Stop: 06/02/19 09:47 Last Admin: 06/02/19 09:59 Dose: 40 mg HCTZ/Losartan Potassium (Hyzaar 50-12.5 Mg) 2 tab PO DAILY [facility] Last Admin: 06/04/19 20:21 Dose: Not Given Metoprolol Tartrate 5 mg/ (Sodium Chloride) 55 mls @ 100 mls/hr IV ONETIME ONE Stop: 06/01/19 17:08 Last Admin: 06/01/19 16:48 Dose: Not Given Sodium Chloride (Normal Saline) 1,000 mls @ 75 mls/hr IV ASDIRECTED [facility] Last Admin: 06/01/19 16:52 Dose: 75 mls/hr Diltiazem HCl 125 mg/ Sodium (Chloride) 125 mls @ 10 mls/hr IV ASDIRECTED [facility]; Protocol Sodium Chloride (Normal Saline) Confirm Administered Dose 100 mls @ as directed .ROUTE .STK-MED ONE Stop: 06/03/19 17:21 Last Admin: 06/03/19 19:18 Dose: Not Given Diltiazem HCl 100 mg/ Sodium (Chloride) 100 mls @ 10 mls/hr IV ASDIRECTED [facility]; Protocol Last Titration: 06/04/19 20:33 Dose: 5 mg/hr, 5 mls/hr Amiodarone HCl/Dextrose (Nexterone In Dextrose 360 Mg/200 Ml) 360 mg in 200 mls @ 33.333 mls/hr IV ASDIRECTED [facility]; Protocol Last Admin: 06/04/19 06:22 Dose: 1 mg/min, 33.333 mls/hr Amiodarone HCl 150 mg/ (Dextrose/Water) 103 mls @ 600 mls/hr IV .BOLUS ONE Stop: 06/04/19 05:57 Last Admin: 06/04/19 06:08 Dose: 600 mls/hr Amiodarone HCl/Dextrose (Nexterone In Dextrose 360 Mg/200 Ml) 360 mg in 200 mls @ 16.665 mls/hr IV ASDIRECTED [facility]; Protocol Last Admin: 06/04/19 23:59 Dose: 16.7 mls/hr Iopamidol (Isovue Multipack-370 (76%)) 60 ml IVPUSH ONETIME [facility] Stop: 06/01/19 18:36 Last Admin: 06/01/19 18:35 Dose: 60 ml Metoprolol Tartrate (Lopressor) 5 mg IVPUSH ONETIME ONE Stop: 06/02/19 16:05 Last Admin: 06/02/19 16:37 Dose: 5 mg Metoprolol Tartrate (Lopressor) 25 mg PO BID [facility] Last Admin: 06/02/19 20:04 Dose: 25 mg Metoprolol Tartrate (Lopressor) 50 mg PO BID [facility] Last Admin: 06/03/19 08:17 Dose: 50 mg Metoprolol Tartrate (Lopressor) 25 mg PO NOW STA Stop: 06/03/19 10:30 Last Admin: 06/03/19 10:52 Dose: 25 mg Metoprolol Tartrate (Lopressor) 75 mg PO BID [facility] Last Admin: 06/03/19 20:53 Dose: 75 mg Metoprolol Tartrate (Lopressor) 0 mg PO Q12H [facility] Last Admin: 06/04/19 07:13 Dose: 100 mg Morphine Sulfate (Morphine) 2 mg IVPUSH Q2H PRN PRN Reason: Pain (severe 7-10) Stop: 06/02/19 17:14 - Exam General: Alert, Oriented, Cooperative Lungs: Clear to Auscultation, Normal Respiratory Effort Cardiovascular: Tachycardia GI/Abdominal Exam: Normal Bowel Sounds, Soft, Non-Tender, No Distention Extremities: Other (trace edema bilaterally) - Problem List & Annotations (1) Atrial flutter SNOMED Code(s): 1965637 Code(s): I48.92 - UNSPECIFIED ATRIAL FLUTTER Status: Acute Current Visit : Yes (2) CHF (congestive heart failure) SNOMED Code(s): 06451420 Code(s): I50.9 - HEART FAILURE, UNSPECIFIED Status: Acute Current Visit: Yes (3) Dyspnea SNOMED Code(s): 740273682 Code(s): R06.00 - DYSPNEA, UNSPECIFIED Status: Acute Current Visit: Yes Qualifiers: Dyspnea type: dyspnea on exertion Qualified Code(s): R06.09 - Other forms of dyspnea - Problem List Review Problem List Initiated/Reviewed/Updated: Yes - My Orders Last 24 Hours: My Active Orders 06/05/19 15:40 Consult to Physical Therapy [PT Evaluation and Treatment] [CONS] Routine - Plan Plan:: Assessment: 1. Atrial flutter. 2. Systolic heart failure with EF of 20%. 3. Dyspnea likely secondary to #1 and #2. 4. Past medical history of HTN. Plan: 1. For atrial flutter, as per Cardiology patient on metoprolol 100 mg BID, digoxin 250 mcg daily and amiodarone 200 mg daily. Heart rate has slightly improved and remains in between 110-120's. Blood pressure has improved and is stable. Will follow-up with cardiology today for further recommendations. 2. For systolic heart failure, patient on lasix 40 mg IV BID. 3. For past medical history, will continue with home medications. <Jimi Estrada - Last Filed: 06/06/19 10:07> - General Info Subjective Update: I have examined the patient independently of vice president medical affairs, Dr. Lynnette MD. I have discussed the case with him. I have reviewed and agree with the examination and plan as outlined by him. Please see orders. - Patient Data Vitals - Most Recent: Last Vital Signs Temp 36.4 C 06/06/19 04:00 Pulse 100 06/06/19 08:43 Resp 25 H 06/06/19 07:00 BP 123/82 06/06/19 07:00 Pulse Ox 97 06/06/19 07:00 I&O - Last 24 Hours: Intake & Output 06/05/19 06/06/19 06/06/19 22:59 06:59 14:59 Intake Total 1240 800 Output Total 1725 650 Balance -485 150 Lab Results Last 24 Hours: Laboratory Results - last 24 hr 06/05/19 06/06/19 06/06/19 Range/Units 05:40 06:10 06:10 WBC 11.16 H (4.0-11.0) K/uL RBC 4.93 (4.50-5.90) M/uL Hgb 13.3 (13.0-17.0) g/dL Hct 41.7 (38.0-50.0) % MCV 84.6 (80.0-98.0) fL MCH 27.0 (27.0-32.0) pg MCHC 31.9 (31.0-37.0) g/dL RDW Std Deviation 46.3 (28.0-62.0) fl RDW Coeff of Qasim 15 (11.0-15.0) % Plt Count 239 (150-400) K/uL MPV 10.30 (7.40-12.00) fL Nucleated RBC % 0.0 /100WBC Nucleated RBCs # 0 K/uL Sodium 142 (136-148) mmol/L Potassium 4.1 (3.5-5.1) mmol/L Chloride 105 (98-107) mmol/L Carbon Dioxide 28.4 (21.0-32.0) mmol/L BUN 24 H (7.0-18.0) mg/dL Creatinine 1.2 (0.8-1.3) mg/dL Est Cr Clr Drug Dosing 66.91 mL/min Estimated GFR (MDRD) > 60.0 ml/min Glucose 103 (74-106) mg/dL Calcium 9.1 (8.5-10.1) mg/dL B-Natriuretic Peptide 139 H (<100) PG/ML Med Orders - Current: Current Medications Acetaminophen (Tylenol) 650 mg PO Q4H PRN PRN Reason: Pain (Mild 1-3)/fever Last Admin: 06/06/19 05:41 Dose: 650 mg Amiodarone HCl (Cordarone) 200 mg PO BID [facility] Last Admin: 06/06/19 08:42 Dose: 200 mg Apixaban (Eliquis) 5 mg PO BID [facility] Last Admin: 06/06/19 08:42 Dose: 5 mg Digoxin (Lanoxin) 250 mcg IVPUSH ONETIME [facility] Stop: 06/07/19 10:46 Last Admin: 06/05/19 15:00 Dose: 250 mcg Digoxin (Lanoxin) 250 mcg PO DAILY [facility] Last Admin: 06/06/19 08:43 Dose: 250 mcg Furosemide (Lasix) 40 mg IVPUSH BID [facility] Last Admin: 06/06/19 08:44 Dose: 40 mg Metoprolol Tartrate (Lopressor) 100 mg PO Q12H [facility] Last Admin: 06/06/19 05:42 Dose: 100 mg Ondansetron HCl (Zofran Odt) 4 mg PO Q4H PRN PRN Reason: nausea, able to take PO Ondansetron HCl (Zofran) 4 mg IVPUSH Q4H PRN PRN Reason: Nausea Polyethylene Glycol (Miralax) 17 gm PO DAILY [facility] Last Admin: 06/06/19 08:44 Dose: 17 gm Discontinued Medications Albuterol/Ipratropium (Duoneb 3.0-0.5 Mg/3 Ml) 3 ml NEB ONETIME ONE Stop: 06/01/19 14:48 Last Admin: 06/01/19 15:19 Dose: 3 ml Digoxin (Lanoxin) 250 mcg IVPUSH ONETIME ONE Stop: 06/04/19 00:39 Last Admin: 06/04/19 00:47 Dose: 250 mcg Digoxin (Lanoxin) 250 mcg IVPUSH ONETIME ONE Stop: 06/04/19 03:44 Last Admin: 06/04/19 03:51 Dose: 250 mcg Digoxin (Lanoxin) Confirm Administered Dose 500 mcg .ROUTE .STK-MED ONE Stop: 06/05/19 12:49 Last Admin: 06/05/19 15:09 Dose: 250 mcg Diltiazem HCl (Diltiazem) 20 mg IVPUSH ONETIME ONE Stop: 06/02/19 18:07 Last Admin: 06/02/19 18:20 Dose: 20 mg Diltiazem HCl (Diltiazem) 10 mg IVPUSH Q3H PRN PRN Reason: HR above 110 bpm Last Admin: 06/03/19 10:37 Dose: 10 mg Diltiazem HCl (Diltiazem) 20 mg IVPUSH ONETIME ONE Stop: 06/03/19 16:16 Last Admin: 06/03/19 16:48 Dose: 20 mg Diltiazem HCl (Cardizem Cd) 120 mg PO DAILY [facility] Last Admin: 06/05/19 11:02 Dose: 120 mg Enoxaparin Sodium (Lovenox) 40 mg SUBCUT Q24H [facility] Last Admin: 06/01/19 17:45 Dose: 40 mg Furosemide (Lasix) 20 mg IVPUSH STAT ONE Stop: 06/01/19 17:26 Last Admin: 06/01/19 19:52 Dose: Not Given Furosemide (Lasix) 40 mg IVPUSH STAT ONE Stop: 06/01/19 17:40 Last Admin: 06/01/19 17:47 Dose: 40 mg Furosemide (Lasix) 40 mg IVPUSH NOW ONE Stop: 06/02/19 09:47 Last Admin: 06/02/19 09:59 Dose: 40 mg HCTZ/Losartan Potassium (Hyzaar 50-12.5 Mg) 2 tab PO DAILY [facility] Last Admin: 06/04/19 20:21 Dose: Not Given Metoprolol Tartrate 5 mg/ (Sodium Chloride) 55 mls @ 100 mls/hr IV ONETIME ONE Stop: 06/01/19 17:08 Last Admin: 06/01/19 16:48 Dose: Not Given Sodium Chloride (Normal Saline) 1,000 mls @ 75 mls/hr IV ASDIRECTED [facility] Last Admin: 06/01/19 16:52 Dose: 75 mls/hr Diltiazem HCl 125 mg/ Sodium (Chloride) 125 mls @ 10 mls/hr IV ASDIRECTED [facility]; Protocol Sodium Chloride (Normal Saline) Confirm Administered Dose 100 mls @ as directed .ROUTE .STK-MED ONE Stop: 06/03/19 17:21 Last Admin: 06/03/19 19:18 Dose: Not Given Diltiazem HCl 100 mg/ Sodium (Chloride) 100 mls @ 10 mls/hr IV ASDIRECTED [facility]; Protocol Last Titration: 06/04/19 20:33 Dose: 5 mg/hr, 5 mls/hr Amiodarone HCl/Dextrose (Nexterone In Dextrose 360 Mg/200 Ml) 360 mg in 200 mls @ 33.333 mls/hr IV ASDIRECTED [facility]; Protocol Last Admin: 06/04/19 06:22 Dose: 1 mg/min, 33.333 mls/hr Amiodarone HCl 150 mg/ (Dextrose/Water) 103 mls @ 600 mls/hr IV .BOLUS ONE Stop: 06/04/19 05:57 Last Admin: 06/04/19 06:08 Dose: 600 mls/hr Amiodarone HCl/Dextrose (Nexterone In Dextrose 360 Mg/200 Ml) 360 mg in 200 mls @ 16.665 mls/hr IV ASDIRECTED [facility]; Protocol Last Admin: 06/04/19 23:59 Dose: 16.7 mls/hr Iopamidol (Isovue Multipack-370 (76%)) 60 ml IVPUSH ONETIME [facility] Stop: 06/01/19 18:36 Last Admin: 06/01/19 18:35 Dose: 60 ml Metoprolol Tartrate (Lopressor) 5 mg IVPUSH ONETIME ONE Stop: 06/02/19 16:05 Last Admin: 06/02/19 16:37 Dose: 5 mg Metoprolol Tartrate (Lopressor) 25 mg PO BID [facility] Last Admin: 06/02/19 20:04 Dose: 25 mg Metoprolol Tartrate (Lopressor) 50 mg PO BID [facility] Last Admin: 06/03/19 08:17 Dose: 50 mg Metoprolol Tartrate (Lopressor) 25 mg PO NOW [facility] Stop: 06/03/19 10:30 Last Admin: 06/03/19 10:52 Dose: 25 mg Metoprolol Tartrate (Lopressor) 75 mg PO BID [facility] Last Admin: 06/03/19 20:53 Dose: 75 mg Metoprolol Tartrate (Lopressor) 0 mg PO Q12H [facility] Last Admin: 06/04/19 07:13 Dose: 100 mg Morphine Sulfate (Morphine) 2 mg IVPUSH Q2H PRN PRN Reason: Pain (severe 7-10) Stop: 06/02/19 17:14
[2019-06-06] MEDS ORDERED: Digoxin 250 MCG Tab PO SCH (09:00)
--- NOTE | 2019-06-06 12:08 | ECHO ---
The echocardiogram report can be seen in this patient's EMR (Electronic Medical Records) in the Reports section. The echocardiogram report has also been scanned into PACS and can be seen there as well. FRANCIA
[2019-06-06] MEDS ORDERED: Phenol 1.4% Oral Spray 177 ML Bottle MUCMEM PRN (14:19)
[2019-06-06] MEDS ORDERED: predniSONE 20 MG Tab PO SCH (14:27)
[2019-06-06 17:47] VITALS: BP 126/89; PULSE 122
--- NOTE | 2019-06-06 18:02 | PCM.DCSUM1 ---
<Eddie Church - Last Filed: 06/06/19 17:46> Discharge Summary - Hospital Course Free Text/Narrative:: 63-year-old male presented with shortness of breath for the past several weeks. He was started on lasix as he appeared to be fluid overloaded and in congestive heart failure. Patient was treated with IV lasix and had negative fluid balance , saw decrease in his weight and reported some improvement in his breathing. ECHO done during hospitalization showed ejection fraction of 20%. Throughout hospitalization, patient was tachycardic and initially his heart rate was in the 130's. EKG revealed atrial flutter and patient was started on eliquis and cardizem, however did not see much improvement in rate control. He was then started on a cardizem drip, however, his heart rate still did not improve significantly. Simulation Software Engineer, Dr. Giraldo, was consulted and started patient on amiodarone drip, cardizem drip, metroprolol and digoxin which improved patient's heart rate slightly and was in between 110-120. Eventually, patient's amiodarone drip and cardizem drip were discontinued and transitioned to oral medications. On day of discharge, patient's heart rate remained tachycardic in between 110-120. [address] Dr. Giraldo, patient stable to be discharged on metoprolol tartrate 100 mg BID, amiodarone 200 mg BID, digoxin 250 mcg daily, eliquis 5 mg bid and Lasix [address] Giraldo to coordinate JJ and cardioversion on 06/09/19 in [place], [place]. - Discharge Data Discharge Date: 06/06/19 Discharge Disposition: Home, Self-Care 01 Condition: Fair - Discharge Diagnosis/Problem(s) (1) Atrial flutter SNOMED Code(s): 9762778 ICD Code: I48.92 - UNSPECIFIED ATRIAL FLUTTER Status: Acute Current Visit : Yes (2) CHF (congestive heart failure) SNOMED Code(s): 37057512 ICD Code: I50.9 - HEART FAILURE, UNSPECIFIED Status: Acute Current Visit : Yes (3) Dyspnea SNOMED Code(s): 762022254 ICD Code: R06.00 - DYSPNEA, UNSPECIFIED Status: Acute Current Visit: Yes Qualifiers: Dyspnea type: dyspnea on exertion Qualified Code(s): R06.09 - Other forms of dyspnea - Patient Summary/Data Consults: Consultations 06/02/19 12:02 Consult to Physician [CONS] Routine - Patient Instructions Diet: Heart Healthy Diet, Low Sodium Fluid Restriction: 2000 mL Activity: As Tolerated Notify Provider of: Fever, Increased Pain, Swelling and Redness, Drainage, Nausea and/or Vomiting - Discharge Plan *PRESCRIPTION DRUG MONITORING PROGRAM REVIEWED*: Not Applicable *COPY OF PRESCRIPTION DRUG MONITORING REPORT IN PATIENT DAVID: Not Applicable Prescriptions/Med Rec: Amiodarone [Cordarone] 200 mg PO BID 30 Days #60 tablet Apixaban [Eliquis] 5 mg PO BID 30 Days #60 tablet Digoxin [Digitek] 250 mcg PO DAILY 30 Days #30 tablet Furosemide [Lasix] 40 mg PO DAILY 30 Days #30 tablet Metoprolol Tartrate [Lopressor] 100 mg PO BID 30 Days #60 tablet Home Medications: Home Meds [place]-3/DHA/Epa/Fish Oil [[place]-3 Fish Oil 1,200 MG Sfgl] 1,200 mg PO DAILY 10/11 [History] Polyethylene Glycol 3350 [MiraLAX] 17 gm PO DAILY #30 packet 11/23/18 [Rx] Celecoxib [CeleBREX] 200 mg PO DAILY cap 12/06/18 [Rx] Amiodarone [Cordarone] 200 mg PO BID 30 Days #60 tablet 06/06/19 [Rx] Apixaban [Eliquis] 5 mg PO BID 30 Days #60 tablet 06/06/19 [Rx] Digoxin [Digitek] 250 mcg PO DAILY 30 Days #30 tablet 06/06/19 [Rx] Furosemide [Lasix] 40 mg PO DAILY 30 Days #30 tablet 06/06/19 [Rx] Metoprolol Tartrate [Lopressor] 100 mg PO BID 30 Days #60 tablet 06/06/19 [Rx] Patient Handouts: Chronic Obstructive Pulmonary Disease Exacerbation, Easy-to- Read, Heart Failure, [id number], Form - Daily Weight Record Referrals: [facility] [Outside] Jose Barros MD [Physician] - Tawanda Estrella MD [Ordering Only Provider] - 06/12/19 10:30 am (Arrive 15 minuts early for check-in. If you do not come early, they will not see you This appointment was not able to be made with Dr. Barros, because he is out of the office this week.) - Discharge Summary/Plan Comment DC Time >30 min.: No - Patient Data Vitals - Most Recent: Last Vital Signs Temp 97.7 F 06/06/19 15:00 Pulse 118 H 06/06/19 17:00 Resp 21 H 06/06/19 17:00 BP 126/73 06/06/19 17:00 Pulse Ox 96 06/06/19 17:00 Weight - Most Recent: 133.4 kg I&O - Last 24 hours: Intake & Output 06/06/19 06/06/19 06/06/19 06:59 14:59 22:59 Intake Total 800 600 Output Total 650 1950 Balance 150 -1350 Lab Results - Last 24 hrs: Laboratory Results - last 24 hr 06/06/19 06/06/19 06/06/19 Range/Units 00:10 06:10 06:10 WBC 11.16 H (4.0-11.0) K/uL RBC 4.93 (4.50-5.90) M/uL Hgb 13.3 (13.0-17.0) g/dL Hct 41.7 (38.0-50.0) % MCV 84.6 (80.0-98.0) fL MCH 27.0 (27.0-32.0) pg MCHC 31.9 (31.0-37.0) g/dL RDW Std Deviation 46.3 (28.0-62.0) fl RDW Coeff of Qasim 15 (11.0-15.0) % Plt Count 239 (150-400) K/uL MPV 10.30 (7.40-12.00) fL Nucleated RBC % 0.0 /100WBC Nucleated RBCs # 0 K/uL Sodium 142 (136-148) mmol/L Potassium 4.1 (3.5-5.1) mmol/L Chloride 105 (98-107) mmol/L Carbon Dioxide 28.4 (21.0-32.0) mmol/L BUN 24 H (7.0-18.0) mg/dL Creatinine 1.2 (0.8-1.3) mg/dL Est Cr Clr Drug Dosing 66.91 mL/min Estimated GFR (MDRD) > 60.0 ml/min Glucose 103 (74-106) mg/dL Calcium 9.1 (8.5-10.1) mg/dL B-Natriuretic Peptide 196 H (<100) PG/ML Med Orders - Current: Current Medications Acetaminophen (Tylenol) 650 mg PO Q4H PRN PRN Reason: Pain (Mild 1-3)/fever Last Admin: 06/06/19 05:41 Dose: 650 mg Amiodarone HCl (Cordarone) 200 mg PO BID [facility] Last Admin: 06/06/19 08:42 Dose: 200 mg Apixaban (Eliquis) 5 mg PO BID [facility] Last Admin: 06/06/19 08:42 Dose: 5 mg Digoxin (Lanoxin) 250 mcg IVPUSH ONETIME [facility] Stop: 06/07/19 10:46 Last Admin: 06/05/19 15:00 Dose: 250 mcg Digoxin (Lanoxin) 250 mcg PO DAILY [facility] Last Admin: 06/06/19 08:43 Dose: 250 mcg Furosemide (Lasix) 40 mg IVPUSH BID [facility] Last Admin: 06/06/19 08:44 Dose: 40 mg Metoprolol Tartrate (Lopressor) 100 mg PO Q12H [facility] Last Admin: 06/06/19 05:42 Dose: 100 mg Ondansetron HCl (Zofran Odt) 4 mg PO Q4H PRN PRN Reason: nausea, able to take PO Ondansetron HCl (Zofran) 4 mg IVPUSH Q4H PRN PRN Reason: Nausea Polyethylene Glycol (Miralax) 17 gm PO DAILY [facility] Last Admin: 06/06/19 08:44 Dose: 17 gm Discontinued Medications Albuterol/Ipratropium (Duoneb 3.0-0.5 Mg/3 Ml) 3 ml NEB ONETIME ONE Stop: 06/01/19 14:48 Last Admin: 06/01/19 15:19 Dose: 3 ml Digoxin (Lanoxin) 250 mcg IVPUSH ONETIME ONE Stop: 06/04/19 00:39 Last Admin: 06/04/19 00:47 Dose: 250 mcg Digoxin (Lanoxin) 250 mcg IVPUSH ONETIME ONE Stop: 06/04/19 03:44 Last Admin: 06/04/19 03:51 Dose: 250 mcg Digoxin (Lanoxin) Confirm Administered Dose 500 mcg .ROUTE .STK-MED ONE Stop: 06/05/19 12:49 Last Admin: 06/05/19 15:09 Dose: 250 mcg Diltiazem HCl (Diltiazem) 20 mg IVPUSH ONETIME ONE Stop: 06/02/19 18:07 Last Admin: 06/02/19 18:20 Dose: 20 mg Diltiazem HCl (Diltiazem) 10 mg IVPUSH Q3H PRN PRN Reason: HR above 110 bpm Last Admin: 06/03/19 10:37 Dose: 10 mg Diltiazem HCl (Diltiazem) 20 mg IVPUSH ONETIME ONE Stop: 06/03/19 16:16 Last Admin: 06/03/19 16:48 Dose: 20 mg Diltiazem HCl (Cardizem Cd) 120 mg PO DAILY [facility] Last Admin: 06/05/19 11:02 Dose: 120 mg Enoxaparin Sodium (Lovenox) 40 mg SUBCUT Q24H [facility] Last Admin: 06/01/19 17:45 Dose: 40 mg Furosemide (Lasix) 20 mg IVPUSH STAT ONE Stop: 06/01/19 17:26 Last Admin: 06/01/19 19:52 Dose: Not Given Furosemide (Lasix) 40 mg IVPUSH STAT ONE Stop: 06/01/19 17:40 Last Admin: 06/01/19 17:47 Dose: 40 mg Furosemide (Lasix) 40 mg IVPUSH NOW ONE Stop: 06/02/19 09:47 Last Admin: 06/02/19 09:59 Dose: 40 mg HCTZ/Losartan Potassium (Hyzaar 50-12.5 Mg) 2 tab PO DAILY [facility] Last Admin: 06/04/19 20:21 Dose: Not Given Metoprolol Tartrate 5 mg/ (Sodium Chloride) 55 mls @ 100 mls/hr IV ONETIME ONE Stop: 06/01/19 17:08 Last Admin: 06/01/19 16:48 Dose: Not Given Sodium Chloride (Normal Saline) 1,000 mls @ 75 mls/hr IV ASDIRECTED [facility] Last Admin: 06/01/19 16:52 Dose: 75 mls/hr Diltiazem HCl 125 mg/ Sodium (Chloride) 125 mls @ 10 mls/hr IV ASDIRECTED [facility]; Protocol Sodium Chloride (Normal Saline) Confirm Administered Dose 100 mls @ as directed .ROUTE .STK-MED ONE Stop: 06/03/19 17:21 Last Admin: 06/03/19 19:18 Dose: Not Given Diltiazem HCl 100 mg/ Sodium (Chloride) 100 mls @ 10 mls/hr IV ASDIRECTED [facility]; Protocol Last Titration: 06/04/19 20:33 Dose: 5 mg/hr, 5 mls/hr Amiodarone HCl/Dextrose (Nexterone In Dextrose 360 Mg/200 Ml) 360 mg in 200 mls @ 33.333 mls/hr IV ASDIRECTED [facility]; Protocol Last Admin: 06/04/19 06:22 Dose: 1 mg/min, 33.333 mls/hr Amiodarone HCl 150 mg/ (Dextrose/Water) 103 mls @ 600 mls/hr IV .BOLUS ONE Stop: 06/04/19 05:57 Last Admin: 06/04/19 06:08 Dose: 600 mls/hr Amiodarone HCl/Dextrose (Nexterone In Dextrose 360 Mg/200 Ml) 360 mg in 200 mls @ 16.665 mls/hr IV ASDIRECTED [facility]; Protocol Last Admin: 06/04/19 23:59 Dose: 16.7 mls/hr Iopamidol (Isovue Multipack-370 (76%)) 60 ml IVPUSH ONETIME [facility] Stop: 06/01/19 18:36 Last Admin: 06/01/19 18:35 Dose: 60 ml Metoprolol Tartrate (Lopressor) 5 mg IVPUSH ONETIME ONE Stop: 06/02/19 16:05 Last Admin: 06/02/19 16:37 Dose: 5 mg Metoprolol Tartrate (Lopressor) 25 mg PO BID [facility] Last Admin: 06/02/19 20:04 Dose: 25 mg Metoprolol Tartrate (Lopressor) 50 mg PO BID [facility] Last Admin: 06/03/19 08:17 Dose: 50 mg Metoprolol Tartrate (Lopressor) 25 mg PO NOW STA Stop: 06/03/19 10:30 Last Admin: 06/03/19 10:52 Dose: 25 mg Metoprolol Tartrate (Lopressor) 75 mg PO BID [facility] Last Admin: 06/03/19 20:53 Dose: 75 mg Metoprolol Tartrate (Lopressor) 0 mg PO Q12H [facility] Last Admin: 06/04/19 07:13 Dose: 100 mg Morphine Sulfate (Morphine) 2 mg IVPUSH Q2H PRN PRN Reason: Pain (severe 7-10) Stop: 06/02/19 17:14 Phenol/Menthol (Chloraseptic Throat [place]) 0 ml MUCMEM Q2H PRN PRN Reason: Sore Throat Prednisone (Prednisone) 40 mg PO WITHBREAKFAST [facility] Stop: 06/12/19 08:01 Prednisone (Prednisone) 40 mg PO WITHBREAKFAST [facility] Stop: 06/11/19 14:28 <Jimi Estrada - Last Filed: 06/06/19 18:37> Discharge Summary - Hospital Course HPI Initial Comments: I have examined the patient independently of adjunct faculty for medical terminology, Dr. Lynnette MD. I have discussed the case with him. I have reviewed and agree with the examination and plan as outlined by him. Please see orders. - Patient Summary/Data Consults: Consultations 06/02/19 12:02 Consult to Physician [CONS] Routine - Patient Data Vitals - Most Recent: Last Vital Signs Temp 36.5 C 06/06/19 18:00 Pulse 122 H 06/06/19 18:00 Resp 20 06/06/19 18:00 BP 126/89 06/06/19 18:00 Pulse Ox 97 06/06/19 18:00 I&O - Last 24 hours: Intake & Output 06/06/19 06/06/19 06/06/19 06:59 14:59 22:59 Intake Total 800 600 Output Total 650 1950 Balance 150 -1350 Lab Results - Last 24 hrs: Laboratory Results - last 24 hr 06/06/19 06/06/19 06/06/19 Range/Units 00:10 06:10 06:10 WBC 11.16 H (4.0-11.0) K/uL RBC 4.93 (4.50-5.90) M/uL Hgb 13.3 (13.0-17.0) g/dL Hct 41.7 (38.0-50.0) % MCV 84.6 (80.0-98.0) fL MCH 27.0 (27.0-32.0) pg MCHC 31.9 (31.0-37.0) g/dL RDW Std Deviation 46.3 (28.0-62.0) fl RDW Coeff of Qasim 15 (11.0-15.0) % Plt Count 239 (150-400) K/uL MPV 10.30 (7.40-12.00) fL Nucleated RBC % 0.0 /100WBC Nucleated RBCs # 0 K/uL Sodium 142 (136-148) mmol/L Potassium 4.1 (3.5-5.1) mmol/L Chloride 105 (98-107) mmol/L Carbon Dioxide 28.4 (21.0-32.0) mmol/L BUN 24 H (7.0-18.0) mg/dL Creatinine 1.2 (0.8-1.3) mg/dL Est Cr Clr Drug Dosing 66.91 mL/min Estimated GFR (MDRD) > 60.0 ml/min Glucose 103 (74-106) mg/dL Calcium 9.1 (8.5-10.1) mg/dL B-Natriuretic Peptide 196 H (<100) PG/ML Med Orders - Current: Current Medications Acetaminophen (Tylenol) 650 mg PO Q4H PRN PRN Reason: Pain (Mild 1-3)/fever Last Admin: 06/06/19 05:41 Dose: 650 mg Amiodarone HCl (Cordarone) 200 mg PO BID [facility] Last Admin: 06/06/19 08:42 Dose: 200 mg Apixaban (Eliquis) 5 mg PO BID [facility] Last Admin: 06/06/19 08:42 Dose: 5 mg Digoxin (Lanoxin) 250 mcg IVPUSH ONETIME [facility] Stop: 06/07/19 10:46 Last Admin: 06/05/19 15:00 Dose: 250 mcg Digoxin (Lanoxin) 250 mcg PO DAILY [facility] Last Admin: 06/06/19 08:43 Dose: 250 mcg Furosemide (Lasix) 40 mg IVPUSH BID [facility] Last Admin: 06/06/19 08:44 Dose: 40 mg Metoprolol Tartrate (Lopressor) 100 mg PO Q12H [facility] Last Admin: 06/06/19 17:46 Dose: 100 mg Ondansetron HCl (Zofran Odt) 4 mg PO Q4H PRN PRN Reason: nausea, able to take PO Ondansetron HCl (Zofran) 4 mg IVPUSH Q4H PRN PRN Reason: Nausea Polyethylene Glycol (Miralax) 17 gm PO DAILY [facility] Last Admin: 06/06/19 08:44 Dose: 17 gm Discontinued Medications Albuterol/Ipratropium (Duoneb 3.0-0.5 Mg/3 Ml) 3 ml NEB ONETIME ONE Stop: 06/01/19 14:48 Last Admin: 06/01/19 15:19 Dose: 3 ml Digoxin (Lanoxin) 250 mcg IVPUSH ONETIME ONE Stop: 06/04/19 00:39 Last Admin: 06/04/19 00:47 Dose: 250 mcg Digoxin (Lanoxin) 250 mcg IVPUSH ONETIME ONE Stop: 06/04/19 03:44 Last Admin: 06/04/19 03:51 Dose: 250 mcg Digoxin (Lanoxin) Confirm Administered Dose 500 mcg .ROUTE .STK-MED ONE Stop: 06/05/19 12:49 Last Admin: 06/05/19 15:09 Dose: 250 mcg Diltiazem HCl (Diltiazem) 20 mg IVPUSH ONETIME ONE Stop: 06/02/19 18:07 Last Admin: 06/02/19 18:20 Dose: 20 mg Diltiazem HCl (Diltiazem) 10 mg IVPUSH Q3H PRN PRN Reason: HR above 110 bpm Last Admin: 06/03/19 10:37 Dose: 10 mg Diltiazem HCl (Diltiazem) 20 mg IVPUSH ONETIME ONE Stop: 06/03/19 16:16 Last Admin: 06/03/19 16:48 Dose: 20 mg Diltiazem HCl (Cardizem Cd) 120 mg PO DAILY [facility] Last Admin: 06/05/19 11:02 Dose: 120 mg Enoxaparin Sodium (Lovenox) 40 mg SUBCUT Q24H [facility] Last Admin: 06/01/19 17:45 Dose: 40 mg Furosemide (Lasix) 20 mg IVPUSH STAT ONE Stop: 06/01/19 17:26 Last Admin: 06/01/19 19:52 Dose: Not Given Furosemide (Lasix) 40 mg IVPUSH STAT ONE Stop: 06/01/19 17:40 Last Admin: 06/01/19 17:47 Dose: 40 mg Furosemide (Lasix) 40 mg IVPUSH NOW ONE Stop: 06/02/19 09:47 Last Admin: 06/02/19 09:59 Dose: 40 mg HCTZ/Losartan Potassium (Hyzaar 50-12.5 Mg) 2 tab PO DAILY [facility] Last Admin: 06/04/19 20:21 Dose: Not Given Metoprolol Tartrate 5 mg/ (Sodium Chloride) 55 mls @ 100 mls/hr IV ONETIME ONE Stop: 06/01/19 17:08 Last Admin: 06/01/19 16:48 Dose: Not Given Sodium Chloride (Normal Saline) 1,000 mls @ 75 mls/hr IV ASDIRECTED [facility] Last Admin: 06/01/19 16:52 Dose: 75 mls/hr Diltiazem HCl 125 mg/ Sodium (Chloride) 125 mls @ 10 mls/hr IV ASDIRECTED [facility]; Protocol Sodium Chloride (Normal Saline) Confirm Administered Dose 100 mls @ as directed .ROUTE .STK-MED ONE Stop: 06/03/19 17:21 Last Admin: 06/03/19 19:18 Dose: Not Given Diltiazem HCl 100 mg/ Sodium (Chloride) 100 mls @ 10 mls/hr IV ASDIRECTED [facility]; Protocol Last Titration: 06/04/19 20:33 Dose: 5 mg/hr, 5 mls/hr Amiodarone HCl/Dextrose (Nexterone In Dextrose 360 Mg/200 Ml) 360 mg in 200 mls @ 33.333 mls/hr IV ASDIRECTED [facility]; Protocol Last Admin: 06/04/19 06:22 Dose: 1 mg/min, 33.333 mls/hr Amiodarone HCl 150 mg/ (Dextrose/Water) 103 mls @ 600 mls/hr IV .BOLUS ONE Stop: 06/04/19 05:57 Last Admin: 06/04/19 06:08 Dose: 600 mls/hr Amiodarone HCl/Dextrose (Nexterone In Dextrose 360 Mg/200 Ml) 360 mg in 200 mls @ 16.665 mls/hr IV ASDIRECTED [facility]; Protocol Last Admin: 06/04/19 23:59 Dose: 16.7 mls/hr Iopamidol (Isovue Multipack-370 (76%)) 60 ml IVPUSH ONETIME [facility] Stop: 06/01/19 18:36 Last Admin: 06/01/19 18:35 Dose: 60 ml Metoprolol Tartrate (Lopressor) 5 mg IVPUSH ONETIME ONE Stop: 06/02/19 16:05 Last Admin: 06/02/19 16:37 Dose: 5 mg Metoprolol Tartrate (Lopressor) 25 mg PO BID [facility] Last Admin: 06/02/19 20:04 Dose: 25 mg Metoprolol Tartrate (Lopressor) 50 mg PO BID [facility] Last Admin: 06/03/19 08:17 Dose: 50 mg Metoprolol Tartrate (Lopressor) 25 mg PO NOW [facility] Stop: 06/03/19 10:30 Last Admin: 06/03/19 10:52 Dose: 25 mg Metoprolol Tartrate (Lopressor) 75 mg PO BID [facility] Last Admin: 06/03/19 20:53 Dose: 75 mg Metoprolol Tartrate (Lopressor) 0 mg PO Q12H [facility] Last Admin: 06/04/19 07:13 Dose: 100 mg Morphine Sulfate (Morphine) 2 mg IVPUSH Q2H PRN PRN Reason: Pain (severe 7-10) Stop: 06/02/19 17:14 Phenol/Menthol (Chloraseptic Throat [place]) 0 ml MUCMEM Q2H PRN PRN Reason: Sore Throat Prednisone (Prednisone) 40 mg PO WITHBREAKFAST [facility] Stop: 06/12/19 08:01 Prednisone (Prednisone) 40 mg PO WITHBREAKFAST [facility] Stop: 06/11/19 14:28
[2019-06-07] MEDS ORDERED: predniSONE 20 MG Tab PO SCH (08:00)
== END 2019-06-06 19:03 | disposition home or self-care (01) | DRG 194 ==
LOC: MW.ED 14:22 → OBSVTOIN 19:03 → MW.MS 19:03 → UNDOADMOB 19:03 → MW.ICU 06-03 17:19
PROVIDERS: ADMIT Internal Medicine; ATTEND Internal Medicine
DX: I11.0 Hypertensive heart disease with heart failure (principal); I48.92 Unspecified atrial flutter; I50.20 Unspecified systolic (congestive) heart failure; K59.09 Other constipation; G89.29 Other chronic pain; M54.9 Dorsalgia, unspecified; M19.91 Primary osteoarthritis, unspecified site; E66.9 Obesity, unspecified; Z96.651 Presence of right artificial knee joint; I42.8 Other cardiomyopathies; Z79.82 Long term (current) use of aspirin; Z90.49 Acquired absence of other specified parts of digestive tract; Z79.899 Other long term (current) drug therapy; Z68.41 Body mass index [BMI] 40.0-44.9, adult
CPT/HCPCS: 36415; 71045; 71045-26; 71046; 71046-26; 71275; 71275-26; 80048; 80053; 80061; 81003; 83036; 83735; 83880; 84443; 84484; 85025; 85027; 85379; 93005; 93306; 96361; 96372; 96374; 96375; 96376; 97161-GP; 99285; 99285-25; A9270-GY; G0378; J0282; J1160; J1650; J1940; J3490; J7030; J7040; J7060; J7620-GY; Q9967

== ENCOUNTER 2020-07-17 09:52 | Emergency (ER) | payer BC, OTHER ==
[2020-07-17] MEDS ORDERED: Sodium Chloride 0.9% 10 ML Syringe FLUSH PRN (10:06)
[2020-07-17] MEDS ORDERED: Sodium Chloride 0.9% 2.5 ML Syringe FLUSH PRN (10:06)
--- NOTE | 2020-07-17 10:14 | EDM.PDOC ---
ED HPI GENERAL MEDICAL PROBLEM - General Chief Complaint: Respiratory Problem Stated Complaint: SOB ARTHRITIS PAIN Time Seen by Provider: 07/17/20 09:53 - History of Present Illness INITIAL COMMENTS - FREE TEXT/NARRATIVE: 64-year-old male with a history of cardiomegaly with EF last year of 20% as well as a history of atrial flutter with a rate that was initially very difficult to control he was discharged on metoprolol and amiodarone last year. However, he subsequently followed up in [place] for cardioversion which was successful. He reports that he has not had issues since that time. He continues on his metoprolol his Lasix at 20 mg as well as Eliquis. He states that he has been struggling with pain from arthritis for some time in his knees. He also reports that over the last 3 days he has developed some shortness of breath. He feels like it worsens when he has to struggle with his knee pain or do any activity. He states that it "kind of snuck up on me." He denies cough or fever he reports some chest discomfort with exertion. Denies lower extremity pain or swelling or unintentional weight gain he reports compliance with his medications. He does note that his sleep apnea machine which is to level settings has been malfunctioning and stuck on the high level setting recently. Bilateral Knees Pain Score (Numeric/FACES): 8 - Related Data Allergies Allergy/AdvReac Type Severity Reaction Status Date / Time No Known Allergies Allergy Verified 06/15/19 16:06 Home Meds: Home Meds Apixaban [Eliquis] 5 mg PO BID 30 Days #60 tablet 06/06/19 [Rx] Amoxicillin 2,000 mg PO ASDIRECTED 07/17/20 [History] Diclofenac Sodium 75 mg PO BID 07/17/20 [History] Furosemide 40 mg PO DAILY 07/17/20 [History] Losartan Potassium 50 mg PO DAILY 07/17/20 [History] Metoprolol Succinate [Toprol XL] 25 mg PO DAILY 07/17/20 [History] Potassium Chloride [Klor-Con 10] 10 meq PO DAILY 07/17/20 [History] Sildenafil [Viagra] 100 mg PO BEDTIME PRN 07/17/20 [History] Past Medical History HEENT History: Reports: Other (See Below) Other HEENT History: has upper denture Cardiovascular History: Reports: Hypertension Respiratory History: Reports: Other (See Below) Gastrointestinal History: Reports: Chronic Constipation Genitourinary History: Reports: None Musculoskeletal History: Reports: Back Pain, Chronic, Fracture, Osteoarthritis, Other (See Below) Other Musculoskeletal History: hx of DAYANNA's for back pain, hx of fx ankle, Neurological History: Reports: Other (See Below) Endocrine/Metabolic History: Reports: Obesity/BMI 30+ Hematologic History: Other Hematologic History: states unknown if any blood tranfusions Immunologic History: Reports: None Oncologic (Cancer) History: Reports: None - Infectious Disease History Infectious Disease History: Reports: Chicken Pox, Measles, Mumps - Past Surgical History HEENT Surgical History: Reports: LASIK, Tonsillectomy, Other (See Below) Other HEENT Surgeries/Procedures: removal of mass from forehead GI Surgical History: Reports: Appendectomy Neurological Surgical History: Reports: Other (See Below) Other Neurological Surgeries/Procedures: removal of bone spur from T10-T11 08/10 Musculoskeletal Surgical History: Reports: Knee Replacement Other Musculoskeletal Surgeries/Procedures:: removal of bone spur from T10-T11, excisional debridement of Rt TKA with removal of components and placement of antibiotic spacer on Sep 05, 2018, removal of antibiotic spacer and revision of rt TKA 11/21/18 Social & Family History - Family History Family Medical History: Noncontributory - Caffeine Use Caffeine Use: Reports: Coffee ED ROS GENERAL - Review of Systems Review Of Systems: See Below Free Text/Narrative/Comment: General: No fever. Skin: No rash. Eyes: No vision problems. ENT: No sore throat. Neck: No neck stiffness. Respiratory: Per HPI Cardiac: Per HPI Gastrointestinal: No nausea, vomiting or abdominal pain. Urinary: No dysuria. Musculoskeletal: Per HPI Neurologic: No headache. ED EXAM, GENERAL - Physical Exam Exam: See Below Free Text/Narrative:: General Appearance: Mild respiratory distress Skin: No rash HEENT: Normocephalic/atraumatic, sclera anicteric, mucous membranes moist Neck: Normal range of motion Chest and Lungs: Crackles in the bilateral lower lung salmon, tachypnea, no wheezing or rhonchi Cardiovascular: Minimally tachycardic rate, intact distal perfusion, no lower extremity edema Abdomen: Soft, non-tender Back: Normal Musculoskeletal: No edema or tenderness Neurologic: Awake, alert, no obvious deficits, moving all extremities Psychiatric: Appropriate, cooperative EKG INTERPRETATION EKG Date: 07/17/20 Time: 09:58 EKG Interpretation Comments: Sinus tachycardia rate of 100 signs of right ventricular hypertrophy nonspecific T wave changes prolonged QTC at 510 Course - Vital Signs Last Recorded V/S: Last Vital Signs Temp 94.3 F L 07/17/20 09:55 Pulse 80 07/17/20 11:19 Resp 31 H 07/17/20 11:19 BP 95/62 07/17/20 11:19 Pulse Ox 95 07/17/20 11:19 - Orders/Labs/Meds Orders: Active Orders 24 hr Category Date Time Status BIPAP Adult [RT BiPAP/CPAP] [] ASDIRECTED Care 07/17/20 10:19 Active EKG 12 Lead [EKG Documentation Completion] [] STAT Care 07/17/20 09:55 Active PROCALCITONIN [REF] Stat Lab 07/17/20 10:07 Received Sodium Chloride 0.9% [Saline Flush] Med 07/17/20 10:06 Active 10 ml FLUSH ASDIRECTED PRN Sodium Chloride 0.9% [Saline Flush] Med 07/17/20 10:06 Active 2.5 ml FLUSH ASDIRECTED PRN Saline Lock Insert [OM.PC] Stat Oth 07/17/20 10:06 Ordered Medication Orders Sodium Chloride (Saline Flush) 10 ml FLUSH ASDIRECTED PRN PRN Reason: Keep Vein Open Last Admin: 07/17/20 11:13 Dose: 10 ml Documented by: SHERMAN Sodium Chloride (Saline Flush) 2.5 ml FLUSH ASDIRECTED PRN PRN Reason: Keep Vein Open Last Admin: 07/17/20 11:14 Dose: 2.5 ml Documented by: SHERMAN Labs: Laboratory Tests 07/17/20 07/17/20 07/17/20 Range/Units 10:07 10:07 10:07 WBC 13.19 H (4.0-11.0) K/uL RBC 4.66 (4.50-5.90) M/uL Hgb 14.3 (13.0-17.0) g/dL Hct 43.3 (38.0-50.0) % MCV 92.9 (80.0-98.0) fL MCH 30.7 (27.0-32.0) pg MCHC 33.0 (31.0-37.0) g/dL RDW Std Deviation 48.0 (28.0-62.0) fl RDW Coeff of Qasim 14 (11.0-15.0) % Plt Count 294 (150-400) K/uL MPV 10.30 (7.40-12.00) fL Neut % (Auto) 89.7 H (48.0-80.0) % Lymph % (Auto) 6.7 L (16.0-40.0) % Gates % (Auto) 3.4 (0.0-15.0) % Eos % (Auto) 0.0 (0.0-7.0) % Baso % (Auto) 0.2 (0.0-1.5) % Neut # (Auto) 11.8 H (1.4-5.7) K/uL Lymph # (Auto) 0.9 (0.6-2.4) K/uL Gates # (Auto) 0.5 (0.0-0.8) K/uL Eos # (Auto) 0.0 (0.0-0.7) K/uL Baso # (Auto) 0.0 (0.0-0.1) K/uL Nucleated RBC % 0.3 /100WBC Nucleated RBCs # 0 K/uL INR APTT (18.6-31.3) SEC D-Dimer, Quantitative 1.14 H (0.0-0.50) mg/L FEU Sodium 139 (136-148) mmol/L Potassium 3.4 L (3.5-5.1) mmol/L Chloride 101 (98-107) mmol/L Carbon Dioxide 25.0 (21.0-32.0) mmol/L BUN 33 H (7.0-18.0) mg/dL Creatinine 1.7 H (0.8-1.3) mg/dL Est Cr Clr Drug Dosing 46.52 mL/min Estimated GFR (MDRD) 41.0 ml/min Glucose 183 H (74-106) mg/dL Calcium 8.5 (8.5-10.1) mg/dL Magnesium 2.4 (1.8-2.4) mg/dL Total Bilirubin 0.6 (0.2-1.0) mg/dL AST 60 H (15-37) IU/L ALT 67 H (14-63) IU/L Alkaline Phosphatase 105 (46-116) U/L Troponin I 0.190 H* (0.000-0.056) ng/mL B-Natriuretic Peptide (<100) PG/ML Total Protein 7.3 (6.4-8.2) g/dL Albumin 2.7 L (3.4-5.0) g/dL Globulin 4.6 H (2.6-4.0) g/dL Albumin/Globulin Ratio 0.6 L (0.9-1.6) SARS-CoV-2 RNA (SANYA) (NEGATIVE) 07/17/20 07/17/20 07/17/20 Range/Units 10:07 10:07 10:21 WBC (4.0-11.0) K/uL RBC (4.50-5.90) M/uL Hgb (13.0-17.0) g/dL Hct (38.0-50.0) % MCV (80.0-98.0) fL MCH (27.0-32.0) pg MCHC (31.0-37.0) g/dL RDW Std Deviation (28.0-62.0) fl RDW Coeff of Qasim (11.0-15.0) % Plt Count (150-400) K/uL MPV (7.40-12.00) fL Neut % (Auto) (48.0-80.0) % Lymph % (Auto) (16.0-40.0) % Gates % (Auto) (0.0-15.0) % Eos % (Auto) (0.0-7.0) % Baso % (Auto) (0.0-1.5) % Neut # (Auto) (1.4-5.7) K/uL Lymph # (Auto) (0.6-2.4) K/uL Gates # (Auto) (0.0-0.8) K/uL Eos # (Auto) (0.0-0.7) K/uL Baso # (Auto) (0.0-0.1) K/uL Nucleated RBC % /100WBC Nucleated RBCs # K/uL INR 1.07 APTT 27.3 (18.6-31.3) SEC D-Dimer, Quantitative (0.0-0.50) mg/L FEU Sodium (136-148) mmol/L Potassium (3.5-5.1) mmol/L Chloride (98-107) mmol/L Carbon Dioxide (21.0-32.0) mmol/L BUN (7.0-18.0) mg/dL Creatinine (0.8-1.3) mg/dL Est Cr Clr Drug Dosing mL/min Estimated GFR (MDRD) ml/min Glucose (74-106) mg/dL Calcium (8.5-10.1) mg/dL Magnesium (1.8-2.4) mg/dL Total Bilirubin (0.2-1.0) mg/dL AST (15-37) IU/L ALT (14-63) IU/L Alkaline Phosphatase (46-116) U/L Troponin I (0.000-0.056) ng/mL B-Natriuretic Peptide 342 H (<100) PG/ML Total Protein (6.4-8.2) g/dL Albumin (3.4-5.0) g/dL Globulin (2.6-4.0) g/dL Albumin/Globulin Ratio (0.9-1.6) SARS-CoV-2 RNA (SANYA) POSITIVE H (NEGATIVE) Meds: Medications Generic Name Dose Route Start Last Admin Trade Name Freq PRN Reason Stop Dose Admin Sodium Chloride 10 ml 07/17/20 10:06 07/17/20 11:13 Saline Flush FLUSH 10 ml ASDIRECTED PRN Administration Keep Vein Open Sodium Chloride 2.5 ml 07/17/20 10:06 07/17/20 11:14 Saline Flush FLUSH 2.5 ml ASDIRECTED PRN Administration Keep Vein Open Discontinued Medications Generic Name Dose Route Start Last Admin Trade Name Freq PRN Reason Stop Dose Admin Furosemide 40 mg 07/17/20 10:51 07/17/20 11:13 Lasix IVPUSH 07/17/20 10:52 40 mg NOW ONE Administration - Re-Assessments/Exams Free Text/Narrative Re-Assessment/Exam: 07/17/20 10:19 Pt now with O2 back in the mid 80s and will transition to BiPaP Departure - Departure Time of Disposition: 13:14 Disposition: DC/Tfer to Acute Hospital 02 Condition: Serious Clinical Impression: CHF (congestive heart failure), COVID-19, Acute respiratory failure with hypoxia - Discharge Information Referrals: Jose Barros MD [Primary Care Provider] - Forms: ED Department Discharge Critical Care Note - Critical Care Note Total Time (mins): 35 Comments: 64-year-old male presenting in respiratory distress requiring me to stop seeing other patients and immediately evaluate the patient. placed him on oxygen and rapidly work to identify the cause. Multiple reassessments were required. Sepsis Event Note (ED) - Focused Exam Vital Signs: Vital Signs Temp Pulse Resp BP Pulse Ox 07/17/20 11:19 80 31 H 95/62 95 07/17/20 11:04 81 29 H 92/61 95 07/17/20 10:49 77 30 H 97/54 L 95 07/17/20 10:34 89 38 H 99/58 L 97 07/17/20 10:06 94 26 H 106/48 L 92 L 07/17/20 09:55 94.3 F L - My Orders Last 24 Hours: My Active Orders 07/17/20 09:55 EKG 12 Lead [EKG Documentation Completion] [RC] STAT 07/17/20 10:06 Sodium Chloride 0.9% [Saline Flush] 10 ml FLUSH ASDIRECTED PRN Sodium Chloride 0.9% [Saline Flush] 2.5 ml FLUSH ASDIRECTED PRN Saline Lock Insert [OM.PC] Stat 07/17/20 10:07 PROCALCITONIN [REF] Stat 07/17/20 10:19 BIPAP Adult [RT BiPAP/CPAP] [RC] ASDIRECTED - Assessment/Plan Last 24 Hours: My Active Orders 07/17/20 09:55 EKG 12 Lead [EKG Documentation Completion] [RC] STAT 07/17/20 10:06 Sodium Chloride 0.9% [Saline Flush] 10 ml FLUSH ASDIRECTED PRN Sodium Chloride 0.9% [Saline Flush] 2.5 ml FLUSH ASDIRECTED PRN Saline Lock Insert [OM.PC] Stat 07/17/20 10:07 PROCALCITONIN [REF] Stat 07/17/20 10:19 BIPAP Adult [RT BiPAP/CPAP] [RC] ASDIRECTED Assessment:: 1010: 64-year-old male presenting with mild respiratory distress no wheezing and tachypnea but no significant increased work of breathing. Patient's blood pressure is not significantly hypertensive and he has no lower extremity edema flash pulmonary edema considered but felt less likely. That said given his depressed ejection fraction fluid overload is certainly a consideration he is coming up on a nonrebreather with current oxygen saturations in the low 90s symptomatic improvement. We will hold on escalation of BiPAP for now. ACS considered I think it is unlikely given the clinical presentation but troponin pending BNP as well. Chest x-ray pending pneumonia and COVID felt very unlikely but also considered and relevant code swab sent. Right ventricular hypertrophy and pulmonary artery hypertension could easily be contributing to his symptoms given his report of malfunctioning home JOAQUIN machine. PE certainly needs to be considered as well d-dimer sent. 1220: Labs notable for elevated d-dimer and CT pulmonary angiography pending. BNP mildly elevated troponin also mildly elevated chest x-ray demonstrates severe diffuse pulmonary edema likely with underlying COVID-19 related pneumonia. Patient has continued to stabilize on BiPAP. Unfortunately his positive troponin bars is from keeping him at this facility. We have called a number of places in the closest accepting facility we could arrange was in [place]. Patient was accepted by Dr. Young for transfer there and admission to their intermediate care unit. Labs with minimal renal insufficiency. However, given the positive d-dimer and the need to exclude pulmonary embolism pain is currently positive patient will proceed with CT pulmonary angiography and start heparin if it demonstrates an acute PE. I do think the patient is stable to fly to [facility] at this time. We do not have the ability to arrange ground transport for him in a reasonable period of time is all grounds are unavailable. Given his continued BiPAP I do not think it is in his best interest to remain at this facility all day long and so for patient safety will fly the patient. 1315: CTPA is negative for acute PE. Will update [facility] and proceed with transfer.
[2020-07-17 10:42] LABS: POTASSIUM,K 3.4 mmol/L (3.5-5.1)
[2020-07-17] MEDS ORDERED: Furosemide 40 MG/4 ML VIAL IVPUSH ONE (10:51)
--- NOTE | 2020-07-17 10:59 | CR ---
Chest: Portable view of the chest was obtained. Comparison: Prior chest x-ray of 06/04/19. Diffuse increased density throughout both sides of the chest. Heart is enlarged. Bony structures are grossly intact. Impression: 1. Diffuse increased density within both sides the chest. Findings most likely represent severe pulmonary edema. Diffuse pneumonia is possible but felt less likely. Diagnostic code #5 This report was dictated in MDT
--- NOTE | 2020-07-17 13:11 | CT ---
CT angiogram of chest Technique: Multiple axial sections through the chest were obtained. Intravenous contrast was utilized. Study performed as a pulmonary protocol. Findings: Significant artifact is seen secondary to scan being too low in radiation technique. Heart is enlarged. Pulmonary arteries are well-opacified. There are no discrete filling defects to indicate definite pulmonary embolism. Aorta shows no aneurysm with atherosclerotic change. Mediastinum shows no definite areas of adenopathy. Diffuse increased density throughout both sides of the chest are seen. Differential remains as on chest x-ray of pulmonary edema versus diffuse infection. Please rule out Covid pneumonia. Bone window settings were reviewed which shows scattered endplate spurring within the spine. No acute abnormality is appreciated. Impression: 1. Diffuse increased density throughout both sides of the chest. Differential remains as noted on chest x-ray report with pulmonary edema and diffuse pneumonia. Please rule out Covid pneumonia. 2. Cardiomegaly. 3. Significant artifact as noted above. No definite findings of pulmonary embolism. Diagnostic code #5 This report was dictated in MDT
[2020-07-17 14:07] VITALS: BP 139/46; PULSE 84
[2020-07-17] MEDS ORDERED: Iopamidol 755 Mg/ML 100 ML Bottle IVPUSH STA (14:09)
== END 2020-07-17 13:57 ==
LOC: MW.ED 09:52
DX: U07.1 COVID-19 (principal); J96.01 Acute respiratory failure with hypoxia; I11.0 Hypertensive heart disease with heart failure; I50.9 Heart failure, unspecified; R00.0 Tachycardia, unspecified; M19.90 Unspecified osteoarthritis, unspecified site; E66.9 Obesity, unspecified; Z68.41 Body mass index [BMI] 40.0-44.9, adult; Z79.01 Long term (current) use of anticoagulants; Z79.899 Other long term (current) drug therapy
CPT/HCPCS: 36415; 71045; 71275; 80053; 83735; 83880; 84145; 84484; 85025; 85379; 85610; 85730; 87635; 93005; 94660; 96374; 99285; J1940; Q9967; 99291; U0002

== ENCOUNTER 2020-07-28 08:27 | Emergency (ER) | payer BC, OTHER ==
[2020-07-28] MEDS ORDERED: Acetaminophen 500 MG Tab PO ONE (08:29)
--- NOTE | 2020-07-28 08:30 | EDM.PDOC ---
ED HPI GENERAL MEDICAL PROBLEM - General Stated Complaint: LEG PAIN Time Seen by Provider: 07/28/20 08:28 Source of Information: Reports: Patient, EMS History Limitations: Reports: No Limitations - History of Present Illness INITIAL COMMENTS - FREE TEXT/NARRATIVE: 64M PMHx chronic R knee pain, s/p surgery R knee, morbid obesity, CHF, Afib on Elaquis, discharged from [facility] yesterday after stay for COVID-19 presents for R knee pain following a fall. Patient rolled out of bed this morning. He did not hit his head, he did not lose consciousness. He notes he has had pain in the R knee for years but worsening over last 2 weeks. He had this worked up in [place], [place] but was told it is arthritis and was given pain medication. He does have continued SOB and notes he has supplemental O2 at home that was set up for him yesterday. right knee Pain Score (Numeric/FACES): 9 - Related Data Allergies Allergy/AdvReac Type Severity Reaction Status Date / Time No Known Allergies Allergy Verified 07/28/20 08:56 Home Meds: Home Meds Apixaban [Eliquis] 5 mg PO BID 30 Days #60 tablet 06/06/19 [Rx] Amoxicillin 2,000 mg PO ASDIRECTED 07/17/20 [History] Diclofenac Sodium 75 mg PO BID 07/17/20 [History] Furosemide 40 mg PO DAILY 07/17/20 [History] Losartan Potassium 50 mg PO DAILY 07/17/20 [History] Metoprolol Succinate [Toprol XL] 25 mg PO DAILY 07/17/20 [History] Potassium Chloride [Klor-Con 10] 10 meq PO DAILY 07/17/20 [History] Sildenafil [Viagra] 100 mg PO BEDTIME PRN 07/17/20 [History] Past Medical History HEENT History: Reports: Other (See Below) Other HEENT History: has upper denture Cardiovascular History: Reports: Hypertension Respiratory History: Reports: Other (See Below) Gastrointestinal History: Reports: Chronic Constipation Genitourinary History: Reports: None Musculoskeletal History: Reports: Back Pain, Chronic, Fracture, Osteoarthritis, Other (See Below) Other Musculoskeletal History: hx of DAYANNA's for back pain, hx of fx ankle, Neurological History: Reports: Other (See Below) Endocrine/Metabolic History: Reports: Obesity/BMI 30+ Hematologic History: Other Hematologic History: states unknown if any blood tranfusions Immunologic History: Reports: None Oncologic (Cancer) History: Reports: None - Infectious Disease History Infectious Disease History: Reports: Chicken Pox, Measles, Mumps - Past Surgical History HEENT Surgical History: Reports: LASIK, Tonsillectomy, Other (See Below) Other HEENT Surgeries/Procedures: removal of mass from forehead GI Surgical History: Reports: Appendectomy Neurological Surgical History: Reports: Other (See Below) Other Neurological Surgeries/Procedures: removal of bone spur from T10-T11 08/10 Musculoskeletal Surgical History: Reports: Knee Replacement Other Musculoskeletal Surgeries/Procedures:: removal of bone spur from T10-T11, excisional debridement of Rt TKA with removal of components and placement of antibiotic spacer on Sep 05, 2018, removal of antibiotic spacer and revision of rt TKA 11/21/18 Social & Family History - Family History Family Medical History: Noncontributory - Caffeine Use Caffeine Use: Reports: Coffee ED ROS GENERAL - Review of Systems Review Of Systems: Comprehensive ROS is negative, except as noted in HPI. ED EXAM, GENERAL - Physical Exam Exam: See Below Exam Limited By: No Limitations General Appearance: Alert, WD/WN, No Apparent Distress Ears: Normal External Exam Nose: Normal Inspection Throat/Mouth: Normal Inspection, Normal Voice, No Airway Compromise Head: Atraumatic, Normocephalic Neck: Normal Inspection, Supple, Non-Tender. No: Tender Midline Respiratory/Chest: No Respiratory Distress, No Accessory Muscle Use Cardiovascular: Normal Peripheral Pulses, No Edema Extremities: Other (post-operative scar on R knee, no overt swelling/erythema/TTP of b/l knees) Neurological: Alert Psychiatric: Normal Affect, Normal Mood Skin Exam: Warm, Dry, Intact, Normal Color Course - Vital Signs Last Recorded V/S: Last Vital Signs Temp 97.4 F 07/28/20 08:27 Pulse 93 07/28/20 08:27 Resp 17 07/28/20 08:27 BP 116/58 L 07/28/20 08:27 Pulse Ox 96 07/28/20 08:27 - Orders/Labs/Meds Orders: Active Orders 24 hr Category Date Time Status Tibia Fibula Rt [CR] Stat Exams 07/28/20 08:39 Taken Meds: Medications Discontinued Medications Generic Name Dose Route Start Last Admin Trade Name Freq PRN Reason Stop Dose Admin Acetaminophen 1,000 mg 10/04/20 08:29 07/28/20 08:49 Tylenol Extra Strength PO 07/28/20 08:30 1,000 mg ONETIME ONE Administration - Re-Assessments/Exams Free Text/Narrative Re-Assessment/Exam: 07/28/20 08:35 Patient was discharged yesterday after admit in [place], [place] for COVID-19. He fell out of bed this morning injuring his R knee. Will get XR image of R knee and treat pain with tylenol. Anticipate d/c home. 07/28/20 09:21 XR imaging remarkable for evidence of old R ankle fracture; patient's pain is in his knee and just distal to knee. Knee XR shows post-operative changes but without abnormality. Will d/c with orthopedic f/u Departure - Departure Time of Disposition: :22 Disposition: Home, Self-Care 01 Condition: Good Clinical Impression: Knee pain Qualifiers: Chronicity: acute Laterality: right Qualified Code(s): M25.561 - Pain in right knee - Discharge Information Instructions: Chronic Knee Pain, Adult, [id number], Acute Knee Pain, Adult Additional Instructions: The following information is given to patients seen in the emergency department who are being discharged to home. This information is to outline your options for follow-up care. We provide all patients seen in our emergency department with a follow-up referral. The need for follow-up, as well as the timing and circumstances, are variable depending upon the specifics of your emergency department visit. If you don't have a primary care physician on staff, we will provide you with a referral. We always advise you to contact your personal physician following an emergency department visit to inform them of the circumstance of the visit and for follow-up with them and/or the need for any referrals to a consulting specialist. The emergency department will also refer you to a specialist when appropriate. This referral assures that you have the opportunity for follow-up care with a specialist. All of these measure are taken in an effort to provide you with optimal care, which includes your follow-up. Under all circumstances we always encourage you to contact your private physician who remains a resource for coordinating your care. When calling for follow-up care, please make the office aware that this follow-up is from your recent emergency room visit. If for any reason you are refused follow-up, please contact the [facility] at and asked to speak to the emergency department charge nurse. Please follow up with your orthopedic surgeon. If you do not have an orthopedic surgeon, you can follow up with: [facility] [address], [address] [place] [address] Sepsis Event Note (ED) - Focused Exam Vital Signs: Vital Signs Temp Pulse Resp BP Pulse Ox 07/28/20 08:27 97.4 F 93 17 116/58 L 96 - My Orders Last 24 Hours: My Active Orders 07/28/20 08:39 Tibia Fibula Rt [CR] Stat - Assessment/Plan Last 24 Hours: My Active Orders 07/28/20 08:39 Tibia Fibula Rt [CR] Stat
[2020-07-28 09:05] VITALS: BP 116/58; PULSE 93
--- NOTE | 2020-07-28 09:15 | CR ---
INDICATION: Pt fell and hurt right knee today. HISTORY: Injury. COMPARISON: 06/15/2019. TECHNIQUE: Right knee, 3 views. FINDINGS: Revision right knee arthroplasty. This is stable when compared with 06/15/2019. Tibial component is not entirely included on the field of view. Small suprapatellar joint effusion, with soft tissue swelling. No patellar subluxation or tilt on the Merchant/sunrise view. IMPRESSION: Stable postoperative changes of a right knee arthroplasty, likely a revision. Dictated by Ba Jacobs MD @ 07/28/2020 9:13:35 AM Dictated by: Ba Jacobs MD @ 07/28/2020 09:13:41 (Electronically Signed)
--- NOTE | 2020-07-28 09:21 | CR ---
INDICATION: Pt fell today and hurt rt leg. HISTORY: Fall. COMPARISON: None. TECHNIQUE: Right tibia/fibula, AP and lateral views. FINDINGS: There is a remote appearing fracture of the distal fibula on the lateral projection, and a posttraumatic deformity of the right medial malleolus. There is no associated soft tissue swelling. Partially visualized knee arthroplasty. No radiographic evidence for periprosthetic fracture. No evidence for loosening. IMPRESSION: 1. Fracture deformities of the right distal fibula and medial malleolus. No associated soft tissue swelling. 2. Per my discussion with Dr. Vizcaino, emergency department, 07/28/2020, 0916 hours, the patient is not tender at this site, and has a history of remote fractures of the tibiotalar joint. Dictated by Ba Jacobs MD @ 07/28/2020 9:19:06 AM Dictated by: Ba Jacobs MD @ 07/28/2020 09:19:18 (Electronically Signed)
== END 2020-07-28 10:00 | disposition home or self-care (01) ==
LOC: MW.ED 08:27
DX: M25.561 Pain in right knee (principal); I11.0 Hypertensive heart disease with heart failure; I50.9 Heart failure, unspecified; I48.91 Unspecified atrial fibrillation; M19.90 Unspecified osteoarthritis, unspecified site; E66.01 Morbid (severe) obesity due to excess calories; Z68.42 Body mass index [BMI] 45.0-49.9, adult; Z96.651 Presence of right artificial knee joint; Z79.01 Long term (current) use of anticoagulants; Z79.899 Other long term (current) drug therapy
CPT/HCPCS: 73562; 73590; 99283; A9270; 99282

== ENCOUNTER 2021-07-14 10:24 | Emergency (ER) | payer BC ==
--- NOTE | 2021-07-14 10:34 | EDM.PDOC ---
ED HPI GENERAL MEDICAL PROBLEM - General Chief Complaint: Trauma Stated Complaint: FALL Time Seen by Provider: 07/14/21 10:29 Source of Information: Reports: Patient History Limitations: Reports: No Limitations - History of Present Illness INITIAL COMMENTS - FREE TEXT/NARRATIVE: Patient is a 65-year-old male brought in today after fall from standing on blood thinners. Patient airways intact bilateral breath sounds good circulation movement extremities. Patient says he was leaving the grocery store when the next thing he remembers he was down on the ground. He believes he did hit the back of his head. Complains of pain only to the back of his head and his neck not radiate not made worse or better with anything. Patient denies any other associated symptoms denies any vision changes any change in mental status. Posterior Neck Pain Score (Numeric/FACES): 5 - Related Data Allergies Allergy/AdvReac Type Severity Reaction Status Date / Time No Known Allergies Allergy Verified 07/14/21 10:41 Home Meds: Home Meds Apixaban [Eliquis] 5 mg PO BID 30 Days #60 tablet 06/06/19 [Rx] Losartan Potassium 50 mg PO DAILY 07/17/20 [History] Metoprolol Succinate [Toprol XL] 25 mg PO DAILY 07/17/20 [History] Sildenafil [Viagra] 100 mg PO BEDTIME PRN 07/17/20 [History] Doxycycline Hyclate 100 mg PO BID 07/14/21 [History] Past Medical History HEENT History: Reports: Other (See Below) Other HEENT History: has upper denture Cardiovascular History: Reports: Hypertension Respiratory History: Reports: Other (See Below) Gastrointestinal History: Reports: Chronic Constipation Genitourinary History: Reports: None Musculoskeletal History: Reports: Back Pain, Chronic, Fracture, Osteoarthritis, Other (See Below) Other Musculoskeletal History: hx of DAYANNA's for back pain, hx of fx ankle, Neurological History: Reports: Other (See Below) Endocrine/Metabolic History: Reports: Obesity/BMI 30+ Hematologic History: Other Hematologic History: states unknown if any blood tranfusions Immunologic History: Reports: None Oncologic (Cancer) History: Reports: None - Infectious Disease History Infectious Disease History: Reports: Chicken Pox, Measles, Mumps - Past Surgical History HEENT Surgical History: Reports: LASIK, Tonsillectomy, Other (See Below) Other HEENT Surgeries/Procedures: removal of mass from forehead GI Surgical History: Reports: Appendectomy Neurological Surgical History: Reports: Other (See Below) Other Neurological Surgeries/Procedures: removal of bone spur from T10-T11 08/10 Musculoskeletal Surgical History: Reports: Knee Replacement Other Musculoskeletal Surgeries/Procedures:: removal of bone spur from T10-T11, excisional debridement of Rt TKA with removal of components and placement of antibiotic spacer on Sep 05, 2018, removal of antibiotic spacer and revision of rt TKA 11/21/18 Social & Family History - Family History Family Medical History: No Pertinent Family History - Caffeine Use Caffeine Use: Reports: Coffee Review of Systems - Review of Systems Review Of Systems: See Below Constitutional: Reports: No Symptoms Eyes: Reports: No Symptoms Ears: Reports: No Symptoms Nose: Reports: No Symptoms Mouth/Throat: Reports: No Symptoms Respiratory: Reports: No Symptoms Cardiovascular: Reports: No Symptoms GI/Abdominal: Reports: No Symptoms Genitourinary: Reports: No Symptoms Musculoskeletal: Reports: No Symptoms Skin: Reports: No Symptoms Neurological: Reports: Headache Psychiatric: Reports: No Symptoms ED EXAM, GENERAL - Physical Exam Exam: See Below Exam Limited By: No Limitations General Appearance: Alert, WD/WN, No Apparent Distress Eye Exam: Bilateral Eye: EOMI, PERRL Head: Atraumatic, Normocephalic Neck: Tender Midline Respiratory/Chest: No Respiratory Distress, Lungs Clear, Normal Breath Sounds Cardiovascular: Normal Peripheral Pulses, Regular Rate, Rhythm Peripheral Pulses: 2+: Radial (L), Radial (R) GI/Abdominal: Normal Bowel Sounds, Soft, Non-Tender Extremities: Normal Inspection, Normal Range of Motion, Non-Tender Neurological: Alert, Oriented, CN II-XII Intact, Normal Cognition ED TRAUMA PROCEDURES - Laceration/Wound Repair Head Lac/Wound Length In cm: 3 Appearance: Superficial Skin Prep: Chlorhexidine (Hibiciens) Closed With: [place] # of Sutures: 3 Sterile Dressing Applied: Nurse Tetanus Status Addressed: Yes #1 Interpretation EKG Date: 07/14/21 Time: 10:22 Rhythm: NSR Rate (Beats/Min): 66 ST-T: Normal Course - Vital Signs Last Recorded V/S: Last Vital Signs Temp 98.7 F 07/14/21 10:25 Pulse 60 07/14/21 10:25 Resp 18 07/14/21 10:25 BP 160/80 H 07/14/21 10:25 Pulse Ox 98 07/14/21 10:25 - Orders/Labs/Meds Orders: Active Orders 24 hr Category Date Time Status EKG Documentation Completion [RC] STAT Care 07/14/21 11:16 Active Vaccine to be Administered/Admin Charge [RC] ASDIRECTED Care 07/14/21 11:53 Active Labs: Laboratory Tests 07/14/21 07/14/21 Range/Units 10:26 10:26 WBC 8.20 (4.0-11.0) K/uL RBC 4.23 L (4.50-5.90) M/uL Hgb 11.5 L (13.0-17.0) g/dL Hct 35.4 L (38.0-50.0) % MCV 83.7 (80.0-98.0) fL MCH 27.2 (27.0-32.0) pg MCHC 32.5 (31.0-37.0) g/dL RDW Std Deviation 46.9 (28.0-62.0) fl RDW Coeff of Qasim 15 (11.0-15.0) % Plt Count 236 (150-400) K/uL MPV 9.90 (7.40-12.00) fL Neut % (Auto) 71.5 (48.0-80.0) % Lymph % (Auto) 17.4 (16.0-40.0) % Millard % (Auto) 9.0 (0.0-15.0) % Eos % (Auto) 1.7 (0.0-7.0) % Baso % (Auto) 0.4 (0.0-1.5) % Neut # (Auto) 5.9 H (1.4-5.7) K/uL Lymph # (Auto) 1.4 (0.6-2.4) K/uL Millard # (Auto) 0.7 (0.0-0.8) K/uL Eos # (Auto) 0.1 (0.0-0.7) K/uL Baso # (Auto) 0.0 (0.0-0.1) K/uL Nucleated RBC % 0.0 /100WBC Nucleated RBCs # 0 K/uL Sodium 141 (136-148) mmol/L Potassium 4.1 (3.5-5.1) mmol/L Chloride 104 (98-107) mmol/L Carbon Dioxide 26.4 (21.0-32.0) mmol/L BUN 20 H (7.0-18.0) mg/dL Creatinine 0.9 (0.8-1.3) mg/dL Est Cr Clr Drug Dosing 86.74 mL/min Estimated GFR (MDRD) > 60.0 ml/min Glucose 126 H (74-106) mg/dL Calcium 8.5 (8.5-10.1) mg/dL Total Bilirubin 0.4 (0.2-1.0) mg/dL AST 30 (15-37) IU/L ALT 42 (14-63) IU/L Alkaline Phosphatase 113 (46-116) U/L Troponin I < 0.050 (0.000-0.056) ng/mL Total Protein 6.9 (6.4-8.2) g/dL Albumin 3.5 (3.4-5.0) g/dL Globulin 3.4 (2.6-4.0) g/dL Albumin/Globulin Ratio 1.0 (0.9-1.6) Ethyl Alcohol < 3.0 mg/dL Meds: Medications Discontinued Medications Generic Name Dose Route Start Last Admin Trade Name Freq PRN Reason Stop Dose Admin Acetaminophen 650 mg 07/14/21 12:33 07/14/21 12:38 Acetaminophen 325 Mg Tab PO 07/14/21 12:34 650 mg NOW ONE Administration Diphtheria/Tetanus/Acell Pertussis 0.5 ml 07/14/21 11:44 07/14/21 11:52 Diphtheria,Pertussis(Acell),Tetanus Vaccine 0.5 Ml Syringe IM 07/14/21 11:45 Not Given .ONCE ONE Diphtheria/Tetanus/Acell Pertussis 0.5 ml 07/14/21 11:53 07/14/21 11:59 Diphtheria,Pertussis(Acell),Tetanus Vaccine 0.5 Ml Syringe IM 07/14/21 11:54 0.5 ml .ONCE ONE Administration - Re-Assessments/Exams Free Text/Narrative Re-Assessment/Exam: 07/14/21 12:[address] head C-spine labs EKG reviewed. After speaking patient patient is leg may buckle when he fell back and hit his head causing LOC. Does not seem to be a sign of any syncope. Patient will be discharged follow-up with his primary care physician. Departure - Departure Time of Disposition: 12:59 Disposition: Home, Self-Care 01 Condition: Good Clinical Impression: Head injury - Discharge Information *PRESCRIPTION DRUG MONITORING PROGRAM REVIEWED*: Not Applicable *COPY OF PRESCRIPTION DRUG MONITORING REPORT IN PATIENT DAVID: Not Applicable Instructions: Head Injury, Adult, [id number] Forms: ED Department Discharge Additional Instructions: The following information is given to patients seen in the emergency department who are being discharged to home. This information is to outline your options for follow-up care. We provide all patients seen in our emergency department with a follow-up referral. The need for follow-up, as well as the timing and circumstances, are variable depending upon the specifics of your emergency department visit. If you don't have a primary care physician on staff, we will provide you with a referral. We always advise you to contact your personal physician following an emergency department visit to inform them of the circumstance of the visit and for follow-up with them and/or the need for any referrals to a consulting specialist. The emergency department will also refer you to a specialist when appropriate. This referral assures that you have the opportunity for follow-up care with a specialist. All of these measure are taken in an effort to provide you with optimal care, which includes your follow-up. Under all circumstances we always encourage you to contact your private physician who remains a resource for coordinating your care. When calling for follow-up care, please make the office aware that this follow-up is from your recent emergency room visit. If for any reason you are refused follow-up, please contact the [facility] Emergency Department at and asked to speak to the emergency department charge nurse. Please follow up with your primary care physician. If you do not have a primary care physician, see below: [facility] [address] [place] [id number] [facility] [address] [place] [address] You are seen today after hitting your head. It seems you may have lost her balance and your right leg buckled and he fell back and hit her head cause you to pass out. We did a CT scan of your head did not show any bleeds we also did a CT of your spine x-rays of your chest and EKG of your heart which was within normal limits. We recommend you follow-up with your primary care physician. We also placed josh to the back of her head that need to be removed in the next 7 to 10 days. Follow-up to primary care physician for this. If you have any other concerning signs or symptoms please return to the ED. Sepsis Event Note (ED) - Focused Exam Vital Signs: Vital Signs Temp Pulse Resp BP Pulse Ox 07/14/21 10:25 98.7 F 60 18 160/80 H 98 - My Orders Last 24 Hours: My Active Orders 07/14/21 11:16 EKG Documentation Completion [RC] STAT 07/14/21 11:53 Vaccine to be Administered/Admin Charge [RC] ASDIRECTED - Assessment/Plan Last 24 Hours: My Active Orders 07/14/21 11:16 EKG Documentation Completion [RC] STAT 07/14/21 11:53 Vaccine to be Administered/Admin Charge [RC] ASDIRECTED Plan: Patient is a 65-year-old male who presents today after fall on blood thinners. Patient on exam we will has some cervical spine tenderness. We will obtain CT head C-spine labs and reassess.
[2021-07-14 10:47] VITALS: BP 160/80; PULSE 60
[2021-07-14 11:17] LABS: BLOOD UREA NITROGEN,BUN 20 mg/dL (7.0-18.0); CARBON DIOXIDE,CO2 26.4 mmol/L (21.0-32.0); CHLORIDE,CL 104 mmol/L (98-107); GLUCOSE RANDOM 126 mg/dL (74-106); POTASSIUM,K 4.1 mmol/L (3.5-5.1); SODIUM,NA 141 mmol/L (136-148)
--- NOTE | 2021-07-14 11:34 | CT ---
INDICATION: Trauma, fall. TECHNIQUE: Head CT without contrast. COMPARISON: None. FINDINGS: CSF spaces: Within normal limits for age. Brain parenchyma and extra-axial spaces: There are nonspecific low attenuation white matter changes consistent with chronic microvascular disease. No sign of mass, hemorrhage, or midline shift. Skull base and calvarium: The visualized paranasal sinuses and mastoid air cells demonstrate no acute or significant findings. The visualized orbits are grossly unremarkable. No skull fractures. IMPRESSION: No acute or significant findings. Please note that all CT scans at this facility use dose modulation, iterative reconstruction, and/or weight-based dosing when appropriate to reduce radiation dose to as low as reasonably achievable. Dictated by Jan Flores MD @ 07/14/2021 11:32:19 AM (Electronically Signed)
--- NOTE | 2021-07-14 11:39 | CT ---
INDICATION: Trauma, fall. TECHNIQUE: CT cervical spine without contrast. COMPARISON: None. FINDINGS: Vertebrae: Alignment is normal. There are no fractures or suspicious bony lesions. Discs and facet joints: No significant degenerative changes. Extraspinal findings: Prevertebral soft tissues, visualized airway, and visualized lungs are unremarkable. IMPRESSION: No sign of acute injury in the cervical spine. Please note that all CT scans at this facility use dose modulation, iterative reconstruction, and/or weight-based dosing when appropriate to reduce radiation dose to as low as reasonably achievable. Dictated by Jan Flores MD @ 07/14/2021 11:36:35 AM (Electronically Signed)
[2021-07-14] MEDS ORDERED: Diphtheria,Pertussis(Acell),Tetanus Vaccine 0.5 ML Syringe IM ONE ×2 (11:44→11:53)
[2021-07-14] MEDS ORDERED: Acetaminophen 325 MG Tab PO ONE (12:33)
--- NOTE | 2021-07-14 12:45 | CR ---
INDICATION: Fall from standing TECHNIQUE: Chest 1 view. COMPARISON: 07/17/20 FINDINGS: Cardiovascular and mediastinum: Heart size and vasculature are normal in caliber and appearance. Mediastinum is within normal limits. Lungs and pleural space: Lungs are clear. No sign of infiltrate or mass. No sign of pleural effusion. No pneumothorax. Bones and soft tissues: No significant findings. IMPRESSION: Unremarkable chest. Dictated by: Sean Iyer MD @ 07/14/2021 12:44:51 (Electronically Signed)
== END 2021-07-14 13:12 | disposition home or self-care (01) ==
LOC: MW.ED 10:24
DX: S06.9X9A Unspecified intracranial injury with loss of consciousness of unspecified duration, initial encounter (principal); S01.81XA Laceration without foreign body of other part of head, initial encounter; I10 Essential (primary) hypertension; E66.9 Obesity, unspecified; Z68.41 Body mass index [BMI] 40.0-44.9, adult; Z79.01 Long term (current) use of anticoagulants; Z79.899 Other long term (current) drug therapy; Z23 Encounter for immunization; W18.09XA Striking against other object with subsequent fall, initial encounter
CPT/HCPCS: 12002; 70450; 71045; 72125; 80053; 80307; 84484; 85025; 90471; 90715; 99285; A9270

== ENCOUNTER 2022-03-28 18:45 | Emergency (ER) | payer SELFPAY ==
[2022-03-28] MEDS ORDERED: Sodium Chloride 0.9% 10 ML Syringe FLUSH PRN (19:34)
[2022-03-28] MEDS ORDERED: Sodium Chloride 0.9% 2.5 ML Syringe FLUSH PRN (19:34)
[2022-03-28 20:14] LABS: BLOOD UREA NITROGEN,BUN 16 mg/dL (7.0-18.0); CARBON DIOXIDE,CO2 30.2 mmol/L (21.0-32.0); CHLORIDE,CL 102 mmol/L (98-107); GLUCOSE RANDOM 152 mg/dL (74-106); POTASSIUM,K 3.6 mmol/L (3.5-5.1); SODIUM,NA 139 mmol/L (136-148)
[2022-03-28] MEDS ORDERED: Iopamidol 755 MG/ML 500 ML Multipack Bottle IVPUSH ONE (20:50)
[2022-03-28] MEDS ORDERED: Furosemide 40 MG/4 ML VIAL IVPUSH ONE (21:54)
[2022-03-28 23:29] VITALS: BP 131/67; PULSE 68
== END 2022-03-28 23:29 | disposition home or self-care (01) ==
LOC: MW.ED 18:45
DX: R09.02 Hypoxemia (principal); R00.0 Tachycardia, unspecified; I11.0 Hypertensive heart disease with heart failure; I50.9 Heart failure, unspecified; J44.9 Chronic obstructive pulmonary disease, unspecified; I48.91 Unspecified atrial fibrillation; E66.9 Obesity, unspecified; Z68.30 Body mass index [BMI] 30.0-30.9, adult; Z79.01 Long term (current) use of anticoagulants; Z79.899 Other long term (current) drug therapy; Z20.822 Contact with and (suspected) exposure to COVID-19
CPT/HCPCS: 36415; 71045; 71275; 80053; 80307; 83605; 83735; 83880; 84443; 84484; 85025; 85379; 85610; 85730; 87635; 93005; 99285; J3490; Q9967; 93010; 99284; U0002

== ENCOUNTER 2022-03-30 17:28 | Observation (INO) | payer SELFPAY ==
[2022-03-30] MEDS ORDERED: Sodium Chloride 0.9% 2.5 ML Syringe FLUSH PRN (17:43)
[2022-03-30] MEDS ORDERED: Sodium Chloride 0.9% 10 ML Syringe FLUSH PRN (17:43)
[2022-03-30] MEDS ORDERED: Albuterol/Ipratropium 3.0-0.5 MG/3 ML Neb Soln NEB ONE ×2 (17:46→18:44)
[2022-03-30] MEDS ORDERED: methylPREDNISolone Sodium Succinate 125 MG/2 ML SDV IVPUSH ONE (17:46)
[2022-03-30 18:16] LABS: CHLORIDE,CL 101 mmol/L (98-107); SODIUM,NA 139 mmol/L (136-148)
[2022-03-30 18:23] LABS: BLOOD UREA NITROGEN,BUN 16 mg/dL (7.0-18.0); CARBON DIOXIDE,CO2 32.2 mmol/L (21.0-32.0); GLUCOSE RANDOM 142 mg/dL (74-106)
[2022-03-30 18:35] LABS: CORONAVIRUS COVID-19 NAA NEGATIVE (NEGATIVE); INFLUENZA A NAA NEGATIVE (NEGATIVE); INFLUENZA B NAA NEGATIVE (NEGATIVE)
[2022-03-30] MEDS ORDERED: Azithromycin 500 MG Vial IV SCH (23:45)
[2022-03-31] MEDS: Azithromycin 500 MG in Sodium Chloride 0.9% 250 ML IV SCH ×2 (00:12→23:08)
[2022-03-31] MEDS: Gabapentin 300 MG Cap PO SCH ×3 (06:12→21:29)
[2022-03-31 07:42] LABS: BLOOD UREA NITROGEN,BUN 14 mg/dL (7.0-18.0); CARBON DIOXIDE,CO2 27.2 mmol/L (21.0-32.0); CHLORIDE,CL 102 mmol/L (98-107); GLUCOSE RANDOM 143 mg/dL (74-106); SODIUM,NA 141 mmol/L (136-148)
[2022-03-31] MEDS: Metoprolol Succinate 25 MG Tab.ER PO SCH (08:30)
[2022-03-31] MEDS: Losartan 50 MG Tab PO SCH (08:31)
[2022-03-31] MEDS: Apixaban 5 MG Tab PO SCH ×2 (08:31→21:29)
[2022-03-31] MEDS ORDERED: Hydrochlorothiazide 12.5 MG Cap PO SCH (09:00)
[2022-03-31] MEDS ORDERED: methylPREDNISolone Sodium Succinate 40 MG/1 ML SDV IVPUSH SCH (09:00)
[2022-03-31] MEDS: traMADol 50 MG Tab PO PRN (13:32)
[2022-04-01] MEDS: Gabapentin 300 MG Cap PO SCH ×2 (05:33→13:19)
[2022-04-01 07:14] LABS: BLOOD UREA NITROGEN,BUN 19 mg/dL (7.0-18.0); CARBON DIOXIDE,CO2 31.6 mmol/L (21.0-32.0); CHLORIDE,CL 103 mmol/L (98-107); GLUCOSE RANDOM 109 mg/dL (74-106); POTASSIUM,K 3.7 mmol/L (3.5-5.1); SODIUM,NA 139 mmol/L (136-148)
[2022-04-01] MEDS: Losartan 50 MG Tab PO SCH (08:27)
[2022-04-01] MEDS: Apixaban 5 MG Tab PO SCH (08:28)
[2022-04-01] MEDS: Metoprolol Succinate 25 MG Tab.ER PO SCH (08:28)
[2022-04-01 08:35] VITALS: BP 147/79; PULSE 85
[2022-04-01] MEDS: Albuterol/Ipratropium 3.0-0.5 MG/3 ML Neb Soln NEB PRN ×2 (08:41→13:31)
[2022-04-01] MEDS ORDERED: methylPREDNISolone Sodium Succinate 40 MG/1 ML SDV IVPUSH SCH (09:00)
[2022-04-01] MEDS ORDERED: Fluticasone/Salmeterol 250-50 MCG Inhalation Powder 14/Diskus INH SCH (10:30)
[2022-04-01] MEDS: traMADol 50 MG Tab PO PRN (10:49)
== END 2022-04-01 14:20 | disposition home or self-care (01) ==
LOC: MW.ED 17:28 → MW.MS 18:42
PROVIDERS: ADMIT Internal Medicine; ATTEND Internal Medicine
DX: J96.01 Acute respiratory failure with hypoxia (principal); J44.9 Chronic obstructive pulmonary disease, unspecified; I11.0 Hypertensive heart disease with heart failure; I50.9 Heart failure, unspecified; I48.91 Unspecified atrial fibrillation; I48.92 Unspecified atrial flutter; E66.9 Obesity, unspecified; Z68.30 Body mass index [BMI] 30.0-30.9, adult; Z20.822 Contact with and (suspected) exposure to COVID-19; Z79.51 Long term (current) use of inhaled steroids; Z79.01 Long term (current) use of anticoagulants; Z79.899 Other long term (current) drug therapy
CPT/HCPCS: 0240U; 36415; 71045; 80048; 80053; 83605; 83735; 83880; 84484; 85025; 93005; 94640; 96365; 96366; 96375; 96376; 99285; A9270; G0378; J0456; J2920; J2930; J3490; J7050; 93010; 96374; 99284; J7620-GY

== ENCOUNTER 2022-05-18 15:04 | Emergency (ER) | payer SELFPAY ==
[2022-05-18] MEDS ORDERED: Acetaminophen/HYDROcodone 325-5 MG Tab PO ONE (15:23)
[2022-05-18 17:22] VITALS: BP 147/91; PULSE 85
== END 2022-05-18 17:25 | disposition home or self-care (01) ==
LOC: MW.ED 15:04
DX: S42.294A Other nondisplaced fracture of upper end of right humerus, initial encounter for closed fracture (principal); J44.9 Chronic obstructive pulmonary disease, unspecified; I10 Essential (primary) hypertension; E66.9 Obesity, unspecified; Z68.30 Body mass index [BMI] 30.0-30.9, adult; Z79.899 Other long term (current) drug therapy; Z79.01 Long term (current) use of anticoagulants; Z86.16 Personal history of COVID-19; Z90.49 Acquired absence of other specified parts of digestive tract; W01.0XXA Fall on same level from slipping, tripping and stumbling without subsequent striking against object, initial encounter
CPT/HCPCS: 29105; 73030; 73080; 99283; A9270

== ENCOUNTER 2022-12-04 12:21 | Inpatient (IN) | payer BC, MEDICARE ==
[2022-12-04] MEDS ORDERED: Nitroglycerin 0.4 MG Tab.SL ONE (12:29)
[2022-12-04] MEDS ORDERED: Albuterol/Ipratropium 3.0-0.5 MG/3 ML Neb Soln ONE ×2 (12:29→12:39)
[2022-12-04] MEDS ORDERED: Nitroglycerin 0.4 MG Tab.SL SL ONE (12:43)
[2022-12-04] MEDS ORDERED: Furosemide 40 MG/4 ML VIAL IVPUSH ONE (12:43)
[2022-12-04] MEDS ORDERED: methylPREDNISolone Sodium Succinate 125 MG/2 ML SDV IVPUSH ONE (12:44)
[2022-12-04] MEDS ORDERED: Albuterol/Ipratropium 3.0-0.5 MG/3 ML Neb Soln NEB STA (12:55)
[2022-12-04] MEDS: Aspirin 81 MG Tab.Chew PO SCH (12:58)
[2022-12-04 13:34] LABS: CARBON DIOXIDE,CO2 31.5 mmol/L (21.0-32.0); POTASSIUM,K 3.7 mmol/L (3.5-5.1)
[2022-12-04 14:26] LABS: CORONAVIRUS COVID-19 NAA NEGATIVE (NEGATIVE); INFLUENZA A NAA NEGATIVE (NEGATIVE); INFLUENZA B NAA NEGATIVE (NEGATIVE); RESPIRATORY SYNCYTIAL VIR NAA NEGATIVE (NEGATIVE)
[2022-12-04] MEDS ORDERED: Acetaminophen 325 MG Tab PO PRN (16:45)
[2022-12-04] MEDS ORDERED: Ondansetron 4 MG/2 ML SDV IVPUSH PRN (16:45)
[2022-12-04] MEDS: Albuterol/Ipratropium 3.0-0.5 MG/3 ML Neb Soln NEB SCH ×2 (17:58→23:17)
[2022-12-04] MEDS: Levofloxacin 750 MG Tab PO SCH (18:02)
[2022-12-04] MEDS: Acetaminophen/Codeine 300-30 MG Tab PO PRN (18:35)
[2022-12-04] MEDS ORDERED: Apixaban 2.5 MG Tab ONE (20:19)
[2022-12-04] MEDS: Metoprolol Succinate 50 MG Tab.ER PO SCH ×3 (20:34→22:26)
[2022-12-04] MEDS: Apixaban 2.5 MG Tab PO SCH (20:58)
[2022-12-04] MEDS ORDERED: Apixaban 5 MG Tab PO SCH (21:00)
[2022-12-05] MEDS: Acetaminophen/Codeine 300-30 MG Tab PO PRN ×4 (04:54→20:32)
[2022-12-05] MEDS: Albuterol/Ipratropium 3.0-0.5 MG/3 ML Neb Soln NEB SCH ×4 (05:00→23:02)
[2022-12-05 06:43] LABS: CARBON DIOXIDE,CO2 31.4 mmol/L (21.0-32.0); POTASSIUM,K 4.3 mmol/L (3.5-5.1)
[2022-12-05] MEDS: Furosemide 40 MG/4 ML VIAL IVPUSH SCH ×2 (08:07→13:29)
[2022-12-05] MEDS: Amiodarone 200 MG Tab PO SCH (08:07)
[2022-12-05] MEDS: Metoprolol Succinate 50 MG Tab.ER PO SCH ×2 (08:08→20:30)
[2022-12-05] MEDS: Apixaban 2.5 MG Tab PO SCH ×2 (08:08→20:32)
[2022-12-05] MEDS: Aspirin 81 MG Tab.Chew PO SCH (08:08)
[2022-12-05] MEDS ORDERED: VANCOmycin 2 GM/400 ML 2 GM in Premix Bag 1 BAG IV ONE (08:15)
[2022-12-05] MEDS ORDERED: Metoprolol Succinate 50 MG Tab.ER PO SCH (09:00)
[2022-12-05] MEDS: methylPREDNISolone Sodium Succinate 40 MG/1 ML SDV IVPUSH SCH (13:29)
[2022-12-05] MEDS: Levofloxacin 750 MG Tab PO SCH (17:19)
[2022-12-05] MEDS: Sodium Chloride 0.65% Nasal Spray 45 ML Bottle NAS PRN (22:56)
[2022-12-05] MEDS: VANCOmycin 1.5 GM/300 ML 1.5 GM in Premix Bag 1 BAG IV SCH (22:57)
[2022-12-06] MEDS: methylPREDNISolone Sodium Succinate 40 MG/1 ML SDV IVPUSH SCH ×2 (00:39→13:21)
[2022-12-06 06:40] LABS: CARBON DIOXIDE,CO2 31.7 mmol/L (21.0-32.0); POTASSIUM,K 4.3 mmol/L (3.5-5.1)
[2022-12-06] MEDS: Albuterol/Ipratropium 3.0-0.5 MG/3 ML Neb Soln NEB SCH ×3 (07:28→17:48)
[2022-12-06] MEDS: Acetaminophen/Codeine 300-30 MG Tab PO PRN ×4 (07:36→22:24)
[2022-12-06] MEDS: Furosemide 40 MG/4 ML VIAL IVPUSH SCH ×2 (08:05→13:21)
[2022-12-06] MEDS: Amiodarone 200 MG Tab PO SCH (08:06)
[2022-12-06] MEDS: Apixaban 2.5 MG Tab PO SCH ×2 (08:06→21:34)
[2022-12-06] MEDS: Metoprolol Succinate 50 MG Tab.ER PO SCH ×2 (08:06→21:33)
[2022-12-06] MEDS: Aspirin 81 MG Tab.Chew PO SCH (08:06)
[2022-12-06] MEDS: Sodium Chloride 0.65% Nasal Spray 45 ML Bottle NAS PRN ×2 (13:26→22:26)
[2022-12-06] MEDS: Levofloxacin 750 MG Tab PO SCH (16:57)
[2022-12-06] MEDS: VANCOmycin 1.5 GM/300 ML 1.5 GM in Premix Bag 1 BAG IV SCH (16:57)
[2022-12-06] MEDS ORDERED: VANCOmycin 1.25 GM/250 ML 1.25 GM in Premix Bag 1 BAG IV SCH (17:00)
[2022-12-07] MEDS: Albuterol/Ipratropium 3.0-0.5 MG/3 ML Neb Soln NEB SCH ×4 (00:50→17:34)
[2022-12-07] MEDS: methylPREDNISolone Sodium Succinate 40 MG/1 ML SDV IVPUSH SCH (00:50)
[2022-12-07 06:50] LABS: CARBON DIOXIDE,CO2 29.3 mmol/L (21.0-32.0); POTASSIUM,K 3.9 mmol/L (3.5-5.1)
[2022-12-07] MEDS: Furosemide 40 MG/4 ML VIAL IVPUSH SCH (07:42)
[2022-12-07] MEDS: Aspirin 81 MG Tab.Chew PO SCH (08:22)
[2022-12-07] MEDS: Amiodarone 200 MG Tab PO SCH (08:22)
[2022-12-07] MEDS: Metoprolol Succinate 50 MG Tab.ER PO SCH (08:22)
[2022-12-07] MEDS: Apixaban 2.5 MG Tab PO SCH (08:22)
[2022-12-07] MEDS ORDERED: Aspirin 81 MG Tab.Chew ONE (08:29)
[2022-12-07] MEDS ORDERED: cefTRIAXone 1 GM in Sodium Chloride 0.9% 50 ML IV SCH (09:30)
[2022-12-07] MEDS ORDERED: Pantoprazole 40 MG Tab.CR PO SCH (10:15)
[2022-12-07] MEDS ORDERED: predniSONE 10 MG Tab PO SCH (10:30)
[2022-12-07] MEDS: VANCOmycin 1.5 GM/300 ML 1.5 GM in Premix Bag 1 BAG IV SCH (10:34)
[2022-12-07 15:51] VITALS: BP 128/60; PULSE 60
[2022-12-07] MEDS ORDERED: Furosemide 80 MG Tab PO SCH (21:00)
== END 2022-12-07 18:05 | disposition home or self-care (01) | DRG 133 ==
LOC: MW.ED 12:21 → MW.ICU 16:12 → MW.MS 12-05 10:09
PROVIDERS: ADMIT Internal Medicine; ATTEND Internal Medicine
PROC: 5A09457 Assistance with Respiratory Ventilation, 24-96 Consecutive Hours, Continuous Positive Airway Pressure (ICD-10-PCS; principal; 2022-12-04)
DX: J96.21 Acute and chronic respiratory failure with hypoxia (principal); R78.81 Bacteremia; Z68.41 Body mass index [BMI] 40.0-44.9, adult; I48.91 Unspecified atrial fibrillation; I11.0 Hypertensive heart disease with heart failure; I50.9 Heart failure, unspecified; G47.33 Obstructive sleep apnea (adult) (pediatric); Z20.822 Contact with and (suspected) exposure to COVID-19; K59.09 Other constipation; Z96.651 Presence of right artificial knee joint; J44.1 Chronic obstructive pulmonary disease with (acute) exacerbation; E66.9 Obesity, unspecified; Z79.899 Other long term (current) drug therapy; Z79.52 Long term (current) use of systemic steroids; Z79.01 Long term (current) use of anticoagulants; Z79.1 Long term (current) use of non-steroidal anti-inflammatories (NSAID); Z88.8 Allergy status to other drugs, medicaments and biological substances; Z86.16 Personal history of COVID-19; Z90.89 Acquired absence of other organs; Z98.890 Other specified postprocedural states; Z90.49 Acquired absence of other specified parts of digestive tract
CPT/HCPCS: 0241U; 36415; 36600; 71045; 71045-26; 80053; 80202; 80305-QW; 81003; 82803; 83605; 83690; 83735; 83880; 84484; 85025; 85610; 87040; 87077; 87186; 93005; 93010; 93306; 94640; 96374; 96375; 99222; 99232; 99238; 99291; A9270-GY; J0696; J1940; J2920; J2930; J3370; J7050; J7620-GY

== ENCOUNTER 2023-08-04 06:18 | Emergency (ER) | payer MEDICARE ==
[2023-08-04] MEDS ORDERED: Morphine 4 MG/ML Syringe IVPUSH ONE (06:28)
[2023-08-04] MEDS ORDERED: Sodium Chloride 0.9% 10 ML Syringe FLUSH PRN (06:28)
[2023-08-04] MEDS ORDERED: Ondansetron 4 MG/2 ML SDV IVPUSH ONE (06:28)
[2023-08-04] MEDS: Sodium Chloride 0.9% 2.5 ML Syringe FLUSH PRN ×3 (06:38→06:57)
[2023-08-04 06:42] LABS: BASOPHILS ABSOLUTE AUTO 0.03 K/uL (0.00-0.20); BASOPHILS PERCENT AUTO 0.3 % (0.0-1.0); EOSINOPHILS ABSOLUTE AUTO 0.09 K/uL (0.00-0.45); EOSINOPHILS PERCENT AUTO 0.9 % (0.0-6.0); HEMATOCRIT 38.9 % (42.0-52.0); HEMOGLOBIN 12.8 g/dL (14.0-18.0); IMMATURE GRAN ABSOLUTE AUTO 0.04 K/uL (0.00-0.05); IMMATURE GRAN PERCENT AUTO 0.4 % (0.0-0.4); LYMPHOCYTES ABSOLUTE AUTO 1.05 K/uL (1.00-4.80); LYMPHOCYTES PERCENT AUTO 9.9 % (24.0-44.0); MEAN CORPUSCULAR HEMOGLOBIN 29.2 pg (28.0-32.0); MEAN CORPUSCULAR HGB CONC 32.9 g/dL (32.0-36.0); MEAN CORPUSCULAR VOLUME 88.6 fL (83.0-99.0); MEAN PLATELET VOLUME 10.1 fL (9.4-12.4); MONOCYTES ABSOLUTE AUTO 0.98 K/uL (0.00-0.80); MONOCYTES PERCENT AUTO 9.3 % (0.0-8.0); NEUTROPHILS ABSOLUTE AUTO 8.4 K/uL (1.8-7.7); NEUTROPHILS PERCENT AUTO 79.2 % (41.0-71.0); PLATELET COUNT,PLT 331 K/uL (150-400); RED BLOOD CELL COUNT 4.39 M/uL (4.52-5.90); WHITE BLOOD CELL COUNT,WBC 10.57 K/uL (3.9-11.3)
[2023-08-04 06:53] LABS: INR 1.08 (0.86-1.11)
[2023-08-04 07:07] LABS: A/G RATIO 0.7 (0.9-1.6); ALBUMIN 3.2 g/dL (3.4-5.0); BILIRUBIN TOTAL 0.5 mg/dL (0.2-1.0); C-REACTIVE PROTEIN 5.27 mg/dL (<0.3); CALCIUM 8.9 mg/dL (8.5-10.1); CARBON DIOXIDE,CO2 26.5 mmol/L (21.0-32.0); CREATININE 0.9 mg/dL (0.8-1.3); EST CRCL DRUG DOSING (CG) 84.49 mL/min; POTASSIUM,K 3.8 mmol/L (3.5-5.1); PROTEIN TOTAL,TP 7.5 g/dL (6.4-8.2)
[2023-08-04] MEDS ORDERED: HYDROmorphone 1 MG/ML Syringe IVPUSH ONE ×2 (07:29→10:30)
[2023-08-04] MEDS ORDERED: Gadobenate Dimeglumine 529 MG/ML 20 ML SDV IVPUSH STA (08:18)
[2023-08-04 09:09] LABS: APPEARANCE,URINE CLEAR; BILIRUBIN,URINE NEGATIVE (NEGATIVE); COLOR,URINE YELLOW; GLUCOSE,URINE NEGATIVE (NEGATIVE); KETONES,URINE NEGATIVE (NEGATIVE); LEUKOCYTE ESTERASE,URINE NEGATIVE (NEGATIVE); NITRITE,URINE NEGATIVE (NEGATIVE); OCCULT BLOOD,URINE NEGATIVE (NEGATIVE); PROTEIN,URINE NEGATIVE (NEGATIVE); UROBILINOGEN,URINE 0.2 EU/dL (<2.0)
[2023-08-04] MEDS ORDERED: Dexamethasone 10 MG/ML SDV IVPUSH ONE (09:19)
[2023-08-04] MEDS ORDERED: HYDROmorphone 2 MG/ML Syringe IVPUSH ONE (11:54)
[2023-08-04 13:28] VITALS: BP 115/52; PULSE 63
== END 2023-08-04 13:28 | disposition home or self-care (01) ==
LOC: MW.ED 06:18
DX: G89.18 Other acute postprocedural pain (principal); M54.9 Dorsalgia, unspecified; I10 Essential (primary) hypertension; J44.9 Chronic obstructive pulmonary disease, unspecified; E66.9 Obesity, unspecified; Z68.30 Body mass index [BMI] 30.0-30.9, adult; Z86.16 Personal history of COVID-19; Z79.899 Other long term (current) drug therapy; Z88.5 Allergy status to narcotic agent
CPT/HCPCS: 36415; 51798; 72131; 72158; 80053; 81003; 83690; 83735; 84484; 85025; 85610; 85652; 86140; 93005; 96374; 96375; 96376; 99284; A9577; J1100; J1170; J2270; J2405; J3490; 93010

== ENCOUNTER 2023-08-06 06:07 | Emergency (ER) | payer MEDICARE ==
[2023-08-06] MEDS ORDERED: HYDROmorphone 1 MG/ML Syringe IM ONE ×2 (07:08→09:46)
[2023-08-06 10:33] VITALS: BP 124/49; PULSE 57
== END 2023-08-06 10:04 | disposition home or self-care (01) ==
LOC: MW.ED 06:07
DX: M54.50 Low back pain, unspecified (principal); J44.9 Chronic obstructive pulmonary disease, unspecified; I11.0 Hypertensive heart disease with heart failure; I48.91 Unspecified atrial fibrillation; E66.9 Obesity, unspecified; Z88.5 Allergy status to narcotic agent; Z79.899 Other long term (current) drug therapy; Z68.41 Body mass index [BMI] 40.0-44.9, adult
CPT/HCPCS: 72128; 72131; 96372; 99284; J1170; 99283

== ENCOUNTER 2023-09-14 08:47 | Emergency (ER) | payer MEDICARE ==
[2023-09-14 09:04] VITALS: BP 150/63; PULSE 69
[2023-09-14] MEDS: HYDROmorphone 1 MG/ML Syringe IM ONE ×2 (09:07→09:10)
[2023-09-14] MEDS ORDERED: HYDROmorphone 2 MG/ML Syringe IM ONE (09:15)
== END 2023-09-14 09:21 | disposition home or self-care (01) ==
LOC: MW.ED 08:47
DX: M54.50 Low back pain, unspecified (principal); I11.0 Hypertensive heart disease with heart failure; I50.9 Heart failure, unspecified; E78.00 Pure hypercholesterolemia, unspecified; I48.91 Unspecified atrial fibrillation; J44.9 Chronic obstructive pulmonary disease, unspecified; E66.9 Obesity, unspecified; Z86.16 Personal history of COVID-19; Z90.49 Acquired absence of other specified parts of digestive tract; Z79.899 Other long term (current) drug therapy; Z88.5 Allergy status to narcotic agent; Z88.6 Allergy status to analgesic agent
CPT/HCPCS: 99283; J1170